=== PATIENT | female | born 1955 | race Caucasian/White ===

== ENCOUNTER 2017-02-15 21:53 | Inpatient (IN) | payer MEDICARE, MEDICAID ==
[2017-02-15 23:02] LABS: #Eosinphils 0.1 thou/uL (0.0-0.7); #Lymphocytes 1.9 thou/uL (1.20-3.40); #Monocytes 0.7 thou/uL (0.11-0.59); #Neutrophils 3.4 thou/uL (1.40-6.50); %Basophils 0.3 % (0.0-1.0); Hematocrit 36.8 % (36.0-47.0); Mean Platelet Volume 7.9 fL (7.4-10.4); Red Blood Cell (RBC) Count 3.88 mill/uL (4.20-5.40)
--- NOTE | 2017-02-15 23:10 | RAD ---
CHEST ONE VIEW: History: Cough. Comparison: 10-27-16 FINDINGS: Cardiac silhouette is unremarkable. Pulmonary vasculature is upper limits of normal. Patchy infiltra [place] over each lung base. There is no evidence of pneumothorax. Calcification is apparent wit hin the arterial structures. strap setter leads overlie the chest. IMPRESSION: Patchy bibasilar infiltrates are nonspecific. Clinical correlation regarding other signs and symptom s of bibasilar pneumonitis is required. Please consider continued follow up with upright PA and late ral views of the chest when patient can undergo that exam. POS: [facility]
[2017-02-15 23:38] LABS: Lactic Acid - Sepsis 1.1 mmol/L (0.5-2.2)
[2017-02-15] MEDS ORDERED: Piperacillin/Tazobactam 4.5 GM in Sodium Chloride 0.9% 100 ML IVPB SCH (23:45)
[2017-02-15 23:54] LABS: ALT (SGPT) 9 U/L (8-55); AST (SGOT) 18 U/L (5-34); Alkaline Phosphatase 62 U/L (40-150); Anion Gap 15 mmol/L (10-20); BUN (Urea Nitrogen) 11 mg/dL (9.8-20.1); Bilirubin, Total 0.3 mg/dL (0.2-1.2); Calc. Creatinine Clearance 0 mL/min (70-130); Carbon Dioxide 26 mmol/L (22-29); Chloride 102 mmol/L (98-107); Estimated GFR-MDRD Greater than 90; Globulin 2.8 g/dL (2.4-3.5); Protein, Total 6.4 g/dL (6.0-8.3)
[2017-02-16] MEDS ORDERED: Ondansetron ODT 4 MG TAB SL PRN (03:23)
[2017-02-16] MEDS ORDERED: Ondansetron HCl/PF 4 MG/2 ML Vial IVP PRN (03:23)
[2017-02-16] MEDS: Piperacillin/Tazobactam 4.5 GM in Sodium Chloride 0.9% 100 ML IVPB SCH ×2 (05:36→11:02)
[2017-02-16 06:03] VITALS: BMI 32.3
[2017-02-16] MEDS: guaiFENesin ER 600 MG TAB PO SCH ×2 (09:21→21:06)
[2017-02-16] MEDS ORDERED: Acetaminophen 325 MG TAB PO PRN (09:51)
[2017-02-16] MEDS ORDERED: Hydrocortisone 1% Cream 1.5 GM Packet TOP PRN (09:51)
[2017-02-16] MEDS ORDERED: Mag-Al 1200 mg/1200 mg/30 ML UDCUP PO PRN (09:53)
[2017-02-16] MEDS ORDERED: Loperamide HCl 2 MG CAP PO PRN (09:54)
[2017-02-16] MEDS ORDERED: Simethicone Chewable 80 MG TAB PO PRN (09:54)
[2017-02-16] MEDS ORDERED: DOXYLAMINE PO PRN (09:58)
[2017-02-16] MEDS ORDERED: DEXTROMETHORPHAN PO PRN (09:58)
[2017-02-16] MEDS ORDERED: Vancomycin HCl 1 GM in Premix Bag 1 BAG IVPB SCH (12:00)
[2017-02-16] MEDS: Sodium Chloride 1 GM TAB PO SCH ×2 (14:33→21:06)
[2017-02-16] MEDS: Mometasone/Formoterol 120 PUFF INHALER INH SCH (18:31)
[2017-02-16] MEDS: Sodium Chloride 0.9% 1,000 ML IV SCH (18:39)
[2017-02-16] MEDS: risperiDONE 1 MG TAB PO SCH (21:06)
[2017-02-16] MEDS: Valproate Sodium 250 mg/5 ml UD Cup PO SCH (21:07)
--- NOTE | 2017-02-17 06:12 | HP ---
DATE OF ADMISSION: 02/15/2017 CHIEF COMPLAINT: Cough, shortness of breath and hypoxia. HISTORY OF PRESENT ILLNESS: Ms. Carr is a 62-year-old female with past medical history of schizophrenia, COPD, hyponatremia who was found to be hypoxic at the [facility]. She has been having cough and congestion for some time and getting short of breath, which was getting worse over the last few days. The patient was found to be hypoxic with an O2 saturation of 88% on 4 liters. The patient was also found to have chest wheezing as well at the [facility]. The patient has been coughing, which is productive with yellow sputum, but no fever. She has complaints of some nasal congestion as well. The patient was sent to the hospital because of her hypoxia, worsening shortness of breath and cough. In the ER, the patient was evaluated and found to have COPD exacerbation as well as pneumoni. ER physician thought patient had pneumonia. Patient was given neb treatments, IV fluids, IV antibiotic, Zosyn and vancomycin and admitted for further evaluation and management. It is not clear that the patient received any IV steroids. PAST MEDICAL HISTORY: 1. COPD. 2. Schizophrenia. 3. History of hyponatremia. 4. Major depression. 5. Chronic tobacco abuse. 6. History of Parkinson disease. 7. History of falling. PAST SURGICAL HISTORY: Bladder suspension. CURRENT MEDICATIONS: She is on simethicone 80 mg q.6 hours p.r.n., Imodium p.r.n., benztropine 2 mg b.i.d., valproic acid 20 mL b.i.d., sodium chloride tablets 2000 mg t.i.d., Risperdal 2 mg b.i.d., Maalox p.r.n., lithium carbonate 300 mg b.i.d., fluphenazine 50 mg IM twice a month, Symbicort 160/4.5 two puffs b.i.d., Tylenol p.r.n. ALLERGIES: CODEINE, IODINE, PROCHLORPERAZINE. FAMILY HISTORY: Nothing significant. SOCIAL HISTORY: The patient lives at [facility]. No history of alcohol intake. She smokes one pack a day. REVIEW OF SYSTEMS: Cardiovascular: Has shortness of breath. No chest pain. Respiratory: Has cough productive of yellow sputum. No fever. Gastrointestinal: No nausea or vomiting. No abdominal pain. Genitourinary: No dysuria or hematuria. Central nervous system: No headache, no dizziness. PHYSICAL EXAMINATION: GENERAL: The patient is alert, awake and oriented x3. VITAL SIGNS: Temperature 98, pulse 92, respirations 20, blood pressure 120/70, O2 saturation 95% on 2 liters. HEENT: Head is normocephalic and atraumatic. Pupils are equal and reactive to light. Nasopharynx is pink and moist. NECK: Supple. No JVD. LUNGS: Breath sounds diminished bilaterally. Percussion not dull bilaterally. Expiratory wheeze present bilaterally. HEART: S1 and S2 regular. ABDOMEN: Soft. No distention, no tenderness. Normal bowel sounds present. RECTAL: Deferred. CENTRAL NERVOUS SYSTEM: Patient is alert, awake and oriented x3. Motor system power 4/5 in all extremities. Deep tendon reflexes 2+ bilaterally. Plantars downgoing. Sensory intact. LABORATORY AND X-RAY FINDINGS: CBC shows WBC 6, hemoglobin 12, hematocrit 36 and platelets 203. Metabolic panel shows sodium 138, potassium 4.8, chloride 102, CO2 of 26, urea nitrogen 11, creatinine 0.6, glucose 95. BNP 28. Chest x- ray shows patchy opacities seen at the bases. EKG shows normal sinus rhythm. No acute ST-T wave changes seen. ASSESSMENT: 1. Chronic obstructive pulmonary disease with acute exacerbation. 2. Acute respiratory failure secondary to #1. 3. Possible pneumonitis in both bases. 4. Bipolar disorder. 5. History of hyponatremia. 6. Tobacco abuse. PLAN: 1. Vital signs q.4 hours. 2. Activity: As tolerated. 3. Allergies: CODEINE, IODINE, PROCHLORPERAZINE, SULFA. 4. Solu-Medrol 40 mg IVP q.6 hours, DuoNebs 1 unit q.4 hours, Zosyn 3.375 grams IV piggyback q.6 hours, Mucinex 600 mg b.i.d. 5. Diet: Regular. 6. IV fluids, normal saline 70 mL per hour. 7. Continue [facility] medications. MTDD
[2017-02-17] MEDS: Mometasone/Formoterol 120 PUFF INHALER INH SCH ×2 (06:16→18:43)
[2017-02-17] MEDS: risperiDONE 1 MG TAB PO SCH ×2 (07:54→20:27)
[2017-02-17] MEDS: Valproate Sodium 250 mg/5 ml UD Cup PO SCH ×2 (07:56→20:29)
[2017-02-17] MEDS: guaiFENesin ER 600 MG TAB PO SCH ×2 (07:56→20:27)
[2017-02-17] MEDS: Sodium Chloride 0.9% 1,000 ML IV SCH (08:06)
[2017-02-17] MEDS: Sodium Chloride 1 GM TAB PO SCH ×3 (08:06→20:28)
--- NOTE | 2017-02-17 14:25 | PQF ---
CLINICAL DOCUMENTATION IMPROVEMENT CLARIFICATION FORM: ICD-10 Updated PLEASE DO AN ADDENDUM TO THE PROGRESS NOTE WITH ANY DOCUMENTATION UPDATES OR ADDITIONS AND CARRY THROUGH TO DC SUMMARY. THANK YOU. DATE: 02/17 ATTN: DR. Diego THAKUR Please exercise your independent, professional judgment in responding to the clarification form. Clinical indicators are provided on the bottom of this form for your review Please check appropriate box(s): [ y ] Empirically treating Gram Negative Pneumonia [ ] Pneumonia secondary to (specify organism / underlying disease) [ ] Simple Pneumonia (community acquired - nosocomial) [ ] Bronchopneumonia [ ] Other diagnosis [ ] Unable to determine For continuity of documentation, please document condition throughout progress notes and discharge summary. Thank You. CLINICAL INDICATORS - SIGNS / SYMPTOMS / LABS ER PHYSICIAN DOCUMENTATION 02/15: PT PRESENTS FOR COUGH X1 WEEK PRODUCTIVE OF YELLOW SPUTUM FINAL: PNEUMONIA PHYSICIAN H&P DOCUMENTATION 02/15: ASSESSMENT: 3. POSSIBLE PNEUMONITIS IN BOTH BASES PHYSICIAN PN 02/16: ASSESSMENT: PNEUMONITIS BIBASILAR CXR 02/15: FINDINGS: ...PULMONARY VASCULATURE IS UPPER LIMITS OF NORMAL. PATCHY INFILTRATES PROJECT OVER EACH LUNG BASE. RISK FACTORS: OR RESIDENT COPD EXACERBATION SHORTNESS OF BREATH CHRONIC TOBACCO ABUSE TREATMENTS: IV ANTIBIOTICS (ZOSYN 02/15 & ; VANCOMYCIN 02/16) SUPPLEMENTAL OXYGEN (2-3L NC 02/15 - PRESENT) IVF (NS 02/16 - PRESENT) THANK YOU! Marcia (This form is maintained as a part of the permanent medical record) 2014 [email or web address] All Rights Reserved Marcia Hylton RN, BSN [email or web address] Office: [phone] [facility] SYSTEM[facility]akesh[facility]
[2017-02-17] MEDS: Budesonide 0.5 MG/2 ML NEB NEB SCH (18:39)
[2017-02-18] MEDS: Budesonide 0.5 MG/2 ML NEB NEB SCH ×2 (05:55→18:28)
[2017-02-18] MEDS: Mometasone/Formoterol 120 PUFF INHALER INH SCH ×2 (05:57→18:48)
[2017-02-18] MEDS: Sodium Chloride 0.9% 1,000 ML IV SCH ×2 (07:18→10:47)
[2017-02-18] MEDS: Valproate Sodium 250 mg/5 ml UD Cup PO SCH ×2 (09:10→20:40)
[2017-02-18] MEDS: Sodium Chloride 1 GM TAB PO SCH ×3 (09:13→20:33)
[2017-02-18] MEDS: risperiDONE 1 MG TAB PO SCH ×2 (09:13→20:33)
[2017-02-18] MEDS: guaiFENesin ER 600 MG TAB PO SCH ×2 (09:14→20:32)
[2017-02-19] MEDS: Budesonide 0.5 MG/2 ML NEB NEB SCH ×2 (05:56→18:08)
[2017-02-19] MEDS: Mometasone/Formoterol 120 PUFF INHALER INH SCH ×2 (06:00→18:09)
[2017-02-19] MEDS: Sodium Chloride 0.9% 1,000 ML IV SCH ×2 (06:38→15:32)
[2017-02-19] MEDS: Valproate Sodium 250 mg/5 ml UD Cup PO SCH ×2 (09:25→21:31)
[2017-02-19] MEDS: risperiDONE 1 MG TAB PO SCH ×2 (09:26→21:35)
[2017-02-19] MEDS: Sodium Chloride 1 GM TAB PO SCH ×3 (09:27→21:34)
[2017-02-19] MEDS: guaiFENesin ER 600 MG TAB PO SCH ×2 (09:29→21:33)
--- NOTE | 2017-02-19 13:24 | RAD ---
PA AND LATERAL CHEST: COMPARISON: 02/15/17 exam. FINDINGS: Heart size is borderline. Pleural and parenchymal changes of the left base are fairly similar to the prior exam. Perhaps slight increased blunting to the left costophrenic angle. There is also some m inimal blunting to the right costophrenic angle. No signs of overt failure. IMPRESSION: 1. Borderline heart size. 2. Minimal blunting to both costophrenic angles slightly more prominent than on the prior exam sugge sting tiny effusions. POS: [facility]
[2017-02-20] MEDS: Budesonide 0.5 MG/2 ML NEB NEB SCH ×2 (06:32→18:32)
[2017-02-20] MEDS: Mometasone/Formoterol 120 PUFF INHALER INH SCH ×2 (06:36→18:33)
[2017-02-20] MEDS: predniSONE 20 MG TAB PO SCH (08:25)
[2017-02-20] MEDS: Sodium Chloride 1 GM TAB PO SCH ×3 (08:25→20:54)
[2017-02-20] MEDS: risperiDONE 1 MG TAB PO SCH ×2 (08:25→20:54)
[2017-02-20] MEDS: guaiFENesin ER 600 MG TAB PO SCH ×2 (08:26→20:52)
[2017-02-20] MEDS: Valproate Sodium 250 mg/5 ml UD Cup PO SCH ×2 (08:28→21:06)
[2017-02-21] MEDS: Budesonide 0.5 MG/2 ML NEB NEB SCH (06:44)
[2017-02-21] MEDS: Mometasone/Formoterol 120 PUFF INHALER INH SCH (07:05)
[2017-02-21] MEDS: guaiFENesin ER 600 MG TAB PO SCH (08:26)
[2017-02-21] MEDS: Sodium Chloride 1 GM TAB PO SCH ×2 (08:26→14:10)
[2017-02-21] MEDS: risperiDONE 1 MG TAB PO SCH (08:26)
[2017-02-21] MEDS: predniSONE 20 MG TAB PO SCH (08:26)
[2017-02-21] MEDS: Valproate Sodium 250 mg/5 ml UD Cup PO SCH (08:26)
[2017-02-21 14:23] VITALS: BP 115/77; TEMP 97.8
--- NOTE | 2017-02-22 11:58 | DIS ---
DATE OF ADMISSION: 02/15/2017 DATE OF DISCHARGE: 02/21/2017 ADMITTING DIAGNOSES: 1. Chronic obstructive pulmonary disease with acute exacerbation. 2. Acute on chronic respiratory failure secondary to chronic obstructive pulmonary disease with acut e exacerbation. 3. Possible pneumonitis in both bases. 4. Bipolar disorder. 5. History of hyponatremia. 6. Tobacco abuse. FINAL DIAGNOSES: 1. Acute on chronic respiratory failure due to chronic obstructive pulmonary disease exacerbation, i mproved. 2. Questionable pneumonia, both bases. 3. Bipolar disorder. 4. History of hyponatremia. 5. Tobacco abuse. 6. Schizophrenia. BRIEF SUMMARY OF HOSPITAL COURSE: Ms. Carr is a 62-year-old female admitted because of shortness of breath and respiratory failure. The patient is found to be in COPD exacerbation causing acute on chronic respiratory failure. The patient was started on Solu-Medrol and DuoNeb treatments and IV fluids as well as antibiotics. In the next couple of days, the patient continued to have shor tness of breath and wheezing. Pulmicort nebulizer was added after which she started to improve nancy r. Her breathing improved. Her wheezing resolved. Her Solu-Medrol was changed prednisone and neb treatment reduced in frequency. The patient is eating very well. The patient is still hypoxic on room air, so she was kept on O2 by nasal cannula. In view of improvement, the patient was dischar [facility]. At the time of discharge, she was stable. Her vital signs were stable. Lungs clear. Heart so unds regular. Abdomen is soft, nontender. Bowel sounds present. DISCHARGE MEDICATIONS: Include Prolixin D IM 50 mg twice monthly, Tylenol p.r.n., milk of magnesia p .r.n., Maalox p.r.n., lithium 300 mg b.i.d., Symbicort 160/4.5 two puffs b.i.d., valproic acid 250 mg per 5 mL, 20 mL b.i.d., Risperdal 2 mg b.i.d., sodium chloride 2000 mg t.i.d., simethicone 80 mg q. 6 hours p.r.n., benztropine 2 mg b.i.d., Imodium p.r.n., DuoNebs q.i.d., Mucinex 600 b.i.d. for 10 da ys, levofloxacin 750 daily for 10 days, prednisone in tapering doses. FOLLOWUP: The patient will be followed up at the retirement.
--- NOTE | 2017-03-02 09:52 | PQF ---
SAGRARIO CONKLIN VENKAT R MD [id number] CLINICAL DOCUMENTATION CLARIFICATION FORM: POST DISCHARGE DATE: 03/02/17 ATTN: Dr. Miller Please exercise your independent, professional judgment in responding to the clarification form. Clinical indicators are provided on the bottom of this form for your review Please specify type of pneumonia. Please check appropriate box(s): [ ] Aspiration Pneumonia [ ] Aspiration Bronchitis [ y ] Empirically treating Gram Negative Pneumonia [ ] Empirically treating Anaerobic Pneumonia [ ] Pneumonia secondary to (specify organism / underlying disease) [ ] Simple Pneumonia (community acquired - nosocomial) [ ] Bronchopneumonia [ ] Pneumonia of unknown etiology [ ] Other diagnosis [ ] Unable to determine In addition, please specify: Present on Admission (POA): [ ] Yes [ ] No [ ] Unable to determine For continuity of documentation, please document condition throughout progress notes and discharge summary. Thank You. CLINICAL INDICATORS - SIGNS / SYMPTOMS / LABS Fever, Chest pain, expectoration Elevated WBC Current aspiration or vomiting Current NG tube Decreased LOC or altered mental status Dysphagia / + swallow study / impaired gag reflex Purulent sputum/ positive culture results SOB, Hypoxia, ABGs, O2 sats Pulmonary infiltrate / CXR results Look for type of Antibiotics MTDD
== END 2017-02-21 15:00 | DRG 177 ==
LOC: ERS 21:53 → T4-B 23:35
PROVIDERS: ADMIT Internal Medicine; ATTEND Internal Medicine
DX: J15.6 Pneumonia due to other Gram-negative bacteria (principal); J96.01 Acute respiratory failure with hypoxia; J96.21 Acute and chronic respiratory failure with hypoxia; J44.0 Chronic obstructive pulmonary disease with (acute) lower respiratory infection; J44.1 Chronic obstructive pulmonary disease with (acute) exacerbation; E87.1 Hypo-osmolality and hyponatremia; G20 Parkinson's disease; F20.9 Schizophrenia, unspecified; F32.9 Major depressive disorder, single episode, unspecified; F17.210 Nicotine dependence, cigarettes, uncomplicated; Z88.5 Allergy status to narcotic agent; Z88.8 Allergy status to other drugs, medicaments and biological substances; Z91.041 Radiographic dye allergy status; Z85.41 Personal history of malignant neoplasm of cervix uteri
CPT/HCPCS: 71010; 71020; 80053; 83605; 83880; 85025; 87040; 93005; 94640; 94760; 96365; 96367; 99292; 99406; A4216; G8978-GP-CL; G8979-GP-CJ; J2543; J2920; J3370; J7050; J7506; J7620; J7626

== ENCOUNTER 2017-03-26 14:49 | Inpatient (IN) | payer MEDICARE, MEDICAID ==
[2017-03-26] MEDS ORDERED: methylPREDNISolone Sod Succ/PF 125 MG/2 ML VIAL ONE (15:18)
[2017-03-26 15:22] LABS: #Lymphocytes 1.2 thou/uL (1.20-3.40); #Monocytes 0.8 thou/uL (0.11-0.59); #Neutrophils 4.4 thou/uL (1.40-6.50); %Basophils 0.2 % (0.0-1.0); %Eosinophils 0.7 % (0.0-10.0); %Lymphocytes 18.3 % (21.0-51.0); %Monocytes 13.1 % (0.0-10.0); %Neutrophils 67.8 % (42.0-75.0); Hemoglobin 13.3 g/dL (12.0-16.0); Mean Corpuscular Hemoglobin 30.9 pg (27.0-31.0); Mean Corpuscular Volume 93.6 fl (81.0-99.0); Mean Platelet Volume 7.4 fL (7.4-10.4); Platelet Count 207 thou/uL (130-400); Red Blood Cell (RBC) Count 4.29 mill/uL (4.20-5.40); White Blood Cell (WBC) Count 6.4 thou/uL (4.8-10.8)
--- NOTE | 2017-03-26 15:22 | RAD ---
AP VIEW CHEST: Date: 03/26/17 HISTORY: Dyspnea. FINDINGS: AP view of chest obtained. Comparison made to previous exam from 02/15/17. AP view of chest demonstrates the lungs to be well aerated. No evidence of active intrathoracic disea se seen. No evidence of effusions, pneumonia, or pneumothorax seen. IMPRESSION: Unremarkable AP view of chest. POS: [facility]
[2017-03-26 15:43] LABS: ALT (SGPT) 12 U/L (8-55); AST (SGOT) 21 U/L (5-34); Albumin 3.8 g/dL (3.5-5.0); Alkaline Phosphatase 60 U/L (40-150); Anion Gap 9 mmol/L (10-20); BUN (Urea Nitrogen) 11 mg/dL (9.8-20.1); Bilirubin, Total 0.2 mg/dL (0.2-1.2); CK (CPK) 406 U/L (29-168); Calc. Creatinine Clearance 0 mL/min (70-130); Calcium 9.8 mg/dL (7.8-10.44); Carbon Dioxide 36 mmol/L (22-29); Chloride 92 mmol/L (98-107); Estimated GFR-MDRD 78; Globulin 2.8 g/dL (2.4-3.5); Glucose 106 mg/dL (70-105); Potassium 4.2 mmol/L (3.5-5.1); Protein, Total 6.6 g/dL (6.0-8.3); Sodium 133 mmol/L (136-145)
[2017-03-26 15:46] LABS: CKMB 4.3 ng/mL (0-6.6); Troponin I Less than 0.010 ng/mL (< 0.028)
[2017-03-26 16:24] LABS: Bilirubin Negative (Negative); Blood, Urine Small (Negative); Clarity TURBID (Clear); Glucose, Urine (Dipstick) Negative (Negative); Leukocyte Negative (Negative); Nitrite Negative (Negative); Protein, Urine (Dipstick) Negative (Neg-Trace); Specific Gravity, Urine 1.027 (1.002-1.036)
[2017-03-26 16:27] LABS: Pathc Cast-AUWi Flag 1.76 (0-2.49); Squamous Epithelial 0-3 HPF (0-3); WBC/HPF 0-3 HPF (0-3)
[2017-03-26 16:35] LABS: Bacteria/HPF 1+ HPF (None Seen); Hyaline Casts/LPF NONE SEEN LPF (0-3 Hyaline); Renal Epithelial None Seen HPF (0-3); Transitional Epithelial NONE SEEN HPF (0-3)
--- NOTE | 2017-03-26 20:04 | CT ---
ABDOMEN AND PELVIS CT WITHOUT CONTRAST 03/26/17 Reference made to 04/04/16 exam. CLINICAL HISTORY: Emergency exam in a 62-year-old female with abdominal pain and gastric distention with shortness of b reath. FINDINGS: Mild dependent pleural based densities at each lung base are present favoring atelectasis. Scattered vascular disease noted. No urolithiasis. There is moderate distention of the urinary bladder. The fuad id abdominal organs, bowel, lymph nodes, vasculature, are limited in assessment without IV or enteric contrast. No free air. There is a subtle area of increased density to the left sacral ala, nonspecif ic, and stable. There is subtle low attenuation of hepatic parenchyma which may be on the basis of he patic steatosis. IMPRESSION: Grossly stable, noncontrast CT exam, comparing to 04/04/16. POS: [facility]
[2017-03-26] MEDS ORDERED: Furosemide 40 MG/4 ML VIAL SLOW IVP SCH (21:15)
[2017-03-26 21:25] VITALS: BMI 33.0
[2017-03-26] MEDS ORDERED: guaiFENesin ER 600 MG TAB PO SCH (21:30)
[2017-03-26] MEDS ORDERED: Mometasone/Formoterol 120 PUFF INHALER INH SCH (21:30)
[2017-03-26] MEDS: predniSONE 50 MG TAB PO SCH (22:04)
[2017-03-26] MEDS ORDERED: Acetaminophen 325 MG TAB PO PRN (22:36)
[2017-03-26] MEDS ORDERED: Loperamide HCl 2 MG CAP PO PRN ×2 (22:44→22:45)
[2017-03-26] MEDS ORDERED: Mag-Al Plus 1200 MG/1200 MG/120 MG/30 ML UDCUP PO PRN (22:47)
[2017-03-26] MEDS ORDERED: Simethicone Chewable 80 MG TAB PO PRN (22:50)
[2017-03-27] MEDS: predniSONE 50 MG TAB PO SCH ×2 (02:07→09:09)
[2017-03-27] MEDS ORDERED: Mometasone/Formoterol 120 PUFF INHALER INH SCH (06:30)
[2017-03-27] MEDS ORDERED: diphenhydrAMINE 50 MG CAP PO SCH (08:00)
[2017-03-27] MEDS: Mometasone/Formoterol 120 PUFF INHALER INH SCH ×2 (08:08→19:02)
--- NOTE | 2017-03-27 08:09 | CON ---
DATE OF CONSULTATION: 03/26/2017 HISTORY OF PRESENT ILLNESS: Ms. Carr is a 62-year-old female reportedly has a history of chronic obstructive pulmonary disease and tobacco use. She was admitted last month with COPD exacerbation and treated for 8 days. She was sent home on Prolixin, Tylenol, magnesium, lithium, Symbicort, ProAir, Risperdal, simethicone , benztropine, sodium chloride, Imodium, DuoNebs, Mucinex, and Levaquin as well as a taper of prednis one. She presented back short of breath and has been noninvasively ventilated. She underwent an abdominal pelvis CT for gastric distention. No pathology was identified other than fatty infiltration of her liver. When I evaluated her, she was noninvasively ventilated and was in no distress. PAST MEDICAL HISTORY: Obtained from old records since she is unable to give a full history with mask on. She has history of schizophrenia, hyponatremia, depression, tobacco use, Parkinson disease, gai t instability, and bladder suspension. ALLERGIES: She reports allergies to CODEINE, IODINE, and PROCHLORPERAZINE. FAMILY HISTORY: Negative for lung disease at an early age. SOCIAL HISTORY: She is a smoker. She is not a drinker. She lives in a constant care environment, I believe in a [facility]. She has no history of alcohol use. REVIEW OF SYSTEMS: Otherwise negative except for shortness of breath. Specifically, she denies hemo ptysis or chest pain. She has had no documented fevers at home. She is answering via nodding. She reports a vague abdominal discomfort. She denies any extremity discomfort. The remainder of 10 poin t review of systems is negative. PHYSICAL EXAMINATION: VITAL SIGNS: She is afebrile, heart rate is in the 80s, respiratory rate is in the teens. Oximetry is in the 90s on noninvasive support downstairs. Blood pressure is stable. HEENT: Pupils are equal. Sclerae is anicteric. NECK: Supple. LUNGS: Remarkable for distant breath sounds. HEART: Regular rhythm. S1 and S2 are normal. ABDOMEN: Distended and tympanitic. EXTREMITIES: Without asymmetry. IMAGING: Chest radiograph shows no infiltrates. This was reviewed by me. LABORATORY DATA: Reviewed. White count 6.4, hemoglobin 13.3, platelets 207,000. Sodium 133, potass ium 4.2, chloride 92, bicarbonate 36, BUN 11, creatinine 0.76. I was called by the resident emergenc y room, strongly recommended blood gas testing and does not appear blood gas has been done, one will be ordered. IMPRESSION: Chronic obstructive pulmonary disease exacerbation, on noninvasive ventilation. PLAN: Admission for steroids, nebulizer treatments, antimicrobial therapy empirically, not sure she needs Levaquin again as I doubt she has a hospital-acquired infection, but this is a reasonable start . This was 70 minutes patient contact time and including time on the unit confirmed with the nurses and involving reviewing records and planning care.
--- NOTE | 2017-03-27 08:12 | HP ---
DATE OF ADMISSION: 03/26/2017 CHIEF COMPLAINT: Abdominal pain, shortness of breath and hypoxia. HISTORY OF PRESENT ILLNESS: Ms. Carr is a 62-year-old female with past medical history of schizophrenia, COPD, was found to have altered mental status. The patient was confused and hypoxi c. Her saturation are 88% on 2 liters and also complained of shortness of breath and has been coughi ng for few days, cough productive with white sputum. The patient is also having abdominal distention and discomfort for the last 3 days, but patient states she has this abdominal distention for a long time, but maybe got worse in the last few days. She specifically did not say she has any pain, no na usea or vomiting, no constipation. She had a BM yesterday, no diarrhea. The patient was hypoxic and with confusion and change in mental status. EMS was called, EMS found the patient was hypoxic, 88% on room with 2 L cannula. She was found to have chest wheezing and less respiratory distress. In th e ER, the patient was not very responsive. She was hypoxic with wheezing in both lungs. The patient received Solu-Medrol bolus as well as DuoNeb treatments, which helped her and she is more alert now and she is breathing better and she was put on BiPAP. She is being admitted to the [facility] for close mo nitoring. The patient was in the hospital last month for COPD exacerbation. PAST MEDICAL HISTORY: 1. COPD. 2. Schizophrenia. 3. History of hyponatremia. 4. Major depression. 5. Chronic tobacco abuse. 6. History of falling. PAST SURGICAL HISTORY: Bladder suspension. CURRENT MEDICATIONS: Patient is on Prolixin D IM 50 mg twice monthly, Tylenol p.r.n., Maalox p.r.n., lithium 300 mg b.i.d., Symbicort 160/4.5 two puffs b.i.d., valproic acid 250 mg b.i.d., Risperdal 2 mg b.i.d., sodium chloride 1 g t.i.d., simethicone 80 mg q.6 h. p.r.n. 20 mg b.i.d., Imodium p. r.n., DuoNebs q.i.d. ALLERGIES: IODINE, CODEINE, PROCHLORPERAZINE. FAMILY HISTORY: Nothing of interest. SOCIAL HISTORY: Patient is a resident of [facility]. No history of alcohol abuse, smokes one pack a day. REVIEW OF SYSTEMS: Cardiovascular: No chest pain, no shortness of breath. Respiratory: Denies cough, no fever. Gastr ointestinal: No nausea or vomiting, has had abdominal distention and some discomfort. Central nervo us system: No headache, no dizziness. PHYSICAL EXAMINATION: GENERAL: The patient is alert, awake, not well oriented. VITAL SIGNS: Temperature 98, pulse 103, respirations 28, blood pressure 111/70. HEENT: Head is normocephalic, atraumatic. Pupils are equal and reactive to light. Nasopharynx is p tommy and dry. Hard and soft palate, no lesions seen. SKIN: Turgor is decreased. NECK: Supple. No JVD. LUNGS: Bilateral air entry present. Expiratory wheeze present bilaterally. Percussion dull bilater ally. No rales. HEART: S1, S2, regular. ABDOMEN: Distended, but nontender. Bowel sounds present. No organomegaly. EXTREMITIES: 2+ pitting edema. CENTRAL NERVOUS SYSTEM: No focal deficit. LABORATORY AND X-RAY FINDINGS: CBC shows WBC 6.4, hemoglobin 13, hematocrit 40, platelets 207. [place] bolic panel: Sodium 133, potassium 4.2, chloride 92, CO2 of 36, BUN 11, creatinine 0.7, glucose 106, uric acid 2.3, CPK of 406. CK-MB 4.3, troponin I less than 0.010. BNP 22. Prothrombin time 13, IN R 1. Urinalysis negative. Chest x-ray no acute changes. EKG shows sinus tachycardia with heart rat e of 99, no acute ST-T wave changes seen. ASSESSMENT: 1. Acute on chronic respiratory failure. 2. Chronic obstructive pulmonary disease with acute exacerbation. 3. Metabolic encephalopathy with confusion secondary to hypoxia. 4. Abdominal distention and discomfort. 5. Schizophrenia. 6. Peripheral edema. 7. Major depression. 8. History of hyponatremia. PLAN: 1. Vital signs q.4 hours. 2. Activity: As tolerated. 3. Allergies: CODEINE, IODINE and SULFA. 4. Hep-Lock. 5. Diet: N.p.o. except medicines. 6. Solu-Medrol 40 IVP q.6 hours. 7. DuoNeb q.4 hours. 8. Protonix 40 mg IV piggyback daily. 9. Lovenox 40 mg subcu daily. 10. Continue [facility]ci medication. 11. Symbicort 160/4.5 two puffs b.i.d. 12. Mucinex 600 mg b.i.d. 13. BiPAP. 14. Pulmonary consult. 15. CT scan of the abdomen.
[2017-03-27] MEDS ORDERED: FLU VACC QS2017-18 36 mo. & older 0.5 ML SYRINGE IM ONE (09:00)
[2017-03-27] MEDS ORDERED: guaiFENesin ER 600 MG TAB PO SCH (09:00)
[2017-03-27] MEDS: Enoxaparin Sodium 40 MG/0.4 ML SYRINGE SC SCH (09:45)
[2017-03-27] MEDS: risperiDONE 1 MG TAB PO SCH ×3 (09:46→20:18)
[2017-03-27] MEDS: guaiFENesin ER 600 MG TAB PO SCH ×2 (09:46→20:18)
[2017-03-27] MEDS: Benztropine 1 MG TAB PO SCH ×2 (09:46→20:16)
[2017-03-27] MEDS: Valproate Sodium 250 mg/5 ml UD Cup PO SCH ×2 (09:59→20:14)
[2017-03-27] MEDS: Pantoprazole 40 MG VIAL IVP SCH (09:59)
[2017-03-27] MEDS: Sodium Chloride 1 GM TAB PO SCH ×3 (10:00→20:17)
[2017-03-27] MEDS: Lithium Carbonate 150 MG CAP PO SCH ×2 (10:00→20:18)
--- NOTE | 2017-03-27 20:54 | PRG ---
DATE OF SERVICE: 03/27/2017 Majo Carr is back near her baseline. In my opinion, she is in no distress. OBJECTIVE: VITAL SIGNS: Have been stable. LUNGS: Clear when I evaluated this morning. HEART: Regular rhythm. ABDOMEN: Soft. IMPRESSION: Chronic obstructive pulmonary disease exacerbation with respiratory failure, status post BiPAP support. She can be transferred out of the Intermediate care unit to a medical bed and hopefu lly discharge in 24-48 hours.
[2017-03-28] MEDS: Mometasone/Formoterol 120 PUFF INHALER INH SCH ×2 (06:58→18:59)
[2017-03-28] MEDS: Lithium Carbonate 150 MG CAP PO SCH ×2 (11:05→20:27)
[2017-03-28] MEDS: guaiFENesin ER 600 MG TAB PO SCH ×2 (11:05→20:28)
[2017-03-28] MEDS: Sodium Chloride 1 GM TAB PO SCH ×3 (11:05→20:28)
[2017-03-28] MEDS: Benztropine 1 MG TAB PO SCH ×2 (11:05→20:26)
[2017-03-28] MEDS: Pantoprazole 40 MG VIAL IVP SCH (11:05)
[2017-03-28] MEDS: Valproate Sodium 250 mg/5 ml UD Cup PO SCH ×2 (11:05→20:29)
[2017-03-28] MEDS: Enoxaparin Sodium 40 MG/0.4 ML SYRINGE SC SCH (11:06)
[2017-03-28] MEDS: risperiDONE 1 MG TAB PO SCH ×3 (11:45→20:28)
--- NOTE | 2017-03-28 20:13 | PRG ---
DATE OF SERVICE: 03/28/2017 SUBJECTIVE: The patient was seen and examined at bedside. She is feeling much better. She does hav e some wheezing and also coughing. No fever or chills. No nausea, vomiting, no diarrhea, no chest p ain reported. OBJECTIVE: GENERAL: This is an obese female in no apparent distress. VITAL SIGNS: Temperature 97.5, pulse 86, respiratory rate 16, blood pressure 119/61. HEENT: Atraumatic, normocephalic. Oral mucosa is moist. NECK: Supple, no masses. CARDIOVASCULAR: S1, S2 heard. RESPIRATORY: Wheezes present and reduced breath sounds. GASTROINTESTINAL: Abdomen is soft and obese. MUSCULOSKELETAL: No edema. DERMATOLOGIC: No skin rash. NEUROLOGIC: Alert, awake. PSYCHIATRIC: Mood and affect normal. LABORATORY DATA: Not done today. ASSESSMENT AND PLAN: 1. Acute on chronic hypoxic respiratory failure, much better. 2. Chronic obstructive pulmonary disease exacerbation. Follow with Pulmonology. Continue on curren t medication. Patient seems to be getting better. 3. Metabolic encephalopathy. 4. Altered mentation, better. 5. Schizophrenia. 6. Major depression. 7. History of hyponatremia, check labs in the morning. 8. Peripheral edema. Overall, patient seems to be getting better. We will continue current medication. Follow with Pulmo nology for further recommendations, possible discharge in 1-[address] Miller to take over the service in the morning.
[2017-03-28] MEDS: Naproxen 500 MG TAB PO SCH (20:26)
[2017-03-29] MEDS: Milk Of Magnesia 30 ML UDCUP PO PRN ×2 (03:32→17:27)
[2017-03-29 04:34] LABS: #Monocytes 0.2 thou/uL (0.11-0.59); #Neutrophils 6.9 thou/uL (1.40-6.50); %Basophils 0.1 % (0.0-1.0); %Eosinophils 0.4 % (0.0-10.0); %Lymphocytes 12.2 % (21.0-51.0); %Monocytes 2.9 % (0.0-10.0); %Neutrophils 84.3 % (42.0-75.0); Hemoglobin 12.4 g/dL (12.0-16.0); Mean Corpuscular HGB CONC 31.9 g/dL (32.0-36.0); Mean Corpuscular Hemoglobin 30.4 pg (27.0-31.0); Mean Corpuscular Volume 95.1 fl (81.0-99.0); Mean Platelet Volume 7.4 fL (7.4-10.4); Platelet Count 229 thou/uL (130-400); RBC Distribution Width 12.9 % (11.5-14.5); White Blood Cell (WBC) Count 8.1 thou/uL (4.8-10.8)
[2017-03-29 04:50] LABS: Anion Gap 14 mmol/L (10-20); BUN (Urea Nitrogen) 13 mg/dL (9.8-20.1); Calc. Creatinine Clearance 101 mL/min (70-130); Calcium 9.1 mg/dL (7.8-10.44); Carbon Dioxide 31 mmol/L (22-29); Chloride 94 mmol/L (98-107); Estimated GFR-MDRD 74; Glucose 131 mg/dL (70-105); Potassium 4.5 mmol/L (3.5-5.1); Sodium 134 mmol/L (136-145)
[2017-03-29] MEDS: Benztropine 1 MG TAB PO SCH ×2 (08:08→21:15)
[2017-03-29] MEDS: Lithium Carbonate 150 MG CAP PO SCH ×2 (08:09→21:12)
[2017-03-29] MEDS: guaiFENesin ER 600 MG TAB PO SCH ×2 (08:09→21:12)
[2017-03-29] MEDS: Sodium Chloride 1 GM TAB PO SCH ×3 (08:09→21:12)
[2017-03-29] MEDS: Pantoprazole 40 MG VIAL IVP SCH (08:10)
[2017-03-29] MEDS: Enoxaparin Sodium 40 MG/0.4 ML SYRINGE SC SCH (08:10)
[2017-03-29] MEDS: Valproate Sodium 250 mg/5 ml UD Cup PO SCH ×2 (08:46→21:22)
[2017-03-29] MEDS: Naproxen 500 MG TAB PO SCH ×2 (08:46→14:59)
[2017-03-29] MEDS: risperiDONE 1 MG TAB PO SCH ×3 (08:46→21:16)
[2017-03-29] MEDS: Mometasone/Formoterol 120 PUFF INHALER INH SCH ×2 (10:26→19:32)
[2017-03-30] MEDS: Valproate Sodium 250 mg/5 ml UD Cup PO SCH ×2 (08:06→21:18)
[2017-03-30] MEDS: Enoxaparin Sodium 40 MG/0.4 ML SYRINGE SC SCH (08:07)
[2017-03-30] MEDS: Lithium Carbonate 150 MG CAP PO SCH ×2 (08:07→21:19)
[2017-03-30] MEDS: Pantoprazole 40 MG VIAL IVP SCH (08:07)
[2017-03-30] MEDS: Benztropine 1 MG TAB PO SCH ×2 (08:07→21:20)
[2017-03-30] MEDS: risperiDONE 1 MG TAB PO SCH ×3 (08:07→21:20)
[2017-03-30] MEDS: guaiFENesin ER 600 MG TAB PO SCH ×2 (08:07→21:20)
[2017-03-30] MEDS: Sodium Chloride 1 GM TAB PO SCH ×3 (08:07→21:20)
[2017-03-30] MEDS: Mometasone/Formoterol 120 PUFF INHALER INH SCH ×2 (11:09→19:49)
[2017-03-31] MEDS: Mometasone/Formoterol 120 PUFF INHALER INH SCH ×2 (06:21→19:05)
[2017-03-31] MEDS: Benztropine 1 MG TAB PO SCH ×2 (08:38→21:15)
[2017-03-31] MEDS: guaiFENesin ER 600 MG TAB PO SCH ×2 (08:39→21:15)
[2017-03-31] MEDS: Sodium Chloride 1 GM TAB PO SCH ×3 (08:39→21:17)
[2017-03-31] MEDS: Lithium Carbonate 150 MG CAP PO SCH ×2 (08:39→21:16)
[2017-03-31] MEDS: Naproxen 500 MG TAB PO PRN ×2 (08:39→21:15)
[2017-03-31] MEDS: Pantoprazole 40 MG VIAL IVP SCH (08:40)
[2017-03-31] MEDS: risperiDONE 1 MG TAB PO SCH ×3 (08:40→21:17)
[2017-03-31] MEDS: Valproate Sodium 250 mg/5 ml UD Cup PO SCH ×2 (08:41→21:12)
[2017-03-31] MEDS: Enoxaparin Sodium 40 MG/0.4 ML SYRINGE SC SCH (08:42)
[2017-04-01] MEDS: Mometasone/Formoterol 120 PUFF INHALER INH SCH (06:38)
[2017-04-01 08:08] VITALS: BP 107/70
[2017-04-01 08:43] VITALS: TEMP 96.3
[2017-04-01] MEDS ORDERED: predniSONE 20 MG TAB PO SCH (09:00)
[2017-04-01] MEDS: Benztropine 1 MG TAB PO SCH (09:13)
[2017-04-01] MEDS: Enoxaparin Sodium 40 MG/0.4 ML SYRINGE SC SCH (09:13)
[2017-04-01] MEDS: Sodium Chloride 1 GM TAB PO SCH (09:14)
[2017-04-01] MEDS: Lithium Carbonate 150 MG CAP PO SCH (09:14)
[2017-04-01] MEDS: risperiDONE 1 MG TAB PO SCH (09:14)
[2017-04-01] MEDS: guaiFENesin ER 600 MG TAB PO SCH (09:14)
[2017-04-01] MEDS: Pantoprazole 40 MG VIAL IVP SCH (09:14)
[2017-04-01] MEDS: Valproate Sodium 250 mg/5 ml UD Cup PO SCH (09:15)
--- NOTE | 2017-04-02 13:35 | DIS ---
DATE OF ADMISSION: 03/26/2017 DATE OF DISCHARGE: 04/01/2017 ADMITTING DIAGNOSES: 1. Acute on chronic respiratory failure. 2. Chronic obstructive pulmonary disease with acute exacerbation. 3. Metabolic encephalopathy with confusion secondary to hypoxia. 4. Abdominal distention and discomfort. 5. Schizophrenia. 6. Major depression. 7. History of hyperlipidemia. FINAL DIAGNOSES: 1. Acute on chronic respiratory failure secondary to chronic obstructive pulmonary disease exacerbat ion, improved. 2. Abdominal distention, resolved. 3. Confusion, resolved. 4. Metabolic encephalopathy, improved. 5. Schizophrenia, improved. 6. Peripheral edema. 7. Major depression. BRIEF SUMMARY OF HOSPITAL COURSE: Ms. Carr is a 62-year-old female who presented with r espiratory failure secondary to chronic obstructive pulmonary disease exacerbation. Initially, she w as on BiPAP and admitted to CCU. A pulmonary consult was done and the patient was seen by Dr. Peña, who suggested continued neb treatments, Solu-Medrol, and suggested wean her off BiPAP and later she was moved out of ICU. The patient tolerated the treatments very well and she was on nasal cannula. She continued to have some diffuse wheezing, but it resolved with steroids and neb treatments and Pul micort. In view of improvement, the patient was discharged. At the time of discharge, she was stabl e. Her vital signs were stable. Lungs clear. Heart sounds regular. Abdomen soft and nontender and bowel sounds present. DISCHARGE MEDICATIONS: Include Prolixin D twice monthly, Tylenol p.r.n., Milk of Magnesia p.r.n., li thium 300 mg b.i.d., Symbicort 160/4.5 b.i.d. 2 puffs, valproic acid 20 mL, Risperdal 1 mg b.i.d., si methicone p.r.n., sodium chloride 1 gram b.i.d., benztropine 2 mg b.i.d., DuoNebs q.4 h., Mucinex 600 b.i.d. for 10 days, Aleve p.r.n., Risperdal 0.25 mg at bedtime. DISCHARGE PLANS: The patient will be on home oxygen 2 liters by nasal cannula. She will be followed up in 2 weeks.
--- NOTE | 2017-04-03 15:26 | EKG ---
Test Reason : Blood Pressure : / mmHG Vent. Rate : 099 BPM Atrial Rate : 099 BPM P-R Int : 134 ms QRS Dur : 074 ms QT Int : 356 ms P-R-T Axes : 082 -78 063 degrees QTc Int : 456 ms Normal sinus rhythm Left axis deviation Pulmonary disease pattern Possible Inferior infarct , age undetermined Abnormal ECG Confirmed by LESLIE DEAN, AMY Hernández ([id number]), newspaper managing editor VIDA ERICKSON ([id number]) on 04/03/2017 3:26:08 PM Referred By: Confirmed By:AMY NELSON MD
== END 2017-04-01 10:25 | DRG 189 ==
LOC: ERS 14:49 → IMCU/EMU 16:46 → ONC 03-27 17:34
PROVIDERS: ADMIT Internal Medicine; ATTEND Internal Medicine
PROC: 5A09357 Assistance with Respiratory Ventilation, Less than 24 Consecutive Hours, Continuous Positive Airway Pressure (ICD-10-PCS; principal; 2017-03-26)
DX: J96.21 Acute and chronic respiratory failure with hypoxia (principal); G93.41 Metabolic encephalopathy; F20.9 Schizophrenia, unspecified; J44.1 Chronic obstructive pulmonary disease with (acute) exacerbation; F32.9 Major depressive disorder, single episode, unspecified; F17.210 Nicotine dependence, cigarettes, uncomplicated; Z88.5 Allergy status to narcotic agent; Z88.8 Allergy status to other drugs, medicaments and biological substances; Z91.041 Radiographic dye allergy status
CPT/HCPCS: 36415; 51701; 71010; 74176; 80048; 80053; 80178; 81003; 81015; 82550; 82553; 83880; 84484; 85025; 87086; 93005; 94640; 94660; 96374; A4216; A4353; C9113; J1650; J1956; J2920; J2930; J7506; J7620

== ENCOUNTER 2017-04-26 14:22 | Inpatient (IN) | payer MEDICARE, MEDICAID ==
[2017-04-26 14:50] LABS: #Basophils 0.1 thou/uL (0.0-0.2); #Lymphocytes 1.4 thou/uL (1.20-3.40); #Monocytes 0.8 thou/uL (0.11-0.59); #Neutrophils 3.5 thou/uL (1.40-6.50); %Basophils 0.9 % (0.0-1.0); %Eosinophils 0.6 % (0.0-10.0); %Lymphocytes 24.1 % (21.0-51.0); %Monocytes 13.9 % (0.0-10.0); %Neutrophils 60.5 % (42.0-75.0); Hemoglobin 12.8 g/dL (12.0-16.0); Mean Corpuscular HGB CONC 32.3 g/dL (32.0-36.0); Mean Corpuscular Hemoglobin 30.6 pg (27.0-31.0); Mean Corpuscular Volume 94.7 fl (81.0-99.0); Mean Platelet Volume 7.1 fL (7.4-10.4); Platelet Count 221 thou/uL (130-400); RBC Distribution Width 13.4 % (11.5-14.5); Red Blood Cell (RBC) Count 4.17 mill/uL (4.20-5.40); White Blood Cell (WBC) Count 5.9 thou/uL (4.8-10.8)
--- NOTE | 2017-04-26 15:02 | RAD ---
ONE VIEW CHEST: HISTORY: Unresponsive patient on scene. The patient is now alert and oriented x 4. COMPARISON: 03/26/17. FINDINGS: Portable semiupright chest demonstrates a normal cardiac silhouette. There is atherosclerosis of the aorta. The pulmonary vessels are within normal limits. There is fullness of the right hilum. Cost ophrenic angles are clear. No consolidation. No pneumothorax or osseous abnormalities. IMPRESSION: 1. Right hilar fullness. Better interrogation with 2-view chest radiograph is recommended. 2. Atherosclerosis. POS: [facility]
[2017-04-26 15:07] LABS: pH, Arterial 7.26 (7.35-7.45)
[2017-04-26 15:08] LABS: Actual Bicarbonate (HCO3a) 35.3 mEq/L (22-26); Base Excess (BEa) 5.8 mEq/L (0 (+/-) 2.5); CO2 Tension 80.4 mmHg (35.0-45.0); Hematocrit-ABG 39.3 % (36.0-47.0); Hemoglobin (Hb) 12.1 g/dL (12.0-16.0); O2 Tension (PaO2) 92.8 mmHg (80.0-100.0)
[2017-04-26 15:09] LABS: Analyzer IN Cardio ER; Calcium, Ionized 1.3 mmol/L (1.12-1.30); Puncture Site RRA
[2017-04-26 15:11] LABS: AST (SGOT) 12 U/L (5-34); Anion Gap 13 mmol/L (10-20); Bilirubin, Total 0.3 mg/dL (0.2-1.2); Calcium 9.3 mg/dL (7.8-10.44); Carbon Dioxide 32 mmol/L (22-29); Chloride 99 mmol/L (98-107); Potassium 4.9 mmol/L (3.5-5.1); Sodium 139 mmol/L (136-145)
[2017-04-26 15:15] LABS: ALT (SGPT) 8 U/L (8-55); Albumin 3.6 g/dL (3.5-5.0); Alkaline Phosphatase 52 U/L (40-150); BUN (Urea Nitrogen) 11 mg/dL (9.8-20.1); CK (CPK) 51 U/L (29-168); Calc. Creatinine Clearance 0 mL/min (70-130); Estimated GFR-MDRD 80; Globulin 2.3 g/dL (2.4-3.5); Glucose 88 mg/dL (70-105); Protein, Total 5.9 g/dL (6.0-8.3)
[2017-04-26 15:16] LABS: CKMB 1.8 ng/mL (0-6.6); Troponin I Less than 0.010 ng/mL (< 0.028)
--- NOTE | 2017-04-26 15:32 | CT ---
NONCONTRAST CT HEAD: DATE: 04/26/17. HISTORY: Altered mental status. COMPARISON: 04/04/16. FINDINGS: There is no evidence of a hemorrhage, acute infarction, mass effect, or midline shift. The ventricul ar system is normal in size, shape, and position. Mucosal thickening is again seen in the bilateral ethmoidal air cells, maxillary antrum, and each sphenoid sinus. Mastoid air cells are clear. Calvar ial structures are intact. No other interval change. IMPRESSION: 1. No acute intracranial abnormalities demonstrated. 2. Sinus disease. POS: [facility]
--- NOTE | 2017-04-26 16:22 | CT ---
ABDOMEN CT WITHOUT CONTRAST PELVIC CT WITHOUT CONTRAST: Date: 04/26/17 COMPARISON: 03/26/17. TECHNIQUE: Abdomen and pelvic CT performed without contrast. Coronal reformatted images are submitted for interp retation. HISTORY: Distention. Pain. FINDINGS: ABDOMEN CT: Chronic changes in the lung base. Interval development of scar or atelectasis in the middle lobe, adj acent to the right heart border. Heart size is within normal limits. No pericardial effusion. There i s atherosclerosis of a nonaneurysmal aorta. Symmetric attenuation of psoas muscles. Gallbladder is contracted. Limited evaluation of the solid organs due to lack of IV contrast and motion degradation. No solid or manav abnormality. Mild atrophy of the pancreas. Symmetric attenuation of the adrenal glands. No gastrohepatic, retrocrural, or periportal lymphadenopathy. No mesenteric mass, lymphadenopathy, free air, or free fluid. Limited evaluation of the alimentary canal due to lack of oral contrast. Grossly unremarkable gastric mucosa, duodenum, and multiple normal caliber small bowel loops. Normal ileocecal junction. Normal c aliber appendix. Appendicoliths are noted. No evidence of inflammation. Fecal material in a nondisten ded, nondilated colon. There is diverticulosis, without evidence of diverticulitis. Bilaterally, no hydronephrosis, nephrolithiasis, or perinephric fat stranding. Bilateral ureters have a normal caliber. No hydroureter, periureteral fat stranding, or ureterolithiasis. PELVIC CT: Surgically absent uterus. No mass, lymphadenopathy, free air, or free fluid. Urinary bladder is unrem arkable. No lytic or blastic lesions in the osseous structures. IMPRESSION: No acute abnormality in the abdomen or pelvis. POS: [facility]
[2017-04-26] MEDS ORDERED: CCU Electrolyte Replacement 1 EACH FS ONE (17:55)
[2017-04-26] MEDS ORDERED: Water For Inject, Bacteriostat 30 ML ONE (17:57)
[2017-04-26] MEDS ORDERED: Magnesium 2 GM/NS 0.9% 100 ML 2 GM in Premix Bag 1 BAG IVPB PRN (18:08)
[2017-04-26] MEDS ORDERED: Magnesium Oxide 400 MG TAB PO PRN ×2 (18:08)
[2017-04-26] MEDS ORDERED: Potassium Phosphate 15 MMOL in Sodium Chloride 0.9% 250 ML 250 ML IV PRN (18:08)
[2017-04-26] MEDS ORDERED: Potassium Phosphate 12 MMOL in Sodium Chloride 0.9% 250 ML 250 ML IV PRN (18:08)
[2017-04-26] MEDS ORDERED: CCU ELECTROLYTE REPLACEMENT PROTOCOL FS PRN (18:08)
[2017-04-26] MEDS ORDERED: Potassium Chloride 20 MEQ TAB PO PRN (18:08)
[2017-04-26] MEDS ORDERED: Potassium Chloride 40 MEQ in Premix Bag 1 BAG IVPB PRN (18:08)
[2017-04-26] MEDS ORDERED: Potassium Phosphate 9 MMOL in Sodium Chloride 0.9% 100 ML IVPB PRN (18:08)
[2017-04-26] MEDS ORDERED: Potassium Chloride 40 MEQ in Sodium Chloride 0.9% 250 ML 250 ML IVPB PRN (18:08)
[2017-04-26] MEDS: Arformoterol 15 MCG/2 ML NEB NEB SCH (19:32)
[2017-04-26] MEDS: Budesonide 0.5 MG/2 ML NEB INH SCH (19:32)
--- NOTE | 2017-04-26 20:23 | CON ---
DATE OF CONSULTATION: 04/26/2017 CONSULTING PHYSICIAN: Wilder Miller M.D. REASON FOR CONSULTATION: COPD exacerbation. HISTORY OF PRESENT ILLNESS: This patient is a 62-year-old female who presented to the emergency room unresponsive from CO2 narcosis. She has seen Dr. Horton in our practice in the past. The patient was placed on BiPAP and is now awake, but somewhat confused as to location. PAST MEDICAL HISTORY: Obtained from old records, she has, 1. Severe chronic obstructive pulmonary disease. 2. Schizophrenia. 3. Hyponatremia. 4. Depression. 5. Tobacco abuse. 6. Parkinson disease. 7. Has had a bladder suspension in the past. ALLERGIES: CODEINE, IODINE, PROCHLORPERAZINE and SULFA DRUGS. FAMILY MEDICAL HISTORY: Negative for lung disease. SOCIAL HISTORY: Smokes about 8 cigarettes per day. Does not consume alcohol. Lives in a [facility] [place] environment. REVIEW OF SYSTEMS: Unobtainable due the patient's altered mental status. CURRENT OUTPATIENT MEDICATIONS: Not known at this time. Her last hospital discharge several weeks a go, she was on Prolixin twice monthly, lithium 300 mg b.i.d., Symbicort 160/4.5 two puffs b.i.d., kumar proic acid, Risperdal, simethicone, benztropine, DuoNeb, Mucinex, and Aleve. PHYSICAL EXAMINATION: VITAL SIGNS: Heart rate is running about 80, blood pressure 120/70, respiratory rate 18, O2 sat 96%. GENERAL: She is arousable and will follow commands for me. She is confused though and cannot give a reliable history. HEENT: Pupils react. Sclerae are anicteric. Oropharynx clear. NECK: No adenopathy, no JVD. LUNGS: She has diminished breath sounds bilaterally without active crackles. She does have expirato ry wheezing. CARDIOVASCULAR: S1, S2 regular, no murmur. ABDOMEN: Soft, obese, nontender, nondistended. EXTREMITIES: No clubbing, cyanosis, or edema. SKIN: Shows no lesions. LABORATORY DATA: White blood cell count 5.9, hematocrit 39.5, platelet count 221, pH 7.26, pCO2 of 8 0, pO2 of 92 that was on 3 liters nasal cannula. Sodium 139, potassium 4.9, chloride 99, CO2 of 32, BUN 11, creatinine 0.7, and glucose 88. BNP level 41. Chest x-ray read by myself demonstrates cardiomegaly, no acute infiltrates. There is some right disha r fullness. Brain CT showed no acute abnormalities. Abdominal and pelvis CT demonstrates no acute a bnormalities. ASSESSMENT: 1. Chronic obstructive pulmonary disease with exacerbation. 2. Acute hypercapnic respiratory failure. 3. History of schizophrenia. PLAN: The patient will be placed in the Intermediate Care Unit and receive BiPAP as needed. She jimena l be started on corticosteroids nebulization therapy Brovana and Pulmicort. I will put her on empiri c antibiotics for the time being. I will notify Dr. Horton of the patient's location. The above encom passed 45 minutes critical care time in direct contact with the patient. Overall 70 minutes was spen t with the patient and 50% of that time was spent in counseling and coordination of care.
[2017-04-26] MEDS: Sodium Chloride 0.45% 1,000 ML IV SCH (20:34)
[2017-04-26] MEDS: guaiFENesin ER 600 MG TAB PO SCH (21:06)
[2017-04-26 22:03] VITALS: BMI 34.4
[2017-04-27 04:45] LABS: #Lymphocytes 0.6 thou/uL (1.20-3.40); #Monocytes 0.2 thou/uL (0.11-0.59); #Neutrophils 4.1 thou/uL (1.40-6.50); %Basophils 0.2 % (0.0-1.0); %Eosinophils 0.1 % (0.0-10.0); %Lymphocytes 11.5 % (21.0-51.0); %Neutrophils 84.1 % (42.0-75.0); Hemoglobin 11.7 g/dL (12.0-16.0); Mean Corpuscular HGB CONC 32.3 g/dL (32.0-36.0); Mean Corpuscular Hemoglobin 30.4 pg (27.0-31.0); Mean Corpuscular Volume 94.1 fl (81.0-99.0); Mean Platelet Volume 7.5 fL (7.4-10.4); Platelet Count 202 thou/uL (130-400); RBC Distribution Width 13.2 % (11.5-14.5); Red Blood Cell (RBC) Count 3.86 mill/uL (4.20-5.40); White Blood Cell (WBC) Count 4.8 thou/uL (4.8-10.8)
[2017-04-27 05:06] LABS: Anion Gap 16 mmol/L (10-20); BUN (Urea Nitrogen) 14 mg/dL (9.8-20.1); Calc. Creatinine Clearance 130 mL/min (70-130); Calcium 9.3 mg/dL (7.8-10.44); Carbon Dioxide 28 mmol/L (22-29); Chloride 96 mmol/L (98-107); Estimated GFR-MDRD Greater than 90; Glucose 123 mg/dL (70-105); Potassium 4.7 mmol/L (3.5-5.1); Sodium 135 mmol/L (136-145)
[2017-04-27] MEDS: Arformoterol 15 MCG/2 ML NEB NEB SCH ×2 (06:52→18:58)
[2017-04-27] MEDS: Budesonide 0.5 MG/2 ML NEB INH SCH ×2 (06:53→18:58)
[2017-04-27] MEDS: Mometasone/Formoterol 120 PUFF INHALER INH SCH ×2 (06:53→18:58)
[2017-04-27] MEDS: Sodium Chloride 0.45% 1,000 ML IV SCH ×2 (08:00→21:41)
[2017-04-27] MEDS: guaiFENesin ER 600 MG TAB PO SCH ×4 (08:01→21:42)
[2017-04-27] MEDS: Enoxaparin Sodium 40 MG/0.4 ML SYRINGE SC SCH (08:01)
[2017-04-27] MEDS: Pantoprazole 40 MG VIAL IVP SCH (08:01)
--- NOTE | 2017-04-27 08:25 | RAD ---
PORTABLE SEMI UPRIGHT FRONTAL CHEST RADIOGRAPH: Date: 04-27-17 Comparison: 04-26-17 History: Ventilated patient. FINDINGS: There is no endotracheal tube in place. Heart and mediastinal contours are stable. There is mild pulm onary vascular prominence with no pneumothorax, pleural fluid, lobar consolidation or alveolar edema. There is mild diffuse increased linear interstitial density, significance uncertain. IMPRESSION: Mild diffuse increased interstitial density with pulmonary congestion. No lobar consolidation or alve olar edema. Interstitial prominence may reflect mild interstitial edema or inflammatory change. Follo w up advised as clinically indicated. POS: [facility]
[2017-04-27] MEDS ORDERED: LITHIUM CARBONATE 300 MG PO SCH (09:00)
[2017-04-27] MEDS ORDERED: BENZTROPINE MESYLATE 2 MG PO SCH (09:00)
--- NOTE | 2017-04-27 09:12 | PRG ---
DATE OF SERVICE: 04/27/2017 Ms. Carr this morning is awake, alert, responsive. Admitted last night with chronic obstructive p ulmonary disease exacerbation. CT chest, abdomen, and pelvis was done which was unrevealing. She is complaining of considerable abdominal discomfort. She has gained considerable weight since my last visit. PHYSICAL EXAMINATION: VITAL SIGNS: Blood pressure 125/68, pulse is 95, temperature 97, respiration 24. CHEST: Chest revealed decreased breath sounds, no wheezing. CARDIAC: Normal S1-S2. No gallops. ABDOMEN: Soft. No masses. LABORATORY: White count 4000, H&H 9 and 36, platelet count 204. Electrolytes are normal. IMPRESSION: 1. Chronic obstructive pulmonary disease exacerbation. 2. Marked respiratory acidosis. 3. Ongoing tobacco use. 4. Bipolar disorder. PLAN: Minimize sedation. Aggressive PT, supportive care. She needs a sat of no more than 91 to 92% . . I did not increase oxygen more than 24-28% FIO2. I will follow.
[2017-04-27] MEDS: risperiDONE 1 MG TAB PO SCH ×2 (09:20→21:56)
[2017-04-27] MEDS: Benztropine 1 MG TAB PO SCH ×2 (09:20→21:42)
[2017-04-27] MEDS: Lithium Carbonate 150 MG CAP PO SCH ×2 (09:21→21:42)
[2017-04-27] MEDS: Valproate Sodium 250 mg/5 ml UD Cup PO SCH ×2 (11:54→21:48)
--- NOTE | 2017-04-27 13:35 | HP ---
CHIEF COMPLAINT: Mental status changes and shortness of breath. HISTORY OF PRESENT ILLNESS: Ms. Carr is a 62-year-old female with past medical history of COPD, hypertension and schizophrenia, it was found the patient to be lethargic and hypoxic as well . The [facility] also [facility]. The patient usually is tommy rt and awake x3, but now she was not responding, very lethargic. She does not want to eat and was O2 saturation was 86% on 3 liters. The patient was sent to the hospital. In the ER, the patient was e valuated and found to have CO2 80. The patient received DuoNeb and Solu-Medrol in the ER and she bec carlyn awake later on. PAST MEDICAL HISTORY: 1. Chronic obstructive pulmonary disease. 2. Schizophrenia. 3. Major depression. 4. History of hyponatremia. 5. Chronic tobacco abuse. 6. History of falling. PAST SURGICAL HISTORY: Status post bladder suspension. CURRENT MEDICATIONS: Patient is on DuoNebs q.i.d., Cogentin 2 mg b.i.d., Prolixin D twice monthly 25 mg, Mucinex 600 b.i.d., lithium 300 mg b.i.d., Tylenol p.r.n., Milk of Magnesia p.r.n., Symbicort 16 0/4.5 two puffs b.i.d., valproic acid 20 mL daily, Risperdal 1 mg b.i.d. and 1.5 mg at bedtime, simet hicone p.r.n., sodium chloride 1 gram b.i.d. ALLERGIES: CODEINE, IODINE, PROCHLORPERAZINE. FAMILY HISTORY: Nothing significant. SOCIAL HISTORY: [facility]. No history of alcohol intake. Smokes one pa ck a day. REVIEW OF SYSTEMS: CARDIOVASCULAR: No chest pain, has shortness of breath. RESPIRATORY: She has no fever, has cough productive with white sputum. CENTRAL NERVOUS SYSTEM: No headache, no dizziness. PHYSICAL EXAMINATION: GENERAL: The patient is alert, awake, oriented x3. VITAL SIGNS: Temperature 100, pulse 90, respirations 20, blood pressure 150/80. HEENT: Head is normocephalic, atraumatic. Pupils equal and reactive. Nasopharynx is pink, moist. NECK: Supple. No JVD. LUNGS: Breath sounds diminished bilaterally. Expiratory wheeze present. CARDIAC: S1, S2 regular. ABDOMEN: Soft, no distention, no tenderness. No organomegaly. Normal bowel sounds. RECTAL: Deferred. NEUROLOGIC: The patient is awake and alert. Motor system power 4/5 in all extremities. Deep tendon reflexes 2+ bilaterally. Plantars downgoing. Sensory intact. LABORATORY AND X-RAY FINDINGS: CBC shows WBC 5.9, hemoglobin 12, hematocrit 39, platelets 221. [place] bolic panel shows sodium 139, potassium 4.9, chloride 99, CO2 32, BUN 11, creatinine 0.7, glucose 88. ABG showed pH 7.6, pCO2 80, pO2 92, saturation 96%. Chest x-ray mild diffuse increased interstitial changes seen, no consolidation. Brain CT showed no a bnormalities. ASSESSMENT: 1. Chronic obstructive pulmonary disease with acute exacerbation. 2. CO2 narcosis with acute encephalopathy. 3. Schizophrenia. 4. Tobacco abuse. 5. History of hyponatremia. 6. Depression. 7. Parkinson's. PLAN: 1. Vital signs q.4 hours. 2. Activity: As tolerated. 3. Allergies: CODEINE, IODINE, PROCHLORPERAZINE, SULFA. 4. Hep-Lock. 5. Solu-Medrol 40 IVP q.6 hours. 6. DuoNeb 1 unit q.4 hours. 7. Mucinex 600 b.i.d. 8. BiPAP. 9. Continue [facility] medications including Symbicort 160/4.5 two puffs b.i.d. 10. Pulmonary consult.
[2017-04-28 05:26] LABS: Anion Gap 10 mmol/L (10-20); BUN (Urea Nitrogen) 12 mg/dL (9.8-20.1); Calc. Creatinine Clearance 133 mL/min (70-130); Calcium 9.3 mg/dL (7.8-10.44); Carbon Dioxide 33 mmol/L (22-29); Chloride 98 mmol/L (98-107); Estimated GFR-MDRD Greater than 90; Glucose 126 mg/dL (70-105); Potassium 4.6 mmol/L (3.5-5.1); Sodium 136 mmol/L (136-145)
[2017-04-28] MEDS: Arformoterol 15 MCG/2 ML NEB NEB SCH ×2 (07:14→18:42)
[2017-04-28] MEDS: Mometasone/Formoterol 120 PUFF INHALER INH SCH ×2 (07:14→18:43)
[2017-04-28] MEDS: Budesonide 0.5 MG/2 ML NEB INH SCH ×2 (07:15→18:42)
[2017-04-28 08:25] LABS: Actual Bicarbonate (HCO3a) 32.9 mEq/L (22-26); Base Excess (BEa) 5.7 mEq/L (0 (+/-) 2.5); CO2 Tension 61.2 mmHg (35.0-45.0); O2 Tension (PaO2) 52.7 mmHg (80.0-100.0); pH, Arterial 7.35 (7.35-7.45)
[2017-04-28 08:26] LABS: Calcium, Ionized 1.3 mmol/L (1.12-1.30); Hematocrit-ABG 38.1 % (36.0-47.0); Hemoglobin (Hb) 11.9 g/dL (12.0-16.0); Puncture Site RRA
[2017-04-28] MEDS: Benztropine 1 MG TAB PO SCH ×2 (08:44→20:14)
[2017-04-28] MEDS: guaiFENesin ER 600 MG TAB PO SCH ×4 (08:45→20:15)
[2017-04-28] MEDS: Lithium Carbonate 150 MG CAP PO SCH ×2 (08:45→20:15)
[2017-04-28] MEDS: Enoxaparin Sodium 40 MG/0.4 ML SYRINGE SC SCH (08:45)
[2017-04-28] MEDS: Valproate Sodium 250 mg/5 ml UD Cup PO SCH ×2 (08:46→20:16)
[2017-04-28] MEDS: Pantoprazole 40 MG VIAL IVP SCH (09:09)
--- NOTE | 2017-04-28 10:18 | PRG ---
DATE OF SERVICE: 04/28/2017 This morning she is lethargic, difficult to arouse. PHYSICAL EXAMINATION: VITAL SIGNS: Her sats are low 86. She was placed on noninvasive BiPAP, her sats are 99, she is mor e arousable, temperature 97, pulse 83, blood pressure 121/72. CHEST: Chest reveals decreased breath sounds with minimal wheezing. CARDIAC: Normal S1, S2. ABDOMEN: Soft, no masses. PO2 was 52, pCO2 61.37 on 2 liters. Electrolytes are normal. IMPRESSION: 1. Acute on chronic respiratory failure. 2. Bipolar disorder. 3. Ongoing tobacco abuse. PLAN: We will continue nocturnal ventilation, continue steroids, neb treatments. Avoid excessive se dation. I will follow.
[2017-04-28] MEDS: risperiDONE 1 MG TAB PO SCH (11:25)
[2017-04-29 05:59] LABS: Anion Gap 11 mmol/L (10-20); BUN (Urea Nitrogen) 12 mg/dL (9.8-20.1); Calc. Creatinine Clearance 131 mL/min (70-130); Calcium 9.1 mg/dL (7.8-10.44); Carbon Dioxide 33 mmol/L (22-29); Chloride 97 mmol/L (98-107); Estimated GFR-MDRD Greater than 90; Glucose 113 mg/dL (70-105); Potassium 4.3 mmol/L (3.5-5.1); Sodium 137 mmol/L (136-145)
[2017-04-29] MEDS: Arformoterol 15 MCG/2 ML NEB NEB SCH ×2 (07:36→18:37)
[2017-04-29] MEDS: Budesonide 0.5 MG/2 ML NEB INH SCH ×2 (07:40→18:37)
[2017-04-29] MEDS: Mometasone/Formoterol 120 PUFF INHALER INH SCH ×2 (07:42→18:38)
[2017-04-29] MEDS: Valproate Sodium 250 mg/5 ml UD Cup PO SCH ×2 (09:18→20:48)
[2017-04-29] MEDS: Benztropine 1 MG TAB PO SCH ×2 (09:18→20:49)
[2017-04-29] MEDS: Pantoprazole 40 MG VIAL IVP SCH (09:18)
[2017-04-29] MEDS: guaiFENesin ER 600 MG TAB PO SCH ×4 (09:19→20:51)
[2017-04-29] MEDS: Lithium Carbonate 150 MG CAP PO SCH ×2 (09:20→20:49)
[2017-04-29] MEDS: Enoxaparin Sodium 40 MG/0.4 ML SYRINGE SC SCH (09:20)
--- NOTE | 2017-04-29 09:33 | PRG ---
DATE OF SERVICE: 04/29/2017 This morning she is awake, alert, responsive. Less lethargic. PHYSICAL EXAMINATION: VITAL SIGNS: Blood pressure is 130/80, sat 92% on 2 liters, pulse 99, respirations 16. CHEST: Chest revealed decreased breath sounds, no wheezing. CARDIAC: Normal S1-S2. No gallops. ABDOMEN: Soft, no masses. IMPRESSION: 1. End-stage chronic obstructive pulmonary disease. 2. Bipolar disorder. PLAN: Continue neb treatments, supportive care, minimize sedation as much as possible. Aggressive P T. I will follow.
[2017-04-29] MEDS: predniSONE 20 MG TAB PO SCH (20:51)
[2017-04-29] MEDS: risperiDONE 0.25 MG TAB PO SCH (20:51)
[2017-04-29 21:30] VITALS: TEMP 97.7
[2017-04-30 05:27] LABS: Anion Gap 11 mmol/L (10-20); BUN (Urea Nitrogen) 11 mg/dL (9.8-20.1); Calc. Creatinine Clearance 121 mL/min (70-130); Calcium 9.1 mg/dL (7.8-10.44); Carbon Dioxide 34 mmol/L (22-29); Chloride 97 mmol/L (98-107); Estimated GFR-MDRD 88; Glucose 112 mg/dL (70-105); Potassium 4.4 mmol/L (3.5-5.1); Sodium 138 mmol/L (136-145)
[2017-04-30] MEDS: Budesonide 0.5 MG/2 ML NEB INH SCH (06:43)
[2017-04-30] MEDS: Arformoterol 15 MCG/2 ML NEB NEB SCH (06:44)
[2017-04-30] MEDS: Mometasone/Formoterol 120 PUFF INHALER INH SCH (06:45)
[2017-04-30 07:45] VITALS: BP 127/81
[2017-04-30] MEDS: Valproate Sodium 250 mg/5 ml UD Cup PO SCH (07:59)
[2017-04-30] MEDS: Benztropine 1 MG TAB PO SCH (08:01)
[2017-04-30] MEDS: Enoxaparin Sodium 40 MG/0.4 ML SYRINGE SC SCH (08:02)
[2017-04-30] MEDS: risperiDONE 0.25 MG TAB PO SCH (08:02)
[2017-04-30] MEDS: predniSONE 20 MG TAB PO SCH (08:02)
[2017-04-30] MEDS: guaiFENesin ER 600 MG TAB PO SCH ×2 (08:02→08:24)
[2017-04-30] MEDS: Lithium Carbonate 150 MG CAP PO SCH (09:10)
--- NOTE | 2017-04-30 15:50 | PRG ---
DATE OF SERVICE: 04/30/2017 SUBJECTIVE: This morning, she is awake, alert, responsive. She is better. OBJECTIVE: VITAL SIGNS: Sats are 91% on 2 liters, temperature 97, pulse 84, respiration 20, blood pressure 127/ 81. CHEST: Decreased breath sounds without any wheezing. CARDIAC: Normal S1, S2. No gallops. ABDOMEN: Soft, no masses. IMPRESSION: Acute on chronic respiratory failure, CO2 retention. PLAN: She can be discharged home. We will try and minimize the antipsychotic medication so it will not make her too sleepy, prednisone, steroids. We will follow.
--- NOTE | 2017-05-08 13:42 | EKG ---
Test Reason : Blood Pressure : / mmHG Vent. Rate : 093 BPM Atrial Rate : 093 BPM P-R Int : 134 ms QRS Dur : 082 ms QT Int : 362 ms P-R-T Axes : 072 -30 070 degrees QTc Int : 450 ms Sinus rhythm with Premature atrial complexes Left axis deviation Abnormal ECG Confirmed by MECHE DICKINSON ([id number]), multimedia editor ANITA REECE ([id number]) on 05/08/2017 1:41:59 PM Referred By: Confirmed By:MECHE DICKINSON
== END 2017-04-30 16:13 | DRG 189 ==
LOC: ERS 14:22 → IMCU/EMU 18:16 → T4-B 04-27 19:35
PROVIDERS: ADMIT Internal Medicine; ATTEND Internal Medicine
PROC: 5A09457 Assistance with Respiratory Ventilation, 24-96 Consecutive Hours, Continuous Positive Airway Pressure (ICD-10-PCS; principal; 2017-04-28)
DX: J96.20 Acute and chronic respiratory failure, unspecified whether with hypoxia or hypercapnia (principal); G93.40 Encephalopathy, unspecified; E87.2 Acidosis; E87.1 Hypo-osmolality and hyponatremia; G20 Parkinson's disease; J44.1 Chronic obstructive pulmonary disease with (acute) exacerbation; F20.9 Schizophrenia, unspecified; I10 Essential (primary) hypertension; F32.9 Major depressive disorder, single episode, unspecified; F17.210 Nicotine dependence, cigarettes, uncomplicated; Z91.81 History of falling; Z88.5 Allergy status to narcotic agent; Z88.8 Allergy status to other drugs, medicaments and biological substances; Z91.041 Radiographic dye allergy status; F31.9 Bipolar disorder, unspecified
CPT/HCPCS: 36415; 36416; 70450; 71045; 74176; 80048; 80053; 82140; 82553; 82805; 83605; 83880; 84484; 85025; 87040; 93005; 94640; 94660; 94760; 96374; A4216; C9113; G8978-GP-CK; G8979-GP-CJ; J1650; J2920; J7506; J7620; J7626

== ENCOUNTER 2017-08-16 20:54 | Inpatient (IN) | payer MEDICARE, MEDICAID ==
[2017-08-16 21:24] LABS: #Eosinphils 0.1 thou/uL (0.0-0.7); #Lymphocytes 1.1 thou/uL (1.20-3.40); #Monocytes 0.7 thou/uL (0.11-0.59); #Neutrophils 2.8 thou/uL (1.40-6.50); %Basophils 0.4 % (0.0-1.0); %Eosinophils 1.6 % (0.0-10.0); %Monocytes 14.5 % (0.0-10.0); %Neutrophils 60.4 % (42.0-75.0); Mean Corpuscular HGB CONC 34.5 g/dL (32.0-36.0); Mean Corpuscular Hemoglobin 31.7 pg (27.0-31.0); Mean Corpuscular Volume 91.7 fl (81.0-99.0); Mean Platelet Volume 7.3 fL (7.4-10.4); Platelet Count 171 thou/uL (130-400); White Blood Cell (WBC) Count 4.6 thou/uL (4.8-10.8)
[2017-08-16 21:29] LABS: PTT 27.9 SEC (22.9-36.1); Prothrombin Time 13.6 SEC (12.0-14.7)
[2017-08-16 21:47] LABS: ALT (SGPT) 12 U/L (8-55); AST (SGOT) 17 U/L (5-34); Albumin 3.9 g/dL (3.5-5.0); Alkaline Phosphatase 63 U/L (40-150); Anion Gap 9 mmol/L (10-20); BUN (Urea Nitrogen) 9 mg/dL (9.8-20.1); Bilirubin, Total 0.2 mg/dL (0.2-1.2); CK (CPK) 43 U/L (29-168); Calc. Creatinine Clearance 0 mL/min (70-130); Carbon Dioxide 30 mmol/L (22-29); Chloride 99 mmol/L (98-107); Estimated GFR-MDRD 84; Globulin 2.2 g/dL (2.4-3.5); Glucose 122 mg/dL (70-105); Potassium 4.4 mmol/L (3.5-5.1); Protein, Total 6.1 g/dL (6.0-8.3); Sodium 134 mmol/L (136-145)
--- NOTE | 2017-08-16 21:47 | RAD ---
CHEST ONE VIEW: HISTORY: Dyspnea. COMPARISON: Chest radiograph from 04/27/2017. FINDINGS: The previously noted pulmonary vascular congestion has improved. Mild prominence of the hilum bilate rally, suggesting pulmonary arterial hypertension. Mild vascular calcifications. No acute osseous abnormality. No pneumothorax or large effusion. IMPRESSION: No acute intrathoracic abnormality. POS: [facility]
[2017-08-16 21:48] LABS: Actual Bicarbonate (HCO3a) 30.7 mEq/L (22-26); Base Excess (BEa) 4.4 mEq/L (0 (+/-) 2.5); CO2 Tension 52.8 mmHg (35.0-45.0); O2 Tension (PaO2) 60.9 mmHg (80.0-100.0); pH, Arterial 7.38 (7.35-7.45)
[2017-08-16 21:49] LABS: Hematocrit-ABG 40.7 % (36.0-47.0); Hemoglobin (Hb) 12.6 g/dL (12.0-16.0)
[2017-08-16 21:51] LABS: Analyzer IN Cardio ER; Calcium, Ionized 1.4 mmol/L (1.12-1.30); Puncture Site RRA
[2017-08-16 21:56] LABS: CKMB 1.5 ng/mL (0-6.6); Troponin I Less than 0.010 ng/mL (< 0.028)
[2017-08-16] MEDS ORDERED: Albuterol Sulfate 2.5 mg/3 ml Neb ONE (22:15)
[2017-08-16 22:48] LABS: Bilirubin Negative (Negative); Blood, Urine Negative (Negative); Clarity CLEAR (Clear); Glucose, Urine (Dipstick) Negative (Negative); Leukocyte Small (Negative); Nitrite Negative (Negative); Protein, Urine (Dipstick) Negative (Neg-Trace); Specific Gravity, Urine 1.009 (1.002-1.036); Urobilinogen 0.2 mg/dL (0.2-1.0); pH, Urine 7.5 (5.0-9.0)
[2017-08-16 22:50] LABS: Bacteria/HPF None Seen HPF (None Seen); Hyaline Casts/LPF 0-3 HYALINE CAST LPF (0-3 Hyaline); Pathc Cast-AUWi Flag 0.72 (0-2.49); RBC/HPF 0-3 HPF (0-3); Squamous Epithelial 0-3 HPF (0-3)
[2017-08-16] MEDS ORDERED: Magnesium Sulfate 2 GM/100 ML BAG ONE (23:08)
[2017-08-16] MEDS ORDERED: Dexamethasone 10 MG/ML VIAL ONE (23:10)
[2017-08-17] MEDS ORDERED: Bisacodyl 5 MG TAB PO PRN (05:31)
[2017-08-17] MEDS ORDERED: Dextrose 50% Abboject 50 ML SYRINGE SLOW IVP PRN (05:31)
[2017-08-17] MEDS ORDERED: Dextrose 5% in Water 1,000 ML IV PRN (05:31)
[2017-08-17] MEDS ORDERED: Insulin Regular 300 UNITS/3 ML VIAL SC PRN (05:31)
[2017-08-17] MEDS ORDERED: cefTRIAXone\\ROCEPHIN 1 GM in Syringe 10 ML IVPB SCH (05:45)
[2017-08-17] MEDS ORDERED: Sodium Chloride 0.9% 1,000 ML IV SCH (05:45)
[2017-08-17] MEDS ORDERED: Azithromycin 500 MG VIAL ONE (05:49)
[2017-08-17] MEDS ORDERED: cefTRIAXone\\ROCEPHIN 1 GM in Sodium Chloride 0.9% 100 ML IVPB SCH (06:00)
[2017-08-17] MEDS ORDERED: Azithromycin 500 MG in Sodium Chloride 0.9% 250 ML 250 ML IVPB SCH (06:00)
[2017-08-17 06:59] VITALS: BMI 32.9
--- NOTE | 2017-08-17 07:41 | HP ---
PRIMARY CARE PHYSICIAN: Jules Dodge M.D. CHIEF COMPLAINT: Shortness of breath. HISTORY OF PRESENT ILLNESS: This is a 62-year-old female with known history of COPD and ongoing toba account assistant use, asthma, hyponatremia, Parkinson's, and seizures who presents for shortness of breath. The p atient states that she always feels poorly and always has shortness of breath. Reports she was sent in from the nursing facility for low oxygen levels and typically she has. At the time of my evaluati on, the patient states that she thinks that her breathing is slightly better on the BiPAP and then sh e endorses chronic shortness of breath with chronic chest discomfort, chronic abdominal discomfort. The patient is actually marginal historian with regards to her past medical history longer than just earlier today in the emergency department. REVIEW OF SYSTEMS: As per HPI. Constitutional: No overt fevers or chills in the last 2 weeks. No significant weight loss or gain in the last month. HEENT: The patient denies any vision changes, li ghtheadedness. New headaches. Cardiovascular: The patient endorses chest discomfort in both chest chowdhury. Denies any chest pressure or left-sided arm numbness or tingling. Denies any episodes of crispin phoresis. Respiratory: Shortness of breath as above. Has an intermittent cough which the patient s tates it is chronic, has not been bringing up any new sputum. The patient states that she smokes 2 c igarettes in the morning, 2 cigarettes in the afternoon and last had cigarettes the day of presentati on. Gastrointestinal: Denies any nausea, vomiting. Endorses chronic abdominal pain. Denies any di arrhea or constipation. Genitourinary: Denies any dysuria, change in urinary color, quantity or odo r. Musculoskeletal: No new myalgias or arthralgias, although she endorses being overall feeling wea k. PAST MEDICAL AND SURGICAL HISTORY: As per HPI includes the followin. Chronic obstructive pulmonary disease. 2. Paranoid schizophrenia. 3. Hyperlipidemia. 4. Schizophrenia. 5. Tobacco use. 6. Osteoarthritis. 7. Depression, anxiety. 8. Status post hysterectomy. 9. Status post cervical cancer. 10. Status post Robles procedure for stress incontinence. 11. Status post tonsillectomy. 12. Status post D and C. MEDICATIONS: Please see the EMR for full details. FAMILY HISTORY: Significant for bowel and bladder problems along with mental illness along with sibl ings with depression and cancer, nonspecified. SOCIAL HISTORY: Currently smokes every day. Two cigarettes in the morning, 2 cigarettes in the afte rnoon. No alcohol or illicit drug use. Currently lives in a nursing facility. PHYSICAL EXAMINATION: GENERAL: The patient is awake, conversant, lying in the hospital stretcher. HEENT: BiPAP is in place. Slightly dry mucous membranes. Equal ocular motions are intact. Normoce phalic, atraumatic. CARDIOVASCULAR: S1, S2. Pulses 2+ bilateral upper extremities. Trace bilateral pitting pedal edema . RESPIRATORY: Coarse throughout with prominent BiPAP sounds in place. The patient is able to convers e over her BiPAP intermittently, but sometimes it is difficult to understand speech. ABDOMEN: Positive bowel sounds, soft, nontender to palpation. MUSCULOSKELETAL: Able to get in and out of the stretcher with minimal one assist. LABORATORY DATA AND IMAGING: WBC 4.6, hemoglobin 13.0, hematocrit 37.6, platelets 171. PT is 13.6, INR 1.0. ABG indicates a pH of 7.38, pCO2 of 52.8, pO2 of 60.9. Sodium 134, potassium 4.4, chloride 99, bicarbonate 30, BUN 9, creatinine 0.71, glucose 122. Lactic acid 1.3, calcium 10.0, total bilir ubin 0.2, AST 17, ALT 12, alkaline phosphatase 63, troponin less than 0.01. Brain natriuretic peptid e of 40.7. Total protein 6.1, albumin 3.9. UA significant for small leukocyte esterase and 4-6 wbc' s. ASSESSMENT AND PLAN: A 62-year-old female presenting with shortness of breath. 1. Shortness of breath with hypoxia worse than at her baseline. I suspect a chronic obstructive pul monary disease exacerbation. The patient has been placed on a BiPAP machine. At this point in time, we will repeat a routine ABG. Methylprednisolone with sliding scale insulin for anticipated medicat ion induced hyperglycemia. Empiric antibiotics with azithromycin and ceftriaxone. Nebulizer treatme nts p.r.n. 2. Multiple psychiatric issues. Continue the patient on her home regimen once it is confirmed. 3. Ongoing tobacco use. The patient was counseled regarding cessation. She is precontemplative at this point in time. 4. Parkinson's, stable. DIET: As tolerated. Once the patient is able to maintain oxygen saturations off of BiPAP as she is an aspiration risk while still on BiPAP. Deep venous thrombosis prophylaxis with enoxaparin. Admit inpatient to IMCU. Consult Pulmonary Critical Care. The patient states that she sees Dr. Horton. Thank you for asking me to care for the patient. Questions or concerns, contact me at [facility].
[2017-08-17] MEDS ORDERED: Famotidine/PF 20 mg/2ml Vial SLOW IVP SCH (09:00)
[2017-08-17] MEDS: Enoxaparin Sodium 40 MG/0.4 ML SYRINGE SC SCH (09:36)
[2017-08-17] MEDS: Docusate 100 MG CAP PO SCH ×2 (09:36→21:02)
[2017-08-17] MEDS ORDERED: Furosemide 40 MG/4 ML VIAL SLOW IVP SCH (14:30)
--- NOTE | 2017-08-17 14:45 | PQF ---
CLINICAL DOCUMENTATION IMPROVEMENT CLARIFICATION FORM: ICD-10 Updated PLEASE DO AN ADDENDUM TO THE PROGRESS NOTE WITH ANY DOCUMENTATION UPDATES OR ADDITIONS AND CARRY THROUGH TO DC SUMMARY. THANK YOU. DATE: 08/17/17 ATTN: DR. RIVERA Please exercise your independent, professional judgment in responding to the clarification form. Clinical indicators are provided on the bottom of this form for your review Please check appropriate box(s): [x ] Acute Respiratory Failure: [ x ] with Hypoxia[ ] with Hypercapnia [ ] Acute On Chronic Respiratory Failure: [ ] with Hypoxia [ ] with Hypercapnia [ ] Acute Respiratory Failure due to: (etiology) [ ] Acute Respiratory Insufficiency following (if applicable): [ ] trauma [ ] surgery [ ] Chronic Respiratory Failure only [ ] with Hypoxia [ ] with Hypercapnia [ ] Hypoxia [ ] Other diagnosis [ ] Unable to determine In addition, please specify: Present on Admission (POA): [ x ] Yes [ ] No [ ] Unable to determine For continuity of documentation, please document condition throughout progress notes and discharge summary. Thank You. CLINICAL INDICATORS - SIGNS / SYMPTOMS / LABS ER NOTE: "PATIENT HAS LIFE-THREATENING HYPOXIA AND RESPIRATORY DISTRESS." "RESPIRATORY EXAM INCLUDED FINDINGS OF SEVERE RESPIRATORY DISTRESS, WHEEZING PRESENT TO THE LEFT UPPER LOBE, RIGHT UPPER LOBE, TO BILATERAL UPPER LOBES, TO THE RIGHT MIDDLE LOBE, LEFT LOWER LOBE, RIGHT LOWER LOBE, TO BILATERAL LOWER LOBES." RR 28 ABG PCO2 52.8 ABG PO2 60.9 RISKS: COPD EXACERBATION TREATMENT: DUONEBS (ER-PRESENT) IV DECADRON (ER) ALBUTEROL INHALER (ER) IV SOLU-MEDROL (08/17) PO PREDNISONE (START 08/18) BIPAP PULMONARY CONSULT IMCU MONITORING (This form is maintained as a part of the permanent medical record) 2014 [employer]. All Rights Reserved NAMRATA [email or web address] Office: [phone] [facility] HOS[facility]ITALLakeshia
--- NOTE | 2017-08-17 15:52 | CON ---
DATE OF CONSULTATION: 08/17/2017 SERVICE: Pulmonary Medicine. REASON FOR CONSULTATION: Respiratory failure. HISTORY OF PRESENT ILLNESS: The patient is a 62-year-old white female, who lives in a nursing facility with severe COPD and chronic hypoxic respiratory failure. She was in her usual state of health on the morning of admission when she woke up. She then had progressive increasing dyspnea on exertion throughout the day. She had a cough, but did not bring up any sputum. It felt more like a tickle in her throat. She denies any current fevers or chills. She was not having any night sweats or orthopnea. She presented to the Emergency Department. She was placed on noninvasive ventilation. She hated wearing that mask. She took her off as soon as she was allowed to. Overnight, she was given some IV fluids. She started having increasing work of breathing. If anything, she feels worse now than on presentation. She denies any chest pain, nausea, vomiting, dysuria. She did have an episode of dyspareunia roughly 1 week ago, but has not had any recurrence of that since. She is having lower extremity swelling, which is a little bit worse. PAST MEDICAL HISTORY: 1. Chronic obstructive pulmonary disease. 2. Chronic hypoxic respiratory failure. 3. Schizophrenia, paranoid. 4. Dyslipidemia. 5. Hypertension. 6. Tobacco abuse, ongoing. 7. Osteoarthritis. 8. Major depressive disorder. 9. Anxiety disorder. PAST SURGICAL HISTORY: 1. Hysterectomy. 2. Procedure for cervical cancer. 3. procedure for stress incontinence. 4. Tonsillectomy. 5. D&C. ALLERGIES: CHOCOLATE, CODEINE, IODINE, PROCHLORPERAZINE, and SULFA. MEDICATIONS: List of her inpatient medications were reviewed. Multiple updates were made. SOCIAL HISTORY: Negative for current alcohol or illicit drug use. She continues to smoke 1/4 pack of cigarettes on a daily basis. She has a greater than [id number] history of smoking. She has no exposure to chemicals, dust, asbestos, or tuberculosis. FAMILY HISTORY: Noncontributory. REVIEW OF SYSTEMS: General, head, ears, eyes, nose, throat, cardiovascular, respiratory, GI, , musculoskeletal, neurologic and skin is negative except as mentioned in the HPI. PHYSICAL EXAMINATION: VITAL SIGNS: Afebrile, pulse 95, blood pressure 135/85, respirations 28, and saturation 90% on 4 liters nasal cannula. GENERAL: The patient is awake, alert, in no apparent distress. LUNGS: There is reduced air entry. There is a prolonged expiratory phase. I hear both polyphonic wheezing, and extensive crackles throughout bibasilar regions. HEART: Normal rate, regular. ABDOMEN: Soft, nontender, nondistended. Bowel sounds are positive. MUSCULOSKELETAL: No cyanosis or clubbing. There is trace 1+ pitting in the bilateral lower extremities. NEUROLOGIC: Grossly nonfocal. LABORATORY DATA: WBC 4.6, hemoglobin 13.0, platelets 171,000. INR 1.0. pH 7.38, pCO2 is 52.8, pO2 is 61. This corresponds with saturation of 92%. She is on 4 liters nasal cannula at that time. Basic metabolic profile, liver function studies are essentially unremarkable. BNP is only 41. Lipase is negative. Cardiac enzymes x1 is negative. Lactate is unremarkable. Urinalysis is also unremarkable. Blood cultures x2 are negative. IMAGING: Chest x-ray demonstrates no acute cardiopulmonary abnormality. The lungs are not terribly hyperinflated. We do not have an echocardiogram on file. ASSESSMENT: 1. Acute hypoxic respiratory failure. 2. Chronic hypercapnic respiratory failure. 3. Chronic obstructive pulmonary disease with acute exacerbation. 4. Acute on chronic diastolic heart failure, suspected. 5. Schizophrenia. PLAN: We will get an echocardiogram since she has never had one. Specifically , we will be looking for diastolic dysfunction. The patient is clinically a touch volume up. We will deescalate her steroids, and continue antibiotics. We will continue our frequent nebulized medications. I will provide the patient with a couple doses of Lasix. Dr. Horton will assume coverage in the morning as Ms. Carr has an established relationship with him. She will need to remain in the IMCU for the time being as she has a significantly elevated work of breathing right now. 70 minutes have been devoted to this patient in various activities. I personally reviewed all imaging studies and laboratory data noted within this document. For fifty percent of this time, I was interacting with the patient at the bedside or coordinating care with the care team. For the remainder of the time I was immediately available to the patient in the hospital unit. HAILY
[2017-08-17] MEDS ORDERED: Acetaminophen 325 MG TAB PO PRN (20:08)
[2017-08-17] MEDS: guaiFENesin ER 600 MG TAB PO SCH (20:57)
[2017-08-17] MEDS: Doxycycline 100 MG CAP PO SCH (20:57)
[2017-08-17] MEDS: Benztropine 1 MG TAB PO SCH (20:57)
[2017-08-17] MEDS: Lithium Carbonate 150 MG CAP PO SCH (20:58)
[2017-08-17] MEDS: Valproate Sodium 250 mg/5 ml UD Cup PO SCH (20:58)
[2017-08-18 04:21] LABS: #Lymphocytes 1.6 thou/uL (1.20-3.40); #Monocytes 0.8 thou/uL (0.11-0.59); #Neutrophils 4.7 thou/uL (1.40-6.50); %Basophils 0.2 % (0.0-1.0); %Eosinophils 0.2 % (0.0-10.0); %Lymphocytes 21.9 % (21.0-51.0); %Monocytes 11.3 % (0.0-10.0); %Neutrophils 66.4 % (42.0-75.0); Hemoglobin 12.5 g/dL (12.0-16.0); Mean Corpuscular HGB CONC 33.5 g/dL (32.0-36.0); Mean Corpuscular Volume 92.7 fl (81.0-99.0); Mean Platelet Volume 7.6 fL (7.4-10.4); Platelet Count 179 thou/uL (130-400); RBC Distribution Width 13.1 % (11.5-14.5); Red Blood Cell (RBC) Count 4.01 mill/uL (4.20-5.40); White Blood Cell (WBC) Count 7.1 thou/uL (4.8-10.8)
[2017-08-18 04:36] LABS: Anion Gap 7 mmol/L (10-20); BUN (Urea Nitrogen) 9 mg/dL (9.8-20.1); Calc. Creatinine Clearance 117 mL/min (70-130); Calcium 8.8 mg/dL (7.8-10.44); Carbon Dioxide 34 mmol/L (22-29); Chloride 96 mmol/L (98-107); Estimated GFR-MDRD 88; Glucose 81 mg/dL (70-105); Magnesium 2.1 mg/dL (1.6-2.6); Potassium 4.2 mmol/L (3.5-5.1); Sodium 133 mmol/L (136-145)
--- NOTE | 2017-08-18 08:15 | PDOC.PN ---
- Subjective Encounter Start Date: 08/17/17 Encounter Start Time: 14:00 Subjective: pt up in bed no complains - Objective Resuscitation Status: Resuscitation Status FULL:Full Resuscitation Vital Signs & Weight: Vital Signs (12 hours) Temp Pulse Resp BP Pulse Ox 08/18/17 07:48 97.8 F 81 24 H 108/64 95 08/18/17 06:49 99 08/18/17 06:46 84 15 99 08/18/17 04:00 97.8 F 88 16 103/57 L 100 08/18/17 03:22 78 22 H 100 08/18/17 00:00 97.6 F 98 20 145/74 H 95 Weight Weight 185 lb 12.8 oz I&O: 08/17/17 08/18/17 08/19/17 06:59 06:59 06:59 Intake Total 2208 Output Total 1500 Balance 708 Result Diagrams: 08/18/17 03:33 08/18/17 03:33 Phys Exam - Physical Examination HEENT: PERRLA, moist MMs, sclera anicteric, TM's clear, oral pharynx no lesions , 2+ tonsils Neck: no nodes, no JVD, supple, full ROM Respiratory: wheezing present diminished beath sound to both lungs Cardiovascular: RRR, no significant murmur, no rub, gallop, irregular Gastrointestinal: soft, non-tender, no distention, positive bowel sounds Musculoskeletal: no edema, pulses present, edema present Dx/Plan - Plan 1) acute hypoxic resp failure 2) copd exab 3) parkinson 4) seizure 5)hyponatremia plan: pt on oral steroids and doxy for now. Continue duonebs. will continue home meds. will check serum osmolarity and lithium level. if lithium level is high will hold it and initiate fluids. * . Review of Systems - Review of Systems Eyes: negative: Pain, Vision Change, Conjunctivae Inflammation, Eyelid Inflammation, Redness, Other ENT: negative: Ear Pain, Ear Discharge, Nose Pain, Nose Discharge, Nose Congestion, Mouth Pain, Mouth Swelling, Throat Pain, Throat Swelling, Other Respiratory: negative: Cough, Dry, Shortness of Breath, Hemoptysis, SOB with Excertion, Pleuritic Pain, Sputum, Wheezing Cardiovascular: negative: chest pain, palpitations, orthopnea, paroxysmal nocturnal dyspnea, edema, light headedness, other Gastrointestinal: negative: Nausea, Vomiting, Abdominal Pain, Diarrhea, Constipation, Melena, Hematochezia, Other Genitourinary: negative: Dysuria, Frequency, Incontinence, Hematuria, Retention , Other Musculoskeletal: negative: Neck Pain, Shoulder Pain, Arm Pain, Back Pain, Hand Pain, Leg Pain, Foot Pain, Other - Medications/Allergies Allergies/Adverse Reactions: Allergies Allergy/AdvReac Type Severity Reaction Status Date / Time chocolate flavor Allergy Verified 04/26/17 22:01 codeine Allergy Verified 04/26/17 22:01 iodine Allergy Verified 04/26/17 22:01 prochlorperazine Allergy Verified 04/26/17 22:01 Sulfa (Sulfonamide Allergy Verified 04/26/17 22:01 Antibiotics) Medications: Current Medications Acetaminophen (Tylenol) 650 mg PO Q6H PRN PRN Reason: Headache/Fever or Pain Last Admin: 08/17/17 20:57 Dose: 650 mg Albuterol/Ipratropium (Duoneb) 3 ml NEB Q4H PRN PRN Reason: SOB &/or Wheezing Last Admin: 08/18/17 03:22 Dose: 3 ml Albuterol/Ipratropium (Duoneb) 3 ml NEB [id number] [facility] Last Admin: 08/18/17 06:46 Dose: 3 ml Benztropine Mesylate (Cogentin) 2 mg PO BID [facility] Last Admin: 08/17/17 20:57 Dose: 2 mg Bisacodyl (Dulcolax) 10 mg PO DAILYPRN PRN PRN Reason: Constipation Dextrose/Water (Dextrose 50%) 25 gm SLOW IVP PRN PRN PRN Reason: Hypoglycemia Docusate Sodium (Colace) 100 mg PO BID [facility] Last Admin: 08/17/17 21:02 Dose: Not Given Doxycycline Hyclate (Vibramycin) 100 mg PO BID [facility] Last Admin: 08/17/17 20:57 Dose: 100 mg Enoxaparin Sodium (Lovenox) 40 mg SC 0900 [facility] Last Admin: 08/17/17 09:36 Dose: 40 mg Furosemide (Lasix) 40 mg SLOW IVP DAILY [facility] Stop: 08/19/17 09:01 Glucagon (Glucagon) 1 mg IM PRN PRN PRN Reason: Hypoglycemia Guaifenesin (Mucinex) 600 mg PO BID [facility] Last Admin: 08/17/17 20:57 Dose: 600 mg Dextrose/Water (D5w) 1,000 mls @ 0 mls/hr IV .Q0M PRN; As Directed PRN Reason: Hypoglycemia Insulin Human Regular (Humulin R) 0 units SC .MODERATE SLIDING SC PRN PRN Reason: Moderate Correctional Scale [place] Carbonate ([place] Carbonate) 300 mg PO BID [facility] Last Admin: 08/17/17 20:58 Dose: 300 mg Prednisone (Prednisone) 40 mg PO [facility] Stop: 08/21/17 08:01 Valproic Acid (Depakene Liquid) 1,000 mg PO BID [facility] Last Admin: 08/17/17 20:58 Dose: 1,000 mg
[2017-08-18] MEDS: Doxycycline 100 MG CAP PO SCH ×2 (08:48→21:54)
[2017-08-18] MEDS: Lithium Carbonate 150 MG CAP PO SCH ×2 (08:48→23:41)
[2017-08-18] MEDS: Furosemide 40 MG/4 ML VIAL SLOW IVP SCH (08:48)
[2017-08-18] MEDS: Benztropine 1 MG TAB PO SCH ×2 (08:48→21:53)
[2017-08-18] MEDS: Enoxaparin Sodium 40 MG/0.4 ML SYRINGE SC SCH (08:48)
[2017-08-18] MEDS: predniSONE 20 MG TAB PO SCH (08:48)
[2017-08-18] MEDS: Docusate 100 MG CAP PO SCH ×2 (08:49→21:54)
[2017-08-18] MEDS: Valproate Sodium 250 mg/5 ml UD Cup PO SCH ×2 (08:49→21:54)
[2017-08-18] MEDS: guaiFENesin ER 600 MG TAB PO SCH ×2 (08:49→21:54)
--- NOTE | 2017-08-18 08:54 | PRG ---
DATE OF SERVICE: 08/18/2017 The patient is well-known to me. Resident in the long-term, continues to smoke, presented with ma rked shortness of breath yesterday. She is coughing up some yellow sputum. Her sats today on 4 liters is 100%, decrease O2 to 2 liters. The patient has longstanding history of heavy tobacco abuse. She is presently staying in the long-term. On most days, she can barely walk even 30 feet without getting markedly short of breath. In fact, she has gained a considerable amount of weight over the last many years. PHYSICAL EXAMINATION: VITAL SIGNS: On examination, sats are noted 98% on 2 liters, temperature 97, pulse 81, blood pressur e 108/65. CHEST: Chest revealed decreased breath sounds, extensive rhonchi, crackles and wheezing. CARDIAC: Normal S1-S2. No gallops. ABDOMEN: Soft, no masses. LABORATORY: Sodium 133, is chronic. White count is normal, H&H 12 and 37, platelet count is normal. Electrolytes are normal. X-ray is normal. IMPRESSION: 1. Chronic obstructive pulmonary disease exacerbation. 2. Bronchitis. 3. Bipolar schizophrenic disorder. 4. Hyponatremia. 5. Ongoing tobacco abuse. The patient has no evidence of any cardiac disease that I know of. Her lower extremity swelling is probably from right-sided failure. PLAN: Discontinue IV Lasix. PT and supportive care. We are going to try and get an echocardiogram on her. I do not see any previous echo reports. Otherwise, O2, neb treatments, steroids, supportive care, PT. I will follow.
--- NOTE | 2017-08-18 14:24 | PDOC.PN ---
- Subjective Encounter Start Date: 08/18/17 Encounter Start Time: 10:30 Subjective: pt up in bed states she feels better - Objective Resuscitation Status: Resuscitation Status FULL:Full Resuscitation Vital Signs & Weight: Vital Signs (12 hours) Temp Pulse Resp BP Pulse Ox 08/18/17 12:27 86 23 H 95 08/18/17 12:13 94 L 08/18/17 11:27 98.8 F 78 20 128/81 97 08/18/17 08:17 97.8 F 81 24 H 94 L 08/18/17 07:48 97.8 F 81 24 H 108/64 95 08/18/17 06:49 99 08/18/17 06:46 84 15 99 08/18/17 04:00 97.8 F 88 16 103/57 L 100 08/18/17 03:22 78 22 H 100 Weight Weight 185 lb 12.8 oz I&O: 08/17/17 08/18/17 08/19/17 06:59 06:59 06:59 Intake Total 2208 964 Output Total 1500 1300 Balance 708 -336 Result Diagrams: 08/20/17 03:11 08/21/17 09:38 Phys Exam - Physical Examination HEENT: PERRLA, moist MMs, sclera anicteric, TM's clear, oral pharynx no lesions , 2+ tonsils Neck: no nodes, no JVD, supple, full ROM Respiratory: wheezing present diminished breath sound to both lungs Cardiovascular: RRR, no significant murmur, no rub, gallop, irregular Gastrointestinal: soft, non-tender, no distention, positive bowel sounds Musculoskeletal: no edema, pulses present, edema present Dx/Plan - Plan 1) acute hypoxic resp failure 2) copd exab 3) parkinson 4) seizure 5)hyponatremia plan: pt on oral steroids and doxy for now. Continue duonebs. will continue home meds. will check serum osmolarity and lithium level. if lithium level is high will hold it and initiate fluids. 08/18 pt's lithium level low. will continue her meds for now. pt still very sob on minimal exertion. * . Review of Systems - Review of Systems Eyes: negative: Pain, Vision Change, Conjunctivae Inflammation, Eyelid Inflammation, Redness, Other ENT: negative: Ear Pain, Ear Discharge, Nose Pain, Nose Discharge, Nose Congestion, Mouth Pain, Mouth Swelling, Throat Pain, Throat Swelling, Other Respiratory: negative: Cough, Dry, Shortness of Breath, Hemoptysis, SOB with Excertion, Pleuritic Pain, Sputum, Wheezing Cardiovascular: negative: chest pain, palpitations, orthopnea, paroxysmal nocturnal dyspnea, edema, light headedness, other Gastrointestinal: negative: Nausea, Vomiting, Abdominal Pain, Diarrhea, Constipation, Melena, Hematochezia, Other Genitourinary: negative: Dysuria, Frequency, Incontinence, Hematuria, Retention , Other Musculoskeletal: negative: Neck Pain, Shoulder Pain, Arm Pain, Back Pain, Hand Pain, Leg Pain, Foot Pain, Other - Medications/Allergies Allergies/Adverse Reactions: Allergies Allergy/AdvReac Type Severity Reaction Status Date / Time chocolate flavor Allergy Verified 04/26/17 22:01 codeine Allergy Verified 04/26/17 22:01 iodine Allergy Verified 04/26/17 22:01 prochlorperazine Allergy Verified 04/26/17 22:01 Sulfa (Sulfonamide Allergy Verified 04/26/17 22:01 Antibiotics) Medications: Current Medications Acetaminophen (Tylenol) 650 mg PO Q6H PRN PRN Reason: Headache/Fever or Pain Last Admin: 08/17/17 20:57 Dose: 650 mg Albuterol/Ipratropium (Duoneb) 3 ml NEB Q4H PRN PRN Reason: SOB &/or Wheezing Last Admin: 08/18/17 03:22 Dose: 3 ml Albuterol/Ipratropium (Duoneb) 3 ml NEB [id number] [facility] Last Admin: 08/18/17 12:27 Dose: 3 ml Benztropine Mesylate (Cogentin) 2 mg PO BID [facility] Last Admin: 08/18/17 08:48 Dose: 2 mg Bisacodyl (Dulcolax) 10 mg PO DAILYPRN PRN PRN Reason: Constipation Dextrose/Water (Dextrose 50%) 25 gm SLOW IVP PRN PRN PRN Reason: Hypoglycemia Docusate Sodium (Colace) 100 mg PO BID [facility] Last Admin: 08/18/17 08:49 Dose: Not Given Doxycycline Hyclate (Vibramycin) 100 mg PO BID [facility] Last Admin: 08/18/17 08:48 Dose: 100 mg Enoxaparin Sodium (Lovenox) 40 mg SC 0900 [facility] Last Admin: 08/18/17 08:48 Dose: 40 mg Furosemide (Lasix) 40 mg SLOW IVP DAILY [facility] Stop: 08/19/17 09:01 Last Admin: 08/18/17 08:48 Dose: 40 mg Glucagon (Glucagon) 1 mg IM PRN PRN PRN Reason: Hypoglycemia Guaifenesin (Mucinex) 600 mg PO BID [facility] Last Admin: 08/18/17 08:49 Dose: 600 mg Dextrose/Water (D5w) 1,000 mls @ 0 mls/hr IV .Q0M PRN; As Directed PRN Reason: Hypoglycemia Insulin Human Regular (Humulin R) 0 units SC .MODERATE SLIDING SC PRN PRN Reason: Moderate Correctional Scale [place] Carbonate ([place] Carbonate) 300 mg PO BID [facility] Last Admin: 08/18/17 08:48 Dose: 300 mg Mometasone Furoate/Formoterol Fumar (Dulera 200 Mcg/5 Mcg Inhaler) 2 puff INH BID-RT [facility] Prednisone (Prednisone) 40 mg PO [facility]AM[facility] Stop: 08/21/17 08:01 Last Admin: 08/18/17 08:48 Dose: 40 mg Valproic Acid (Depakene Liquid) 1,000 mg PO BID [facility] Last Admin: 08/18/17 08:49 Dose: 1,000 mg
[2017-08-18] MEDS: Mometasone/Formoterol 120 PUFF INHALER INH SCH (19:07)
[2017-08-19] MEDS: Mometasone/Formoterol 120 PUFF INHALER INH SCH ×2 (05:53→18:53)
[2017-08-19 06:08] LABS: Anion Gap 12 mmol/L (10-20); BUN (Urea Nitrogen) 10 mg/dL (9.8-20.1); Calc. Creatinine Clearance 114 mL/min (70-130); Calcium 9.5 mg/dL (7.8-10.44); Carbon Dioxide 36 mmol/L (22-29); Chloride 94 mmol/L (98-107); Estimated GFR-MDRD 88; Glucose 87 mg/dL (70-105); Potassium 4.1 mmol/L (3.5-5.1); Sodium 138 mmol/L (136-145)
[2017-08-19 06:17] LABS: Band 3 % (5-11); Hemoglobin 14.1 g/dL (12.0-16.0); Lymphocytes 43 % (21-51); MDiff Complete? YES; Mean Corpuscular Hemoglobin 31.2 pg (27.0-31.0); Mean Corpuscular Volume 94.4 fl (81.0-99.0); Mean Platelet Volume 7.5 fL (7.4-10.4); Monocytes 5 % (0-10); Neutrophil 49 % (42-75); PLT Morphology Comment Appears Adequate; Platelet Count 217 thou/uL (130-400); RBC Distribution Width 13.3 % (11.5-14.5); Red Blood Cell (RBC) Count 4.52 mill/uL (4.20-5.40); White Blood Cell (WBC) Count 5.9 thou/uL (4.8-10.8)
[2017-08-19] MEDS: Benztropine 1 MG TAB PO SCH ×2 (08:19→20:21)
[2017-08-19] MEDS: guaiFENesin ER 600 MG TAB PO SCH ×2 (08:19→20:22)
[2017-08-19] MEDS: Doxycycline 100 MG CAP PO SCH ×2 (08:19→20:21)
[2017-08-19] MEDS: predniSONE 20 MG TAB PO SCH (08:19)
[2017-08-19] MEDS: Lithium Carbonate 150 MG CAP PO SCH ×2 (08:19→20:22)
[2017-08-19] MEDS: Enoxaparin Sodium 40 MG/0.4 ML SYRINGE SC SCH (08:20)
[2017-08-19] MEDS: Docusate 100 MG CAP PO SCH ×2 (08:20→20:23)
[2017-08-19] MEDS: Furosemide 40 MG/4 ML VIAL SLOW IVP SCH (08:20)
[2017-08-19] MEDS: Valproate Sodium 250 mg/5 ml UD Cup PO SCH ×2 (08:35→20:23)
--- NOTE | 2017-08-19 12:27 | PRG ---
DATE OF SERVICE: 08/19/2017 SUBJECTIVE: This morning, is awake, alert, and responsive. OBJECTIVE: VITAL SIGNS: Sats on 2 liters about 93%, respirations 20, temperature 98, blood pressure 126/83. Sh e is awake. CHEST: Decreased breath sounds, no wheezing. CARDIAC: Normal S1 and S2. No gallops. ABDOMEN: Soft, no masses. LABORATORY DATA: Bicarbonate is 36 from chronic respiratory acidosis. Other labs unremarkable. IMPRESSION: Acute on chronic respiratory failure, bipolar, ongoing tobacco abuse. PLAN: She can be transferred out of the MICU to medical floor. Continue nebulizer treatments, steroids, supportive care. I will follow.
[2017-08-20 04:10] LABS: #Lymphocytes 3.1 thou/uL (1.20-3.40); #Monocytes 0.7 thou/uL (0.11-0.59); #Neutrophils 2.9 thou/uL (1.40-6.50); %Basophils 0.3 % (0.0-1.0); %Eosinophils 0.5 % (0.0-10.0); %Lymphocytes 46.6 % (21.0-51.0); %Monocytes 9.9 % (0.0-10.0); %Neutrophils 42.6 % (42.0-75.0); Hemoglobin 13.5 g/dL (12.0-16.0); Mean Corpuscular HGB CONC 33.8 g/dL (32.0-36.0); Mean Corpuscular Hemoglobin 31.3 pg (27.0-31.0); Mean Corpuscular Volume 92.6 fl (81.0-99.0); Mean Platelet Volume 7.5 fL (7.4-10.4); Platelet Count 207 thou/uL (130-400); Red Blood Cell (RBC) Count 4.33 mill/uL (4.20-5.40); White Blood Cell (WBC) Count 6.7 thou/uL (4.8-10.8)
[2017-08-20 04:33] LABS: Anion Gap 9 mmol/L (10-20); BUN (Urea Nitrogen) 13 mg/dL (9.8-20.1); Calc. Creatinine Clearance 109 mL/min (70-130); Calcium 9.3 mg/dL (7.8-10.44); Carbon Dioxide 36 mmol/L (22-29); Chloride 91 mmol/L (98-107); Estimated GFR-MDRD 84; Glucose 105 mg/dL (70-105); Potassium 3.4 mmol/L (3.5-5.1); Sodium 133 mmol/L (136-145)
[2017-08-20] MEDS: Mometasone/Formoterol 120 PUFF INHALER INH SCH ×2 (06:05→18:28)
[2017-08-20] MEDS: predniSONE 20 MG TAB PO SCH (09:14)
[2017-08-20] MEDS: Doxycycline 100 MG CAP PO SCH ×2 (09:14→20:29)
[2017-08-20] MEDS: Docusate 100 MG CAP PO SCH ×2 (09:14→20:29)
[2017-08-20] MEDS: guaiFENesin ER 600 MG TAB PO SCH ×2 (09:14→20:29)
[2017-08-20] MEDS: Valproate Sodium 250 mg/5 ml UD Cup PO SCH ×2 (09:15→20:30)
[2017-08-20] MEDS: Benztropine 1 MG TAB PO SCH ×2 (09:15→20:28)
[2017-08-20] MEDS: Lithium Carbonate 150 MG CAP PO SCH ×2 (09:15→20:30)
[2017-08-20] MEDS: Enoxaparin Sodium 40 MG/0.4 ML SYRINGE SC SCH (09:15)
--- NOTE | 2017-08-20 12:22 | PRG ---
DATE OF SERVICE: 08/20/2017 SUBJECTIVE: This morning, she is less short of breath, on 2 liters. OBJECTIVE: VITAL SIGNS: Saturations are 97%, respirations 20, temperature 99, blood pressure is 90/72. CHEST: Decreased breath sounds, no wheezing. CARDIAC: Normal S1, S2. No gallops. ABDOMEN: No masses. LABORATORY DATA: Sodium 133, bicarbonate 36. White count 6000. IMPRESSION: Acute on chronic respiratory failure, diastolic dysfunction. She will be transferred out of the MICU, medical floor, continue PT and supportive care. Long-term prognosis is guarded and she is still smoking.
[2017-08-21] MEDS: Mometasone/Formoterol 120 PUFF INHALER INH SCH ×2 (07:41→19:03)
[2017-08-21] MEDS: predniSONE 20 MG TAB PO SCH (08:59)
[2017-08-21] MEDS: guaiFENesin ER 600 MG TAB PO SCH ×2 (09:00→20:58)
[2017-08-21] MEDS: Docusate 100 MG CAP PO SCH ×3 (09:00→20:58)
[2017-08-21] MEDS: Benztropine 1 MG TAB PO SCH ×2 (09:00→20:58)
[2017-08-21] MEDS: Doxycycline 100 MG CAP PO SCH ×2 (09:12→20:58)
[2017-08-21] MEDS: Valproate Sodium 250 mg/5 ml UD Cup PO SCH ×2 (09:12→20:58)
[2017-08-21] MEDS: Lithium Carbonate 150 MG CAP PO SCH ×2 (09:12→20:58)
[2017-08-21] MEDS: Enoxaparin Sodium 40 MG/0.4 ML SYRINGE SC SCH (09:13)
--- NOTE | 2017-08-21 09:31 | PDOC.PN ---
- Subjective Encounter Start Date: 08/21/17 Encounter Start Time: 13:00 Subjective: pt up in bed complains of sob - Objective Resuscitation Status: Resuscitation Status FULL:Full Resuscitation Vital Signs & Weight: Vital Signs (12 hours) Temp Pulse Resp BP Pulse Ox 08/21/17 08:10 98.2 F 74 16 127/76 92 L 08/21/17 07:49 98.0 F 91 22 H 08/21/17 07:41 91 22 H 95 08/21/17 04:58 98.4 F 57 L 18 124/78 97 08/21/17 01:45 91 20 93 L 08/21/17 01:00 95 08/20/17 23:38 98.1 F 92 20 126/76 93 L 08/20/17 22:48 82 24 H 95 Weight Weight 178 lb 12.8 oz I&O: 08/20/17 08/21/17 08/22/17 06:59 06:59 06:59 Intake Total 2424 1090 Output Total 2250 Balance 174 1090 Result Diagrams: 08/20/17 03:11 08/21/17 09:38 Phys Exam - Physical Examination HEENT: PERRLA, moist MMs, sclera anicteric, TM's clear, oral pharynx no lesions , 2+ tonsils Neck: no nodes, no JVD, supple, full ROM Respiratory: wheezing present Cardiovascular: RRR, no significant murmur, no rub, gallop, irregular Gastrointestinal: soft, non-tender, no distention, positive bowel sounds Musculoskeletal: edema present Dx/Plan - Plan 1) acute hypoxic resp failure 2) copd exab 3) parkinson 4) seizure 5)hyponatremia plan: spoke with casemanager for possible swing bed for this pt given her significant sob. Pt refused to go to swing bed. continue abx/steroids/duonebs. will c * .08/18 pt's lithium level low. will continue her meds for now. pt still very sob on minimal exertion. 08/19 echo ordered will await results. pt still very sob. 08/20 ef of 55-60% no valvular problems noted. Tried to convince pt to go to swing bed but pt refused. She is a high risk of readmission. She is sob on minimal exertion even on oxygen. 08/21 pt still does not want to go to swing. Walked pt she desat in the low 80's if she walk fast. will discharge her back to her facility when ok with pulmonary. she is a high risk of readmission. * . Review of Systems - Review of Systems Eyes: negative: Pain, Vision Change, Conjunctivae Inflammation, Eyelid Inflammation, Redness, Other ENT: negative: Ear Pain, Ear Discharge, Nose Pain, Nose Discharge, Nose Congestion, Mouth Pain, Mouth Swelling, Throat Pain, Throat Swelling, Other Respiratory: Shortness of Breath Cardiovascular: negative: chest pain, palpitations, orthopnea, paroxysmal nocturnal dyspnea, edema, light headedness, other Gastrointestinal: negative: Nausea, Vomiting, Abdominal Pain, Diarrhea, Constipation, Melena, Hematochezia, Other Genitourinary: negative: Dysuria, Frequency, Incontinence, Hematuria, Retention , Other - Medications/Allergies Allergies/Adverse Reactions: Allergies Allergy/AdvReac Type Severity Reaction Status Date / Time chocolate flavor Allergy Verified 04/26/17 22:01 codeine Allergy Verified 04/26/17 22:01 iodine Allergy Verified 04/26/17 22:01 prochlorperazine Allergy Verified 04/26/17 22:01 Sulfa (Sulfonamide Allergy Verified 04/26/17 22:01 Antibiotics) Medications: Current Medications Acetaminophen (Tylenol) 650 mg PO Q6H PRN PRN Reason: Headache/Fever or Pain Last Admin: 08/17/17 20:57 Dose: 650 mg Albuterol/Ipratropium (Duoneb) 3 ml NEB Q4H PRN PRN Reason: SOB &/or Wheezing Last Admin: 08/19/17 10:13 Dose: 3 ml Albuterol/Ipratropium (Duoneb) 3 ml NEB [id number] [facility] Last Admin: 08/21/17 15:11 Dose: 3 ml Benztropine Mesylate (Cogentin) 2 mg PO BID [facility] Last Admin: 08/21/17 09:00 Dose: 2 mg Bisacodyl (Dulcolax) 10 mg PO DAILYPRN PRN PRN Reason: Constipation Dextrose/Water (Dextrose 50%) 25 gm SLOW IVP PRN PRN PRN Reason: Hypoglycemia Docusate Sodium (Colace) 100 mg PO BID [facility] Last Admin: 08/21/17 12:13 Dose: 100 mg Doxycycline Hyclate (Vibramycin) 100 mg PO BID [facility] Last Admin: 08/21/17 09:12 Dose: 100 mg Enoxaparin Sodium (Lovenox) 40 mg SC 0900 [facility] Last Admin: 08/21/17 09:13 Dose: 40 mg Glucagon (Glucagon) 1 mg IM PRN PRN PRN Reason: Hypoglycemia Guaifenesin (Mucinex) 600 mg PO BID [facility] Last Admin: 08/21/17 09:00 Dose: 600 mg Dextrose/Water (D5w) 1,000 mls @ 0 mls/hr IV .Q0M PRN; As Directed PRN Reason: Hypoglycemia Insulin Human Regular (Humulin R) 0 units SC .MODERATE SLIDING SC PRN PRN Reason: Moderate Correctional Scale [place] Carbonate ([place] Carbonate) 300 mg PO BID [facility] Last Admin: 08/21/17 09:12 Dose: 300 mg Mometasone Furoate/Formoterol Fumar (Dulera 200 Mcg/5 Mcg Inhaler) 2 puff INH BID-RT [facility] Last Admin: 08/21/17 07:41 Dose: 2 puff Valproic Acid (Depakene Liquid) 1,000 mg PO BID [facility] Last Admin: 08/21/17 09:12 Dose: 1,000 mg
--- NOTE | 2017-08-21 09:31 | PDOC.PN ---
- Subjective Encounter Start Date: 08/19/17 Encounter Start Time: 10:30 Subjective: pt up in chair no complains - Objective Resuscitation Status: Resuscitation Status FULL:Full Resuscitation Vital Signs & Weight: Vital Signs (12 hours) Temp Pulse Resp BP Pulse Ox 08/21/17 08:10 98.2 F 74 16 127/76 92 L 08/21/17 07:49 98.0 F 91 22 H 08/21/17 07:41 91 22 H 95 08/21/17 04:58 98.4 F 57 L 18 124/78 97 08/21/17 01:45 91 20 93 L 08/21/17 01:00 95 08/20/17 23:38 98.1 F 92 20 126/76 93 L 08/20/17 22:48 82 24 H 95 Weight Weight 178 lb 12.8 oz I&O: 08/20/17 08/21/17 08/22/17 06:59 06:59 06:59 Intake Total 2424 1090 Output Total 2250 Balance 174 1090 Result Diagrams: 08/20/17 03:11 08/21/17 09:38 Phys Exam - Physical Examination HEENT: PERRLA, moist MMs, sclera anicteric, TM's clear, oral pharynx no lesions , 2+ tonsils Neck: no nodes, no JVD, supple, full ROM Respiratory: wheezing present Cardiovascular: RRR, no significant murmur, no rub, gallop, irregular Gastrointestinal: soft, non-tender, no distention, positive bowel sounds Musculoskeletal: edema present Dx/Plan - Plan 1) acute hypoxic resp failure 2) copd exab 3) parkinson 4) seizure 5)hyponatremia plan: pt on oral steroids and doxy for now. Continue duonebs. will continue home meds. will check serum osmolarity and lithium level. if lithium level is high will hold it and initiate fluids. 08/18 pt's lithium level low. will continue her meds for now. pt still very sob on minimal exertion. 08/19 echo ordered will await results. pt still very sob. * . Review of Systems - Review of Systems Eyes: negative: Pain, Vision Change, Conjunctivae Inflammation, Eyelid Inflammation, Redness, Other ENT: negative: Ear Pain, Ear Discharge, Nose Pain, Nose Discharge, Nose Congestion, Mouth Pain, Mouth Swelling, Throat Pain, Throat Swelling, Other Respiratory: Shortness of Breath Cardiovascular: negative: chest pain, palpitations, orthopnea, paroxysmal nocturnal dyspnea, edema, light headedness, other Gastrointestinal: negative: Nausea, Vomiting, Abdominal Pain, Diarrhea, Constipation, Melena, Hematochezia, Other Genitourinary: negative: Dysuria, Frequency, Incontinence, Hematuria, Retention , Other Musculoskeletal: negative: Neck Pain, Shoulder Pain, Arm Pain, Back Pain, Hand Pain, Leg Pain, Foot Pain, Other - Medications/Allergies Allergies/Adverse Reactions: Allergies Allergy/AdvReac Type Severity Reaction Status Date / Time chocolate flavor Allergy Verified 04/26/17 22:01 codeine Allergy Verified 04/26/17 22:01 iodine Allergy Verified 04/26/17 22:01 prochlorperazine Allergy Verified 04/26/17 22:01 Sulfa (Sulfonamide Allergy Verified 04/26/17 22:01 Antibiotics) Medications: Current Medications Acetaminophen (Tylenol) 650 mg PO Q6H PRN PRN Reason: Headache/Fever or Pain Last Admin: 08/17/17 20:57 Dose: 650 mg Albuterol/Ipratropium (Duoneb) 3 ml NEB Q4H PRN PRN Reason: SOB &/or Wheezing Last Admin: 08/19/17 10:13 Dose: 3 ml Albuterol/Ipratropium (Duoneb) 3 ml NEB [id number] [facility] Last Admin: 08/21/17 15:11 Dose: 3 ml Benztropine Mesylate (Cogentin) 2 mg PO BID [facility] Last Admin: 08/21/17 09:00 Dose: 2 mg Bisacodyl (Dulcolax) 10 mg PO DAILYPRN PRN PRN Reason: Constipation Dextrose/Water (Dextrose 50%) 25 gm SLOW IVP PRN PRN PRN Reason: Hypoglycemia Docusate Sodium (Colace) 100 mg PO BID [facility] Last Admin: 08/21/17 12:13 Dose: 100 mg Doxycycline Hyclate (Vibramycin) 100 mg PO BID [facility] Last Admin: 08/21/17 09:12 Dose: 100 mg Enoxaparin Sodium (Lovenox) 40 mg SC 0900 [facility] Last Admin: 08/21/17 09:13 Dose: 40 mg Glucagon (Glucagon) 1 mg IM PRN PRN PRN Reason: Hypoglycemia Guaifenesin (Mucinex) 600 mg PO BID [facility] Last Admin: 08/21/17 09:00 Dose: 600 mg Dextrose/Water (D5w) 1,000 mls @ 0 mls/hr IV .Q0M PRN; As Directed PRN Reason: Hypoglycemia Insulin Human Regular (Humulin R) 0 units SC .MODERATE SLIDING SC PRN PRN Reason: Moderate Correctional Scale [place] Carbonate ([place] Carbonate) 300 mg PO BID [facility] Last Admin: 08/21/17 09:12 Dose: 300 mg Mometasone Furoate/Formoterol Fumar (Dulera 200 Mcg/5 Mcg Inhaler) 2 puff INH BID-RT [facility] Last Admin: 08/21/17 07:41 Dose: 2 puff Valproic Acid (Depakene Liquid) 1,000 mg PO BID [facility] Last Admin: 08/21/17 09:12 Dose: 1,000 mg
--- NOTE | 2017-08-21 09:31 | PDOC.PN ---
- Subjective Encounter Start Date: 08/20/17 Encounter Start Time: 12:30 Subjective: pt up in chair sob - Objective Resuscitation Status: Resuscitation Status FULL:Full Resuscitation Vital Signs & Weight: Vital Signs (12 hours) Temp Pulse Resp BP Pulse Ox 08/21/17 08:10 98.2 F 74 16 127/76 92 L 08/21/17 07:49 98.0 F 91 22 H 08/21/17 07:41 91 22 H 95 08/21/17 04:58 98.4 F 57 L 18 124/78 97 08/21/17 01:45 91 20 93 L 08/21/17 01:00 95 08/20/17 23:38 98.1 F 92 20 126/76 93 L 08/20/17 22:48 82 24 H 95 Weight Weight 178 lb 12.8 oz I&O: 08/20/17 08/21/17 08/22/17 06:59 06:59 06:59 Intake Total 2424 1090 Output Total 2250 Balance 174 1090 Result Diagrams: 08/20/17 03:11 08/21/17 09:38 Phys Exam - Physical Examination HEENT: PERRLA, moist MMs, sclera anicteric, TM's clear, oral pharynx no lesions , 2+ tonsils Neck: no nodes, no JVD, supple, full ROM Respiratory: wheezing present Cardiovascular: RRR, no significant murmur, no rub, gallop, irregular Gastrointestinal: soft, non-tender, no distention, positive bowel sounds Musculoskeletal: edema present Dx/Plan - Plan 1) acute hypoxic resp failure 2) copd exab 3) parkinson 4) seizure 5)hyponatremia plan: spoke with casemanager for possible swing bed for this pt given her significant sob. Pt refused to go to swing bed. continue abx/steroids/duonebs. will c * .08/18 pt's lithium level low. will continue her meds for now. pt still very sob on minimal exertion. 08/19 echo ordered will await results. pt still very sob. 08/20 ef of 55-60% no valvular problems noted. Tried to convince pt to go to swing bed but pt refused. She is a high risk of readmission. She is sob on minimal exertion even on oxygen. Review of Systems - Review of Systems Eyes: negative: Pain, Vision Change, Conjunctivae Inflammation, Eyelid Inflammation, Redness, Other ENT: negative: Ear Pain, Ear Discharge, Nose Pain, Nose Discharge, Nose Congestion, Mouth Pain, Mouth Swelling, Throat Pain, Throat Swelling, Other Respiratory: Shortness of Breath Cardiovascular: negative: chest pain, palpitations, orthopnea, paroxysmal nocturnal dyspnea, edema, light headedness, other Gastrointestinal: negative: Nausea, Vomiting, Abdominal Pain, Diarrhea, Constipation, Melena, Hematochezia, Other Genitourinary: negative: Dysuria, Frequency, Incontinence, Hematuria, Retention , Other Musculoskeletal: negative: Neck Pain, Shoulder Pain, Arm Pain, Back Pain, Hand Pain, Leg Pain, Foot Pain, Other - Medications/Allergies Allergies/Adverse Reactions: Allergies Allergy/AdvReac Type Severity Reaction Status Date / Time chocolate flavor Allergy Verified 04/26/17 22:01 codeine Allergy Verified 04/26/17 22:01 iodine Allergy Verified 04/26/17 22:01 prochlorperazine Allergy Verified 04/26/17 22:01 Sulfa (Sulfonamide Allergy Verified 04/26/17 22:01 Antibiotics) Medications: Current Medications Acetaminophen (Tylenol) 650 mg PO Q6H PRN PRN Reason: Headache/Fever or Pain Last Admin: 08/17/17 20:57 Dose: 650 mg Albuterol/Ipratropium (Duoneb) 3 ml NEB Q4H PRN PRN Reason: SOB &/or Wheezing Last Admin: 08/19/17 10:13 Dose: 3 ml Albuterol/Ipratropium (Duoneb) 3 ml NEB [id number] [facility] Last Admin: 08/21/17 15:11 Dose: 3 ml Benztropine Mesylate (Cogentin) 2 mg PO BID [facility] Last Admin: 08/21/17 09:00 Dose: 2 mg Bisacodyl (Dulcolax) 10 mg PO DAILYPRN PRN PRN Reason: Constipation Dextrose/Water (Dextrose 50%) 25 gm SLOW IVP PRN PRN PRN Reason: Hypoglycemia Docusate Sodium (Colace) 100 mg PO BID [facility] Last Admin: 08/21/17 12:13 Dose: 100 mg Doxycycline Hyclate (Vibramycin) 100 mg PO BID [facility] Last Admin: 08/21/17 09:12 Dose: 100 mg Enoxaparin Sodium (Lovenox) 40 mg SC 0900 [facility] Last Admin: 08/21/17 09:13 Dose: 40 mg Glucagon (Glucagon) 1 mg IM PRN PRN PRN Reason: Hypoglycemia Guaifenesin (Mucinex) 600 mg PO BID [facility] Last Admin: 08/21/17 09:00 Dose: 600 mg Dextrose/Water (D5w) 1,000 mls @ 0 mls/hr IV .Q0M PRN; As Directed PRN Reason: Hypoglycemia Insulin Human Regular (Humulin R) 0 units SC .MODERATE SLIDING SC PRN PRN Reason: Moderate Correctional Scale [place] Carbonate (Brier Carbonate) 300 mg PO BID [facility] Last Admin: 08/21/17 09:12 Dose: 300 mg Mometasone Furoate/Formoterol Fumar (Dulera 200 Mcg/5 Mcg Inhaler) 2 puff INH BID-RT [facility] Last Admin: 08/21/17 07:41 Dose: 2 puff Valproic Acid (Depakene Liquid) 1,000 mg PO BID [facility] Last Admin: 08/21/17 09:12 Dose: 1,000 mg
[2017-08-21 10:04] LABS: Anion Gap 13 mmol/L (10-20); BUN (Urea Nitrogen) 11 mg/dL (9.8-20.1); Calc. Creatinine Clearance 104 mL/min (70-130); Calcium 9.7 mg/dL (7.8-10.44); Carbon Dioxide 31 mmol/L (22-29); Chloride 94 mmol/L (98-107); Estimated GFR-MDRD 80; Glucose 110 mg/dL (70-105); Potassium 3.5 mmol/L (3.5-5.1); Sodium 134 mmol/L (136-145)
--- NOTE | 2017-08-21 15:10 | EKG ---
Test Reason : Blood Pressure : / mmHG Vent. Rate : 087 BPM Atrial Rate : 087 BPM P-R Int : 136 ms QRS Dur : 084 ms QT Int : 382 ms P-R-T Axes : 066 -57 057 degrees QTc Int : 459 ms Normal sinus rhythm Left anterior fascicular block Inferior-posterior infarct , age undetermined Abnormal ECG Confirmed by JOE DEAN, LATOSHA ([id number]), [employer] ANITA REECE ([id number]) on 08/21/2017 3:09:42 PM Referred By: JOE Confirmed By:LATOSHA DIAZ MD
--- NOTE | 2017-08-21 17:13 | PRG ---
DATE OF SERVICE: 08/21/2017 SUBJECTIVE: The patient says she feels okay. She is wanting to go downstairs or smoke in the room. PHYSICAL EXAMINATION: VITAL SIGNS: Temperature 98.0, pulse 100, respiration 16, O2 sat 93% on 3 liters, blood pressure 130 /75. HEENT: Unremarkable. NECK: No JVD. LUNGS: Mild expiratory wheezing bilaterally. CARDIOVASCULAR: S1 and S2 regular. ABDOMEN: Soft and nontender. EXTREMITIES: No edema. LABORATORY DATA: Sodium 134, potassium 3.5, chloride 94, CO2 31, BUN 11, creatinine 0.7, glucose 110 . ASSESSMENT: 1. Chronic obstructive pulmonary disease with exacerbation. 2. Tobacco abuse. RECOMMENDATIONS: Continue steroids, nebulization therapy, and antibiotics. I would think she can pr obably go home by Wednesday.
[2017-08-22] MEDS: Mometasone/Formoterol 120 PUFF INHALER INH SCH ×2 (07:22→18:10)
[2017-08-22] MEDS: Docusate 100 MG CAP PO SCH ×2 (09:11→20:27)
[2017-08-22] MEDS: guaiFENesin ER 600 MG TAB PO SCH ×2 (09:11→20:21)
[2017-08-22] MEDS: Benztropine 1 MG TAB PO SCH ×2 (09:11→20:21)
[2017-08-22] MEDS: Doxycycline 100 MG CAP PO SCH ×2 (09:12→20:21)
[2017-08-22] MEDS: Valproate Sodium 250 mg/5 ml UD Cup PO SCH ×2 (09:12→20:22)
[2017-08-22] MEDS: Enoxaparin Sodium 40 MG/0.4 ML SYRINGE SC SCH (09:12)
[2017-08-22] MEDS: Lithium Carbonate 150 MG CAP PO SCH ×2 (09:12→20:22)
[2017-08-22 11:12] LABS: Actual Bicarbonate (HCO3a) 33.6 mEq/L (22-26); Base Excess (BEa) 5.9 mEq/L (0 (+/-) 2.5); CO2 Tension 64.1 mmHg (35.0-45.0); Calcium, Ionized 1.3 mmol/L (1.12-1.30); Hematocrit-ABG 42.1 % (36.0-47.0); Hemoglobin (Hb) 12.9 g/dL (12.0-16.0); O2 Tension (PaO2) 73.8 mmHg (80.0-100.0); Puncture Site RRA; pH, Arterial 7.34 (7.35-7.45)
[2017-08-22 11:13] LABS: ALV-art Gradient 157.595 (0-20)
[2017-08-22] MEDS ORDERED: methylPREDNISolone Sod Succ/PF 125 MG/2 ML VIAL IVP SCH (12:00)
--- NOTE | 2017-08-22 13:48 | PRG ---
DATE OF SERVICE: 08/22/2017 SUBJECTIVE: The patient seems to be about the same, respiratory was concerned about more abdominal r espirations. The patient says, she is disappointed that she is not going home. OBJECTIVE: VITAL SIGNS: Temperature is 98.9, pulse 91, respiration 24, O2 sat 98%, blood pressure 145/80. HEENT: Unremarkable. NECK: No JVD. LUNGS: She has expiratory wheezing bilaterally. CARDIAC: S1 and S2 regular. ABDOMEN: Soft. EXTREMITIES: No edema. LABORATORY DATA: ABG: pH 7.34, pCO2 of 64, PO2 of 73. ASSESSMENT: Chronic obstructive pulmonary disease with exacerbation. PLAN: I will give her another dose of IV steroids. She is continuing nebulization treatments and lo w flow oxygen. She is not stable for discharge at this time.
--- NOTE | 2017-08-22 15:33 | PDOC.PN ---
- Subjective Encounter Start Date: 08/22/17 Encounter Start Time: 09:40 Pt seen for followup re: acute on chronic respiratory failure. Reports shortness of breath with exertion and cough. No fevers or chills. - Objective Resuscitation Status: Resuscitation Status FULL:Full Resuscitation MAR Reviewed: Yes Vital Signs & Weight: Vital Signs (12 hours) Temp Pulse Resp BP Pulse Ox 08/22/17 14:08 80 26 H 90 L 08/22/17 13:28 22 H 92 L 08/22/17 11:08 98.9 F 91 24 H 145/80 H 90 L 08/22/17 10:50 96 36 H 87 L 08/22/17 09:19 97.9 F 93 24 H 96 08/22/17 08:00 97.9 F 93 24 H 124/85 98 08/22/17 07:20 86 28 H 94 L Weight Weight 178 lb 12.8 oz I&O: 08/21/17 08/22/17 08/23/17 06:59 06:59 06:59 Intake Total 1090 1750 Output Total 1200 Balance 1090 550 Result Diagrams: 08/20/17 03:11 08/21/17 09:38 Additional Labs: Labs reviewed by me Phys Exam - Physical Examination Obese HEENT: moist MMs Neck: no JVD Respiratory: wheezing present Cardiovascular: RRR S1, S2 Gastrointestinal: soft distention Neurological: moves all 4 limbs Psychiatric: normal affect Dx/Plan (1) Acute and chronic respiratory failure Code(s): J96.20 - ACUTE AND CHR RESP FAILURE, UNSP W HYPOXIA OR HYPERCAPNIA Status: Acute Qualifiers: Respiratory failure complication: hypoxia and hypercapnia Qualified Code(s) : J96.21 - Acute and chronic respiratory failure with hypoxia; J96.22 - Acute and chronic respiratory failure with hypercapnia; J96.22 - Acute and chronic respiratory failure with hypercapnia; J96.22 - Acute and chronic respiratory failure with hypercapnia Comment: Due to COPD exacerbation (2) COPD (chronic obstructive pulmonary disease) Status: Chronic Comment: continue oxygen, steroids, bronchodilators and antibiotics (3) Hyponatremia Code(s): E87.1 - HYPO-OSMOLALITY AND HYPONATREMIA Status: Chronic Comment: mild, likely asymptomatic (4) Schizophrenia Code(s): F20.9 - SCHIZOPHRENIA, UNSPECIFIED Status: Chronic Comment: stable (5) Tobacco abuse Code(s): Z72.0 - TOBACCO USE Status: Chronic - Plan * . Review of Systems - Review of Systems Constitutional: negative: fever, chills, sweats, weakness, malaise Respiratory: Cough, Dry, Shortness of Breath, SOB with Excertion. negative: Hemoptysis, Pleuritic Pain, Sputum, Wheezing Cardiovascular: negative: chest pain, palpitations, orthopnea, paroxysmal nocturnal dyspnea, edema, light headedness - Medications/Allergies Allergies/Adverse Reactions: Allergies Allergy/AdvReac Type Severity Reaction Status Date / Time chocolate flavor Allergy Verified 04/26/17 22:01 codeine Allergy Verified 04/26/17 22:01 iodine Allergy Verified 04/26/17 22:01 prochlorperazine Allergy Verified 04/26/17 22:01 Sulfa (Sulfonamide Allergy Verified 04/26/17 22:01 Antibiotics) Medications: Current Medications Acetaminophen (Tylenol) 650 mg PO Q6H PRN PRN Reason: Headache/Fever or Pain Last Admin: 08/17/17 20:57 Dose: 650 mg Albuterol/Ipratropium (Duoneb) 3 ml NEB Q4H PRN PRN Reason: SOB &/or Wheezing Last Admin: 08/19/17 10:13 Dose: 3 ml Albuterol/Ipratropium (Duoneb) 3 ml NEB [id number] Last Admin: 08/22/17 14:08 Dose: 3 ml Benztropine Mesylate (Cogentin) 2 mg PO BID [facility] Last Admin: 08/22/17 09:11 Dose: 2 mg Bisacodyl (Dulcolax) 10 mg PO DAILYPRN PRN PRN Reason: Constipation Dextrose/Water (Dextrose 50%) 25 gm SLOW IVP PRN PRN PRN Reason: Hypoglycemia Docusate Sodium (Colace) 100 mg PO BID [facility] Last Admin: 08/22/17 09:11 Dose: 100 mg Doxycycline Hyclate (Vibramycin) 100 mg PO BID [facility] Last Admin: 08/22/17 09:12 Dose: 100 mg Enoxaparin Sodium (Lovenox) 40 mg SC 0900 [facility] Last Admin: 08/22/17 09:12 Dose: 40 mg Glucagon (Glucagon) 1 mg IM PRN PRN PRN Reason: Hypoglycemia Guaifenesin (Mucinex) 600 mg PO BID [facility] Last Admin: 08/22/17 09:11 Dose: 600 mg Dextrose/Water (D5w) 1,000 mls @ 0 mls/hr IV .Q0M PRN; As Directed PRN Reason: Hypoglycemia Insulin Human Regular (Humulin R) 0 units SC .MODERATE SLIDING SC PRN PRN Reason: Moderate Correctional Scale [place] Carbonate ([place] Carbonate) 300 mg PO BID [facility] Last Admin: 08/22/17 09:12 Dose: 300 mg Mometasone Furoate/Formoterol Fumar (Dulera 200 Mcg/5 Mcg Inhaler) 2 puff INH BID-RT [facility] Last Admin: 08/22/17 07:22 Dose: 2 puff Valproic Acid (Depakene Liquid) 1,000 mg PO BID [facility] Last Admin: 08/22/17 09:12 Dose: 1,000 mg
[2017-08-23] MEDS: Mometasone/Formoterol 120 PUFF INHALER INH SCH (06:52)
[2017-08-23 08:44] VITALS: BP 129/82; TEMP 97.5
[2017-08-23] MEDS ORDERED: predniSONE 20 MG TAB PO SCH (08:45)
[2017-08-23] MEDS: Benztropine 1 MG TAB PO SCH (09:17)
[2017-08-23] MEDS: Docusate 100 MG CAP PO SCH (09:17)
[2017-08-23] MEDS: guaiFENesin ER 600 MG TAB PO SCH (09:18)
[2017-08-23] MEDS: Lithium Carbonate 150 MG CAP PO SCH (09:18)
[2017-08-23] MEDS: Valproate Sodium 250 mg/5 ml UD Cup PO SCH (09:19)
[2017-08-23] MEDS: Doxycycline 100 MG CAP PO SCH (09:19)
[2017-08-23] MEDS: Enoxaparin Sodium 40 MG/0.4 ML SYRINGE SC SCH (09:20)
--- NOTE | 2017-08-23 09:42 | PRG ---
DATE OF SERVICE: 08/23/2017 This morning she is awake, alert, responsive. She is having difficulty breathing. PHYSICAL EXAMINATION: VITAL SIGNS: Sats 94% on 3 liters, respiration 24, pulse 70, blood pressure 130/80. CHEST: Chest revealed decreased breath sounds, no wheezing. CARDIAC: Normal S1, S2, no gallops. ABDOMEN: Soft, no masses. LABORATORY: She had some blood gas ordered yesterday on 6 liters her pO2 was 73, pCO2 of 64, pH 7.34 . She was given 1 dose IV Medrol 50. IMPRESSION: 1. Chronic obstructive pulmonary disease. 2. Respiratory failure. 3. Marked increase in weight gain. 4. Probably hypoventilation, sleep apnea. 5. Bipolar disorder. PLAN: She needs to be on low dose prednisone, tapered over the course of a week or two. Continue ne b treatments, Dulera, supportive care. She probably can be transferred back to the long term.
--- NOTE | 2017-08-23 15:35 | DIS ---
PRIMARY CARE PROVIDER: Jules Dodge M.D. DATE OF ADMISSION: 08/16/2017 DATE OF DISCHARGE: 08/23/2017 DISCHARGE DIAGNOSES: 1. Acute on chronic hypoxic respiratory failure. 2. Chronic obstructive pulmonary disease exacerbation. CONSULTATIONS DURING THIS HOSPITALIZATION: Pulmonology, Dr. Metcalf. CONDITION OF PATIENT ON THE DAY OF DISCHARGE: Stable. I assess Ms. Carr on the day of discharge. She denies any chest pain or shortness of breath. PHYSICAL EXAMINATION: VITAL SIGNS: Stable. HEART: S1 and S2 are heard, regular. LUNG: Examination reveals occasional expiratory wheeze. DISCHARGE MEDICATIONS: Benztropine 2 mg 2 times a day, budesonide 0.5 mg nebulizers 2 times a day, V ibramycin 100 mg 2 times a day for 3 more days, Prolixin D 25 mg intramuscularly as directed, Mucinex 600 mg 2 times a day, DuoNebs 3 mL every 4 hours as needed, lithium carbonate 300 mg 2 times a day, Imodium p.r.n., Maalox p.r.n., Milk of Magnesia p.r.n., Dulera 200/5 mcg 2 puffs 2 times a day, Aleve 220 mg 2 times a day, prednisone taper, simethicone p.r.n., sodium chloride 1000 mg 3 times a day, v alproic acid 250 mg per 5 mL, 20 mL 2 times a day. HOSPITAL COURSE: Ms. Carr is a pleasant 62-year-old lady, who was admitted to [facility] on 08/23/2017 for acute on chronic hypoxic respiratory failure secondary to chronic ob structive pulmonary disease exacerbation. She was seen by the Pulmonology Service. She improved wit h oxygen, steroids, bronchodilators, and antibiotics. She is being discharged back to [facility] condition. A 2D echocardiogram during this hospitalization showed left ventricular ejection fraction of 55% to 6 0%, grade 1/3 diastolic dysfunction, normal right ventricular size and function, and trace mitral reg urgitation. On 08/21/2017, she had sodium 134, potassium 3.5, creatinine 0.74. On 08/20/2017, she had an unremar kable CBC. Arterial blood gases on 08/22/2017 showed pH 7.34, pCO2 of 64.1, and pO2 of 73.8. Her lithium level was low at 0.526 on 08/18/2017. Her lithium level may need to be adjusted as an outpatient. Many thanks for allowing me to participate in your patient's care. Please feel free to contact me wi th any questions or concerns. DISCHARGE DESTINATION: [facility]. TOTAL AMOUNT OF TIME SPENT COORDINATING THIS DISCHARGE: 33 minutes.
[2017-08-24] MEDS ORDERED: predniSONE 20 MG TAB PO SCH (08:00)
== END 2017-08-23 14:22 | disposition home or self-care (01) | DRG 190 ==
LOC: ERS 20:54 → ERHOLD 22:05 → IMCU/EMU 08-17 06:31 → T4-B 08-20 15:37
PROVIDERS: ADMIT Internal Medicine; ATTEND Internal Medicine
DX: J44.1 Chronic obstructive pulmonary disease with (acute) exacerbation (principal); J96.21 Acute and chronic respiratory failure with hypoxia; I50.33 Acute on chronic diastolic (congestive) heart failure; E87.1 Hypo-osmolality and hyponatremia; G47.30 Sleep apnea, unspecified; F31.9 Bipolar disorder, unspecified; F17.200 Nicotine dependence, unspecified, uncomplicated; G20 Parkinson's disease; R56.9 Unspecified convulsions; J40 Bronchitis, not specified as acute or chronic; F41.9 Anxiety disorder, unspecified; M19.90 Unspecified osteoarthritis, unspecified site; F20.9 Schizophrenia, unspecified
CPT/HCPCS: 36415; 71045; 80048; 80053; 80178; 81003; 81015; 82550; 82553; 82805; 83605; 83690; 83735; 83880; 83930; 84484; 85025; 85610; 85730; 87040; 93005; 93306; 94640; 94660; 94664; 96365; 96366; 96367; 96375; 99406; G8978-GP-CL; G8979-GP-CJ; J0456; J0696; J1100; J1650; J1956; J2930; J3475; J7050; J7506; J7611; J7620; S0028

== ENCOUNTER 2017-10-02 18:34 | Emergency (ER) | payer MEDICARE, OTHER ==
[2017-10-02] MEDS ORDERED: Dexamethasone 10 MG/ML VIAL ONE (20:12)
--- NOTE | 2017-10-02 20:46 | RAD ---
LEFT HIP TWO VIEWS: 10/02/17 HISTORY: Fall. Pain. COMPARISON: 06/15/13. FINDINGS: Contour of the femoral head is maintained and the hip joint space is preserved. No fracture. IMPRESSION: No fracture. POS: [facility]
== END 2017-10-02 23:28 | disposition home or self-care (01) ==
LOC: ERS 18:34
DX: M25.552 Pain in left hip (principal); J44.9 Chronic obstructive pulmonary disease, unspecified; K59.00 Constipation, unspecified; E87.1 Hypo-osmolality and hyponatremia; G20 Parkinson's disease; F31.9 Bipolar disorder, unspecified; F20.9 Schizophrenia, unspecified; F17.210 Nicotine dependence, cigarettes, uncomplicated; Z79.899 Other long term (current) drug therapy
CPT/HCPCS: J1100

== ENCOUNTER 2018-01-24 14:53 | Inpatient (IN) | payer MEDICARE, MEDICAID ==
[2018-01-24 15:35] LABS: #Lymphocytes 1.1 thou/uL (1.20-3.40); #Monocytes 0.6 thou/uL (0.11-0.59); %Basophils 0.1 % (0.0-1.0); %Eosinophils 0.2 % (0.0-10.0); %Lymphocytes 16.5 % (21.0-51.0); %Monocytes 8.3 % (0.0-10.0); %Neutrophils 74.8 % (42.0-75.0); Hemoglobin 13.8 g/dL (12.0-16.0); Mean Corpuscular HGB CONC 33.2 g/dL (32.0-36.0); Mean Corpuscular Hemoglobin 31.9 pg (27.0-31.0); Mean Corpuscular Volume 96.1 fL (78.0-98.0); Mean Platelet Volume 8.1 fL (7.4-10.4); Platelet Count 177 thou/uL (130-400); RBC Distribution Width 12.8 % (11.5-14.5); Red Blood Cell (RBC) Count 4.33 mill/uL (4.20-5.40); White Blood Cell (WBC) Count 6.7 thou/uL (4.8-10.8)
--- NOTE | 2018-01-24 15:49 | RAD ---
UPRIGHT PORTABLE CHEST 1 VIEW: Date: 01/24/18 HISTORY: 62-year-old female with history of altered mental status following a fall yesterday in a custodial . FINDINGS: Monitor leads overlie the chest. Heart size is normal. The lungs are clear. IMPRESSION: No acute intrathoracic disease. Stable from prior study. POS: [facility]
[2018-01-24 15:59] LABS: ALT (SGPT) 14 U/L (8-55); AST (SGOT) 15 U/L (5-34); Albumin 4.1 g/dL (3.5-5.0); Alkaline Phosphatase 53 U/L (40-150); Anion Gap 13 mmol/L (10-20); BUN (Urea Nitrogen) 17 mg/dL (9.8-20.1); Bilirubin, Total 0.4 mg/dL (0.2-1.2); Calc. Creatinine Clearance 0 mL/min (70-130); Calcium 9.9 mg/dL (7.8-10.44); Carbon Dioxide 31 mmol/L (22-29); Chloride 98 mmol/L (98-107); Estimated GFR-MDRD 74; Globulin 2.9 g/dL (2.4-3.5); Glucose 110 mg/dL (70-105); Potassium 4.5 mmol/L (3.5-5.1); Sodium 137 mmol/L (136-145)
[2018-01-24] MEDS ORDERED: Albuterol Sulfate 2.5 mg/3 ml Neb ONE (16:04)
[2018-01-24 16:23] LABS: Actual Bicarbonate (HCO3a) 30.1 mEq/L (22-28); Analyzer IN Cardio ER; Base Excess (BEa) 2.3 mEq/L (-2.0 to +3.0); Calcium, Ionized 1.26 mmol/L (1.12-1.30); Carboxyhemoglobin (COHb) 0.8 gm% (0.0-3.0); Hemoglobin (Hb) 13.6 g/dL (12.0-16.0); O2 Tension (PaO2) 67.5 mmHg (> 80.0); Potassium - ABG Lab 4.73 mmol/L (3.70-5.30); pH, Arterial 7.31 (7.35-7.45)
[2018-01-24 16:24] LABS: CO2 Tension 61.3 mmHg (35.0-45.0)
[2018-01-24 16:25] LABS: Puncture Site RB
[2018-01-24 16:35] LABS: CKMB 0.9 ng/mL (0-6.6); Troponin I Less than 0.010 ng/mL (< 0.028)
[2018-01-24 16:40] LABS: Acetaminophen Less than 6.0 mcg/mL (10.0-30.0); Alcohol Less than 10 mg/dL (Less than 10); CK (CPK) 36 U/L (29-168); Lipase 5 U/L (8-78); Salicylate Less than 8.0 mg/dL (15.0-30.0)
[2018-01-24 17:03] LABS: Bilirubin Small (Negative); Blood, Urine Negative (Negative); Clarity TURBID (Clear); Glucose, Urine (Dipstick) Negative (Negative); Leukocyte Small (Negative); Nitrite Negative (Negative); Protein, Urine (Dipstick) Trace mg/dL (Neg-Trace)
[2018-01-24 17:04] LABS: Bacteria/HPF None Seen HPF (None Seen)
[2018-01-24 17:07] LABS: Pathc Cast-AUWi Flag 4.79 (0-2.49)
[2018-01-24 17:10] LABS: Amphetamine Not Detected (NotDetected); Barbiturates Screen Not Detected (NotDetected); Benzodiazepine Screen Not Detected (NotDetected); Cocaine Metabolite Screen Not Detected (NotDetected); Medtox Control Line Valid? VALID (VALID); Medtox Reader # READER 4; Methadone Not Detected (NotDetected); Methamphetamine Not Detected (NotDetected); Opiate Screen Not Detected (NotDetected); Oxycodone Screen Not Detected (NotDetected); Phencyclidine (PCP) Not Detected (NotDetected); THC/Cannabinoid Screen Not Detected (NotDetected); Tricyclic Screen Not Detected (NotDetected)
[2018-01-24 17:19] LABS: Hyaline Casts/LPF 0-3 HYALINE CAST LPF (0-3 Hyaline); Other Casts/LPF None Seen LPF (0-3 Hyaline)
--- NOTE | 2018-01-24 18:35 | CT ---
NONCONTRAST CT HEAD: 01/24/2018 HISTORY: Altered mental status after a fall one day ago. COMPARISON: 04/26/2017 FINDINGS: There is no evidence of an intraparenchymal or extraaxial hematoma. No acute infarction, mass effect , or midline shift is identified. Mucosal thickening is seen throughout the ethmoid air cells, as we ll as involving each sphenoid sinus. The mastoid air cells are clear. The calvarial structures are intact without evidence of a calvarial fracture. There has been no interval change compared to the p rior exam. IMPRESSION: 1. No acute intracranial abnormality is demonstrated. 2. Sinus disease. POS: [facility]
[2018-01-24 23:19] VITALS: BMI 31.6
--- NOTE | 2018-01-24 23:21 | HP ---
DATE OF ADMISSION: 01/24/2018 CHIEF COMPLAINT: Shortness of breath and respiratory distress, history of fall as well. HISTORY OF PRESENT ILLNESS: Ms. Carr is a 62-year-old female with past medical history of COPD, paranoid schizophrenia who was found in respiratory distress with chest wheezing and hypoxia. In the skilled nursing, the patient has COPD, has been taking DuoNeb treatments. Her O2 saturation was 78% on 2 liter nasal cannula as well as she has been wheezing according to skilled nursing. The patient also has been coughing, but the sputum was White. According to skilled nursing, the patient also fell yesterday. Since the fall, she has been a bit lethargic, confused today. So EMS was called. The patient was found to be in respiratory distress with chest wheezing. EMS gave her DuoNeb treatment and Solu-Medrol and brought her to the hospital. In the ER, the patient was still wheezing, received DuoNebs as well, put on BiPAP, a dose of Levaquin as well. Started on fluids and being admitted for further evaluation and management. PAST MEDICAL HISTORY: 1. COPD. 2. Schizophrenia, paranoid. 3. History of chronic back pain. 4. Seizures. PAST SURGICAL HISTORY: 1. Status post bladder sling. 2. Status post hysterectomy. 3. Status post tonsillectomy. 4. Status post hemorrhoidectomy. ALLERGIES: Multiple, which include CODEINE, IODINE, PROCHLORPERAZINE, SULFA. CURRENT MEDICATIONS: The patient is on benztropine 2 mg daily, valproic acid 250 mg b.i.d. budesonide nebulizer b.i.d., prednisone 5 mg daily, lithium carbonate 300 mg b.i.d., Milk of Magnesia p.r.n., simethicone 80 mg q.6 hours p.r.n., fluphenazine injection every 2 weeks, Symbicort 160/4.5 two puffs b.i.d. , DuoNebs q.i.d. FAMILY HISTORY: Nothing contributory. SOCIAL HISTORY: Patient lives in skilled nursing, smokes half pack a day. REVIEW OF SYSTEMS: CARDIOVASCULAR: No chest pain, shortness of breath. RESPIRATORY: Cough, no fever. GASTROINTESTINAL: No nausea or vomiting. No abdominal pain. GENITOURINARY: No dysuria. STATION EXAMINER: No headache, dizziness. PHYSICAL EXAMINATION: GENERAL: The patient is alert, awake, oriented x2. VITAL SIGNS: Temperature 98, pulse 94, respiration 24, blood pressure 140/80. O2 sats are 93% on 2 liters. HEENT: Normocephalic, atraumatic. Pupils equal and reactive to light. Nasopharynx is pale and dry. Hard and soft palate, no lesions seen. SKIN: Turgor is decreased. NECK: Supple. No JVD. LUNGS: Breath sounds diminished bilaterally. Percussion not dull bilaterally. Expiratory wheeze present bilaterally. CARDIAC: S1, S2 regular. ABDOMEN: Soft, no distention, no tenderness. Normal bowel sounds. RECTAL: Deferred. EXTREMITIES: No edema. NEUROLOGIC: The patient is alert, awake, oriented x2. Motor system power 4/5 in all extremities. Deep tendon reflexes 2+ bilaterally. Plantar downgoing. Sensory intact. LABORATORY AND X-RAY FINDINGS: CBC shows WBC 6.7, hemoglobin 13, hematocrit 41 , platelets 177. Prothrombin time 13, INR 1. Metabolic panel: Sodium 137, potassium 4.5, chloride 98, CO2 31, BUN 17, creatinine 0.7, glucose 110. ABG showed a pH 7.31, pCO2 61, pO2 67. saturation 91%. Chest x-ray negative. EKG shows normal sinus rhythm, no acute ST-T wave changes seen. ASSESSMENT: 1. Acute on chronic respiratory failure secondary to chronic obstructive pulmonary disease exacerbation. 2. History of fall, no acute injuries. 3. Tobacco abuse. 4. Paranoid schizophrenia. 5. History of depression. 6. History of Parkinson disease. 7. History of hyponatremia. PLAN: 1. Admit to IMCU. 2. BiPAP. 3. Diet: Regular. 4. Activity: As tolerated. 5. Allergies: Multiple. 6. IV fluids 0.5 normal at 70 mL per hour. 7. DuoNeb 1 unit q.4 hours. 8. Solu-Medrol 40 IVP q.6 hours. 9. Mucinex 600 mg b.i.d. 8. Symbicort 160/4.5 two puffs b.i.d. 10. Protonix 40 mg IV piggyback daily. 11. Lovenox 40 mg subcu daily. 12. I will continue her skilled nursing medications. MTDD
[2018-01-24] MEDS ORDERED: methylPREDNISolone Sod Succ/PF 125 MG/2 ML VIAL IVP SCH (23:45)
[2018-01-25] MEDS ORDERED: methylPREDNISolone Sod Succ/PF 125 MG/2 ML VIAL ONE (00:21)
[2018-01-25] MEDS: Sodium Chloride 0.45% 1,000 ML IV SCH ×2 (00:26→14:42)
[2018-01-25] MEDS ORDERED: Acetaminophen 325 MG TAB PO PRN (02:00)
[2018-01-25] MEDS ORDERED: Mag-Al 1200 mg/1200 mg/30 ML UDCUP PO PRN (02:03)
[2018-01-25] MEDS ORDERED: Loperamide HCl 2 MG CAP PO PRN (02:04)
[2018-01-25] MEDS ORDERED: Simethicone Chewable 80 MG TAB PO PRN (02:06)
[2018-01-25] MEDS ORDERED: Mometasone/Formoterol 120 PUFF INHALER INH SCH (06:30)
[2018-01-25] MEDS: Mometasone/Formoterol 120 PUFF INHALER INH SCH ×2 (07:00→22:29)
[2018-01-25] MEDS: Budesonide 0.5 MG/2 ML NEB NEB SCH ×2 (07:01→19:24)
[2018-01-25] MEDS ORDERED: predniSONE 5 MG TAB PO SCH (08:00)
[2018-01-25] MEDS ORDERED: guaiFENesin ER 600 MG TAB PO SCH (09:00)
[2018-01-25] MEDS ORDERED: Naproxen 500 MG TAB PO SCH (09:00)
[2018-01-25] MEDS: Valproate Sodium 250 mg/5 ml UD Cup PO SCH ×2 (09:52→21:57)
[2018-01-25] MEDS: Enoxaparin Sodium 40 MG/0.4 ML SYRINGE SC SCH (09:53)
[2018-01-25] MEDS: Pantoprazole 40 MG VIAL IVP SCH (09:54)
[2018-01-25] MEDS: Benztropine 1 MG TAB PO SCH ×2 (09:54→21:55)
[2018-01-25] MEDS: Sodium Chloride 1 GM TAB PO SCH ×3 (09:56→21:57)
[2018-01-25] MEDS: Lithium Carbonate 150 MG CAP PO SCH ×2 (09:56→21:56)
[2018-01-25] MEDS: guaiFENesin ER 600 MG TAB PO SCH ×2 (09:56→21:56)
--- NOTE | 2018-01-25 14:45 | PQF ---
DATE: 01-25-18 ATTN: DR. EDDI THAKUR Please exercise your independent, professional judgment in responding to the clarification form. Clinical indicators are provided on the bottom of this form for your review Please check appropriate box(s): [ ] UTI [ y] Contaminated urine specimen without UTI [ ] Other diagnosis [ ] Unable to determine In addition, please specify: Present on Admission (POA): [ y] Yes [ ] No [ ] Unable to determine For continuity of documentation, please document condition throughout progress notes and discharge summary. Thank You. CLINICAL INDICATORS - SIGNS / SYMPTOMS / LABS URINE: 01-24-18: URINE KETONES: 15 H URINE BILIRUBIN: SMALL H UR LEUKOCYTE ESTERASE: SMALL H URINE WBC: 4-6 H URINE SQUAMOUS EPITH CELLS: 7-10 H TEMP: ER: 99.4 RISK FACTORS: ER: FROM NH, FALL WITH ALTERED AND LETHARGIC H&P: S/P BLADDER SLING TREATMENT: ER: VANCOMYCIN IV, LEVAQUIN IV, NS IVF (This form is maintained as a part of the permanent medical record) 2014 [employer] All Rights Reserved NAMRATA [email or web address] Office: [phone] [facility]
--- NOTE | 2018-01-25 15:02 | PRG ---
DATE OF SERVICE: 01/25/2018 SUBJECTIVE: Ms. Carr is a 62-year-old female who has chronic obstructive pulmonary disease. She was seen in the emergency room yesterday afternoon and subsequently was admitted. We were consulted. She is complaining of shortness of breath, but says she is back to her baseline and wants to go back to her longterm. PAST MEDICAL/SURGICAL HISTORY: Remarkable for schizophrenia, lipid disorder, hypertension, degenerative arthritis, depression, status post hysterectomy, status post treatment of cervical cancer, status post urinary bladder suspension , history of tonsillectomy. I believe she is still smoking at the longterm. She is not drinking. ALLERGIES: She reports allergies to CODEINE, IODINE, PROCHLORPERAZINE and SULFA. MEDICATIONS: Medicines prior to admission include benztropine, valproate, budesonide, prednisone, lithium, simethicone, fluphenazine injection every 2 weeks, Symbicort and DuoNeb. FAMILY HISTORY: Negative. SOCIAL HISTORY: Half pack a day, nondrinker. REVIEW OF SYSTEMS: Ten point system review completed, otherwise negative. As mentioned, she says she feels fine and wants to go back to longterm. OBJECTIVE: GENERAL: 62-year-old female who has chronic obstructive pulmonary disease VITAL SIGNS: She is afebrile, heart rate is 90, respiratory rate 20, oximetry is 99.2 liters, blood pressure 113/63. HEENT: Pupils are equal. Sclerae is anicteric. NECK: Supple. LUNGS: Remarkable for faint wheezes. HEART: Regular rhythm, no S3, no murmur. ABDOMEN: Soft and nontender. EXTREMITIES: No clubbing, cyanosis, or edema. LABORATORY DATA: White count 6.7, hemoglobin 13.8, platelets 177. Electrolytes were unremarkable except for bicarbonate 31. Blood gas pH 7.31, CO2 61, pO2 67. Chest x-ray showed no infiltrates. IMPRESSION: 1. Acute on chronic respiratory failure with hypoxemia and hypercarbia 2. Chronic obstructive pulmonary disease exacerbation. 3. Bronchitis. PLAN: Continue current care. She may be a candidate to go back to her longterm in 24-48 hours. This is a 50 minute consult with greater than 50% of time spent on unit with coordination of care. HAILY
[2018-01-26] MEDS: Sodium Chloride 0.45% 1,000 ML IV SCH (05:22)
[2018-01-26] MEDS: Budesonide 0.5 MG/2 ML NEB NEB SCH ×2 (07:06→19:49)
[2018-01-26] MEDS: Mometasone/Formoterol 120 PUFF INHALER INH SCH ×2 (07:09→19:50)
--- NOTE | 2018-01-26 08:39 | PRG ---
DATE OF SERVICE: 01/26/2018 SUBJECTIVE: She is awake, alert, and responsive. She is better this morning. She presented with re spiratory distress. OBJECTIVE: VITAL SIGNS: Sats 100% on 1 liter, blood pressure 136/64, temperature 96.3, pulse rate is 18. LUNGS: No crackles or wheezing. CARDIAC: Normal S1 and S2. No gallops. ABDOMEN: Soft, no masses. LABORATORY DATA: Her pCO2 was only 61 this time. White count is normal at 6000, and chemistry profi le unremarkable. Chest x-ray was normal. IMPRESSION: 1. Chronic obstructive pulmonary disease exacerbation. 2. Bronchitis. 3. Ongoing tobacco abuse. 4. Bipolar, schizophrenia. PLAN: Switch over to oral antibiotics. Switch over to oral prednisone tomorrow. Hopefully, back to the [facility] in the next 24-48 hours. Once again, she was told to refrain from smoking.
[2018-01-26] MEDS: Valproate Sodium 250 mg/5 ml UD Cup PO SCH ×2 (08:59→20:52)
[2018-01-26] MEDS: guaiFENesin ER 600 MG TAB PO SCH ×2 (09:00→20:51)
[2018-01-26] MEDS: Sodium Chloride 1 GM TAB PO SCH ×3 (09:00→20:51)
[2018-01-26] MEDS: Lithium Carbonate 150 MG CAP PO SCH ×2 (09:00→20:51)
[2018-01-26] MEDS: Benztropine 1 MG TAB PO SCH ×2 (09:00→20:51)
[2018-01-26] MEDS: Enoxaparin Sodium 40 MG/0.4 ML SYRINGE SC SCH (09:02)
[2018-01-26] MEDS: Pantoprazole 40 MG VIAL IVP SCH (09:05)
[2018-01-26] MEDS ORDERED: Sterile Water 10 ML VIAL FS SCH (20:45)
[2018-01-26] MEDS ORDERED: Ziprasidone 20 MG VIAL IM SCH (20:45)
[2018-01-27] MEDS: Mometasone/Formoterol 120 PUFF INHALER INH SCH (07:09)
[2018-01-27] MEDS: Budesonide 0.5 MG/2 ML NEB NEB SCH (07:09)
[2018-01-27] MEDS ORDERED: predniSONE 20 MG TAB PO SCH (09:00)
--- NOTE | 2018-01-27 09:23 | PRG ---
DATE OF SERVICE: 01/27/2018 This morning the patient is doing better, less short of breath, less cough. She is on p.o. prednison e. PHYSICAL EXAMINATION: VITAL SIGNS: Sats are 90 on 3 liters, respirations 20, pulse 80, temperature 97, blood pressure 142/ 86. CHEST: Chest reveals decreased breath sounds, no wheezing. CARDIAC: Normal S1, S2. No gallops. ABDOMEN: Soft, no mass. IMPRESSION: 1. Schizophrenia, bipolar. 2. Chronic obstructive pulmonary disease exacerbation. 3. Bronchitis. PLAN: She can be transferred back to the residential. She was told to refrain from smoking.
[2018-01-27] MEDS: Lithium Carbonate 150 MG CAP PO SCH (10:13)
[2018-01-27] MEDS: Sodium Chloride 1 GM TAB PO SCH ×2 (10:14→15:15)
[2018-01-27] MEDS: Benztropine 1 MG TAB PO SCH (10:14)
[2018-01-27] MEDS: Enoxaparin Sodium 40 MG/0.4 ML SYRINGE SC SCH (10:14)
[2018-01-27] MEDS: guaiFENesin ER 600 MG TAB PO SCH (10:14)
[2018-01-27] MEDS: Valproate Sodium 250 mg/5 ml UD Cup PO SCH (10:15)
[2018-01-27 15:40] VITALS: BP 116/80; TEMP 97.8
--- NOTE | 2018-01-28 13:59 | DIS ---
DATE OF ADMISSION: 01/24/2018 DATE OF DISCHARGE: 01/27/2018 ADMITTING DIAGNOSES: 1. Acute on chronic respiratory failure secondary to chronic obstructive pulmonary disease exacerbation. 2. History of fall, no acute injuries. 3. Tobacco abuse. 4. Paranoid schizophrenia. 5. History of depression. 6. History of hyponatremia. FINAL DIAGNOSES: 1. Acute on chronic respiratory failure due to chronic obstructive pulmonary disease exacerbation, improved. 2. Bronchitis, improved. 3. Paranoid schizophrenia, stable. 4. History of hyponatremia. BRIEF SUMMARY OF HOSPITAL COURSE: Ms. Carr is a 63-year-old female admitted because of severe respiratory failure secondary to chronic obstructive pulmonary disease exacerbation. The patient is on BiPAP and has been admitted to [facility] where she was closely monitored and her shortness of breath improved, her oxygenation improved. She was taken off BiPAP and put on nasal cannula. The patient was seen by Pulmonary storage consultant, who suggested to continue with neb treatment and steroids. The patient was transferred to medical floor after she became more stable. At that time, the patient's Solu- Medrol was decreased and changed to prednisone, continued on neb treatments and oxygen. The patient did have episodes of confusion and behavioral problems secondary to paranoid schizophrenia. She required a dose of Geodon once. Otherwise, patient remained stable. She was started on physical therapy and in view of improvement, the patient was discharged. At the time of discharge, she was stable. Her vital signs were stable. Lungs clear. Heart sounds regular. Abdomen is soft, nontender. Bowel sounds present. DISCHARGE MEDICATIONS: Include Prolixin 25 mg IM q. 2 weeks; Maalox p.r.n.; lithium carbonate 300 mg b.i.d.; valproic acid 250 mg per 5 mL, 20 mL b.i.d.; sodium chloride 1000 mg t.i.d.; simethicone 80 mg q.6 hours p.r.n.; benztropine 2 mg b.i.d.; DuoNebs q.i.d.; Mucinex 600 b.i.d. for 10 days; Pulmicort nebulized solution b.i.d.; Imodium p.r.n.; Symbicort 2 puffs b.i.d. 160/4.5; Tylenol p.r.n.; levofloxacin 500 mg daily for 5 days; prednisone tapering doses 40 mg daily for 4 days and 30 mg daily for 4 days, 20 mg daily for 4 days, and 10 mg daily for 4 days. DISCHARGE INSTRUCTIONS: The patient will continue with nasal cannula and continue with physical therapy. MTDD
--- NOTE | 2018-01-29 11:22 | EKG ---
Test Reason : SEPSIS Blood Pressure : / mmHG Vent. Rate : 087 BPM Atrial Rate : 087 BPM P-R Int : 136 ms QRS Dur : 084 ms QT Int : 372 ms P-R-T Axes : 072 -46 041 degrees QTc Int : 447 ms Normal sinus rhythm Left anterior fascicular block Cannot rule out Inferior infarct , age undetermined T wave abnormality, consider anterior ischemia Abnormal ECG Confirmed by JOE DEAN, LATOSHA ([id number]), associate editor ANITA REECE ([id number]) on 01/29/2018 11:21:48 AM Referred By: Confirmed By:LATOSHA DIAZ MD
== END 2018-01-27 16:38 | DRG 189 ==
LOC: ERS 14:53 → ERHOLD 17:16 → IMCU/EMU 23:13 → T4-B 01-26 15:19
PROVIDERS: ADMIT Internal Medicine; ATTEND Internal Medicine
DX: J96.21 Acute and chronic respiratory failure with hypoxia (principal); J44.1 Chronic obstructive pulmonary disease with (acute) exacerbation; F20.0 Paranoid schizophrenia; E87.1 Hypo-osmolality and hyponatremia; J44.0 Chronic obstructive pulmonary disease with (acute) lower respiratory infection; G89.29 Other chronic pain; M54.9 Dorsalgia, unspecified; G40.909 Epilepsy, unspecified, not intractable, without status epilepticus; Z88.8 Allergy status to other drugs, medicaments and biological substances; F17.210 Nicotine dependence, cigarettes, uncomplicated; G20 Parkinson's disease; F31.9 Bipolar disorder, unspecified; J96.22 Acute and chronic respiratory failure with hypercapnia; J40 Bronchitis, not specified as acute or chronic
CPT/HCPCS: 36415; 51701; 70450; 71045; 80053; 80306; 80307; 81003; 81015; 82140; 82553; 82805; 83605; 83690; 83880; 84443; 84484; 85025; 87040; 87045; 87046; 87086; 87324; 87449; 87804; 87899; 93005; 94640; 94660; 96365; 96366; A4353; C9113; J1650; J1956; J2920; J2930; J3370; J3486; J7506; J7611; J7620; J7626

== ENCOUNTER 2018-02-18 16:10 | Inpatient (IN) | payer MEDICARE, MEDICAID ==
[2018-02-18] MEDS ORDERED: methylPREDNISolone Sod Succ/PF 125 MG/2 ML VIAL ONE (16:18)
[2018-02-18 16:52] LABS: Actual Bicarbonate (HCO3a) 32.8 mEq/L (22-28); Analyzer IN Cardio ER; Base Excess (BEa) 4.7 mEq/L (-2.0 to +3.0); Calcium, Ionized 1.23 mmol/L (1.12-1.30); Carboxyhemoglobin (COHb) 0.8 gm% (0.0-3.0); Hemoglobin (Hb) 14.3 g/dL (12.0-16.0); Potassium - ABG Lab 4.37 mmol/L (3.70-5.30); pH, Arterial 7.32 (7.35-7.45)
[2018-02-18 16:57] LABS: CO2 Tension 64.5 mmHg (35.0-45.0)
[2018-02-18 16:58] LABS: ALV-art Gradient 64.815 (0-20); O2 Tension (PaO2) 54.2 mmHg (> 80.0); Puncture Site RRA
[2018-02-18 17:04] LABS: #Basophils 0.1 thou/uL (0.0-0.2); #Eosinphils 0.1 thou/uL (0.0-0.7); #Lymphocytes 2.1 thou/uL (1.20-3.40); #Monocytes 0.7 thou/uL (0.11-0.59); #Neutrophils 5.5 thou/uL (1.40-6.50); %Basophils 0.7 % (0.0-1.0); %Eosinophils 0.9 % (0.0-10.0); %Lymphocytes 25.3 % (21.0-51.0); %Neutrophils 65.1 % (42.0-75.0); Hemoglobin 14.4 g/dL (12.0-16.0); Mean Corpuscular HGB CONC 32.1 g/dL (32.0-36.0); Mean Corpuscular Hemoglobin 31.3 pg (27.0-31.0); Mean Corpuscular Volume 97.5 fL (78.0-98.0); Mean Platelet Volume 8.6 fL (7.4-10.4); Platelet Count 164 thou/uL (130-400); RBC Distribution Width 13.3 % (11.5-14.5); Red Blood Cell (RBC) Count 4.61 mill/uL (4.20-5.40); White Blood Cell (WBC) Count 8.4 thou/uL (4.8-10.8)
[2018-02-18 17:27] LABS: ALT (SGPT) 11 U/L (8-55); AST (SGOT) 14 U/L (5-34); Albumin 3.8 g/dL (3.4-4.8); Alkaline Phosphatase 57 U/L (40-150); Anion Gap 9 mmol/L (10-20); BUN (Urea Nitrogen) 14 mg/dL (9.8-20.1); Bilirubin, Total 0.5 mg/dL (0.2-1.2); Calc. Creatinine Clearance 0 mL/min (70-130); Calcium 9.8 mg/dL (7.8-10.44); Carbon Dioxide 33 mmol/L (23-31); Chloride 99 mmol/L (98-107); Estimated GFR-MDRD 72; Globulin 2.7 g/dL (2.4-3.5); Glucose 90 mg/dL (80-115); Potassium 4.6 mmol/L (3.5-5.1); Protein, Total 6.5 g/dL (6.0-8.3); Sodium 136 mmol/L (136-145)
[2018-02-18 17:31] LABS: CKMB 0.8 ng/mL (0-6.6); Troponin I Less than 0.010 ng/mL (< 0.028)
--- NOTE | 2018-02-18 18:46 | RAD ---
CHEST ONE VIEW: 02/18/18 HISTORY: Dyspnea. COMPARISON: 01/24/18. FINDINGS: The cardiac silhouette is magnified by projection. Pulmonary vasculature remains engorged with patchy bilateral basilar infiltrate similar in appearance to the previous study. Mediastinum is midline wit h aortic calcification. No evidence of pneumothorax. surveillance system monitor leads overlie the chest. IMPRESSION: Mild bibasilar infiltrate are favored to be related to mild pulmonary vascular congestion. POS: BETYH
[2018-02-18] MEDS ORDERED: Ondansetron PF 4 MG/2 ML Vial IVP PRN (21:40)
[2018-02-18] MEDS ORDERED: Acetaminophen 325 MG TAB PO PRN (21:40)
[2018-02-18] MEDS ORDERED: Ondansetron ODT 4 MG TAB SL PRN (21:40)
[2018-02-19] MEDS ORDERED: Acetaminophen 325 MG TAB PO PRN (09:40)
[2018-02-19] MEDS ORDERED: Loperamide HCl 2 MG CAP PO PRN (09:45)
[2018-02-19] MEDS ORDERED: Mag-Al Plus 1200 MG/1200 MG/120 MG/30 ML UDCUP PO PRN (09:45)
[2018-02-19] MEDS ORDERED: Milk Of Magnesia 30 ML UDCUP PO PRN (09:51)
[2018-02-19] MEDS ORDERED: Simethicone Chewable 80 MG TAB PO PRN (09:51)
[2018-02-19] MEDS ORDERED: guaiFENesin ER 600 MG TAB PO SCH (10:30)
[2018-02-19] MEDS ORDERED: Sodium Chloride 1 GM TAB PO SCH (10:30)
[2018-02-19] MEDS ORDERED: Lithium Carbonate 150 MG CAP PO SCH (10:30)
[2018-02-19] MEDS ORDERED: Valproic Acid 250 MG CAP PO SCH (10:30)
[2018-02-19] MEDS ORDERED: Mometasone/Formoterol 120 PUFF INHALER INH SCH (10:30)
[2018-02-19] MEDS ORDERED: Benztropine 1 MG TAB PO SCH (10:30)
[2018-02-19] MEDS ORDERED: Budesonide 0.5 MG/2 ML NEB NEB SCH (10:30)
[2018-02-19 12:47] LABS: Troponin I Less than 0.010 ng/mL (< 0.028)
[2018-02-19] MEDS: Sodium Chloride 1 GM TAB PO SCH ×2 (15:50→20:57)
[2018-02-19] MEDS: Lithium Carbonate 150 MG CAP PO SCH (17:56)
[2018-02-19 18:48] LABS: Troponin I Less than 0.010 ng/mL (< 0.028)
[2018-02-19] MEDS: Mometasone/Formoterol 120 PUFF INHALER INH SCH (19:28)
[2018-02-19] MEDS: Budesonide 0.5 MG/2 ML NEB NEB SCH (19:30)
[2018-02-19] MEDS: guaiFENesin ER 600 MG TAB PO SCH (20:57)
[2018-02-19] MEDS: Benztropine 1 MG TAB PO SCH (20:57)
[2018-02-19] MEDS: Valproic Acid 250 MG CAP PO SCH (20:57)
[2018-02-20 05:37] LABS: Anion Gap 8 mmol/L (10-20); BUN (Urea Nitrogen) 15 mg/dL (9.8-20.1); Calc. Creatinine Clearance 114 mL/min (70-130); Calcium 9.4 mg/dL (7.8-10.44); Carbon Dioxide 35 mmol/L (23-31); Chloride 99 mmol/L (98-107); Estimated GFR-MDRD 86; Glucose 125 mg/dL (80-115); Sodium 137 mmol/L (136-145); Valproic Acid (Depakene) 77.7 ug/mL (50.0-100.0)
[2018-02-20 05:57] LABS: Bilirubin Negative (Negative); Blood, Urine Negative (Negative); Clarity CLOUDY (Clear); Glucose, Urine (Dipstick) Negative (Negative); Leukocyte Moderate (Negative); Nitrite Positive (Negative); Protein, Urine (Dipstick) Negative (Neg-Trace); Specific Gravity, Urine 1.011 (1.002-1.036); Urobilinogen 0.2 mg/dL (0.2-1.0); pH, Urine 6.5 (5.0-9.0)
[2018-02-20 05:59] LABS: Bacteria/HPF 4+ HPF (None Seen); Hyaline Casts/LPF 7-10 HYALINE CAST LPF (0-3 Hyaline); Pathc Cast-AUWi Flag 1.38 (0-2.49); Squamous Epithelial None Seen HPF (0-3); WBC/HPF 21-50 HPF (0-3)
[2018-02-20] MEDS: Budesonide 0.5 MG/2 ML NEB NEB SCH ×2 (08:33→19:15)
[2018-02-20] MEDS: Mometasone/Formoterol 120 PUFF INHALER INH SCH ×2 (08:48→19:14)
[2018-02-20] MEDS: guaiFENesin ER 600 MG TAB PO SCH ×2 (09:07→20:30)
[2018-02-20] MEDS: Sodium Chloride 1 GM TAB PO SCH ×3 (09:07→20:30)
[2018-02-20] MEDS: Lithium Carbonate 150 MG CAP PO SCH ×2 (09:24→17:12)
[2018-02-20] MEDS: Benztropine 1 MG TAB PO SCH ×2 (09:24→20:30)
[2018-02-20] MEDS: Valproic Acid 250 MG CAP PO SCH ×2 (09:25→20:31)
[2018-02-20] MEDS: cefTRIAXone\\ROCEPHIN 2 GM in Sodium Chloride 0.9% 100 ML IVPB SCH (17:17)
[2018-02-20] MEDS: Divalproex Sodium 125 mg Sprinkle Capsule PO SCH (20:51)
[2018-02-21] MEDS: Budesonide 0.5 MG/2 ML NEB NEB SCH ×2 (06:46→19:35)
[2018-02-21] MEDS: Mometasone/Formoterol 120 PUFF INHALER INH SCH ×2 (07:03→19:35)
--- NOTE | 2018-02-21 08:17 | HP ---
DATE OF ADMISSION: 02/18/2018 REASON/CHIEF COMPLAINT: Change in mental status and shortness of breath. HISTORY OF PRESENT ILLNESS: Ms. Carr is a 63-year-old female with past medical history of end-stage COPD, schizophrenia, dementia, was found to have increased confusion as well as hypoxia. The patient also has some cough and wheezing as well. The patient has been taking off her oxygen in the [facility], became very hypoxic with saturation dropping to 85. The patient is usually on oxygen nasal cannula 3 liters, so EMS was called because of her increased confusion and hypoxia. EMS was called. EMS found the patient with hypoxia and without oxygen. She was 70% on room air. Patient received DuoNebs on the way to the hospital by the EMS. The patient was a bit lethargic in the ER, found to have some chest wheezing as well as change in mental status. The patient was given DuoNeb treatments. Initially, the patient was put on BiPAP by the EMS in the ER. The patient was weaned off BiPAP, put on nasal cannula and admitted for further evaluation and management. The patient was recently in the hospital for COPD exacerbation. PAST MEDICAL HISTORY: 1. Paranoid schizophrenia. 2. Dementia. 3. End-stage chronic obstructive pulmonary disease on home oxygen. 4. Seizure disorder. 5. Chronic back pain. PAST SURGICAL HISTORY: 1. Status post hysterectomy. 2. Status post tonsillectomy. 3. Status post hemorrhoidectomy. 4. Status post bladder scan. ALLERGIES: Include CODEINE, IODINE, PROCHLORPERAZINE, and SULFA. CURRENT MEDICATIONS: The patient is on Tylenol p.r.n., benztropine 2 mg b.i.d. , Pulmicort nebulized solution b.i.d., Symbicort 160/4.5 two puffs b.i.d., Prolixin D50 mg IM every 2 weeks, Mucinex 600 b.i.d., DuoNebs q.i.d., lithium carbonate 300 b.i.d., Imodium p.r.n., Maalox p.r.n., milk of magnesia p.r.n., simethicone 80 mg q.6 hours p.r.n., valproic acid 250 mL/5 mL b.i.d. FAMILY HISTORY: Nothing of interest. SOCIAL HISTORY: Patient lives in [facility]. Smokes 1 pack a day. No history of alcohol intake. REVIEW OF SYSTEMS: CARDIOVASCULAR: There is some sharp pain in the chest and shortness of breath. RESPIRATORY: No fever. but has cough. GASTROINTESTINAL: No nausea, vomiting, or abdominal pain. CENTRAL NERVOUS SYSTEM: No headache, no dizziness. PHYSICAL EXAMINATION: GENERAL: The patient is alert, awake, not well oriented. VITAL SIGNS: Temperature 98, pulse 92, respiratory rate 20, blood pressure 130/ 80. HEENT: Head is normocephalic, atraumatic. Pupils equal and reactive to light. Nasopharynx pale and dry. Hard and soft palate, no lesions seen. SKIN: Skin turgor decreased. NECK: Supple. No JVD. LUNGS: Breath sounds diminished bilaterally. Percussion not dull bilaterally. Expiratory wheeze present bilaterally. CARDIOVASCULAR: S1, S2 regular. ABDOMEN: Soft, no distention, no tenderness. Normal bowel sounds. . CENTRAL NERVOUS SYSTEM: The patient is alert, awake, oriented x2. Motor system , power 4/5 in all extremities. Deep tendon reflexes 2+ bilaterally. Plantar downgoing. Sensory intact. LABORATORY AND X-RAY FINDINGS: CBC shows WBC 8.4, hemoglobin 14, hematocrit 44 , platelets 164. Metabolic panel: Sodium 136, potassium 4.6, chloride 99, CO2 of 33, BUN 14, creatinine 0.8, glucose 90. ABG showed pH 7.32, pCO2 of 64, pO2 of 54, sats 85%. EKG showed normal sinus rhythm, no acute ST-T wave changes seen. Chest x-ray negative. ASSESSMENT: 1. Encephalopathy, metabolic, possibly 1. Chronic obstructive pulmonary disease acute exacerbation. 2. Acute on chronic respiratory failure. 3. Schizophrenia. 4. Seizure disorder. 5. Dementia. 6. Chronic pain. PLAN: 1. Vital signs q.4 hours. 2. Activity: As tolerated. 3. Allergies: Multiple, it includes CODEINE, IODINE, PROCHLORPERAZINE, and SULFA. 4. Troponin I q.6 hours x2. 5. Continue [facility] medications. 6. Diet: Cardiac. 7. DuoNeb 1 unit q.i.d. 8. Solu-Medrol 20mg IVP q.6 hours. 9. Oxygen by nasal cannula, 2 liters. 10. We will obtain Depakote level. MTDD
[2018-02-21] MEDS: Sodium Chloride 1 GM TAB PO SCH ×3 (09:18→21:48)
[2018-02-21] MEDS: Divalproex Sodium 125 mg Sprinkle Capsule PO SCH ×2 (09:18→21:49)
[2018-02-21] MEDS: Lithium Carbonate 150 MG CAP PO SCH ×2 (09:19→17:30)
[2018-02-21] MEDS: Benztropine 1 MG TAB PO SCH ×2 (09:19→21:48)
[2018-02-21] MEDS: guaiFENesin ER 600 MG TAB PO SCH ×2 (09:19→21:48)
[2018-02-21] MEDS: cefTRIAXone\\ROCEPHIN 2 GM in Sodium Chloride 0.9% 100 ML IVPB SCH (17:30)
[2018-02-22] MEDS: Budesonide 0.5 MG/2 ML NEB NEB SCH ×2 (07:09→19:27)
[2018-02-22] MEDS: Benztropine 1 MG TAB PO SCH ×2 (09:23→20:34)
[2018-02-22] MEDS: Lithium Carbonate 150 MG CAP PO SCH ×2 (09:23→16:26)
[2018-02-22] MEDS: Sodium Chloride 1 GM TAB PO SCH ×3 (09:23→20:33)
[2018-02-22] MEDS: guaiFENesin ER 600 MG TAB PO SCH ×2 (09:24→20:34)
[2018-02-22] MEDS: Divalproex Sodium 125 mg Sprinkle Capsule PO SCH ×2 (09:24→20:33)
[2018-02-22 12:39] VITALS: BMI 31.8
[2018-02-22] MEDS: Mometasone/Formoterol 120 PUFF INHALER INH SCH ×2 (13:56→19:26)
[2018-02-22] MEDS: cefTRIAXone\\ROCEPHIN 2 GM in Sodium Chloride 0.9% 100 ML IVPB SCH (16:25)
[2018-02-22] MEDS: Ciprofloxacin 500 MG TAB PO SCH (20:34)
[2018-02-23] MEDS: Ciprofloxacin 500 MG TAB PO SCH (06:22)
[2018-02-23] MEDS: Budesonide 0.5 MG/2 ML NEB NEB SCH (06:58)
[2018-02-23] MEDS: Mometasone/Formoterol 120 PUFF INHALER INH SCH (07:00)
[2018-02-23] MEDS ORDERED: predniSONE 20 MG TAB PO SCH (08:00)
[2018-02-23] MEDS: Benztropine 1 MG TAB PO SCH (09:31)
[2018-02-23] MEDS: Sodium Chloride 1 GM TAB PO SCH (09:31)
[2018-02-23] MEDS: Lithium Carbonate 150 MG CAP PO SCH (09:31)
[2018-02-23] MEDS: guaiFENesin ER 600 MG TAB PO SCH (09:31)
[2018-02-23] MEDS: Divalproex Sodium 125 mg Sprinkle Capsule PO SCH (09:36)
[2018-02-23 12:24] VITALS: BP 107/61; TEMP 98.1
== END 2018-02-23 12:10 | DRG 189 ==
LOC: ERS 16:10 → 2NO 21:40
PROVIDERS: ADMIT Internal Medicine; ATTEND Internal Medicine
DX: J96.21 Acute and chronic respiratory failure with hypoxia (principal); G93.41 Metabolic encephalopathy; J44.1 Chronic obstructive pulmonary disease with (acute) exacerbation; F20.0 Paranoid schizophrenia; F03.90 Unspecified dementia, unspecified severity, without behavioral disturbance, psychotic disturbance, mood disturbance, and anxiety; Z99.81 Dependence on supplemental oxygen; Z88.5 Allergy status to narcotic agent; Z88.2 Allergy status to sulfonamides; Z88.8 Allergy status to other drugs, medicaments and biological substances; Z91.048 Other nonmedicinal substance allergy status; Z79.899 Other long term (current) drug therapy; F17.210 Nicotine dependence, cigarettes, uncomplicated; G40.909 Epilepsy, unspecified, not intractable, without status epilepticus; G89.29 Other chronic pain
CPT/HCPCS: 36415; 71045; 80048; 80053; 80164; 81001; 82553; 82805; 84484; 85025; 87077; 87086; 87186; 87324; 87449; 93005; 94640; 94660; 94664; 94760; 96374; G8996-GN-CJ; G8997-GN-CJ; J0696; J2920; J2930; J7050; J7506; J7620; J7626

== ENCOUNTER 2018-07-26 08:43 | Outpatient (CLI) | payer MEDICARE, MEDICAID ==
--- NOTE | 2018-07-26 10:11 | MMO ---
Bilateral MAMMO Bilat Diag DDI+GEOVANNY. CLINICAL HISTORY: Patient is 63 years old and is seen for diagnostic exam. The patient has a history of ovarian cancer. VIEWS: The views performed were: bilateral craniocaudal with tomosynthesis; bilateral mediolateral oblique with tomosynthesis; and bilateral mediolateral. FILMS COMPARED: The present examination has been compared to a prior imaging study performed at [facility] on 07/26/2018. MAMMOGRAM FINDINGS: There are scattered fibroglandular densities. Finding 1: There is an irregular mass measuring 22 millimeters with spiculated margins and associated fine pleomorphic calcifications seen in the sub-areolar region of the right breast. Finding 2: There is a lobular mass measuring 15 millimeters with associated fine pleomorphic calcifications seen in the upper-outer region of the right breast. In the left breast, there are no suspicious masses, calcifications or areas of architectural distortion. IMPRESSION: FINDING 1: MASS IN THE SUB-AREOLAR REGION OF THE RIGHT BREAST IS SUSPICIOUS. BIOPSY IS RECOMMENDED. FINDING 2: MASS IN THE UPPER-OUTER REGION OF THE RIGHT BREAST IS SUSPICIOUS. AN ULTRASOUND-GUIDED BREAST BIOPSY IS RECOMMENDED. THE RESULTS OF THIS EXAM WERE SENT TO THE PATIENT. ACR BI-RADS Category 4 - Suspicious abnormality - biopsy should be considered MAMMOGRAPHY NOTE: 1. A negative mammogram report should not delay a biopsy if a dominant of clinically suspicious mass is present. 2. Approximately 10% to 15% of breast cancers are not detected by mammography. 3. Adenosis and dense breasts may obscure an underlying neoplasm.
--- NOTE | 2018-07-26 10:13 | ULT ---
RIGHT BREAST ULTRASOUND: Date: 07/26/18 HISTORY: Palpable mass in the right breast retroareolar position with inversion of the nipple. COMPARISON: Mammogram dated 07/26/18. TECHNIQUE: Multiplanar Rosenberg scale and color Doppler images were obtained in a right breast ultrasound. FINDINGS: In the retroareolar region of the right breast, there is a hypoechoic shadowing mass with internal sm all echogenic foci which likely represent the microcalcification seen on mammography. This mass appea rs spiculated and measures 2.8 cm in greatest dimension. In the 10 o'clock position of the right breast, approximately 9 cm from the nipple, there is a hypoec hoic, lobulated mass without shadowing measuring 1.3 cm in greatest dimension. This also corresponds to the mammographic abnormality. IMPRESSION: There are two suspicious masses in the right breast. A biopsy of both of the masses is recommended. BIRADS Category 4 - Suspicious abnormality. An ultrasound-guided biopsy is recommended. This was disc ussed with the patient and her caregiver at the time of the ultrasound. The patient was placed with a nurse navigator to coordinate the patient's further care. POS: HANDY
== END 2018-07-26 08:44 | disposition home or self-care (01) ==
LOC: BICMAMMO 08:43
PROVIDERS: ATTEND Internal Medicine
DX: N63.11 Unspecified lump in the right breast, upper outer quadrant (principal)
CPT/HCPCS: 76642; 77066; G0279

== ENCOUNTER → 2018-08-12 | Day surgery (SDC) | payer MEDICARE, MEDICAID ==
--- NOTE | 2018-08-12 13:59 | MMO ---
Right Breast MAMMO Unilat Diag DDI RT. CLINICAL HISTORY: Patient is 63 years old and is seen for diagnostic exam. The patient has no family history of breast cancer. The patient has a history of ovarian cancer. The patient has a history of right Ultrasound Guided Core Biopsy in Aug, 2018. VIEWS: The views performed were: right craniocaudal and right mediolateral oblique. FILMS COMPARED: The present examination has been compared to a prior imaging study performed at [facility] on 07/26/2018. MAMMOGRAM FINDINGS: There are scattered fibroglandular densities. There are two biopsy clips seen in the right breast. The biopsy clip associated with the upper outer posterior mass migrated anteriorly and medially from the mass after placement. IMPRESSION: BIOPSY CLIPS IN THE RIGHT BREAST ARE CONFIRMED UTILIZING POST PROCEDURE MAMMOGRAM. THE RESULTS OF THIS EXAM WERE SENT TO THE PATIENT. MAMMOGRAPHY NOTE: 1. A negative mammogram report should not delay a biopsy if a dominant of clinically suspicious mass is present. 2. Approximately 10% to 15% of breast cancers are not detected by mammography. 3. Adenosis and dense breasts may obscure an underlying neoplasm.
--- NOTE | 2018-08-12 14:55 | ULT ---
ULTRASOUND GUIDED RIGHT BREAST BIOPSY X2: 08/12/2018 PROVIDED CLINICAL HISTORY: Right breast masses. FINDINGS: Informed consent was obtained from the patient. The patient was placed on the sonography table, and the retroareolar and 10 o'clock right breast masses were localized sonographically. The skin overlyi ng these lesions was prepped and draped in the usual sterile manner. Initially, the retroareolar lesion was addressed. The soft tissues were anesthetized with 1% buffere d Lidocaine, and a small skin incision was made. Under continuous sonographic guidance, a 14 gauge c ore biopsy device was utilized to obtain four core samples and subsequently a biopsy clip deployment device was utilized to place a clip adjacent to the lesion. Subsequently, attention was turned to the 10 o'clock breast lesion. The soft tissues were anesthetiz ed with 1% buffered Lidocaine. Under continuous sonographic guidance, a 14 gauge core biopsy device was utilized to obtain four core samples from the lesion. Subsequently, a biopsy clip deployment dev ice was utilized to deploy a biopsy clip adjacent to the lesion. No immediate complications. Post biopsy mammogram demonstrates clip deployment within the retroareol ar mass. Clip migration between the ultrasound and the mammogram results in medial and anterior disp lacement of the clip associated with the 10 o'clock lesion. IMPRESSION: Technically successful ultrasound-guided core biopsies of retroareolar and 10 o'clock breast lesions with clip placement as described above. Please correlate with histology results to follow. POS: OFF
== END ==
LOC: BICULT 12:45
PROVIDERS: ATTEND Internal Medicine
PROC: 0HBT3ZX Excision of Right Breast, Percutaneous Approach, Diagnostic (ICD-10-PCS; principal; 2018-08-12)
DX: C50.411 Malignant neoplasm of upper-outer quadrant of right female breast (principal); Z88.2 Allergy status to sulfonamides; Z88.5 Allergy status to narcotic agent; Z91.02 Food additives allergy status; Z91.041 Radiographic dye allergy status
CPT/HCPCS: 19083; 88305

== ENCOUNTER 2018-08-17 21:20 | Observation (INO) | payer MEDICARE, MEDICAID ==
[2018-08-17] MEDS ORDERED: Albuterol Sulfate 2.5 mg/3 ml Neb ONE ×2 (21:59)
--- NOTE | 2018-08-17 22:04 | RAD ---
Portable frontal chest radiograph: 08/17/2018 COMPARISON: 05/05/2018 HISTORY: Fever, tachycardia, cough FINDINGS: Mild increased linear density noted in both lung bases, improved when compared to the prior examination. There is no pneumothorax or pleural fluid and no focal consolidation or alveolar edema. There is atherosclerotic calcification of the aortic arch. IMPRESSION: Mild linear density in both lung bases with no focal consolidation or alveolar edema.
[2018-08-17 22:07] LABS: Bilirubin Negative (Negative); Blood, Urine Negative (Negative); Clarity CLEAR (Clear); Glucose, Urine (Dipstick) Negative (Negative); Leukocyte Negative (Negative); Nitrite Negative (Negative); Protein, Urine (Dipstick) 30 mg/dL (Neg-Trace); Specific Gravity, Urine 1.024 (1.002-1.036)
[2018-08-17 22:09] LABS: Bacteria/HPF None Seen HPF (None Seen); Hyaline Casts/LPF 7-10 HYALINE CAST LPF (0-3 Hyaline); RBC/HPF 0-3 HPF (0-3); Squamous Epithelial 0-3 HPF (0-3); WBC/HPF 0-3 HPF (0-3)
[2018-08-17 22:11] LABS: #Lymphocytes 2.1 thou/uL (1.20-3.40); #Monocytes 0.8 thou/uL (0.11-0.59); #Neutrophils 11.5 thou/uL (1.40-6.50); %Basophils 0.1 % (0.0-1.0); %Eosinophils 0.1 % (0.0-10.0); %Lymphocytes 14.4 % (21.0-51.0); %Monocytes 5.7 % (0.0-10.0); %Neutrophils 79.7 % (42.0-75.0); Hemoglobin 13.7 g/dL (12.0-16.0); Mean Corpuscular HGB CONC 33.6 g/dL (32.0-36.0); Mean Corpuscular Hemoglobin 31.2 pg (27.0-31.0); Mean Corpuscular Volume 92.8 fL (78.0-98.0); Mean Platelet Volume 8.4 fL (7.4-10.4); Platelet Count 186 thou/uL (130-400); RBC Distribution Width 12.7 % (11.5-14.5); Red Blood Cell (RBC) Count 4.39 mill/uL (4.20-5.40); White Blood Cell (WBC) Count 14.5 thou/uL (4.8-10.8)
[2018-08-17 22:28] LABS: ALT (SGPT) 10 U/L (8-55); AST (SGOT) 13 U/L (5-34); Albumin 4.2 g/dL (3.4-4.8); Alkaline Phosphatase 82 U/L (40-150); Anion Gap 12 mmol/L (10-20); BUN (Urea Nitrogen) 7 mg/dL (9.8-20.1); Bilirubin, Total 0.6 mg/dL (0.2-1.2); Calc. Creatinine Clearance 0 mL/min (70-130); Calcium 9.7 mg/dL (7.8-10.44); Carbon Dioxide 26 mmol/L (23-31); Chloride 102 mmol/L (98-107); Estimated GFR-MDRD 80; Globulin 2.5 g/dL (2.4-3.5); Glucose 110 mg/dL (80-115); Potassium 4.1 mmol/L (3.5-5.1); Protein, Total 6.7 g/dL (6.0-8.3); Sodium 136 mmol/L (136-145)
[2018-08-17] MEDS ORDERED: Acetaminophen 325 MG TAB ONE (22:51)
[2018-08-17] MEDS ORDERED: cefTRIAXone\\ROCEPHIN 1 GM VIAL ONE (22:59)
[2018-08-17] MEDS ORDERED: Sodium Chloride 0.9% 100 ML ONE (22:59)
[2018-08-18 00:39] VITALS: BMI 30.3
[2018-08-18] MEDS ORDERED: guaiFENesin ER 600 MG TAB PO SCH ×2 (11:00→21:00)
[2018-08-18] MEDS ORDERED: Ondansetron ODT 8 MG TAB PO PRN (11:06)
[2018-08-18] MEDS ORDERED: Simethicone Chewable 80 MG TAB PO PRN (11:06)
[2018-08-18] MEDS ORDERED: Nystatin Cream 15 GM TUBE TOP PRN (11:07)
[2018-08-18] MEDS ORDERED: Loperamide HCl 2 MG CAP PO PRN (11:08)
[2018-08-18] MEDS ORDERED: Milk Of Magnesia 30 ML UDCUP PO PRN (11:08)
[2018-08-18] MEDS ORDERED: Mag-Al 1200 mg/1200 mg/30 ML UDCUP PO PRN (11:10)
[2018-08-18] MEDS ORDERED: Acetaminophen 325 MG TAB PO PRN (11:11)
[2018-08-18] MEDS ORDERED: Terbinafine 1% 30 GM TUBE TOP SCH (11:15)
[2018-08-18] MEDS: methylPREDNISolone Sod Succ 40 MG VIAL IVP SCH ×2 (11:34→17:11)
[2018-08-18] MEDS: Cefepime 1 GM in Sodium Chloride 0.9% 100 ML IVPB SCH ×3 (15:11→22:00)
[2018-08-18] MEDS ORDERED: Budesonide 0.5 MG/2 ML NEB NEB SCH (18:30)
[2018-08-18] MEDS: Mometasone/Formoterol 120 PUFF INHALER INH SCH (18:40)
[2018-08-18] MEDS: Sodium Chloride 0.45% 1,000 ML IV SCH (18:50)
[2018-08-18] MEDS: Budesonide 0.5 MG/2 ML NEB NEB SCH (18:53)
[2018-08-18] MEDS: guaiFENesin ER 600 MG TAB PO SCH (19:55)
[2018-08-19] MEDS: methylPREDNISolone Sod Succ 40 MG VIAL IVP SCH ×4 (01:22→17:15)
[2018-08-19] MEDS: Cefepime 1 GM in Sodium Chloride 0.9% 100 ML IVPB SCH ×3 (04:30→19:46)
[2018-08-19] MEDS: Sodium Chloride 0.45% 1,000 ML IV SCH ×3 (04:43→19:45)
[2018-08-19] MEDS: Budesonide 0.5 MG/2 ML NEB NEB SCH ×2 (06:47→18:41)
[2018-08-19] MEDS: Mometasone/Formoterol 120 PUFF INHALER INH SCH ×2 (08:43→18:42)
[2018-08-19] MEDS: Enoxaparin Sodium 40 MG/0.4 ML SYRINGE SC SCH (10:19)
[2018-08-19] MEDS: guaiFENesin ER 600 MG TAB PO SCH ×2 (10:19→19:49)
[2018-08-19] MEDS: Benztropine 1 MG TAB PO SCH (10:19)
[2018-08-19] MEDS: Valproate Sodium 250 mg/5 ml UD Cup PO SCH (10:19)
--- NOTE | 2018-08-19 12:39 | CON ---
DATE OF CONSULTATION: 08/19/2018 CONSULTING PHYSICIAN: Dr. Miller. REASON FOR CONSULTATION: COPD exacerbation. HISTORY OF PRESENT ILLNESS: This is a 63-year-old female, who was brought in from a [facility] with complaints of fever, shortness of breath, and cough, that have been occurring approximately 1 day prior to admission. She is a poor historian and cannot tell me much. She is awake and alert, and in no acute distress. PAST MEDICAL HISTORY: 1. Chronic obstructive pulmonary disease. 2. Chronic hypoxemic respiratory failure, requiring supplemental oxygen. 3. Schizophrenia, paranoid type. 4. Hyperlipidemia. 5. Hypertension. 6. Tobacco abuse. 7. Osteoarthritis. 8. Major depressive disorder. 9. Anxiety. PAST SURGICAL HISTORY: 1. Hysterectomy. 2. Cervical cancer. 3. Stress incontinence. 4. Tonsillectomy. 5. D and C. ALLERGIES: CHOCOLATE, CODEINE, IODINE, PROCHLORPERAZINE, SULFA. MEDICATIONS: Prior to admission; 1. Naproxen 220 mg every 12 hours as needed. 2. Nystatin cream topically as needed. 3. Terfenadine cream as needed. 4. Valproic acid 10 mL daily - unsure this is correct dose. 5. Zofran 8 mg every 8 hours as needed. 6. Simethicone 80 mg every 6 hours as needed. 7. Tylenol 650 mg every 6 hours as needed. 8. Mucinex 600 mg daily. 9. [place] 300 mg daily. 10. Prolixin D 50 mg daily. 11. Imodium 2 mg every 6 hours as needed. 12. Budesonide nebs 0.5 mg daily. 13. Breo Ellipta 1 puff daily. 14. Benztropine 2 mg daily. 15. DuoNeb every 6 hours. REVIEW OF SYSTEMS: Has had fever and chills. Has had productive sputum. No hemoptysis, melena, hematochezia, hematuria, or dysuria. Remainder of 12-point review of systems is negative. PHYSICAL EXAMINATION: VITAL SIGNS: Temperature 98.1, pulse 81, respirations 20, O2 saturation 94%, blood pressure 139/83. GENERAL: She is awake and in no distress. HEENT: Pupils react. Sclerae are icteric. Oropharynx is clear. NECK: No adenopathy or JVD. LUNGS: She has inspiratory crackles and rhonchi at both bases. CARDIOVASCULAR: S1 and S2, regular without audible murmur. ABDOMEN: Soft, nontender, nondistended. EXTREMITIES: No clubbing, cyanosis, or edema. NEUROLOGICAL: She has a severe resting tremor with some tardive dyskinesia. LABORATORY DATA: White blood cell count 14.5, hematocrit 40, platelet count 186. Sodium 136, potassium 4.1, chloride 102, CO2 of 26, BUN 7, creatinine 0.7, glucose 110. Her x-ray showed question of chronic changes in the lower lobes. ASSESSMENT: 1. Chronic obstructive pulmonary disease with exacerbation versus lower-lobe pneumonia. 2. Hypoxemic respiratory failure. 3. Tobacco abuse. 4. Schizophrenia with tardive dyskinesia. PLAN: She is currently on cefepime, which should provide adequate antibiotic coverage for her situation. She also continues on steroids and nebulization treatments. I think the current therapy is appropriate. We will be happy to follow with you. Job ID: [id number]
--- NOTE | 2018-08-19 12:55 | HP ---
CHIEF COMPLAINT: Fever, shortness of breath, and cough. HISTORY OF PRESENT ILLNESS: Ms. Carr is a 63-year-old female with past medical history of end-stage COPD, on oxygen; bipolar disorder, who was found to have a fever of 103 at the group home and has been having shortness of breath and coughing with clear sputum. The patient was also hypoxic according to the nursing staff. The patient has been given neb treatments and her inhalers; in spite of that, she was getting short of breath, so EMS was called. EMS found the patient with respiratory distress and fever. They gave neb treatment and Solu-Medrol on their way to the hospital. In the ER, the patient was evaluated and found to have COPD exacerbation with acute on chronic respiratory failure, and the ER physician felt the patient possibly has pneumonia. She had temperature of 101 in the ER. The patient received ceftriaxone, DuoNeb, and IV fluids in the ER as well as Tylenol. She was admitted for further evaluation and management. The patient was recently diagnosed with invasive ductal carcinoma in the right breast and she is being set up for an appointment with general surgeon as well as oncologist. PAST MEDICAL HISTORY: 1. COPD, oxygen dependent. 2. Paranoid schizophrenia. 3. Seizure disorder. 4. Chronic back pain. PAST SURGICAL HISTORY: Status post hysterectomy, status post tonsillectomy, and status post recent breast biopsy. ALLERGIES: CODEINE, IODINE, PROCHLORPERAZINE, AND SULFA. CURRENT MEDICATIONS: The patient is on; 1. Valproic acid 10 mL daily. 2. Zofran p.r.n. 3. Simethicone 80 mg q.6 p.r.n. 4. Tylenol p.r.n. 5. Mucinex 600 daily. 6. Milk of magnesia p.r.n. 7. [place] 300 mg daily. 8. Prolixin D 50 mg IM every 2 weeks. 9. Pulmicort nebulizer daily. 10. Breo Ellipta 1 puff daily. 11. Benztropine 2 mg daily. 12. DuoNeb q.i.d. 13. Nystatin cream p.r.n. 14. Lamisil cream p.r.n. FAMILY HISTORY: Nothing contributory. SOCIAL HISTORY: The patient lives in a group home. No history of alcohol intake. Smokes half pack a day. REVIEW OF SYSTEMS: CARDIOVASCULAR: no chest pain, no shortness of breath. RESPIRATORY: She has cough and fever, cough productive of yellow sputum. GASTROINTESTINAL: Some nausea and abdominal discomfort. No vomiting. CENTRAL NERVOUS SYSTEM: No headache. No dizziness. PHYSICAL EXAMINATION: GENERAL: The patient is alert, awake. VITAL SIGNS: Temperature 101.4, pulse 100, respirations 24, blood pressure 120/ 80. HEENT: Head is normocephalic and atraumatic. Pupils are equal and reactive. Nasopharynx is pale and dry. Hard and soft palate. No lesions. SKIN: Turgor decreased. NECK: Supple. No JVD. LUNGS: Breath sounds diminished bilaterally. Percussion dull bilaterally. Expiratory wheeze present bilaterally. HEART: S1 and S2 regular. ABDOMEN: Soft. No distention. No tenderness. Normal bowel sounds present. CENTRAL NERVOUS SYSTEM: No focal deficit. LABORATORY DATA: CBC shows WBC of 14.5, hemoglobin 13.7 and hematocrit 40, platelets 196. Metabolic panel; sodium 136, potassium 4, chloride 102, CO2 of 26, urea nitrogen 20, creatinine 0.7, glucose 110. Urinalysis negative. Chest x-ray, questionable infiltrate. EKG shows sinus tachycardia, no acute ST-T changes seen. ASSESSMENT: 1. Acute on chronic respiratory failure secondary to chronic obstructive pulmonary disease exacerbation. 2. Questionable pneumonia. 3. Recently diagnosed right breast cancer, invasive ductal. 4. Paranoid schizophrenia. 5. History of seizure disorder. 6. Chronic pain. 7. Tobacco abuse. PLAN: 1. Vital signs q.4 hours. 2. Activity as tolerated. 3. Allergies: Codeine, iodine, sulfa, and prochlorperazine. .. 4. Diet: Regular. 5. Solu-Medrol 40 IVP q.6 hours. 6. Duonebs 1 unit q.4 hours. 7. Mucinex 600 mg p.o. b.i.d. 8. IV fluids, half-normal at 80 mL/h. 9. Cefepime 1 g IV piggyback q.8 hours. 10. Continue group home medications. 11. Pulmicort b.i.d. nebulizer. 12. Pulmonary consult. Job ID: [id number] MTDD
[2018-08-20] MEDS: methylPREDNISolone Sod Succ 40 MG VIAL IVP SCH ×3 (00:50→12:39)
[2018-08-20] MEDS: Cefepime 1 GM in Sodium Chloride 0.9% 100 ML IVPB SCH ×2 (04:00→12:39)
[2018-08-20] MEDS: Budesonide 0.5 MG/2 ML NEB NEB SCH (07:45)
[2018-08-20] MEDS: Benztropine 1 MG TAB PO SCH (08:05)
[2018-08-20] MEDS: guaiFENesin ER 600 MG TAB PO SCH (08:05)
[2018-08-20] MEDS: Sodium Chloride 0.45% 1,000 ML IV SCH (08:05)
[2018-08-20] MEDS: Enoxaparin Sodium 40 MG/0.4 ML SYRINGE SC SCH (08:05)
[2018-08-20] MEDS: Mometasone/Formoterol 120 PUFF INHALER INH SCH (08:07)
[2018-08-20] MEDS: Valproate Sodium 250 mg/5 ml UD Cup PO SCH (08:21)
--- NOTE | 2018-08-20 11:09 | EKG ---
Test Reason : SEPSIS Blood Pressure : / mmHG Vent. Rate : 116 BPM Atrial Rate : 116 BPM P-R Int : 142 ms QRS Dur : 078 ms QT Int : 314 ms P-R-T Axes : 071 270 068 degrees QTc Int : 436 ms Sinus tachycardia Right superior axis deviation Pulmonary disease pattern Inferior-posterior infarct , age undetermined Abnormal ECG Confirmed by RITA PEDRO M.D. ([id number]), photographic editor ANITA REECE ([id number]) on 08/20/2018 11:09:01 AM Referred By: MAYELA Confirmed By:RITA PEDRO M.D.
[2018-08-20 12:07] VITALS: BP 149/88; TEMP 98.2
--- NOTE | 2018-08-20 12:58 | PRG ---
DATE OF SERVICE: 08/20/2018 SUBJECTIVE: She is feeling well, wants to go home. OBJECTIVE: VITAL SIGNS: Temperature 97.4, pulse 97, blood pressure 120/79, O2 saturation 91% on 1 L. HEENT: Unremarkable. NECK: No JVD. LUNGS: Clear. Cardiac S1, S2. Regular. ABDOMEN: Soft. EXTREMITIES: No edema. LABORATORY DATA: Micro cultures are negative. ASSESSMENT: Chronic obstructive pulmonary disease with exacerbation. PLAN: She is stable to go home on a week's worth of oral antibiotics and a tapered dose of steroids. Job ID: [id number]
--- NOTE | 2018-08-21 02:28 | DIS ---
DATE OF ADMISSION: 08/18/2018 DATE OF DISCHARGE: 08/20/2018 PRIMARY CARE PROVIDER: Wilder Miller MD DISCHARGE DIAGNOSES: 1. Acute on chronic hypoxemic respiratory failure. 2. Chronic obstructive pulmonary disease exacerbation. CONDITION OF PATIENT ON THE DAY OF DISCHARGE: Stable. I assessed Ms. Carr on the day of discharge. She denies any chest pain or shortness of breath. Vital signs are stable. S1 and S2 are heard, regular. Lungs are clear to auscultation bilaterally. DISCHARGE MEDICATIONS: In addition to her pre-admission home medications as dictated by Dr. Miller in his history and physical note dated August 18, 2018, she is being discharged on cefdinir 300 mg 2 times a day for 7 more days and oral prednisone taper. CONSULTATIONS DURING THIS HOSPITALIZATION: Pulmonology, Arnie Cain MD HOSPITAL COURSE: Ms. Carr is a pleasant 63-year-old lady, who was admitted to [facility] on August 18, 2018, for acute hypoxic respiratory failure. Please refer to Dr. Miller's history and physical note dated August 18, 2018, for further details. She improved with oxygen, steroids, bronchodilators, and antibiotics. She was seen by Pulmonology Service. She was being discharged home in a stable condition. During this hospitalization, she had a normal creatinine, normal troponin I, and normal BNP. Many thanks for allowing me to participate in your patient's care. Please feel free to contact me with any questions or concerns. DISCHARGE DESTINATION: [facility], from where patient was admitted to the hospital. TIME SPENT: Total amount of time spent coordinating this discharge: 31 minutes. Job ID: [id number]
== END 2018-08-20 14:51 ==
LOC: ERS 21:20 → T4-A 08-18 00:38
PROVIDERS: ADMIT Internal Medicine; ATTEND Internal Medicine
DX: J44.1 Chronic obstructive pulmonary disease with (acute) exacerbation (principal); J96.21 Acute and chronic respiratory failure with hypoxia; F31.9 Bipolar disorder, unspecified; F20.0 Paranoid schizophrenia; G89.29 Other chronic pain; M54.9 Dorsalgia, unspecified; G40.909 Epilepsy, unspecified, not intractable, without status epilepticus; C50.911 Malignant neoplasm of unspecified site of right female breast; F17.210 Nicotine dependence, cigarettes, uncomplicated; F41.9 Anxiety disorder, unspecified; Z99.81 Dependence on supplemental oxygen; Z88.2 Allergy status to sulfonamides; Z88.5 Allergy status to narcotic agent; Z88.8 Allergy status to other drugs, medicaments and biological substances; Z91.041 Radiographic dye allergy status; Z79.899 Other long term (current) drug therapy; Z98.890 Other specified postprocedural states; Z91.018 Allergy to other foods
CPT/HCPCS: 51701; 71045; 80053; 83605; 83880; 84484; 85025; 87040; 87633; 87798 ×2; 93005; 94640 ×8; 96361 ×3; 96365; 96366 ×3; 96367; 96372 ×2; 96375; 96376 ×3; 99285; G0378 ×2; 36415; 81003; 81015; A4353; J0692; J0696; J1650; J2920; J3490; J7611; J7620; J7626

== ENCOUNTER 2018-10-21 05:59 | Day surgery (SDC) | payer MEDICARE, MEDICAID ==
[2018-10-21] MEDS ORDERED: Lidocaine 1% (PF) 30 ML VIAL ONE (06:27)
[2018-10-21 06:44] LABS: #Lymphocytes 1.2 thou/uL (1.20-3.40); #Monocytes 0.3 thou/uL (0.11-0.59); #Neutrophils 5.4 thou/uL (1.40-6.50); %Basophils 0.2 % (0.0-1.0); %Eosinophils 0.2 % (0.0-10.0); %Lymphocytes 17.9 % (21.0-51.0); %Monocytes 3.7 % (0.0-10.0); %Neutrophils 78.1 % (42.0-75.0); Hemoglobin 13.6 g/dL (12.0-16.0); Mean Corpuscular HGB CONC 32.7 g/dL (32.0-36.0); Mean Corpuscular Hemoglobin 30.3 pg (27.0-31.0); Mean Corpuscular Volume 92.4 fL (78.0-98.0); Mean Platelet Volume 8.9 fL (7.4-10.4); Platelet Count 215 thou/uL (130-400); RBC Distribution Width 13.2 % (11.5-14.5); Red Blood Cell (RBC) Count 4.49 mill/uL (4.20-5.40)
[2018-10-21 07:03] LABS: ALT (SGPT) 11 U/L (8-55); AST (SGOT) 13 U/L (5-34); Albumin 4.3 g/dL (3.4-4.8); Alkaline Phosphatase 80 U/L (40-150); Anion Gap 13 mmol/L (10-20); BUN (Urea Nitrogen) 15 mg/dL (9.8-20.1); Bilirubin, Total 0.3 mg/dL (0.2-1.2); Calc. Creatinine Clearance 0 mL/min (70-130); Calcium 10.3 mg/dL (7.8-10.44); Carbon Dioxide 27 mmol/L (23-31); Chloride 103 mmol/L (98-107); Estimated GFR-MDRD 80; Globulin 2.7 g/dL (2.4-3.5); Glucose 130 mg/dL (80-115); Potassium 4.7 mmol/L (3.5-5.1); Sodium 138 mmol/L (136-145)
[2018-10-21] MEDS ORDERED: Iopamidol 370 76% 100 ML VIAL ONE (12:36)
== END 2018-10-21 12:00 | disposition home or self-care (01) ==
LOC: CCL 05:59
PROVIDERS: ATTEND Internal Medicine Cardiovascular Disease
PROC: 4A023N7 Measurement of Cardiac Sampling and Pressure, Left Heart, Percutaneous Approach (ICD-10-PCS; principal; 2018-10-21)
PROC: B2111ZZ Fluoroscopy of Multiple Coronary Arteries using Low Osmolar Contrast (ICD-10-PCS; 2018-10-21)
DX: I25.10 Atherosclerotic heart disease of native coronary artery without angina pectoris (principal); E11.51 Type 2 diabetes mellitus with diabetic peripheral angiopathy without gangrene; E78.00 Pure hypercholesterolemia, unspecified; I10 Essential (primary) hypertension; E78.5 Hyperlipidemia, unspecified; J44.9 Chronic obstructive pulmonary disease, unspecified; J30.9 Allergic rhinitis, unspecified; F17.210 Nicotine dependence, cigarettes, uncomplicated; E66.9 Obesity, unspecified; Z68.28 Body mass index [BMI] 28.0-28.9, adult; Z79.52 Long term (current) use of systemic steroids; Z79.899 Other long term (current) drug therapy; Z88.2 Allergy status to sulfonamides; Z88.5 Allergy status to narcotic agent; Z88.8 Allergy status to other drugs, medicaments and biological substances; Z91.041 Radiographic dye allergy status; Z91.018 Allergy to other foods
CPT/HCPCS: 76942; 80053; 85025; 93458; C1760; C1769; J1644; J2001; J7620; Q9967

== ENCOUNTER 2018-11-08 07:03 | Inpatient (IN) | payer MEDICARE, MEDICAID ==
--- NOTE | 2018-11-08 11:32 | NM ---
NM Lymphoscintigraphy HISTORY: Malignant neoplasm of nipple and areola of the right female breast. RADIOPHARMACEUTICAL: 412 uCi of technetium 99m filtered sulfur colloid. Right periareolar injection in divided doses. FINDINGS: There is no movement of tracer material up to 3 hours of imaging. IMPRESSION: Nonvisualization of sentinel lymph node.
[2018-11-08 12:20] LABS: #Eosinphils 0.1 thou/uL (0.0-0.7); #Lymphocytes 2.4 thou/uL (1.20-3.40); #Monocytes 0.5 thou/uL (0.11-0.59); #Neutrophils 3.8 thou/uL (1.40-6.50); %Basophils 0.6 % (0.0-1.0); %Eosinophils 1.2 % (0.0-10.0); %Lymphocytes 34.7 % (21.0-51.0); %Monocytes 7.2 % (0.0-10.0); %Neutrophils 56.4 % (42.0-75.0); Hemoglobin 13.1 g/dL (12.0-16.0); Mean Corpuscular HGB CONC 32.8 g/dL (32.0-36.0); Mean Corpuscular Hemoglobin 30.4 pg (27.0-31.0); Mean Corpuscular Volume 92.4 fL (78.0-98.0); Platelet Count 263 thou/uL (130-400); RBC Distribution Width 12.8 % (11.5-14.5); Red Blood Cell (RBC) Count 4.32 mill/uL (4.20-5.40); White Blood Cell (WBC) Count 6.8 thou/uL (4.8-10.8)
[2018-11-08 12:39] LABS: Anion Gap 11 mmol/L (10-20); BUN (Urea Nitrogen) 6 mg/dL (9.8-20.1); Calc. Creatinine Clearance 98 mL/min (70-130); Calcium 9.8 mg/dL (7.8-10.44); Carbon Dioxide 32 mmol/L (23-31); Chloride 101 mmol/L (98-107); Estimated GFR-MDRD 84; Glucose 88 mg/dL (80-115); Potassium 4.4 mmol/L (3.5-5.1); Sodium 140 mmol/L (136-145)
[2018-11-08] MEDS ORDERED: Ketorolac Tromethamine 30 MG/ML VIAL ONE (12:40)
[2018-11-08] MEDS ORDERED: ceFAZolin Sodium (SDC) 2 GM/100 ML BAG ONE (12:40)
[2018-11-08] MEDS ORDERED: Bupivacaine/Epinephrine 0.25% 30 ML VIAL ONE (13:48)
[2018-11-08] MEDS ORDERED: Isosulfan Blue 50 MG/5 ML VIAL ONE (13:48)
[2018-11-08] MEDS ORDERED: Fentanyl 100 MCG/2 ML VIAL ONE ×2 (13:51)
[2018-11-08] MEDS ORDERED: Famotidine/PF 20 mg/2ml Vial ONE (13:51)
[2018-11-08] MEDS ORDERED: Meperidine HCl/PF 25 MG/ML VIAL ONE (13:51)
[2018-11-08] MEDS ORDERED: SUGAMMADEX SODIUM 500 MG/5 ML VIAL ONE (14:11)
[2018-11-08] MEDS ORDERED: Midazolam HCl 2 mg/2 ml Vial ONE (14:11)
[2018-11-08] MEDS ORDERED: Ondansetron HCl/PF 4 MG/2 ML Vial IVP PRN (17:00)
[2018-11-08] MEDS ORDERED: Promethazine HCl 25 MG/ML VIAL IM PRN ×2 (17:00→19:40)
[2018-11-08] MEDS ORDERED: Promethazine HCl 25 MG/ML VIAL SLOW IVP PRN (17:00)
--- NOTE | 2018-11-08 18:56 | EKG ---
Test Reason : PREOP Blood Pressure : / mmHG Vent. Rate : 087 BPM Atrial Rate : 087 BPM P-R Int : 136 ms QRS Dur : 078 ms QT Int : 386 ms P-R-T Axes : 076 -72 075 degrees QTc Int : 464 ms Normal sinus rhythm Left axis deviation Inferior-posterior infarct (cited on or before 05-MAY-2018) Abnormal ECG When compared with ECG of 17-AUG-2018 21:29, No significant change was found Confirmed by DEJA DEAN, SKory ([id number]) on 11/08/2018 6:55:51 PM Referred By: SVETLANA Confirmed By:DR. Jonel SHORT MD
[2018-11-08] MEDS ORDERED: Milk Of Magnesia 30 ML UDCUP PO PRN (19:40)
[2018-11-08] MEDS ORDERED: HYDROcodone/Acetaminophen 7.5/325 mg Tablet PO PRN ×2 (19:40)
[2018-11-08] MEDS ORDERED: Morphine 4 MG/ML VIAL SLOW IVP PRN ×2 (19:40)
[2018-11-08] MEDS ORDERED: Dextrose 50% Abboject 50 ML SYRINGE SLOW IVP PRN (19:40)
[2018-11-08] MEDS ORDERED: guaiFENesin ER 600 MG TAB PO PRN (19:40)
[2018-11-08] MEDS ORDERED: Ondansetron ODT 8 MG TAB PO PRN (19:40)
[2018-11-08] MEDS ORDERED: hydrALAZINE 20 MG/ML VIAL SLOW IVP PRN (19:40)
[2018-11-08] MEDS ORDERED: Mag-Al 1200 mg/1200 mg/30 ML UDCUP PO PRN (19:40)
[2018-11-08] MEDS ORDERED: Naproxen 500 MG TAB PO PRN (19:40)
[2018-11-08] MEDS ORDERED: Loperamide HCl 2 MG CAP PO PRN (19:40)
[2018-11-08] MEDS ORDERED: Dextrose 5% in Water 1,000 ML IV PRN (19:40)
[2018-11-08] MEDS: Lactated Ringer's 1,000 ML IV SCH (19:40)
[2018-11-08] MEDS: Famotidine 20 MG TAB PO SCH (21:47)
[2018-11-08] MEDS: busPIRone HCl 5 MG TAB PO SCH (21:47)
[2018-11-08 22:21] VITALS: BMI 32.4
[2018-11-09] MEDS ORDERED: Mometasone/Formoterol 120 PUFF INHALER INH SCH (06:30)
[2018-11-09] MEDS: Ondansetron PF 4 MG/2 ML Vial IVP PRN ×2 (06:33→12:30)
[2018-11-09 07:45] LABS: #Lymphocytes 1.9 thou/uL (1.20-3.40); #Neutrophils 8.6 thou/uL (1.40-6.50); %Basophils 0.2 % (0.0-1.0); %Eosinophils 0.1 % (0.0-10.0); %Lymphocytes 16.4 % (21.0-51.0); %Monocytes 8.5 % (0.0-10.0); %Neutrophils 74.8 % (42.0-75.0); Hemoglobin 12.4 g/dL (12.0-16.0); Mean Corpuscular HGB CONC 33.6 g/dL (32.0-36.0); Mean Corpuscular Volume 92.3 fL (78.0-98.0); Mean Platelet Volume 8.1 fL (7.4-10.4); Platelet Count 248 thou/uL (130-400); RBC Distribution Width 12.6 % (11.5-14.5); Red Blood Cell (RBC) Count 3.99 mill/uL (4.20-5.40); White Blood Cell (WBC) Count 11.5 thou/uL (4.8-10.8)
[2018-11-09 08:01] LABS: Anion Gap 13 mmol/L (10-20); BUN (Urea Nitrogen) 11 mg/dL (9.8-20.1); Calc. Creatinine Clearance 112 mL/min (70-130); Calcium 9.1 mg/dL (7.8-10.44); Carbon Dioxide 27 mmol/L (23-31); Chloride 103 mmol/L (98-107); Estimated GFR-MDRD 86; Glucose 115 mg/dL (80-115); Potassium 4.2 mmol/L (3.5-5.1); Sodium 139 mmol/L (136-145)
[2018-11-09] MEDS: Famotidine 20 MG TAB PO SCH (08:55)
[2018-11-09] MEDS: busPIRone HCl 5 MG TAB PO SCH (08:55)
[2018-11-09] MEDS ORDERED: Benztropine 1 MG TAB PO SCH (09:00)
[2018-11-09] MEDS ORDERED: Valproate Sodium 250 mg/5 ml UD Cup PO SCH (09:00)
[2018-11-09] MEDS ORDERED: Budesonide 0.5 MG/2 ML NEB NEB SCH (09:00)
[2018-11-09] MEDS: Lactated Ringer's 1,000 ML IV SCH (09:04)
--- NOTE | 2018-11-09 09:08 | DIS ---
DATE OF ADMISSION: 11/08/2018 DATE OF DISCHARGE: 11/09/2018 ADMISSION DIAGNOSIS: Right breast multifocal cancer. DISCHARGE DIAGNOSIS: Right breast multifocal cancer. PROCEDURE PERFORMED: Right modified radical mastectomy (attempted sentinel node biopsy with no discernible nodes). ADMISSION HISTORY: The patient is a 63-year-old white female diagnosed with right breast cancer. She has nipple retraction and at least one focus of cutaneous cancer. She was brought in for right mastectomy. HOSPITAL COURSE: She was taken to the operating room, where an uneventful mastectomy was performed. A sentinel node biopsy could not be performed as there was no evidence of radioactivity or blue dye within the axilla. I therefore performed a full axillary node dissection in continuity with her mastectomy. Her surgery was uneventful. Blood loss was minimal. She has been stable overnight. She is tolerating her diet. She is in her usual mental state (somewhat subdued secondary to her schizophrenia and medications). Her drain output has been appropriate overnight. She is stable for discharge home. She will be discharged home with a prescription for tramadol. She denies any pain currently. She will follow up with myself next week and hopefully, her facility will appropriately manage her drains in the interim. Job ID: [id number]
--- NOTE | 2018-11-09 10:29 | OP ---
DATE OF PROCEDURE: 11/08/2018 PREOPERATIVE DIAGNOSIS: Right breast cancer, multifocal. POSTOPERATIVE DIAGNOSIS: Right breast cancer, multifocal. PROCEDURE PERFORMED: Attempted right axillary sentinel lymph node biopsy, conversion to a right modified radical mastectomy. ANESTHESIA: General endotracheal. INDICATIONS: The patient is a 63-year-old white female. She has been diagnosed with multifocal right breast cancer. She additionally had a cutaneous implant on the upper portion of her breast. She presents today for mastectomy and sentinel lymph node biopsy. Unfortunately, lymphoscintigraphy did not reveal any sentinel lymph node in the axilla or any other location. DESCRIPTION OF OPERATION: Informed consent was obtained. The patient was taken to the operating room, where general endotracheal anesthesia was obtained with the patient in supine position. Right breast and axilla were prepped with ChloraPrep and draped in sterile fashion. I infiltrated 3 mL of Lymphazurin in the periareolar subdermal tissue and massaged the breast for 5 minutes. I then created a mastectomy incision across the breast to include the palpable metastatic implant in the skin at about the 12 o'clock radian. The incision was carried toward the axilla and the sternal border. Dissection was carried through skin and subcutaneous tissue, and flaps were raised superiorly, inferiorly, medially, and laterally. Toward the lateral aspect, I investigated the axilla. I could identify no area of increased radioactivity within the axilla. I also identified no blue-stained lymphatics within the axilla. I decided, therefore, to proceed with a full lymph node dissection in continuity with the mastectomy. The flaps that were raised were carried down to the chest wall superiorly, inferiorly, and medially. The breast was then swept off the chest wall in a medial to lateral fashion. At the lateral aspect of the pectoralis, dissection was carried up into the axilla, identifying the axillary vein. Inferior to the axillary vein, I identified the long thoracic and the thoracodorsal nerves and these were spared throughout the remainder of the operation. The axillary contents were dissected, dividing lymphatics between hemoclips. The axillary contents were removed in continuity with the mastectomy, and the specimen was removed intact. A marking suture was placed in the upper axillary contents. This specimen was passed off the field. I did german the skin on the upper flap that was adjacent to the area of the metastatic implant in case there were positive margins. Meticulous hemostasis was obtained. The wound was irrigated copiously with saline. I then placed two #19 round fluted drains, one across the chest wall and one into the axilla. These were secured externally with 3-0 nylon suture. The skin flaps were then tailored for appropriate cosmetic closure. Dog-ear corrections were made medially and laterally. The wound was closed in layers using 3-0 Vicryl and skin edwin. Xeroform gauze was placed over the incision as well as gauze fluffs and a Erin wrap. There were no complications. The patient tolerated the procedure well and was taken to recovery room in stable condition. Job ID: [id number]
[2018-11-09 11:07] VITALS: BP 116/75; TEMP 98.1
== END 2018-11-09 13:40 | DRG 583 ==
LOC: SDC 07:03 → SURG A 16:47
PROVIDERS: ADMIT Specialist; ATTEND Specialist
PROC: 0HTT0ZZ Resection of Right Breast, Open Approach (ICD-10-PCS; principal; 2018-11-08)
PROC: 07T50ZZ Resection of Right Axillary Lymphatic, Open Approach (ICD-10-PCS; 2018-11-08)
DX: C50.911 Malignant neoplasm of unspecified site of right female breast (principal); F20.9 Schizophrenia, unspecified; J44.9 Chronic obstructive pulmonary disease, unspecified; G40.909 Epilepsy, unspecified, not intractable, without status epilepticus; G20 Parkinson's disease; F02.80 Dementia in other diseases classified elsewhere, unspecified severity, without behavioral disturbance, psychotic disturbance, mood disturbance, and anxiety; M54.9 Dorsalgia, unspecified; F17.200 Nicotine dependence, unspecified, uncomplicated; F41.9 Anxiety disorder, unspecified; F32.9 Major depressive disorder, single episode, unspecified; Z88.1 Allergy status to other antibiotic agents
CPT/HCPCS: 36415; 78195; 80048; 85025; 93005; 93010; 94640; A9541; J0131; J0690; J1885; J2175; J2250; J2405; J3010; J7620; J7626; Q9968; S0028

== ENCOUNTER 2018-12-13 08:51 | Outpatient (CLI) | payer MEDICARE, MEDICAID ==
--- NOTE | 2018-12-13 10:23 | CT ---
CT CHEST WITH CONTRAST: INDICATIONS: Right breast cancer. COMPARISON: No comparison chest CT. TECHNIQUE: Axial tomograms obtained through the chest with IV enhancement. Multiplanar reconstruction. FINDINGS: The lung ken show chronic parenchymal changes. There is mild interstitial thickening in the perip maximiliano of both lungs. There is a 5 mm calcified granuloma in the posterior right upper lobe. There is a confluent parenchymal opacity in the lingula, which has the appearance of focal atelectasis. Dipesh y infiltrate cannot be excluded due to this location. No effusion. The mediastinum is unremarkable without adenopathy. There are atherosclerotic changes in the thoraci c aorta. The proximal pulmonary arteries are opacified with no evidence of proximal pulmonary embolu s. Changes of right mastectomy. Clips in the right axilla. No adenopathy. The left lobe of the thyroid shows a low density nodule, measuring up to 2 cm. Consider thyroid ultr asound to further evaluate. The osseous structures are unremarkable. No lytic or blastic process. Degenerative changes in the s pine. IMPRESSION: 1. Chronic lung parenchymal changes with interstitial thickening bilaterally. Parenchymal opacity i n the region of the lingula is most suggestive of focal atelectasis, although early infiltrate cannot be excluded. 2. Calcified granuloma in the right upper lobe. 3. A 2 cm low density nodular mass in the left lobe of the thyroid. Possibly small low density nodu le in the right lobe. Recommend further investigation with thyroid ultrasound. 4. Post right mastectomy changes, as described. CT ABDOMEN AND PELVIS WITH AND WITHOUT CONTRAST: CT PELVIS WITH IV CONTRAST: INDICATIONS: Right breast cancer. COMPARISON: CT abdomen and pelvis without IV contrast performed on 04/26/2017. TECHNIQUE: Oral contrast was administered. Multiplanar reconstruction. FINDINGS: The liver, spleen, and pancreas are unremarkable. The common bile duct is mildly dilated. The gallb ladder appears contracted. No intrahepatic ductal dilatation is apparent. The adrenal glands are normal. The kidneys are unremarkable. No hydronephrosis. The urinary bladder is mildly distended. There is mild urinary bladder wall thickening. Small bowel loops appear of normal caliber. The appendix is normal. The colon is unremarkable and m ostly nondistended. Colonic mucosal lesions are not excluded. Scattered diverticula in the left col on. The aorta shows atherosclerotic calcification without aneurysm. No evidence of adenopathy. Images through the pelvis show evidence of a hysterectomy. The osseous structures are unremarkable. IMPRESSION: 1. Mild prominence of the common bile duct of uncertain significance. The gallbladder appears contr acted. 2. Mild nonspecific urinary bladder wall thickening. Assess for cystitis. 3. Examination otherwise unremarkable. POS: OFF
[2018-12-13] MEDS ORDERED: Iopamidol 370 76% 100 ML VIAL ONE (11:08)
--- NOTE | 2018-12-13 14:14 | NM ---
NUCLEAR MEDICINE WHOLE BODY BONE SCAN: 12/13/18 HISTORY: Breast cancer. COMPARISON: None. TECHNIQUE: Patient administered 30.5 millicuries of technetium 99 m MDP intravenously. After appropriate delay, whole body imaging is performed. FINDINGS: expected physiologic distribution of the radiotracer. Uptake in the sinuses likely due to sinus disease. Uptake at the level of the anterior left mandible may be due to periodontal disease. Correlate clinically. Uptake in both shoulders, knees, feet, and ankle likely due to multifocal arthritic change. There is abnormal radiotracer localization to suggest osseous metastases. IMPRESSION: No scintigraphic evidence of osseous metastases. POS: HANDY
== END 2018-12-13 08:52 | disposition home or self-care (01) ==
LOC: CT 08:51
PROVIDERS: ATTEND Internal Medicine Hematology & Oncology
DX: C50.811 Malignant neoplasm of overlapping sites of right female breast (principal); E07.9 Disorder of thyroid, unspecified; N30.90 Cystitis, unspecified without hematuria
CPT/HCPCS: 71260; 72193; 74170; 78306; A9503; 74178; Q9967

== ENCOUNTER 2019-04-08 11:58 | Inpatient (IN) | payer MEDICARE, MEDICAID ==
[2019-04-08] MEDS ORDERED: methylPREDNISolone Sod Succ/PF 125 MG/2 ML VIAL ONE (12:37)
[2019-04-08 12:43] LABS: #Lymphocytes 0.7 thou/uL (1.20-3.40); #Monocytes 0.7 thou/uL (0.11-0.59); #Neutrophils 5.8 thou/uL (1.40-6.50); %Eosinophils 0.6 % (0.0-10.0); %Lymphocytes 9.9 % (21.0-51.0); %Neutrophils 80.5 % (42.0-75.0); Mean Corpuscular HGB CONC 33.3 g/dL (32.0-36.0); Mean Corpuscular Volume 93.3 fL (78.0-98.0); Mean Platelet Volume 8.1 fL (7.4-10.4); Platelet Count 199 thou/uL (130-400); Red Blood Cell (RBC) Count 4.18 mill/uL (4.20-5.40); White Blood Cell (WBC) Count 7.2 thou/uL (4.8-10.8)
[2019-04-08 13:09] LABS: ALT (SGPT) 10 U/L (8-55); AST (SGOT) 13 U/L (5-34); Albumin 3.6 g/dL (3.4-4.8); Alkaline Phosphatase 73 U/L (40-110); Anion Gap 12 mmol/L (10-20); BUN (Urea Nitrogen) 8 mg/dL (9.8-20.1); Bilirubin, Total 0.2 mg/dL (0.2-1.2); Calc. Creatinine Clearance 0 mL/min (70-130); Calcium 9.2 mg/dL (7.8-10.44); Carbon Dioxide 32 mmol/L (23-31); Chloride 99 mmol/L (98-107); Estimated GFR-MDRD 86; Globulin 2.1 g/dL (2.4-3.5); Glucose 97 mg/dL (80-115); Lipase 6 U/L (8-78); Potassium 4.8 mmol/L (3.5-5.1); Protein, Total 5.7 g/dL (6.0-8.3); Sodium 138 mmol/L (136-145)
--- NOTE | 2019-04-08 13:14 | RAD ---
XR Chest 1 View Portable HISTORY: Dyspnea, cough COMPARISON: 08/17/2018 FINDINGS: The heart size is borderline. There is pulmonary vascular congestion. Mild infiltrates are seen in the lower lung ken. No pneumothoraces or large effusions are identified.
[2019-04-08 16:32] VITALS: BMI 30.2
[2019-04-08 17:29] LABS: Troponin I 0.011 ng/mL (< 0.028)
[2019-04-08] MEDS ORDERED: Milk Of Magnesia 30 ML UDCUP PO PRN (18:23)
[2019-04-08] MEDS ORDERED: Loperamide HCl 2 MG CAP PO PRN (18:23)
[2019-04-08] MEDS ORDERED: Nystatin Cream 15 GM TUBE TOP PRN (18:24)
[2019-04-08] MEDS ORDERED: Naproxen 500 MG TAB PO PRN (18:24)
[2019-04-08] MEDS ORDERED: Ondansetron ODT 8 MG TAB PO PRN (18:25)
[2019-04-08] MEDS ORDERED: Preparation H Ointment 57 gram tube TOP PRN (18:25)
[2019-04-08] MEDS ORDERED: Mag-Al 1200 mg/1200 mg/30 ML UDCUP PO PRN (18:26)
[2019-04-08] MEDS ORDERED: Simethicone Chewable 80 MG TAB PO PRN (18:26)
[2019-04-08] MEDS: Budesonide 0.5 MG/2 ML NEB NEB SCH (19:39)
[2019-04-08] MEDS: Mometasone/Formoterol 120 PUFF INHALER INH SCH (19:39)
[2019-04-08 20:52] LABS: Troponin I 0.019 ng/mL (< 0.028)
[2019-04-08] MEDS: Benztropine 1 MG TAB PO SCH (21:10)
[2019-04-08] MEDS: Lithium Carbonate 150 MG CAP PO SCH (21:10)
[2019-04-08] MEDS: busPIRone HCl 5 MG TAB PO SCH (21:10)
[2019-04-08] MEDS: guaiFENesin ER 600 MG TAB PO SCH (21:11)
[2019-04-08] MEDS: Sodium Chloride 1 GM TAB PO SCH (21:11)
[2019-04-08] MEDS: Valproate Sodium 250 mg/5 ml UD Cup PO SCH (21:11)
[2019-04-08] MEDS: methylPREDNISolone Sod Succ 40 MG VIAL IVP SCH (23:48)
[2019-04-09] MEDS: methylPREDNISolone Sod Succ 40 MG VIAL IVP SCH ×4 (06:08→23:26)
[2019-04-09] MEDS: Mometasone/Formoterol 120 PUFF INHALER INH SCH ×2 (08:07→19:00)
[2019-04-09] MEDS: Budesonide 0.5 MG/2 ML NEB NEB SCH ×2 (08:08→18:57)
[2019-04-09] MEDS ORDERED: FLU VACC QS2019-20(6MOS UP)/PF 60 MCG/0.5 ML SYRINGE IM ONE (09:00)
[2019-04-09] MEDS: Benztropine 1 MG TAB PO SCH ×2 (09:03→20:23)
[2019-04-09] MEDS: Anastrozole 1 MG TAB PO SCH (09:04)
[2019-04-09] MEDS: Lithium Carbonate 150 MG CAP PO SCH ×2 (09:04→20:16)
[2019-04-09] MEDS: Sodium Chloride 1 GM TAB PO SCH ×3 (09:04→20:23)
[2019-04-09] MEDS: busPIRone HCl 5 MG TAB PO SCH ×2 (09:04→20:23)
[2019-04-09] MEDS: Multivit, Therapeutic 1 TAB PO SCH (09:04)
[2019-04-09] MEDS: guaiFENesin ER 600 MG TAB PO SCH ×2 (09:04→20:23)
[2019-04-09] MEDS: Valproate Sodium 250 mg/5 ml UD Cup PO SCH ×2 (09:10→20:24)
[2019-04-09] MEDS: Acetaminophen 325 MG TAB PO PRN (20:34)
--- NOTE | 2019-04-09 21:21 | HP ---
CHIEF COMPLAINT: Shortness of breath, cough. HISTORY OF PRESENT ILLNESS: Ms. Carr is a 64-year-old female with past medical history of end-stage COPD, hypertension, schizophrenia, was brought in because of shortness of breath and cough. The patient has been having shortness of breath for a day, it got worse to the point she is unable to breathe well. She has been wheezing quite a bit and also became hypoxic at the [facility]. Her O2 saturation dropped to 80%. The patient was also more confused according to the [facility]. Status post fall at the [facility] in the morning, so she was sent to the hospital because of this condition. She was evaluated in the ER, found to have COPD exacerbation with hypoxia. The patient received neb treatments and Solu-Medrol bolus. The patient currently feeling slightly better. She is admitted for further evaluation and management. PAST MEDICAL HISTORY: 1. COPD, oxygen-dependent. 2. Acute on chronic respiratory failure. 3. Schizophrenia, paranoid. 4. Seizure disorder. 5. Chronic back pain. 6. History of right breast cancer. PAST SURGICAL HISTORY: Status post hysterectomy, status post tonsillectomy, status post right mastectomy. CURRENT MEDICATIONS: The patient is on; 1. Tylenol p.r.n. 2. Maalox p.r.n. 3. Anastrazole 1 mg daily. 4. Benztropine 2 mg b.i.d. 5. Pulmicort 0.5 mg b.i.d. 6. BuSpar 5 mg b.i.d. 7. Prolixin D 50 mg IM every 2 weeks. 8. Breo Ellipta 1 puff daily. 9. Mucinex 600 b.i.d. p.r.n. 10. DuoNeb q.i.d. 11. [place] 300 mg b.i.d. 12. Multivitamin daily. 13. Sodium chloride 1 g t.i.d. 14. Valproic acid 10 mL b.i.d. which is 500 mg per 10 mL. Also on p.r.n. medications, which include; 1. Milk of [place]esia p.r.n. 2. Imodium p.r.n. 3. Naproxen sodium p.r.n. 4. Zofran p.r.n. 5. Preparation H p.r.n. 6. Simethicone p.r.n. ALLERGIES: MULTIPLE INCLUDE CODEINE, IODINE, PROCHLORPERAZINE AND SULFA. FAMILY HISTORY: Nothing contributory. SOCIAL HISTORY: The patient lives in a [facility]. No history of alcohol intake. Smokes half pack a day. REVIEW OF SYSTEMS: CARDIOVASCULAR: No chest pain. Has no shortness of breath. RESPIRATORY: No fever. Has cough. GASTROINTESTINAL: No nausea or vomiting. No abdominal pain. CENTRAL NERVOUS SYSTEM: No headache. No dizziness. PHYSICAL EXAMINATION: GENERAL: The patient is alert, awake, oriented x2. VITAL SIGNS: Temperature 98, pulse 99, respirations 20, blood pressure 115/60. O2 saturation 91% on 2 L. HEENT: Head is normocephalic, atraumatic. Pupils equal and reactive. Nasopharynx is pale and dry. NECK: Supple. No JVD. LUNGS: Bilateral air entry is present. Percussion dull bilaterally. Expiratory wheeze present. HEART: S1 and S2, regular. ABDOMEN: Soft. No distention. No tenderness. No abnormal bowel sounds. RECTAL: Deferred. CENTRAL NERVOUS SYSTEM: No focal deficits. LABORATORY DATA: CBC shows WBC 7, hemoglobin 13, hematocrit 39, platelets 199. Metabolic panel; sodium 138, potassium 4.8, chloride 99, CO2 of 32, BUN 8, creatinine 0.6, glucose 97. Troponin I 0.015. Chest x-ray negative. EKG shows normal sinus rhythm, no acute ST-T changes seen. ASSESSMENT: 1. Chronic obstructive pulmonary disease, acute exacerbation. 2. Acute on chronic respiratory failure secondary to #1. 3. Paranoid schizophrenia. 4. Seizure disorder. 5. History of chronic pain. 6. History of right breast cancer, status post mastectomy. PLAN: 1. Vital signs q.4 hours. 2. Activities as tolerated. 3. Allergies multiple include sulfa, iodine prochlorperazine, and codeine. 4. We will continue [facility] medications. 5. Solu-Medrol 20 mg IVP q.6 hours. 6. DuoNeb 1 unit q.i.d. 7. Mucinex 600 b.i.d. Job ID: [id number]
[2019-04-10] MEDS: methylPREDNISolone Sod Succ 40 MG VIAL IVP SCH ×4 (05:44→23:33)
[2019-04-10] MEDS: Budesonide 0.5 MG/2 ML NEB NEB SCH ×2 (07:40→19:43)
[2019-04-10] MEDS: Mometasone/Formoterol 120 PUFF INHALER INH SCH ×2 (07:42→19:57)
[2019-04-10] MEDS: Valproate Sodium 250 mg/5 ml UD Cup PO SCH ×2 (08:44→20:09)
[2019-04-10] MEDS: Anastrozole 1 MG TAB PO SCH (08:44)
[2019-04-10] MEDS: Multivit, Therapeutic 1 TAB PO SCH (08:44)
[2019-04-10] MEDS: guaiFENesin ER 600 MG TAB PO SCH ×2 (08:44→20:08)
[2019-04-10] MEDS: Lithium Carbonate 150 MG CAP PO SCH ×2 (08:44→20:09)
[2019-04-10] MEDS: Sodium Chloride 1 GM TAB PO SCH ×3 (08:44→20:08)
[2019-04-10] MEDS: Benztropine 1 MG TAB PO SCH ×2 (08:44→20:08)
[2019-04-10] MEDS: busPIRone HCl 5 MG TAB PO SCH ×2 (08:44→20:08)
[2019-04-10] MEDS: Acetaminophen 325 MG TAB PO PRN (20:10)
[2019-04-11] MEDS: methylPREDNISolone Sod Succ 40 MG VIAL IVP SCH ×2 (05:32→12:05)
[2019-04-11] MEDS: Mometasone/Formoterol 120 PUFF INHALER INH SCH (08:02)
[2019-04-11] MEDS: Budesonide 0.5 MG/2 ML NEB NEB SCH (08:03)
[2019-04-11] MEDS: guaiFENesin ER 600 MG TAB PO SCH (08:24)
[2019-04-11] MEDS: Benztropine 1 MG TAB PO SCH (08:24)
[2019-04-11] MEDS: Lithium Carbonate 150 MG CAP PO SCH (08:24)
[2019-04-11] MEDS: Valproate Sodium 250 mg/5 ml UD Cup PO SCH (08:24)
[2019-04-11] MEDS: busPIRone HCl 5 MG TAB PO SCH (08:24)
[2019-04-11] MEDS: Sodium Chloride 1 GM TAB PO SCH (08:24)
[2019-04-11] MEDS: Multivit, Therapeutic 1 TAB PO SCH (08:24)
[2019-04-11] MEDS: Anastrozole 1 MG TAB PO SCH (08:29)
[2019-04-11 14:14] VITALS: BP 125/80; TEMP 98
== END 2019-04-11 13:39 | DRG 189 ==
LOC: ERS 11:58 → 2SW 15:07 → OBSVTOIN 18:20 → 2NO 21:13 → T4-A 04-09 17:00
PROVIDERS: ADMIT Emergency Medicine; ATTEND Emergency Medicine
DX: J96.21 Acute and chronic respiratory failure with hypoxia (principal); J44.1 Chronic obstructive pulmonary disease with (acute) exacerbation; F20.0 Paranoid schizophrenia; R13.10 Dysphagia, unspecified; G20 Parkinson's disease; F31.9 Bipolar disorder, unspecified; F41.9 Anxiety disorder, unspecified; F17.210 Nicotine dependence, cigarettes, uncomplicated; G40.909 Epilepsy, unspecified, not intractable, without status epilepticus; M54.9 Dorsalgia, unspecified; Z88.5 Allergy status to narcotic agent; Z88.2 Allergy status to sulfonamides; Z88.8 Allergy status to other drugs, medicaments and biological substances; Z79.51 Long term (current) use of inhaled steroids; Z79.899 Other long term (current) drug therapy; Z85.3 Personal history of malignant neoplasm of breast; Z99.81 Dependence on supplemental oxygen; Z90.710 Acquired absence of both cervix and uterus
CPT/HCPCS: 36415; 71045; 80053; 83690; 83880; 84484; 85025; 90471; 90686; 93005; 94640; 94644; 96374; G0008; J2920; J2930; J7620; J7626

== ENCOUNTER 2019-06-19 02:30 | Inpatient (IN) | payer MEDICARE, MEDICAID, OTHER ==
[2019-06-19] MEDS ORDERED: Ondansetron PF 4 MG/2 ML Vial IVP PRN (03:00)
[2019-06-19] MEDS: Sodium Chloride 0.9% 1,000 ML IV SCH ×3 (03:00→15:53)
[2019-06-19] MEDS ORDERED: Ondansetron ODT 4 MG TAB SL PRN (03:00)
[2019-06-19 03:04] LABS: #Lymphocytes 0.9 thou/uL (1.20-3.40); #Monocytes 0.9 thou/uL (0.11-0.59); #Neutrophils 11.7 thou/uL (1.40-6.50); %Eosinophils 0.1 % (0.0-10.0); %Lymphocytes 6.9 % (21.0-51.0); %Monocytes 6.3 % (0.0-10.0); %Neutrophils 86.7 % (42.0-75.0); Hemoglobin 13.1 g/dL (12.0-16.0); Mean Corpuscular HGB CONC 33.3 g/dL (32.0-36.0); Mean Corpuscular Hemoglobin 31.6 pg (27.0-31.0); Mean Corpuscular Volume 94.8 fL (78.0-98.0); Mean Platelet Volume 8.2 fL (7.4-10.4); Platelet Count 170 thou/uL (130-400); RBC Distribution Width 13.1 % (11.5-14.5); Red Blood Cell (RBC) Count 4.14 mill/uL (4.20-5.40); White Blood Cell (WBC) Count 13.5 thou/uL (4.8-10.8)
[2019-06-19 03:30] LABS: ALT (SGPT) 7 U/L (8-55); AST (SGOT) 12 U/L (5-34); Albumin 3.8 g/dL (3.4-4.8); Alkaline Phosphatase 77 U/L (40-110); Anion Gap 10 mmol/L (10-20); BUN (Urea Nitrogen) 9 mg/dL (9.8-20.1); Bilirubin, Total 0.6 mg/dL (0.2-1.2); CK (CPK) 126 U/L (29-168); Calc. Creatinine Clearance 0 mL/min (70-130); Calcium 8.9 mg/dL (7.8-10.44); Carbon Dioxide 35 mmol/L (23-31); Chloride 99 mmol/L (98-107); Estimated GFR-MDRD 82; Globulin 2.4 g/dL (2.4-3.5); Glucose 116 mg/dL (80-115); Potassium 4.1 mmol/L (3.5-5.1); Protein, Total 6.2 g/dL (6.0-8.3); Sodium 140 mmol/L (136-145)
[2019-06-19] MEDS ORDERED: Piperacillin/Tazobactam 4.5 GM VIAL ONE (04:41)
--- NOTE | 2019-06-19 07:52 | RAD ---
CHEST 1 VIEW: INDICATION: Fever, cough, and congestion. COMPARISON: Prior exam dated 04/08/2019. FINDINGS: There is airspace opacity present within the left lower lobe and regions of the lingula. Right lung is relatively clear. Mild cardiomegaly is stable-appearing. No acute osseous abnormality is evident . IMPRESSION: Airspace opacity in the left lower lobe may reflect developing pneumonia. POS: BH
[2019-06-19] MEDS ORDERED: methylPREDNISolone Sod Succ/PF 125 MG/2 ML VIAL ONE (07:59)
[2019-06-19] MEDS ORDERED: Piperacillin/Tazobactam 4.5 GM in Sodium Chloride 0.9% 100 ML IVPB SCH (12:00)
[2019-06-19 13:20] VITALS: BMI 31.5
--- NOTE | 2019-06-19 14:33 | CON ---
DATE OF CONSULTATION: 06/19/2019 REASON FOR CONSULTATION: Possible pneumonia. HISTORY OF PRESENT ILLNESS: A 64-year-old with history of COPD, chronic smoking, schizoaffective disorder, and right breast cancer status post mastectomy and in remission, who has had multiple admissions over the past 3 or 4 years for decompensation of her COPD and now, she presents with worsening cough, which is not productive, some fever and worsening dyspnea. No headaches, visual symptoms, sore throat, odynophagia, or dysphagia. No back pain. No abdominal pain or diarrhea. No genitourinary symptoms. PAST MEDICAL HISTORY: COPD, schizoaffective disease/schizophrenia, Parkinson's, and breast cancer in remission. PAST SURGICAL HISTORY: Bladder sling fistula, hysterectomy, breast biopsy, and mastectomy. SOCIAL HISTORY: Current smoker. Lives in a long-term facility in [place]. ALLERGIES: CODEINE, ETODOLAC, IODINE, PROCHLORPERAZINE, AND SULFA DRUGS. CURRENT MEDICATIONS: 1. Zofran. 2. Zosyn. 3. Medrol. PHYSICAL EXAMINATION: VITAL SIGNS: T-max 98.4, blood pressure 140/80, pulse 92, respirations 30 and now about 22, and O2 saturation 92 on 3 L. GENERAL: Awake, appears in no distress, and oriented. SKIN: With peripheral IV access. She is voiding in the toilet. No lymphadenopathy. HEENT: Ocular movements conjugate. Sclerae white. Pupils are equal. Oral cavity normal. No [place] teeth remaining. NECK: Supple. LUNGS: With bibasilar inspiratory crackles. No wheezing. HEART: S1 and S2. Regular rate. No S3 or S4. ABDOMEN: Soft, not distended or tender. No ascites. No bladder distention. EXTREMITIES: No joint inflammatory activity. Trace edema of lower extremities. Pulses 1+ in dorsalis pedis. Moves extremities equally. Plantar responses are flexor. Some osteoarthrosis in knees mostly. NEUROLOGIC: Awake, knows her name, oriented, follows commands. Speech appears to be normal. No delusional thinking process. LABORATORY DATA: White cell count 13.5, hemoglobin 13, and platelets 170 with 86% neutrophils. Creatinine 0.72. Liver profile normal. Albumin 3.8. BNP 39. Chest x-ray, airspace opacity left lower lobe. ASSESSMENT: Schizoaffective disorder, chronic obstructive pulmonary disease, and now respiratory symptoms with fever, abnormal chest x-ray and lung exam. DISCUSSION: Differential diagnosis includes a viral infection including influenza, they are ruling out for Covid-19 associated process and a bacterial pneumonia is also within around possibilities. We will switch her to Rocephin and azithromycin and wait for serologies. Submit respiratory virus PCR panel. I believe the coronavirus PCR was submitted as well. Job ID: [id number]
[2019-06-19] MEDS: cefTRIAXone\\ROCEPHIN 2 GM in Sodium Chloride 0.9% 100 ML IVPB SCH (15:46)
[2019-06-19] MEDS ORDERED: Acetaminophen 325 MG TAB PO PRN (18:21)
[2019-06-19] MEDS ORDERED: Mag-Al 1200 mg/1200 mg/30 ML UDCUP PO PRN (18:21)
[2019-06-19] MEDS ORDERED: guaiFENesin ER 600 MG TAB PO PRN (18:27)
[2019-06-19] MEDS ORDERED: Milk Of Magnesia 30 ML UDCUP PO PRN (18:30)
[2019-06-19] MEDS: Azithromycin 500 MG in Sodium Chloride 0.9% 250 ML 250 ML IVPB SCH (18:30)
[2019-06-19] MEDS ORDERED: Nystatin Cream 15 GM TUBE TOP PRN (18:31)
[2019-06-19] MEDS ORDERED: Ondansetron ODT 8 MG TAB PO PRN (18:32)
[2019-06-19] MEDS ORDERED: Preparation H Ointment 57 gram tube TOP PRN (18:32)
[2019-06-19] MEDS ORDERED: Simethicone Chewable 80 MG TAB PO PRN (18:32)
[2019-06-19] MEDS: Mometasone 100 MCG/Formoterol 5 MCG 120 PUFF INHALER INH SCH (20:25)
[2019-06-19] MEDS ORDERED: Lithium Carbonate 150 MG CAP PO SCH (20:30)
[2019-06-19] MEDS: Sodium Chloride 1 GM TAB PO SCH (20:49)
[2019-06-19] MEDS: busPIRone HCl 5 MG TAB PO SCH (20:49)
[2019-06-19] MEDS: Benztropine 1 MG TAB PO SCH (20:49)
[2019-06-19] MEDS: Valproate Sodium 250 mg/5 ml UD Cup PO SCH (20:50)
[2019-06-19] MEDS: Vit A,C & E/Lutein/Minerals Tablet PO SCH (20:50)
--- NOTE | 2019-06-19 21:15 | HP ---
CHIEF COMPLAINT: Fever, cough. HISTORY OF PRESENT ILLNESS: Ms. Carr is a 64-year-old female with past medical history of COPD, bipolar disorder. The patient was found to have a temperature of 102.4 in the emergency room; also has some cough, productive with yellow sputum; also has been more shortness of breath; also noticed to have some change in mental status as well, so the patient was sent to the hospital. In the ER, the patient was evaluated and found to have a temperature of 102, found to have pneumonia of left lung. She was given a dose of Zosyn and Levaquin, given IV fluid bolus as well as nasal spray. She was also sent for COVID-19 virus evaluation. The patient was admitted for further evaluation and management. The patient feels better than what she was this morning. PAST MEDICAL HISTORY: 1. COPD. 2. Acute on chronic respiratory failure. 3. Schizophrenia. 4. Seizure disorder. 5. Chronic back pain. 6. History of right breast cancer, status post surgery and radiation. PAST SURGICAL HISTORY: 1. Status post hysterectomy. 2. Status post tonsillectomy. 3. Status post right mastectomy. CURRENT MEDICATIONS: The patient is on; 1. Tylenol p.r.n. 2. Milk of magnesia p.r.n. 3. Maalox p.r.n. 4. Anastrozole 1 mg daily. 5. Benztropine mesylate 2 mg b.i.d. 6. Pulmicort nebs b.i.d. 7. BuSpar 5 mg b.i.d. 8. Prolixin D 50 mg IM as directed. 9. Breo Ellipta one puff daily. 10. Mucinex 600 mg b.i.d. 11. DuoNebs daily. 12. [place] 300 mg b.i.d. 13. Multivitamin daily. 14. Nystatin p.r.n. 15. Zofran p.r.n. 16. Simethicone 80 mg q.6 p.r.n. 17. Sodium chloride 1 g t.i.d. 18. Valproic acid 500 mg b.i.d. 19. Vitamin C daily. ALLERGIES: MULTIPLE, INCLUDE: 1. CODEINE. 2. IODINE. 3. PROCHLORPERAZINE. 4. SULFA. FAMILY HISTORY: Nothing contributory. SOCIAL HISTORY: The patient lives in [facility]. smokes a few cigarettes daily. REVIEW OF SYSTEMS: CARDIOVASCULAR: No chest pain. No shortness of breath. RESPIRATORY: Has cough, fever. GASTROINTESTINAL: No nausea, vomiting, or abdominal pain. CENTRAL NERVOUS SYSTEM: No headache. No dizziness. PHYSICAL EXAMINATION: GENERAL: The patient is alert, awake, and oriented x3. VITAL SIGNS: Temperature 99.6, pulse 92, respirations 20, blood pressur HEENT: Head is normocephalic, atraumatic. Pupils are equal and reactive. Nasopharynx is pale and dry. NECK: Supple. No JVD. LUNGS: Bilateral air entry present. Expiratory wheeze present bilaterally. Crackles present, left side. HEART: S1 and S2 regular. ABDOMEN: Soft. No distention. No tenderness. No organomegaly. Bowel sounds present. RECTAL: Deferred. CENTRAL NERVOUS SYSTEM: No focal deficits. LABORATORY DATA: CBC shows WBC 13, hemoglobin 13, hematocrit 39, and platelets 170. Metabolic panel: Sodium 140, potassium 4, chloride 99, CO2 of 35, BUN 9, creatinine 0.7, and glucose 116. Chest x-ray reported as air space opacity in the left lower lobe, possible developed pneumonia. ASSESSMENT: 1. Fever, cough; possible pneumonia, left lower lobe. 2. Chronic obstructive pulmonary disease, acute exacerbation. 3. Hypoxia. 4. Schizoaffective disorder. 5. Chronic pain. PLAN: 1. Vital signs q.4 hours. 2. Activities, as tolerated. 3. Allergies, multiple. 4. Hep-Lock. 5. DuoNebs 1 unit q.4 hours. 6. Zosyn 3.375 g IV piggyback q.6 hours. 7. Solu-Medrol 20 mg IV piggyback q.6 hours. 8. Continue [facility] medications. 9. Infectious Disease consult. Job ID: [id number] [facility]
[2019-06-19] MEDS: Budesonide 0.5 MG/2 ML NEB NEB SCH (22:49)
[2019-06-19] MEDS: methylPREDNISolone Sod Succ 40 MG VIAL IVP SCH (23:39)
[2019-06-20] MEDS: methylPREDNISolone Sod Succ 40 MG VIAL IVP SCH ×4 (05:04→23:36)
[2019-06-20] MEDS: Budesonide 0.5 MG/2 ML NEB NEB SCH ×2 (07:46→20:26)
[2019-06-20] MEDS: Mometasone 100 MCG/Formoterol 5 MCG 120 PUFF INHALER INH SCH ×2 (07:50→20:22)
[2019-06-20] MEDS ORDERED: FLU VACC QS2019-20(6MOS UP)/PF 60 MCG/0.5 ML SYRINGE IM ONE (09:00)
[2019-06-20] MEDS: Multivit, Therapeutic 1 TAB PO SCH (09:18)
[2019-06-20] MEDS: Benztropine 1 MG TAB PO SCH ×2 (09:18→21:14)
[2019-06-20] MEDS: Anastrozole 1 MG TAB PO SCH (09:18)
[2019-06-20] MEDS: busPIRone HCl 5 MG TAB PO SCH ×2 (09:18→21:14)
[2019-06-20] MEDS: Lithium Carbonate 150 MG CAP PO SCH ×2 (09:18→17:10)
[2019-06-20] MEDS: Sodium Chloride 1 GM TAB PO SCH ×3 (09:18→21:14)
[2019-06-20] MEDS: Valproate Sodium 250 mg/5 ml UD Cup PO SCH ×2 (09:19→21:15)
[2019-06-20] MEDS: Azithromycin 500 MG in Sodium Chloride 0.9% 250 ML 250 ML IVPB SCH (13:24)
[2019-06-20] MEDS: Vit A,C & E/Lutein/Minerals Tablet PO SCH ×2 (13:24→21:15)
[2019-06-20] MEDS: cefTRIAXone\\ROCEPHIN 2 GM in Sodium Chloride 0.9% 100 ML IVPB SCH (14:52)
[2019-06-21] MEDS: methylPREDNISolone Sod Succ 40 MG VIAL IVP SCH ×4 (05:20→23:19)
[2019-06-21] MEDS: Budesonide 0.5 MG/2 ML NEB NEB SCH ×2 (07:24→18:19)
[2019-06-21] MEDS: Mometasone 100 MCG/Formoterol 5 MCG 120 PUFF INHALER INH SCH ×2 (07:25→18:20)
[2019-06-21] MEDS: Benztropine 1 MG TAB PO SCH ×2 (08:25→20:27)
[2019-06-21] MEDS: Sodium Chloride 1 GM TAB PO SCH ×3 (08:25→20:27)
[2019-06-21] MEDS: busPIRone HCl 5 MG TAB PO SCH ×2 (08:25→20:27)
[2019-06-21] MEDS: Multivit, Therapeutic 1 TAB PO SCH (08:25)
[2019-06-21] MEDS: Lithium Carbonate 150 MG CAP PO SCH ×2 (08:25→17:19)
[2019-06-21] MEDS: Anastrozole 1 MG TAB PO SCH (08:25)
[2019-06-21] MEDS: Vit A,C & E/Lutein/Minerals Tablet PO SCH ×2 (08:26→20:28)
[2019-06-21] MEDS: Valproate Sodium 250 mg/5 ml UD Cup PO SCH ×2 (11:10→20:27)
[2019-06-21] MEDS: Azithromycin 500 MG in Sodium Chloride 0.9% 250 ML 250 ML IVPB SCH (14:40)
[2019-06-21] MEDS: cefTRIAXone\\ROCEPHIN 2 GM in Sodium Chloride 0.9% 100 ML IVPB SCH (14:41)
--- NOTE | 2019-06-21 18:12 | PRG ---
DATE OF SERVICE: 06/21/2019 SUBJECTIVE: Ms. Carr is feeling better. She was having some pain in the right side of the anterior chest area, which she felt it was related to previous breast surgery for resection of the malignancy. The breast surgery was from November 09, 2018, and was basically attempted right axillary sentinel lymph node biopsy and that was converted to a right modified radical mastectomy for multifocal right breast cancer. No abdominal pain or diarrhea. OBJECTIVE: VITAL SIGNS: T-max 98.6, blood pressure 120/75, pulse 76, respirations 20, and O2 saturation 98%. GENERAL: Appears awake, pleasant, and oriented, in no distress. LUNGS: Symmetric air entry. Few crackles here and there. HEART: S1-S2. Regular rate. No wheezing. ABDOMEN: Soft and nondistended. The incision for the right modified mastectomy without any nodularity. Mild tenderness. LABORATORY DATA: White cell count 13.5, has not been repeated. The coronavirus PCR was negative. The chest x-ray from admission with airspace opacity of left lower lobe. Microbiology with negative respiratory virus PCR panel. Blood cultures negative 48 hours. ASSESSMENT AND DISCUSSION: Schizoaffective disorder, chronic obstructive lung disease, fever, cough, and abnormal chest x-ray. Now, the hypothesis more tenable is the bacterial pneumonia acquired in the community, the usual pathogens. She will continue on Rocephin and azithromycin, eventual transition to either azithromycin or doxycycline for discharge planning. The other possibility would be metastatic malignancy to the lung that is probably less likely. Job ID: [id number]
[2019-06-22] MEDS: methylPREDNISolone Sod Succ 40 MG VIAL IVP SCH ×4 (04:31→23:38)
[2019-06-22] MEDS: Mometasone 100 MCG/Formoterol 5 MCG 120 PUFF INHALER INH SCH ×2 (06:37→18:16)
[2019-06-22] MEDS: Budesonide 0.5 MG/2 ML NEB NEB SCH ×2 (06:37→18:15)
[2019-06-22] MEDS: Valproate Sodium 250 mg/5 ml UD Cup PO SCH ×2 (09:41→19:20)
[2019-06-22] MEDS: Benztropine 1 MG TAB PO SCH ×2 (09:42→19:20)
[2019-06-22] MEDS: Vit A,C & E/Lutein/Minerals Tablet PO SCH ×2 (09:42→19:20)
[2019-06-22] MEDS: busPIRone HCl 5 MG TAB PO SCH ×2 (09:42→19:20)
[2019-06-22] MEDS: Anastrozole 1 MG TAB PO SCH (09:42)
[2019-06-22] MEDS: Multivit, Therapeutic 1 TAB PO SCH (09:42)
[2019-06-22] MEDS: Lithium Carbonate 150 MG CAP PO SCH ×2 (09:43→15:55)
[2019-06-22] MEDS: Sodium Chloride 1 GM TAB PO SCH ×3 (09:44→19:20)
--- NOTE | 2019-06-22 10:30 | PQF ---
CLINICAL DOCUMENTATION IMPROVEMENT CLARIFICATION FORM: ICD-10 Updated PLEASE DO AN ADDENDUM TO THE PROGRESS NOTE WITH ANY DOCUMENTATION UPDATES OR ADDITIONS AND CARRY THROUGH TO DC SUMMARY. THANK YOU. DATE: 06/22/19 ATTN: DR. THAKUR Please exercise your independent, professional judgment in responding to the clarification form. Clinical indicators are provided on the bottom of this form for your review Please check appropriate box(es): [ ] Sepsis present on admission [ ] Sepsis NOT present on admission [ ] Unable to determine Due to: [ ] SIRS due to non-infectious process (please specify etiology) [ ] with organ dysfunction [ ] without organ dysfunction [ ] Severe sepsis present on admission [ ] Severe Sepsis NOT present on admission [ ] Unable to determine with acute organ dysfunction of: [y ] Localized infection without sepsis [ ] Other diagnosis [ ] Unable to determine For continuity of documentation, please document condition throughout progress notes and discharge summary. Thank You. CLINICAL INDICATORS - SIGNS / SYMPTOMS / LABS / RESULTS AND LOCATION IN MR ER NOTE: "SEPSIS" TEMP 102.4 PULSE 116 RR 25 WBC 06/18: 13.5 RISKS: PNEUMONIA (H&P 06/18) H/O COPD (H&P 06/18) ALTERED MENTAL STATUS (H&P 06/18) TREATMENT: IV FLUIDS (ER) IV LEVAQUIN (ER) IV ZOSYN (ER) IV AZITHROMYCIN (06/18-PRESENT) IV ROCEPHIN (06/18-PRESENT) BLOOD CULTURES 06/18 COVID-19 EVALUATION (H&P 06/18) (This form is maintained as a part of the permanent medical record) 2014 [employer]. All Rights Reserved NAMRATA [email or web address] Office: [phone] HEALTH SYSTEMLakeshia
[2019-06-22] MEDS: Loperamide HCl 2 MG CAP PO PRN (13:07)
[2019-06-22] MEDS: Azithromycin 500 MG in Sodium Chloride 0.9% 250 ML 250 ML IVPB SCH (13:29)
[2019-06-22] MEDS: cefTRIAXone\\ROCEPHIN 2 GM in Sodium Chloride 0.9% 100 ML IVPB SCH (15:54)
[2019-06-23] MEDS: methylPREDNISolone Sod Succ 40 MG VIAL IVP SCH ×2 (05:29→11:44)
[2019-06-23] MEDS ORDERED: Budesonide 0.5 MG/2 ML NEB ONE (07:14)
[2019-06-23] MEDS: Mometasone 100 MCG/Formoterol 5 MCG 120 PUFF INHALER INH SCH ×2 (07:17→18:40)
[2019-06-23] MEDS: Budesonide 0.5 MG/2 ML NEB NEB SCH ×2 (07:19→18:40)
[2019-06-23] MEDS: Vit A,C & E/Lutein/Minerals Tablet PO SCH ×2 (08:10→19:51)
[2019-06-23] MEDS: Sodium Chloride 1 GM TAB PO SCH ×3 (08:10→19:51)
[2019-06-23] MEDS: Benztropine 1 MG TAB PO SCH ×2 (08:10→19:50)
[2019-06-23] MEDS: Anastrozole 1 MG TAB PO SCH (08:11)
[2019-06-23] MEDS: Multivit, Therapeutic 1 TAB PO SCH (08:11)
[2019-06-23] MEDS: busPIRone HCl 5 MG TAB PO SCH ×2 (08:11→19:51)
[2019-06-23] MEDS: Lithium Carbonate 150 MG CAP PO SCH ×2 (09:07→16:30)
[2019-06-23] MEDS: Valproate Sodium 250 mg/5 ml UD Cup PO SCH ×2 (09:07→19:49)
[2019-06-23] MEDS: Azithromycin 500 MG in Sodium Chloride 0.9% 250 ML 250 ML IVPB SCH (13:01)
[2019-06-23] MEDS: cefTRIAXone\\ROCEPHIN 2 GM in Sodium Chloride 0.9% 100 ML IVPB SCH (14:43)
[2019-06-23] MEDS: Loperamide HCl 2 MG CAP PO PRN (19:51)
[2019-06-24] MEDS: Budesonide 0.5 MG/2 ML NEB NEB SCH ×2 (07:18→18:11)
[2019-06-24] MEDS: Mometasone 100 MCG/Formoterol 5 MCG 120 PUFF INHALER INH SCH ×2 (07:21→18:12)
[2019-06-24] MEDS: Lithium Carbonate 150 MG CAP PO SCH ×2 (09:10→17:15)
[2019-06-24] MEDS: Valproate Sodium 250 mg/5 ml UD Cup PO SCH ×2 (09:11→21:05)
[2019-06-24] MEDS: busPIRone HCl 5 MG TAB PO SCH ×2 (09:13→21:05)
[2019-06-24] MEDS: Benztropine 1 MG TAB PO SCH ×2 (09:14→21:05)
[2019-06-24] MEDS: Vit A,C & E/Lutein/Minerals Tablet PO SCH ×2 (09:14→21:04)
[2019-06-24] MEDS: Sodium Chloride 1 GM TAB PO SCH ×3 (09:15→21:04)
[2019-06-24] MEDS: predniSONE 20 MG TAB PO SCH (09:16)
[2019-06-24] MEDS: Anastrozole 1 MG TAB PO SCH (09:16)
[2019-06-24] MEDS: Multivit, Therapeutic 1 TAB PO SCH (09:17)
[2019-06-24] MEDS: Loperamide HCl 2 MG CAP PO PRN (11:22)
--- NOTE | 2019-06-24 13:14 | EKG ---
Test Reason : SOB Blood Pressure : / mmHG Vent. Rate : 091 BPM Atrial Rate : 091 BPM P-R Int : 134 ms QRS Dur : 084 ms QT Int : 366 ms P-R-T Axes : 070 -01 051 degrees QTc Int : 450 ms Normal sinus rhythm Cannot rule out Inferior infarct , age undetermined Abnormal ECG Confirmed by CODY VARMA ([id number]), supervising film or videotape editor ANITA REECE ([id number]) on 06/24/2019 1:14:02 PM Referred By: Confirmed By:CODY VARMA
[2019-06-24] MEDS: Azithromycin 500 MG in Sodium Chloride 0.9% 250 ML 250 ML IVPB SCH (13:51)
[2019-06-24] MEDS: cefTRIAXone\\ROCEPHIN 2 GM in Sodium Chloride 0.9% 100 ML IVPB SCH (14:44)
[2019-06-25] MEDS: Budesonide 0.5 MG/2 ML NEB NEB SCH (06:43)
[2019-06-25] MEDS: Mometasone 100 MCG/Formoterol 5 MCG 120 PUFF INHALER INH SCH (06:46)
[2019-06-25 07:28] VITALS: BP 141/94; TEMP 97.8
[2019-06-25] MEDS: Lithium Carbonate 150 MG CAP PO SCH (08:36)
[2019-06-25] MEDS: Sodium Chloride 1 GM TAB PO SCH (08:36)
[2019-06-25] MEDS: Valproate Sodium 250 mg/5 ml UD Cup PO SCH (08:36)
[2019-06-25] MEDS: Vit A,C & E/Lutein/Minerals Tablet PO SCH (08:36)
[2019-06-25] MEDS: busPIRone HCl 5 MG TAB PO SCH (08:37)
[2019-06-25] MEDS: Benztropine 1 MG TAB PO SCH (08:37)
[2019-06-25] MEDS: Anastrozole 1 MG TAB PO SCH (08:37)
[2019-06-25] MEDS: Multivit, Therapeutic 1 TAB PO SCH (08:37)
[2019-06-25] MEDS: predniSONE 20 MG TAB PO SCH (08:37)
--- NOTE | 2019-06-26 12:50 | DIS ---
DATE OF ADMISSION: 06/19/2019 DATE OF DISCHARGE: 06/25/2019 ADMITTING DIAGNOSES: 1. Fever, cough, possible pneumonia of left lower lobe. 2. Chronic obstructive pulmonary disease with acute exacerbation. 3. Acute on chronic respiratory failure. 4. Hypoxia. 5. Schizoaffective disorder. 6. Chronic pain. FINAL DIAGNOSES: 1. Pneumonia of left lower lobe, improving. 2. Chronic obstructive pulmonary disease with acute exacerbation, improved. 3. Acute on chronic respiratory failure. 4. Hypoxia, improved. 5. Schizoaffective disorder. 6. Chronic pain. BRIEF SUMMARY OF HOSPITAL COURSE: Ms. Carr is a 64-year-old female, admitted because of fever and cough, and the patient was found to have pneumonia on the left side. The patient had symptoms of cough, hypoxia, and fever. In view of that, the patient was isolated for COVID-19 virus evaluation. Swab was taken and sent for analysis. The patient meanwhile continued on IV antibiotics with Zosyn and also the patient was in COPD exacerbation, started on Solu-Medrol, DuoNebs, Mucinex. In the next few days, her fever resolved, her cough started to get better, her shortness of breath got better. Her COVID-19 virus came back negative. Respiratory virus panel also came back negative. Influenza was also negative. The patient did have an episode of diarrhea for 2 days, so C difficile test was done, it was negative. So, the patient has improved. In view of that, the patient is being discharged home, and at the time of discharge, she was stable and her vital signs were stable. Lungs clear. Heart sounds regular. Abdomen is soft and nontender. Bowel sounds present. DISCHARGE MEDICATIONS: Include; 1. Valproic acid 500 mg/10 mL, 10 mL b.i.d. 2. Zofran p.r.n. 3. Tylenol p.r.n. 4. Sodium chloride 1 g t.i.d. 5. Simethicone p.r.n., 80 mg q.6. 6. Maalox p.r.n., 30 mL q.6. 7. Prolixin D 50 mg IM as directed. 8. [place] carbonate 300 mg b.i.d. 9. Imodium p.r.n. 10. Breo Ellipta one puff daily. 11. Benztropine 2 mg b.i.d. 12. DuoNebs q.i.d. 13. Pulmicort 0.5 mg b.i.d. 14. Milk of magnesia p.r.n. 15. Nystatin p.r.n. 16. Mucinex 600 mg b.i.d. 17. BuSpar 5 mg b.i.d. 18. Anastrozole 1 mg daily. 19. Multivitamin daily. 20. Doxycycline 100 mg b.i.d. for 10 days. 21. Prednisone in tapering doses. The patient will continue her oxygen at her long term. She will be followed up in 2 weeks. Job ID: [id number]
--- NOTE | 2019-06-28 23:39 | PQF ---
[employer] Supervisor [employer] Reports Winform Viewer SAGRARIO CONKLIN VENKAT R [id number] [id number] CLINICAL DOCUMENTATION CLARIFICATION FORM: POST DISCHARGE Addendum to original discharge summary date: ____ Late entry note date: __ DATE: 06/28/19 ATTN: Wilder Miller Please exercise your independent, professional judgment in responding to the clarification form. Clinical indicators are provided on the bottom of this form for your review Can you please further clarify the diagnosis of the patient? Please check appropriate box(s): [ ] Acute Respiratory Failure: [ ] with Hypoxia[ ] with Hypercapnia [ y ] Acute On Chronic Respiratory Failure: [ y] with Hypoxia [ ] with Hypercapnia [ ] Acute Respiratory Failure due to: (etiology) [ ] Chronic Respiratory Failure only [ ] with Hypoxia [ ] with Hypercapnia [ ] Hypoxia [ ] Other diagnosis [ ] Unable to determine In addition, please specify: Present on Admission (POA): [ y] Yes [ ] No [ ] Unable to determine For continuity of documentation, please document condition throughout progress notes and discharge summary. Thank You. CLINICAL INDICATORS - SIGNS / SYMPTOMS / LABS H and P pg.1- Fever, Cough H and P pg.1- Past medical history: Acute on chronic respiratory failure H and P pg.3- Hypoxia RISK FACTORS COPD exacerbation H and P pg.3 Bacterial pneumonia- PN 06/20 Smokes few cigarettes daily- H and P pg.2 TREATMENTS: Chest X ray 06/[address] Putnam 06/18 DuoNeb I unit q4 hours Daily- H and P pg.1 Solu-Medrol 20mg IV- H and P pg.3 Blood culture- Microbiology IV Antibiotics- MAR (This form is maintained as a part of the permanent medical record) 2014 [employer] All Rights Reserved Nathan [email or web address]
== END 2019-06-25 10:07 | DRG 193 ==
LOC: ERS 02:30 → ERHOLD 05:45 → T4-B 10:27
PROVIDERS: ADMIT Internal Medicine; ATTEND Internal Medicine
DX: J15.9 Unspecified bacterial pneumonia (principal); J96.21 Acute and chronic respiratory failure with hypoxia; J44.1 Chronic obstructive pulmonary disease with (acute) exacerbation; J44.0 Chronic obstructive pulmonary disease with (acute) lower respiratory infection; M54.9 Dorsalgia, unspecified; G89.29 Other chronic pain; G20 Parkinson's disease; F31.9 Bipolar disorder, unspecified; F41.9 Anxiety disorder, unspecified; F17.210 Nicotine dependence, cigarettes, uncomplicated; G40.909 Epilepsy, unspecified, not intractable, without status epilepticus; F25.9 Schizoaffective disorder, unspecified; Z90.49 Acquired absence of other specified parts of digestive tract; Z79.899 Other long term (current) drug therapy; Z79.51 Long term (current) use of inhaled steroids; Z88.2 Allergy status to sulfonamides; Z88.5 Allergy status to narcotic agent; Z88.8 Allergy status to other drugs, medicaments and biological substances; Z91.041 Radiographic dye allergy status; Z85.3 Personal history of malignant neoplasm of breast; Z90.710 Acquired absence of both cervix and uterus; Z90.11 Acquired absence of right breast and nipple
CPT/HCPCS: 71045; 80053; 82550; 83605; 83880; 84484; 85025; 87040; 87324; 87449; 87633; 87804; 93005; 94640; 94664; 96361; 96365; 96375; 99292; J0456; J0696; J1956; J2543; J2920; J2930; J3490; J7050; J7512; J7620; J7626; U0001

== ENCOUNTER 2019-12-01 01:13 | Emergency (ER) | payer MEDICARE, MEDICAID ==
--- NOTE | 2019-12-01 08:19 | CT ---
PRELIMINARY REPORT/[facility]/EMERGENCY AFTER HOURS PROCEDURE: EXAM: CT Head and Cervical Spine Without IV contrast. CLINICAL HISTORY: 64 y/o F who was asleep when she rolled out of bed and hit back of head on ground with questionable L OC but no seizures and no vomiting. TECHNIQUE: Axial computed tomography images were acquired of the head and the cervical spine without intravenous contrast. Sagittal and coronal reformatted images were obtained of the cervical spine. COMPARISON: None provided. FINDINGS: BRAIN: Thyroid lobe is enlarged without discrete nodule. VENTRICLES No hydrocephalus. ORBITS The orbits are unremarkable. SINUSES AND MASTOIDS The paranasal sinuses and mastoid air cells are clear. SOFT TISSUES No significant facial or scalp soft tissue swelling evident. No radiopaque foreign body is seen. BONES No acute osseous pathology evident. No acute fracture is evident on images of the head or cervical spine. DISKS/DEGENERATIVE CHANGES Osteophyte formation and facet hypertrophy is present. There is union bilateral C2-C3 facets. MISCELLANEOUS Carotid artery calcifications are present. IMPRESSION: 1. No acute intracranial findings. No acute intracranial injury evident. 2. No cervical spine fracture evident. ELECTRONICALLY SIGNED BY: Sivan Tapia MD Dec 01, 2019 2:30:21 AM CDT This report is intended for review by the ordering physician only, in accordance of law. If you recei ve this report in error, please call [facility] at [phone]. FINAL REPORT CT CERVICAL SPINE WITHOUT CONTRAST: INDICATION: Fall from bed with neck injury. COMPARISON: None. IMPRESSION: I agree with the preliminary report provided by [facility]. No definite acute fracture or subluxation is evident. There is ankylosis of the facet complex at C2-3 . There is mild multilevel cervical spondylosis. There is slight hypertrophy of the left thyroid lobe which is nonspecific. There is emphysematous change and pleural parenchymal scarring involving both lung apices. POS: BH
--- NOTE | 2019-12-01 08:20 | CT ---
PRELIMINARY REPORT/[facility]/EMERGENCY AFTER HOURS PROCEDURE: EXAM: CT Head and Cervical Spine Without IV contrast. CLINICAL HISTORY: 64 y/o F who was asleep when she rolled out of bed and hit back of head on ground with questionable L OC but no seizures and no vomiting. TECHNIQUE: Axial computed tomography images were acquired of the head and the cervical spine without intravenous contrast. Sagittal and coronal reformatted images were obtained of the cervical spine. COMPARISON: None provided. FINDINGS: BRAIN: Thyroid lobe is enlarged without discrete nodule. VENTRICLES No hydrocephalus. ORBITS The orbits are unremarkable. SINUSES AND MASTOIDS The paranasal sinuses and mastoid air cells are clear. SOFT TISSUES No significant facial or scalp soft tissue swelling evident. No radiopaque foreign body is seen. BONES No acute osseous pathology evident. No acute fracture is evident on images of the head or cervical spine. DISKS/DEGENERATIVE CHANGES Osteophyte formation and facet hypertrophy is present. There is union bilateral C2-C3 facets. MISCELLANEOUS Carotid artery calcifications are present. IMPRESSION: 1. No acute intracranial findings. No acute intracranial injury evident. 2. No cervical spine fracture evident. ELECTRONICALLY SIGNED BY: Sivan Tapia MD Dec 01, 2019 2:30:21 AM CDT This report is intended for review by the ordering physician only, in accordance of law. If you recei ve this report in error, please call [facility] at [phone]. FINAL REPORT EMERGENCY AFTER HOURS CT BRAIN: I agree with the preliminary report provided by [facility]. No acute intracranial abnormality i s evident when compared to the prior dated 01/24/2018. POS:
== END 2019-12-01 02:37 | disposition home or self-care (01) ==
LOC: ERS 01:13
DX: S00.93XA Contusion of unspecified part of head, initial encounter (principal); F31.9 Bipolar disorder, unspecified; F20.9 Schizophrenia, unspecified; F17.210 Nicotine dependence, cigarettes, uncomplicated; F41.9 Anxiety disorder, unspecified; W06.XXXA Fall from bed, initial encounter
CPT/HCPCS: 70450; 72125; J7620

== ENCOUNTER 2019-12-05 17:55 | Inpatient (IN) | payer MEDICARE, MEDICAID ==
[2019-12-05] MEDS ORDERED: cefTRIAXone\\ROCEPHIN 1 GM VIAL ONE (18:29)
--- NOTE | 2019-12-05 18:42 | RAD ---
Exam: Chest one view HISTORY:Decreased O2 saturation. Comparison: 06/19/2019 FINDINGS: Cardiac silhouette:Upper normal cardiac silhouette. Aorta: Atherosclerosis Pulmonary vessels: Normal Costophrenic angles: Clear LUNGS: Persistent opacity in the left lung base. Pneumothorax: None Osseous abnormalities: None IMPRESSION: 1. Atherosclerosis 2. Upper normal cardiac silhouette. 3. Persistent opacity in the left lung base.
[2019-12-05] MEDS ORDERED: Acetaminophen 500 MG TAB ONE (18:48)
[2019-12-05 18:52] LABS: #Eosinphils 0.1 thou/uL (0.0-0.7); #Lymphocytes 1.1 thou/uL (1.20-3.40); #Monocytes 0.6 thou/uL (0.11-0.59); #Neutrophils 4.3 thou/uL (1.40-6.50); %Basophils 0.5 % (0.0-1.0); %Eosinophils 0.9 % (0.0-10.0); %Lymphocytes 18.2 % (21.0-51.0); %Monocytes 9.4 % (0.0-10.0); %Neutrophils 70.9 % (42.0-75.0); Hemoglobin 13.5 g/dL (12.0-16.0); Mean Corpuscular HGB CONC 33.2 g/dL (32.0-36.0); Mean Corpuscular Hemoglobin 32.1 pg (27.0-31.0); Mean Corpuscular Volume 96.7 fL (78.0-98.0); Mean Platelet Volume 8.4 fL (7.4-10.4); Platelet Count 204 thou/uL (130-400); RBC Distribution Width 12.7 % (11.5-14.5); Red Blood Cell (RBC) Count 4.19 mill/uL (4.20-5.40)
[2019-12-05 18:55] LABS: PTT 27.3 sec (22.9-36.1)
[2019-12-05 19:12] LABS: ALT (SGPT) 16 U/L (8-55); AST (SGOT) 23 U/L (5-34); Albumin 3.9 g/dL (3.4-4.8); Alkaline Phosphatase 80 U/L (40-110); Anion Gap 14 mmol/L (10-20); BUN (Urea Nitrogen) 14 mg/dL (9.8-20.1); Bilirubin, Total 0.4 mg/dL (0.2-1.2); Calc. Creatinine Clearance 0 mL/min (70-130); Calcium 8.8 mg/dL (7.8-10.44); Carbon Dioxide 31 mmol/L (23-31); Chloride 99 mmol/L (98-107); Estimated GFR-MDRD 88; Globulin 2.2 g/dL (2.4-3.5); Glucose 95 mg/dL (80-115); Potassium 4.3 mmol/L (3.5-5.1); Protein, Total 6.1 g/dL (6.0-8.3); Sodium 140 mmol/L (136-145)
[2019-12-05 19:57] LABS: Bacteria/HPF None Seen HPF (None Seen); Bilirubin Negative (Negative); Blood, Urine Trace (Negative); Clarity Turbid (Clear); Glucose, Urine (Dipstick) Normal (Negative); Ketone, Urine Trace mg/dL (Negative); Leukocyte 250 Leu/uL (Negative); Nitrite Negative (Negative); Protein, Urine (Dipstick) 100 mg/dL (Neg-Trace); Specific Gravity, Urine 1.029 (1.002-1.036); Squamous Epithelial 0-3 HPF (0-3); Transitional Epithelial 0-3 HPF (None Seen); WBC/HPF 21-50 HPF (0-3); pH, Urine 6.5 (5.0-9.0)
[2019-12-05] MEDS ORDERED: Azithromycin 500 MG VIAL ONE (20:12)
[2019-12-05] MEDS ORDERED: Dexamethasone 10 MG/ML VIAL ONE (20:15)
[2019-12-05] MEDS ORDERED: Bacteriostatic Water 30 ML VIAL FS PRN (21:14)
[2019-12-05 21:24] LABS: SARS-CoV-2 NAA Rapid Test Not Detected (NotDetected)
--- NOTE | 2019-12-05 21:32 | PDOC.EVN ---
Event Note - Event Note Event Note: [id number] HP dictated
[2019-12-05 21:33] LABS: Actual Bicarbonate (HCO3a) 30.3 mEq/L (22-28); Analyzer IN Cardio ER; Base Excess (BEa) 0.5 mEq/L (-2.0 to +3.0); Calcium, Ionized (arterial) 1.17 mmol/L (1.12-1.30); Carboxyhemoglobin (COHb) 0.5 gm% (0.0-3.0); Hemoglobin (Hb) 13.1 g/dL (12.0-16.0); O2 Tension (PaO2), arterial 115.8 mmHg (> 80.0)
[2019-12-05 21:36] LABS: CO2 Tension 77.2 mmHg (35.0-45.0); Puncture Site RRA; pH, Arterial 7.21 (7.35-7.45)
--- NOTE | 2019-12-05 21:49 | PDOC.EVN ---
Event Note - Event Note Event Note: ABG 7.21/ Paco2 77 Discussed w ED physician BiPAP for now. At leasr needs to be in IMCU..
[2019-12-05 23:12] VITALS: BMI 27.8
[2019-12-05] MEDS: methylPREDNISolone Sod Succ 40 MG VIAL IVP SCH (23:13)
[2019-12-05 23:29] LABS: Actual Bicarbonate (HCO3a) 31.2 mEq/L (22-28); Base Excess (BEa) 1.6 mEq/L (-2.0 to +3.0); Carboxyhemoglobin (COHb) 0.6 gm% (0.0-3.0); Hemoglobin (Hb) 13.4 g/dL (12.0-16.0); Potassium - ABG Lab 4.33 mmol/L (3.70-5.30)
[2019-12-05 23:31] LABS: O2 Tension (PaO2), arterial 54.4 mmHg (> 80.0); pH, Arterial 7.24 (7.35-7.45)
[2019-12-05 23:32] LABS: Puncture Site LRA
--- NOTE | 2019-12-06 01:54 | HP ---
CHIEF COMPLAINT: Altered mental status. HISTORY OF PRESENT ILLNESS: Ms. Carr is a 64-year-old female with past medical history of chronic respiratory failure on home oxygen 2 L/minute nasal cannula, COPD, dysphagia, dementia, Parkinson disease, among others, was brought to the emergency room with altered mental status. The patient was found few hours prior to arrival by home health nurse for reported oxygen saturation in the 60s. The nurse stated that she could not get oxygen saturation to raise with home oxygen. The patient has a history of COPD and she has been on oxygen for years. In the emergency room, the patient appears to be lethargic but arousable, able to answer simple questions. She quickly falls back to sleep. She denies chest pain, headache, nausea, vomiting, or abdominal pain. Unable to get any history because of her medical condition. In the emergency room, the patient was placed on 4 L/minute nasal cannula, oxygen saturation in the mid 90s. Lab work, the patient was found to have urinary tract infection. Chest x-ray shows persistent opacity at the left lung base?. The patient was given IV steroids in the emergency room, IV antibiotics and patient is being admitted to hospital for further management. PAST MEDICAL HISTORY: 1. Chronic respiratory failure. 2. Chronic obstructive pulmonary disease. 3. Parkinson's disease. 4. Dysphagia. 5. Dementia. 6. Metabolic encephalopathy. PAST SURGICAL HISTORY: 1. Bladder sling. 2. Fistula repair. 3. Hysterectomy. 4. Tonsillectomy. 5. Hemorrhoidectomy. 6. Breast biopsy. PAST PSYCHIATRIC HISTORY: 1. Bipolar disorder, schizophrenia. 2. Major depressive disorder. 3. Anxiety. SOCIAL HISTORY: No reported history of smoking, alcohol use, or drug abuse. MEDICATIONS: Please see home medication reconciliation form for updated medications. ALLERGIES: ALLERGIC TO CODEINE, IODINE, OPIOIDS, PROCHLORPERAZINE, SULFA. REVIEW OF SYSTEMS: Unable to obtain due to patient's underlying medical condition. FAMILY HISTORY: Reviewed and noncontributory. PHYSICAL EXAMINATION: GENERAL: The patient is lethargic but easily arousable, but unable to give any detailed history. VITAL SIGNS: Blood pressure is 132/83, pulse is 84, respiratory rate is 21, temperature is 100.7, oxygen saturation is 96% on 4 L/minute nasal cannula. HEAD AND NECK: Normocephalic, atraumatic. Neck is supple. CHEST: Bilateral expiratory wheeze. HEART: S1, S2. Regular. ABDOMEN: Soft. Bowel sounds present. NEURO: Lethargic but easily arousable. Moving extremities. PSYCH: Unable to assess. EXTREMITIES: No clubbing or cyanosis. LABORATORY DATA: Troponin 0.01. Sodium 140, potassium 4.3, BUN is 14, creatinine 0.6. Lactic acid 0.6. WBC is 6, hemoglobin 13.5, platelets 204. Chest x-ray as mentioned above in the history of present illness. ASSESSMENT: 1. Acute encephalopathy, metabolic. 2. Chronic obstructive pulmonary disease with? exacerbation. 3. Pneumonia. 4. Suspected COVID-19 virus infection. 5. Acute urinary tract infection. PLAN: 1. Admit. 2. Septic workup including blood cultures. 3. Isolation precautions for now, reassess after obtaining COVID-19 test results. 4. Oxygen, keep saturation more than 92%. 5. We will get an ABG to rule out acute respiratory acidosis, discussed with the ED physician. 6. IV antibiotics. 7. IV steroids. 8. Bronchodilators. 9. Reconcile home medications. 10. DVT prophylaxis appropriate. 11. Expected length of stay, 2 midnights or more. Job ID: [id number]
[2019-12-06] MEDS: methylPREDNISolone Sod Succ 40 MG VIAL IVP SCH ×4 (05:03→23:03)
[2019-12-06 14:16] LABS: Actual Bicarbonate (HCO3a) 35.7 mEq/L (22-28); Base Excess (BEa) 5.4 mEq/L (-2.0 to +3.0); Calcium, Ionized (arterial) 1.25 mmol/L (1.12-1.30); Carboxyhemoglobin (COHb) 0.3 gm% (0.0-3.0); Hemoglobin (Hb) 14.1 g/dL (12.0-16.0); Potassium - ABG Lab 4.54 mmol/L (3.70-5.30)
[2019-12-06 14:20] LABS: CO2 Tension 82.4 mmHg (35.0-45.0); Puncture Site RRA; pH, Arterial 7.25 (7.35-7.45)
[2019-12-06] MEDS ORDERED: cefTRIAXone\\ROCEPHIN 1 GM in Sodium Chloride 0.9% 100 ML IVPB SCH (18:00)
[2019-12-06] MEDS ORDERED: Azithromycin 500 MG in Sodium Chloride 0.9% 250 ML 250 ML IVPB SCH (20:00)
--- NOTE | 2019-12-06 21:54 | CON ---
DATE OF CONSULTATION: 12/06/2019 HISTORY OF PRESENT ILLNESS: Ms. Carr is a 64-year-old female. She has COPD. She says she has been seen by Dr. Horton in the past. Not a very good historian. When I walked into the room, she was talking into a cellphone that was turned off, claiming to be talking to her . She presented with hypercarbia and respiratory acidosis and refused to wear BiPAP last night. I was consulted to assist in her management. PAST MEDICAL HISTORY: Remarkable for; 1. COPD. 2. Parkinson's. 3. Dementia. 4. Dysphagia. 5. History of encephalopathy. 6. History of bladder suspension. 7. History of fistula repair. 8. Status post hysterectomy. 9. History of tonsillectomy. 10. History of hemorrhoidectomy. 11. History of breast biopsy. 12. History of bipolar illness with schizophrenia. 13. History of major depressive disorder in the past. 14. History of anxiety. SOCIAL HISTORY: She is a nonsmoker and a nondrinker. I am told she lives in the [facility]. She told me she lived in [facility] She says she has seen him recently, even though he currently resides in [place]. ALLERGIES: SHE REPORTS ALLERGIES TO CODEINE, IODINE, OPIOIDS, PROCHLORPERAZINE , AND SULFA. REVIEW OF SYSTEMS: Not reliably obtainable. PHYSICAL EXAMINATION: GENERAL: She is in no distress, talking quickly with pressured speech. VITAL SIGNS: Respiratory rate is in the 20s, blood pressure 144/78, heart rate is in the 60s. HEENT: Pupils reactive. Sclerae are anicteric. LUNGS: Remarkable for distant breath sounds. HEART: Regular rhythm. ABDOMEN: Soft and nontender. EXTREMITIES: Without clubbing, cyanosis, or edema. LABORATORY DATA: White count 6.0, hemoglobin 13.5, platelets 204. Electrolytes are normal. Blood gas done today showed a pH of 7.25, pCO2 of 82, pO2 of 78. She was transferred to critical care unit. She was started on low-dose Precedex drip. With that, she calmed down and has been willing to wear BiPAP ever since. Hopefully, we can continue to maintain her on BiPAP with treatment of her COPD exacerbation. CRITICAL CARE TIME: 30 minutes. Job ID: [id number] [facility]
[2019-12-06] MEDS ORDERED: guaiFENesin ER 600 MG TAB PO PRN (22:30)
--- NOTE | 2019-12-06 22:54 | PDOC.HOSPP ---
- Subjective Encounter Date: 12/06/19 Encounter Time: 14:00 Subjective: Patient was seen and examined in bed. She is not a good historian. She denies any chest pain however has some shortness of breath - Objective Vital Signs & Weight: Vital Signs (12 hours) Temp Pulse Resp Pulse Ox 12/06/19 21:35 59 L 16 97 12/06/19 21:34 58 L 16 97 12/06/19 20:00 100 12/06/19 19:00 97.9 F 12/06/19 18:35 67 20 98 12/06/19 16:00 98.1 F 12/06/19 15:45 76 25 H 94 L 12/06/19 15:00 97.5 F L 12/06/19 14:56 89 L Weight Admit Weight 172 lb Weight 172 lb 6 oz Most Recent Monitor Data Heart Rate from ECG 63 NIBP 106/69 NIBP BP-Mean 81 Respiration from ECG 13 SpO2 98 I&O: 12/05/19 12/06/19 12/07/19 06:59 06:59 06:59 Intake Total 273 Output Total 175 450 Balance -175 -177 Result Diagrams: 12/07/19 07:41 12/07/19 07:41 Hospitalist ROS - Medication Medications: Active Medications Generic Name Dose Route Start Last Admin Trade Name Cedricq PRN Reason Stop Dose Admin Albuterol/Ipratropium 3 ml 12/06/19 22:30 12/06/19 21:35 Duoneb NEB 3 ml [id number] JAILENE Administration Azithromycin 500 mg/ Sodium 250 mls @ 250 mls/hr 12/06/19 20:00 12/06/19 20: 25 Chloride IVPB 250 mls 2000 JAILENE Administration Ceftriaxone Sodium 1 gm/ 100 mls @ 200 mls/hr 12/06/19 18:00 12/06/19 17:24 Sodium Chloride IVPB 100 mls 1800 JAILENE Administration Dexmedetomidine HCl 400 mcg/ 100 mls @ 0 mls/hr 12/06/19 14:30 12/06/19 14:47 Sodium Chloride IVPB 100 mls INF JAILENE Administration Protocol Titrate Methylprednisolone Sodium Succinate 40 mg 12/05/19 23:59 12/06/19 17:24 Solu-Medrol IVP 40 mg Q6HR JAILENE Administration - Exam General - other findings: Patient in bed, in no acute distress. Speech is pressured Heart: RRR, no murmur Respiratory: no wheezes, no rales Gastrointestinal: soft, non-tender, normal bowel sounds Neurological: cranial nerve grossly intact Psychiatric: A&O x 3 Psychiatric - other findings: Speech is pressured, Hosp A/P - Plan This is a 64-year-old female patient with a history of COPD, Parkinson's disease , dysphagia, dementia, who was admitted overnight on account of altered mental status in the setting of acute hypercarbic hypoxic respiratory failure. She was admitted to the MICU and her condition is improved on BiPAP. Pulmonology is currently followingwas transferred to CCU. Acute encephalopathy Likely secondary to hypercarbia Also on several psych medications including lithium Symptoms improved with BiPAPlikely due to hypercarbia We will monitor Acute hypercarbic hypoxic respiratory failure Secondary to COPD exacerbation Patient was refusing BiPAP initially7 BiPAP on dexmedetomidine in ICU. Patient on duo nebs and steroids On vancomycin and ceftriaxonewe will continue BiPAP Continue monitor in ICU. COPD exacerbation Treat as above Parkinson's disease Restart benztropine Possibly bipolar disorder. Continue lithium and fluphenazine decanoate Check lithium levels as she may have missed a few doses Clarify underlying psych diagnosis VTE prophylaxisstart Lovenox
[2019-12-06] MEDS ORDERED: Benztropine 1 MG TAB PO SCH (23:00)
[2019-12-06] MEDS ORDERED: busPIRone HCl 5 MG TAB PO SCH (23:00)
[2019-12-06] MEDS ORDERED: Valproate Sodium 250 mg/5 ml UD Cup PO SCH (23:00)
[2019-12-06] MEDS ORDERED: Anastrozole 1 MG TAB PO SCH (23:00)
[2019-12-07] MEDS: methylPREDNISolone Sod Succ 40 MG VIAL IVP SCH (05:19)
[2019-12-07 07:58] LABS: #Lymphocytes 0.7 thou/uL (1.20-3.40); #Monocytes 0.3 thou/uL (0.11-0.59); #Neutrophils 5.9 thou/uL (1.40-6.50); %Basophils 0.2 % (0.0-1.0); %Eosinophils 0.1 % (0.0-10.0); %Lymphocytes 9.7 % (21.0-51.0); %Monocytes 4.7 % (0.0-10.0); %Neutrophils 85.3 % (42.0-75.0); Hemoglobin 13.8 g/dL (12.0-16.0); Mean Corpuscular Hemoglobin 32.2 pg (27.0-31.0); Mean Corpuscular Volume 97.5 fL (78.0-98.0); Mean Platelet Volume 8.6 fL (7.4-10.4); Platelet Count 208 thou/uL (130-400); RBC Distribution Width 12.5 % (11.5-14.5); Red Blood Cell (RBC) Count 4.29 mill/uL (4.20-5.40)
[2019-12-07 08:09] LABS: Anion Gap 12 mmol/L (10-20); BUN (Urea Nitrogen) 14 mg/dL (9.8-20.1); Calc. Creatinine Clearance 118 mL/min (70-130); Calcium 9.3 mg/dL (7.8-10.44); Carbon Dioxide 30 mmol/L (23-31); Chloride 102 mmol/L (98-107); Estimated GFR-MDRD Greater than 90; Glucose 138 mg/dL (80-115); Potassium 4.9 mmol/L (3.5-5.1); Sodium 139 mmol/L (136-145)
[2019-12-07] MEDS: Valproate Sodium 250 mg/5 ml UD Cup PO SCH ×2 (09:26→22:02)
[2019-12-07] MEDS: Cefdinir 300 MG CAP PO SCH ×2 (10:03→22:02)
[2019-12-07] MEDS: Anastrozole 1 MG TAB PO SCH (10:04)
[2019-12-07] MEDS: Benztropine 1 MG TAB PO SCH ×2 (10:04→22:01)
[2019-12-07] MEDS: busPIRone HCl 5 MG TAB PO SCH ×2 (10:06→22:02)
[2019-12-07] MEDS ORDERED: Enoxaparin Sodium 40 MG/0.4 ML SYRINGE SC SCH (11:00)
--- NOTE | 2019-12-07 14:22 | PRG ---
DATE OF SERVICE: 12/07/2019 HISTORY OF PRESENT ILLNESS: Majo Carr is a 64-year-old female, ongoing tobacco abuse, presented to the hospital with acute mental status change. Sats were low at 65%, pCO2 was markedly elevated. She is now in the ICU, mobilizing on 1.5 L, sats 100%, pulse is 72, and blood pressure 100/80. The patient is still smoking up to two cigarettes a day, but apparently has cut back. PAST MEDICAL HISTORY: Breast carcinoma, bipolar disorder, COPD, and severe deconditioning. PREVIOUS SURGERIES: Bladder surgery, right breast biopsy, hysterectomy, and tonsillectomy. SOCIAL HISTORY: Alcohol, none. HOME MEDICATIONS: 1. Benztropine 2 mg three times a day. 2. BuSpar 5 mg twice a day. 3. She is on Pulmicort, Symbicort nebulizer four times a day. 4. Breo one puff a day. 5. Anastrozole 1 mg a day. 6. [place] 300 mg twice a day. 7. Prolixin 50 mg IM. ALLERGIES: 1. SULFA. 2. CODEINE. PHYSICAL EXAMINATION: GENERAL: She is awake, responsive. Talking on the phone. VITAL SIGNS: Pulse 71, blood pressure 130\76_, sats are 99% on 1 L nasal[place]ulla. CHEST: Decreased breath sounds. No wheezing. CARDIAC: Normal S1 and S2. No gallops. ABDOMEN: Soft. LABORATORY DATA: Chest x-ray was normal, chronic scarring, left lung. White count is only 7000, no left shift. Chemistries normal. ASSESSMENT: 1. Chronic obstructive pulmonary disease exacerbation. 2. Bronchitis. 3. Ongoing tobacco use. 4. Acute on chronic respiratory failure with CO2 retention. 5. Bipolar schizophrenia. PLAN: 1. Her long-term prognosis is grave. I am going to consider noninvasive home ventilation at nighttime. She is not going to qualify for a formal sleep study. 2. Switch over to oral antibiotics, oral steroids in the next 24 to 48 hours. Job ID: [id number] [facility]
[2019-12-07 16:14] VITALS: BP 138/77
[2019-12-07] MEDS ORDERED: Lithium Carbonate ER 450 mg Tablet PO SCH (17:00)
[2019-12-07] MEDS: Mometasone 200 MCG/Formoterol 5 MCG 120 PUFF INHALER INH SCH (18:20)
--- NOTE | 2019-12-07 20:17 | PDOC.HOSPP ---
- Subjective Encounter Date: 12/07/19 Encounter Time: 15:00 Subjective: Patient was seen and examined in bed. She is feeling much better. Has been transferred from CCU to MICU. She denies any chest pain or shortness of breath. She wants to go home. - Objective Vital Signs & Weight: Vital Signs (12 hours) Temp Pulse Pulse Pulse Resp BP BP 12/07/19 18:20 88 20 12/07/19 16:00 98.4 F 12/07/19 14:30 79 20 12/07/19 13:53 91 78 138/77 143/119 H 12/07/19 11:44 98.2 F 12/07/19 08:16 61 16 BP Pulse Ox Pulse Ox Pulse Ox 12/07/19 18:20 98 12/07/19 16:00 12/07/19 14:30 100 12/07/19 13:53 132/77 92 L 96 12/07/19 11:44 12/07/19 08:16 99 Weight Admit Weight 172 lb Weight 172 lb 6 oz Most Recent Monitor Data Heart Rate from ECG 84 NIBP 158/81 NIBP BP-Mean 106 Respiration from ECG 18 SpO2 95 I&O: 12/06/19 12/07/19 12/08/19 06:59 06:59 06:59 Intake Total 488 971.1 Output Total 784 745 3976 Balance -175 -462 -128.9 Result Diagrams: 12/07/19 07:41 12/07/19 07:41 Hospitalist ROS - Medication Medications: Active Medications Generic Name Dose Route Start Last Admin Trade Name Freq PRN Reason Stop Dose Admin Albuterol/Ipratropium 3 ml 12/06/19 22:30 12/07/19 18:20 Duoneb NEB 3 ml [id number] JAILENE Administration Anastrozole 1 mg 12/07/19 09:00 12/07/19 10:04 Arimidex PO 1 mg DAILY JAILENE Administration Benztropine Mesylate 2 mg 12/07/19 09:00 12/07/19 10:04 Cogentin PO 2 mg BID JAILENE Administration Buspirone HCl 5 mg 12/07/19 09:00 12/07/19 10:06 Buspar PO 5 mg BID JAILENE Administration Cefdinir 300 mg 12/07/19 09:00 12/07/19 10:03 Omnicef PO 12/12/19 09:01 300 mg BID JAILENE Administration [place] Carbonate 450 mg 12/07/19 17:00 12/07/19 18:20 Eskalith Er PO 450 mg QPM-WM JAILENE Administration Mometasone Furoate/Formoterol Fumar 2 puff 12/07/19 18:30 12/07/19 18:20 Dulera 200 Mcg/5 Mcg Inhaler INH 2 puff BID-RT JAILENE Administration Valproic Acid 500 mg 12/07/19 09:00 12/07/19 09:26 Depakene Liquid PO 500 mg BID JAILENE Administration - Exam General - other findings: Patient in no acute distress. Heart - other findings: S1-S2 present. No murmurs gallops or rubs. Respiratory - other findings: Entry adequate bilaterally. Occasional bilateral wheezing Gastrointestinal - other findings: Abdomen soft, nontender. Bowel sounds present Neurological: cranial nerve grossly intact, no new deficit Psychiatric: A&O x 3 Hosp A/P - Plan This is a 64-year-old female patient with a history of COPD, Parkinson's disease , dysphagia, dementia, who was admitted overnight on account of altered mental status in the setting of acute hypercarbic hypoxic respiratory failure. She was admitted to the MICU and her condition is improved on BiPAP. Pulmonology is currently followingwas transferred to CCU. Acute encephalopathyresolved Likely secondary to hypercarbia Also on several psych medications including lithium Symptoms improved with BiPAPlikely due to hypercarbia We will monitor Acute hypercarbic hypoxic respiratory failure Secondary to COPD exacerbation Patient was refusing BiPAP initially7 BiPAP on dexmedetomidine in ICU. Patient on duo nebs and steroids On azithromycin and ceftriaxonewe will continue BiPAP Continue monitor in ICU. COPD exacerbation Treat as above Parkinson's disease Restart benztropine Bipolar disorder Started lithium [place] is however subtherapeutic on assessment. Dose adjusted by pharmacynotes has to be rechecked in 72 hours For possible discharge to follow from [facility] for lithium level assessment. Schizophrenia. For fluphenazine decanoate medicine today.She receives with bimonthly VTE prophylaxisstart Lovenox
[2019-12-07] MEDS ORDERED: methylPREDNISolone Sod Succ 40 MG VIAL IVP SCH (21:00)
[2019-12-08] MEDS: Mometasone 200 MCG/Formoterol 5 MCG 120 PUFF INHALER INH SCH (07:42)
[2019-12-08] MEDS ORDERED: Enoxaparin Sodium 40 MG/0.4 ML SYRINGE SC SCH (09:00)
[2019-12-08] MEDS: Anastrozole 1 MG TAB PO SCH (09:45)
[2019-12-08] MEDS: Valproate Sodium 250 mg/5 ml UD Cup PO SCH (09:45)
[2019-12-08] MEDS: busPIRone HCl 5 MG TAB PO SCH (09:45)
[2019-12-08] MEDS: Cefdinir 300 MG CAP PO SCH (09:45)
[2019-12-08] MEDS: Benztropine 1 MG TAB PO SCH (09:45)
--- NOTE | 2019-12-08 10:30 | PRG ---
DATE OF SERVICE: 12/08/2019 SUBJECTIVE: Majo Carr this morning she says she is feeling better, less short of breath, less cough, less wheezing. OBJECTIVE: VITAL SIGNS: Temperature 99, pulse 74, respirations 16, and blood pressure 146/90. CHEST: Decreased breath sounds. Minimal wheezing. CARDIAC: Normal S1 and S2. No gallops. ABDOMEN: No masses. ASSESSMENT: Respiratory failure, chronic obstructive pulmonary disease exacerbation, ongoing tobacco abuse. Blood gas is showing a pCO2 of 82, pH 7.25, PO2 78 on 4 L nasal O2, chronic respiratory acidosis. PLAN: She is going to require noninvasive ventilation at nighttime. She is not a candidate for a CPAP. She understands she is to refrain from smoking. Job ID: [id number]
[2019-12-08 15:44] VITALS: TEMP 99
--- NOTE | 2019-12-08 19:50 | PQF ---
CLINICAL DOCUMENTATION CLARIFICATION FORM: Dear Dr. MYLES BROOKE Date / Time : 12-08-19 Please exercise your independent, professional judgment in responding to the clarification form. Clinical indicators are provided on the bottom of this form for your review. Please check appropriate box(es): [ ] Sepsis [ ] Severe sepsis with associated acute organ dysfunction: [ ] Acute Respiratory Failure [ ] Encephalopathy (metabolic) (septic) [ ] Additional/Other: please specify: [ ] Localized infection without sepsis [x ] Other diagnosis : Acute metabolic encephalopathy secondary to acute hypoxic hypercarbic respiratory failure. No indicator for sepsis. [ ] Unable to determine In addition, please specify: Present on Admission (POA): [ ] Yes [ ] No [ ] Unable to determine For continuity of documentation, please document condition throughout progress notes and discharge summary. Thank You. To be completed by CDI/Coding staff for physician review: CLINICAL INDICATORS - SIGNS / SYMPTOMS / LABS / RESULTS AND LOCATION IN MR: ER DX 12-05-19: SEPSIS, COPD EXACERBATION, COVID, LLL PNEUMONIA H&P 12-05-19: ACUTE METABOLIC ENCEPHALOPATHY, COPD? EXAC, PNEUMONIA, SUSPECTED COVID VIRUS INFECTION, ACUTE UTI CONSULT NOTE DR. JAIN 12-08-19: RESPIRATORY FAILURE, COPD EXACERBATION, ONGOING TOBACCO ABUSE RISK FACTORS / RESULTS AND LOCATION IN MR: ER DX 12-05-19: SEPSIS, COPD EXACERBATION, COVID, LLL PNEUMONIA H&P 12-05-19: ACUTE METABOLIC ENCEPHALOPATHY, COPD? EXAC, PNEUMONIA, SUSPECTED COVID VIRUS INFECTION, ACUTE UTI TREATMENTS / RESULTS AND LOCATION IN MR: ER NOTES 12-05-19: AZITHROMYCIN IV, NS IVF, CEFTRIAXONE IV CDS Signature: Samia Morillo Phone #: [phone] Date: 12-08-19 This is a permanent part of the Medical Record [facility] [place]
--- NOTE | 2019-12-08 22:55 | PQF ---
CLINICAL DOCUMENTATION CLARIFICATION FORM: Dear Dr. MYLES BROOKE Date: 12-08-19 Please exercise your independent, professional judgment in responding to the clarification form. Clinical indicators are provided on the bottom of this form for your review. Please check appropriate box(es): [ ] Aspiration Pneumonia [ ] Empirically treating Gram Negative Pneumonia [ ] Pneumonia secondary to (specify organism / underlying disease) [ ] Simple Pneumonia [ ] Other diagnosis [ ] Unable to determine In addition, please specify: Present on Admission (POA): [ ] Yes [ ] No [ ] Unable to determine For continuity of documentation, please document condition throughout progress notes and discharge summary. Thank You. To be completed by CDI/Coding staff for physician review: CLINICAL INDICATORS - SIGNS / SYMPTOMS / LABS / RESULTS AND LOCATION IN MR: ER NOTES 12-05-19: AMS, O2 WAS 64% , HX OF COPD, HX DYSPHAGIA, METABOLIC ENCEPHALOPATHY, DEMENTIA, VITAMIN DEFICIENCY, ACUTE AND CHRONIC RESP FAILURE , [place] ER DX 12-05-19: SEPSIS, COPD EXACERBATION, COVID 19, LLL PNEUMONIA ER NOTES: TEMP: 100.7, 99.1 RISK FACTORS / RESULTS AND LOCATION IN MR: ER DX 12-05-19: SEPSIS, COPD EXACERBATION, COVID 19, LLL PNEUMONIA TREATMENTS / RESULTS AND LOCATION IN MR: AZITHROMYCIN IV, NS IVF, CEFTRIAXONE IV CDS Signature: Samia Morillo Phone #:[phone] Date: 12-08-19 This is a permanent part of the Medical Record [facility]
--- NOTE | 2019-12-08 23:01 | PQF ---
CLINICAL DOCUMENTATION CLARIFICATION FORM: Dear MYLES Eason Date: 12-08-19 Please exercise your independent, professional judgment in responding to the clarification form. Clinical indicators are provided on the bottom of this form for your review. Please check appropriate box(es) to clarify if the following diagnosis has been ruled in our ruled out: PNEUMONIA [ ] Ruled in diagnosis [ ] Continue to treat [ ] Resolved [ x ] Ruled out diagnosis [ ] Other diagnosis [ ] Unable to determine In addition, please specify: Present on Admission (POA): [ ] Yes [ ] No [ ] Unable to determine For continuity of documentation, please document condition throughout progress notes and discharge summary. Thank You. To be completed by CDI/Coding staff for physician review: CLINICAL INDICATORS - SIGNS / SYMPTOMS / LABS / RESULTS AND LOCATION IN MR: ER NOTES 12-05-19: AMS, O2 WAS 64% , HX OF COPD, HX DYSPHAGIA, METABOLIC ENCEPHALOPATHY, DEMENTIA, VITAMIN DEFICIENCY, ACUTE AND CHRONIC RESP FAILURE , [place] ER DX 12-05-19: SEPSIS, COPD EXACERBATION, COVID 19, LLL PNEUMONIA ER NOTES: TEMP: 100.7, 99.1 RISK FACTORS / RESULTS AND LOCATION IN MR: ER DX 12-05-19: SEPSIS, COPD EXACERBATION, COVID 19, LLL PNEUMONIA TREATMENTS / RESULTS AND LOCATION IN MR: AZITHROMYCIN IV, NS IVF, CEFTRIAXONE IV CDS Signature: Samia Morillo Phone #:[phone] Date: 12-08-19 This is a permanent part of the Medical Record [facility]
[2019-12-09] MEDS ORDERED: Lithium Carbonate ER 450 mg Tablet PO SCH (08:00)
[2019-12-09] MEDS ORDERED: predniSONE 20 MG TAB PO SCH (08:00)
--- NOTE | 2019-12-09 14:50 | DIS ---
DATE OF ADMISSION: 12/05/2019 DATE OF DISCHARGE: 12/08/2019 DISCHARGE DIAGNOSES: 1. Acute encephalopathy. 2. Acute hypercarbic hypoxic respiratory failure. 3. Chronic obstructive pulmonary disease exacerbation. 4. Parkinson disease. 5. Bipolar disorder. 6. Schizophrenia. HOSPITAL COURSE: This is a 64-year-old female patient with a history of COPD on 2L home oxygen, Parkinson disease, dementia, and schizophrenia, who presented to the ED on account of altered mental status after she was unable to reach her oxygen at home. She was found hypoxic and was started on 4 L of oxygen. She was admitted on account of acute hypoxic hypercarbic respiratory failure and COPD exacerbation and started on antibiotics, ceftriaxone and azithromycin. She was transferred to the MICU due to altered mental state and hypercarbia and was started on BiPAP; however, she intermittently refused. She was subsequently placed on Precedex and BiPAP was successfully administered with improvement. She was discharged to follow up with her PCP; however, was also prescribed Trilogy with oxygen. Her lithium level was checked, which was subtherapeutic, and therefore her lithium dosage was adjusted from 300 b.i.d. to 450 mg b.i.d at discharge to have a recheck of lithium levels at her nursing facility and result transmitted to her PCP for further adjustment of her dose. [place] adjustments were done with the help of pharmacy. All her antipsychotic medications were however restarted and she received a dose of fluphenazine decanoate on the second day of admission. SUPERVISOR IN CIRCUIT TESTING: Pulmonology, Dr. Caden Peña. DISCHARGE PHYSICAL EXAMINATION: GENERAL: The patient was awake and alert in bed, in no acute distress. RESPIRATORY SYSTEM: Air entry reduced bilaterally, occasional wheezing. CARDIOVASCULAR SYSTEM: S1 and S2 present and normal. No murmurs, gallops, or rubs. ABDOMEN: Generally benign. No tenderness, rebound tenderness, or guarding. MEDIC TECHNICIAN: The patient was awake, alert, oriented; however, sometimes had pressured speech. DISCHARGE CONDITION: Stable. Job ID: [id number] [facility]
== END 2019-12-08 16:45 | disposition home health service (06) | DRG 189 ==
LOC: ERS 17:55 → IMCU/EMU 21:07 → CCU 12-06 14:34 → IMCU/EMU 12-07 11:23
PROVIDERS: ADMIT Internal Medicine; ATTEND Internal Medicine
PROC: 5A09457 Assistance with Respiratory Ventilation, 24-96 Consecutive Hours, Continuous Positive Airway Pressure (ICD-10-PCS; principal; 2019-12-05)
DX: J96.01 Acute respiratory failure with hypoxia (principal); G93.41 Metabolic encephalopathy; J44.1 Chronic obstructive pulmonary disease with (acute) exacerbation; N39.0 Urinary tract infection, site not specified; G20 Parkinson's disease; F31.9 Bipolar disorder, unspecified; F20.9 Schizophrenia, unspecified; J44.9 Chronic obstructive pulmonary disease, unspecified; J40 Bronchitis, not specified as acute or chronic; F17.200 Nicotine dependence, unspecified, uncomplicated; F41.9 Anxiety disorder, unspecified; Z88.2 Allergy status to sulfonamides; Z88.9 Allergy status to unspecified drugs, medicaments and biological substances; Z90.710 Acquired absence of both cervix and uterus; Z85.3 Personal history of malignant neoplasm of breast
CPT/HCPCS: 36415; 51701; 71045; 80048; 80053; 80178; 81003; 81015; 82805; 83605; 84484; 85025; 85610; 85730; 87040; 87086; 87149; 93005; 94640; 94660; 96360; 96361; 96365; 96367; 96375; J0456; J0696; J1100; J1650; J2680; J2920; J3490; J7050; J7620; U0002

== ENCOUNTER 2020-01-17 21:41 | Inpatient (IN) | payer MEDICARE, MEDICAID, OTHER ==
[~2020-01-17 21:41] MED LIST: Iopamidol-370 76% 500 ML 1 ML ONE
[2020-01-17 22:19] LABS: #Basophils 0.1 thou/uL (0.0-0.2); #Lymphocytes 0.9 thou/uL (1.20-3.40); #Monocytes 0.6 thou/uL (0.11-0.59); #Neutrophils 6.7 thou/uL (1.40-6.50); %Basophils 0.7 % (0.0-1.0); %Eosinophils 0.4 % (0.0-10.0); %Lymphocytes 10.4 % (21.0-51.0); %Monocytes 7.1 % (0.0-10.0); %Neutrophils 81.3 % (42.0-75.0); Hemoglobin 13.8 g/dL (12.0-16.0); Mean Corpuscular HGB CONC 34.1 g/dL (32.0-36.0); Mean Corpuscular Hemoglobin 32.4 pg (27.0-31.0); Mean Corpuscular Volume 95.2 fL (78.0-98.0); Mean Platelet Volume 8.7 fL (7.4-10.4); Platelet Count 215 thou/uL (130-400); RBC Distribution Width 12.6 % (11.5-14.5); Red Blood Cell (RBC) Count 4.24 mill/uL (4.20-5.40); White Blood Cell (WBC) Count 8.2 thou/uL (4.8-10.8)
[2020-01-17] MEDS ORDERED: Albuterol Sulfate 2.5 mg/3 ml Neb ONE (22:21)
[2020-01-17 22:42] LABS: ALT (SGPT) 7 U/L (8-55); AST (SGOT) 14 U/L (5-34); Alkaline Phosphatase 89 U/L (40-110); Anion Gap 11 mmol/L (10-20); BUN (Urea Nitrogen) 9 mg/dL (9.8-20.1); Bilirubin, Total 0.5 mg/dL (0.2-1.2); CK (CPK) 38 U/L (29-168); Calc. Creatinine Clearance 0 mL/min (70-130); Calcium 9.4 mg/dL (7.8-10.44); Carbon Dioxide 34 mmol/L (23-31); Chloride 96 mmol/L (98-107); Estimated GFR-MDRD 81; Globulin 2.8 g/dL (2.4-3.5); Glucose 102 mg/dL (80-115); Lipase 13 U/L (8-78); Potassium 4.2 mmol/L (3.5-5.1); Protein, Total 6.8 g/dL (6.0-8.3); Sodium 137 mmol/L (136-145)
[2020-01-17] MEDS ORDERED: Famotidine/PF 20 mg/2ml Vial ONE (23:25)
[2020-01-17] MEDS ORDERED: methylPREDNISolone Sod Succ 40 MG VIAL ONE (23:25)
[2020-01-17] MEDS ORDERED: diphenhydrAMINE 50 MG/ML VIAL ONE (23:25)
[2020-01-18 02:06] LABS: Troponin I Less than 0.010 ng/mL (< 0.028)
[2020-01-18] MEDS ORDERED: Acetaminophen 325 MG TAB PO PRN (02:08)
[2020-01-18] MEDS ORDERED: Guaifenesin DM 100-10/5 ML UDCUP PO PRN (02:08)
--- NOTE | 2020-01-18 02:22 | PDOC.HHP ---
Hospitalist HPI - History of Present Illness Shortness of breath and cough History of Present Illness: 64-year-old male with a known history of COPD and ongoing tobacco use, Parkinson's disease, schizophrenia and anxiety who presented to the emergency department with a complaint of shortness of breath. She was recently discharged from hospital for pneumonia. Patient tested negative for COVID-19 1 month ago. She denied any fever or chills but endorsed some chest pain. Chest x-ray in the ED demonstrated opacity in the left lower lobe. Patient desaturated to 77% on room air. She was placed on her baseline oxygen of 2 L by nasal cannula which brought her oxygen saturation to 95%. Patient was given breathing treatments and IV Solu-Medrol in the ED with improvement in her symptoms. Test for COVID- 19 is obtained. Patient is admitted for further management of COPD exacerbation. Hospitalist ROS - Review of Systems Other: Except as documented, all other systems reviewed and negative. - Medication Medications: Medication Instructions Recorded Confirmed Type Acetaminophen [Tylenol] 650 mg PO Q6H PRN 05/05/18 12/06/19 History Aluminum & Magnesium Hydroxide 30 ml PO Q6HR PRN 05/05/18 12/06/19 History [Maalox] Benztropine Mesylate 2 mg PO BID 05/05/18 12/06/19 History Budesonide [Pulmicort] 0.5 mg IH BID 05/05/18 12/06/19 History Fluticasone/Vilanterol [Breo 1 puff PO DAILY 05/05/18 12/06/19 History Ellipta] Ipratropium/Albuterol Sulfate 3 ml NEB QID 05/05/18 12/06/19 History [DuoNeb] [place] Carbonate [Lithobid] 300 mg PO BID 05/05/18 12/06/19 History Loperamide HCl [Imodium A-D] 2 mg PO Q6H PRN 05/05/18 12/06/19 History Ondansetron [Zofran ODT] 8 mg PO Q8HR PRN 05/05/18 12/06/19 History Simethicone [Mylicon Chewable] 80 mg PO Q6H PRN 05/05/18 12/06/19 History Sodium Chloride 1 gm PO TID 05/05/18 12/06/19 History Valproic Acid (As Sodium Salt) 10 ml PO BID 05/05/18 12/06/19 History [Valproic Acid] fluPHENAZine Decanoate [Prolixin D] 50 mg IM ASDIR 05/05/18 12/06/19 History Magnesium Hydroxide [Milk of 30 ml PO DAILY PRN 08/18/18 12/06/19 History Magnesia] Nystatin [Nystatin Cream] 1 applic TOP ASDIR PRN 08/18/18 12/06/19 History PHENYLeph/Mineral Oil/Petrolat 1 applic CA Q8HR PRN 10/20/18 12/06/19 History [Preparation H Ointment] busPIRone HCl [Buspar] 5 mg PO BID 10/20/18 12/06/19 History guaiFENesin [Mucinex] 600 mg PO BID PRN 10/20/18 12/06/19 History Anastrozole 1 mg PO DAILY 04/08/19 12/06/19 History Multivitamin [Multi-Vitamin Daily] 1 tab PO DAILY 04/08/19 12/06/19 History Vit A/Vit C/Vit E/Zinc/Copper 2 tablet PO BID 06/19/19 12/06/19 History [PreserVision AREDS] predniSONE [Prednisone] 10 mg PO SEEPHYS 12 Days tablet 06/25/19 12/06/19 Rx ALButerol Sulfate [Ventolin Neb] 1 vial INH QID 12/06/19 12/06/19 History Potassium Chloride 10 meq PO DAILY 12/06/19 12/06/19 History Cefdinir [Omnicef] 300 mg PO BID #8 cap 12/08/19 Rx [place] Carbonate [Eskalith] 450 mg PO QAM-WM #7 tab 12/08/19 Rx [place] Carbonate [Eskalith] 450 mg PO QPM-WM #7 tab 12/08/19 Rx predniSONE 20 mg PO QAM-WM #3 tab 12/08/19 Rx Hospitalist History - Past Medical History Other Medical History: COPD, schizophrenia, hyperlipidemia, osteoarthritis, anxiety, depression. - Past Surgical History Other Surgical History: Hysterectomy, surgery for cervical cancer, status post Robles procedure for stress incontinence, tonsillectomy, status post D&C.. - Family History Other Family History: Mental illness, cancer. - Social History Smoking Status: Current every day smoker Alcohol: reports: None Drugs: reports: none - Exam General Appearance: NAD, awake alert Eye: PERRL, anicteric sclera ENT: normocephalic atraumatic, no oropharyngeal lesions, moist mucosa Neck: supple, symmetric, no JVD Heart: RRR, no murmur, no gallops Respiratory: no rales Respiratory - other findings: Mild scattered wheezes. Gastrointestinal: soft, non-tender, non-distended, normal bowel sounds Extremities: no cyanosis, no edema Skin: normal turgor, no rashes Neurological: cranial nerve grossly intact, no weakness, no focal deficits Musculoskeletal: normal tone, normal strength Psychiatric: normal affect, A&O x 3 Psychiatric - other findings: Drowsy but easily arousable. Hospitalist Results - Labs Result Diagrams: 01/17/20 22:10 01/17/20 22:10 Lab results: WBC 8.2 thou/uL (4.8-10.8) 01/17/20 22:10 Hgb 13.8 g/dL (12.0-16.0) 01/17/20 22:10 Hct 40.4 % (36.0-47.0) 01/17/20 22:10 MCV 95.2 fL (78.0-98.0) 01/17/20 22:10 Plt Count 215 thou/uL (130-400) 01/17/20 22:10 Neutrophils % 81.3 % (42.0-75.0) H 01/17/20 22:10 Sodium 137 mmol/L (136-145) 01/17/20 22:10 Potassium 4.2 mmol/L (3.5-5.1) 01/17/20 22:10 Chloride 96 mmol/L (98-107) L 01/17/20 22:10 Carbon Dioxide 34 mmol/L (23-31) H 01/17/20 22:10 BUN 9 mg/dL (9.8-20.1) L 01/17/20 22:10 Creatinine 0.73 mg/dL (0.6-1.1) 01/17/20 22:10 Glucose 102 mg/dL (80-115) 01/17/20 22:10 Calcium 9.4 mg/dL (7.8-10.44) 01/17/20 22:10 Total Bilirubin 0.5 mg/dL (0.2-1.2) 01/17/20 22:10 AST 14 U/L (5-34) 01/17/20 22:10 ALT 7 U/L (8-55) L 01/17/20 22:10 Alkaline Phosphatase 89 U/L (40-110) 01/17/20 22:10 Creatine Kinase 38 U/L (29-168) 01/17/20 22:10 Troponin I Less than 0.010 ng/mL (< 0.028) 01/18/20 01:34 B-Natriuretic Peptide 26.6 pg/mL (0-100) 01/17/20 22:10 Serum Total Protein 6.8 g/dL (6.0-8.3) 01/17/20 22:10 Albumin 4.0 g/dL (3.4-4.8) 01/17/20 22:10 Lipase 13 U/L (8-78) 01/17/20 22:10 Hospitalist H&P A/P - Problem (1) COPD exacerbation Code(s): J44.1 - CHRONIC OBSTRUCTIVE PULMONARY DISEASE W (ACUTE) EXACERBATION Status: Acute (2) Acute and chronic respiratory failure with hypoxia Code(s): J96.21 - ACUTE AND CHRONIC RESPIRATORY FAILURE WITH HYPOXIA Status: Acute (3) Tobacco abuse Code(s): Z72.0 - TOBACCO USE Status: Chronic - Plan Plan: Admit to the medical floor. Treat for COPD exacerbation with scheduled DuoNeb, IV Solu-Medrol, IV antibiotics. Titrate oxygen Obtain arterial blood gas to evaluate for CO2 retention Patient advised to quit smoking.
[2020-01-18 04:22] VITALS: BMI 29.0
[2020-01-18] MEDS: cefTRIAXone\\ROCEPHIN 1 GM in Sodium Chloride 0.9% 100 ML IVPB SCH (05:06)
[2020-01-18] MEDS: methylPREDNISolone Sod Succ 40 MG VIAL IVP SCH ×3 (05:07→17:05)
[2020-01-18] MEDS: Azithromycin 500 MG in Sodium Chloride 0.9% 250 ML 250 ML IVPB SCH (06:00)
[2020-01-18 06:40] LABS: #Lymphocytes 0.6 thou/uL (1.20-3.40); #Monocytes 0.1 thou/uL (0.11-0.59); #Neutrophils 6.2 thou/uL (1.40-6.50); %Basophils 0.4 % (0.0-1.0); %Eosinophils 0.2 % (0.0-10.0); %Lymphocytes 8.8 % (21.0-51.0); %Monocytes 1.2 % (0.0-10.0); %Neutrophils 89.4 % (42.0-75.0); Mean Corpuscular HGB CONC 34.7 g/dL (32.0-36.0); Mean Corpuscular Hemoglobin 32.8 pg (27.0-31.0); Mean Corpuscular Volume 94.5 fL (78.0-98.0); Mean Platelet Volume 8.9 fL (7.4-10.4); Platelet Count 196 thou/uL (130-400); RBC Distribution Width 12.7 % (11.5-14.5); Red Blood Cell (RBC) Count 4.25 mill/uL (4.20-5.40); White Blood Cell (WBC) Count 6.9 thou/uL (4.8-10.8)
--- NOTE | 2020-01-18 07:10 | RAD ---
PORTABLE CHEST: Date: 01/17/2020 HISTORY: Syncope. Tested for COVID but unsure of the results. COMPARISON: 12/05/2019. FINDINGS: Heart size is enlarged. Increased density in the left base is a similar appearance to the prior exami nation and is probably all chronic. Right lung is clear. Surgical clips are noted in the right axilla ry region. IMPRESSION: Cardiomegaly with persistent parenchymal density along the left heart border, stable as compared to t he prior exam. No new process. POS: DOM
[2020-01-18 07:12] LABS: Anion Gap 12 mmol/L (10-20); BUN (Urea Nitrogen) 9 mg/dL (9.8-20.1); Calc. Creatinine Clearance 99 mL/min (70-130); Calcium 9.3 mg/dL (7.8-10.44); Carbon Dioxide 32 mmol/L (23-31); Chloride 98 mmol/L (98-107); Estimated GFR-MDRD 86; Glucose 139 mg/dL (80-115); Potassium 4.7 mmol/L (3.5-5.1); Sodium 137 mmol/L (136-145)
[2020-01-18 07:14] LABS: Troponin I Less than 0.010 ng/mL (< 0.028)
--- NOTE | 2020-01-18 07:51 | CT ---
PRELIMINARY REPORT/[facility]/EMERGENCY AFTER HOURS PROCEDURE EXAM: CTA Chest with Intravenous Contrast CLINICAL HISTORY: DYSPNEA TECHNIQUE: Axial CTA images of the chest with intravenous contrast. Three-dimensional MIP/volume rendered reform ations were performed. CONTRAST: With; ISOVUE 370,100mL COMPARISON: None provided. FINDINGS: PULMONARY ARTERIES There is no intraluminal filling defect suspicious for PE. The main pulmonary artery measures 3.4 cm in transverse diameter. AORTA No thoracic aortic aneurysm or dissection. LUNGS The lungs are clear. No pulmonary mass. No focal airspace consolidation. Lingular and left lower lob e linear opacities. PLEURAL SPACES No pleural effusion. No pneumothorax. HEART AND MEDIASTINUM No cardiomegaly. No significant pericardial effusion. Atherosclerotic vascular calcification of the aorta LYMPH NODES No lymphadenopathy. BONES No focal osseous abnormality or acute fracture. CHEST WALL AND UPPER ABDOMEN Diffuse decreased parenchymal attenuation of the liver. Images through the upper abdomen are otherwi se unremarkable. Right breast mastectomy. IMPRESSION: 1. No acute cardiopulmonary finding or pulmonary embolism. 2. Lingular and left lower lobe linear opacity/atelectasis. 3. The main pulmonary artery measures 3.4 cm suggesting pulmonary hypertension. ELECTRONICALLY SIGNED BY: Marvin Mosley DO Jan 18, 2020 12:36:24 AM CDT This report is intended for review by the ordering physician only, in accordance of law. If you recei ve this report in error, please call [facility] at [phone]. FINAL REPORT Exam: CT angiogram of the chest HISTORY: Dyspnea. COMPARISON: None TECHNIQUE: CT angiogram of the chest is performed in the axial plane. Three-dimensional reformatted i mages are submitted for interpretation FINDINGS: Mediastinum: No mass, lymphadenopathy or hematoma. Lower neck: Asymmetrically enlarged left thyroid lobe. HEART: Normal size. No significant pericardial fluid. Aorta: No aneurysm or dissection Central pulmonary arteries: Prominent. Correlate for pulmonary hypertension. Upper solid abdominal viscera: No abnormality enhancement. Trachea and central bronchi: Patent Pleural spaces: No effusion Lung parenchyma: Scattered linear densities throughout the lung parenchyma suggesting subsegmental at electasis and scarring. Calcified granuloma in the right upper lobe. Pneumothorax: None Osseous structures: No lytic or blastic lesions Pulmonary arteries: Adequate contrast opacification pulmonary arterial system to the level of segment al arteries. No filling defect to suggest pulmonary embolism IMPRESSION: 1. This report is in agreement with initial report by [facility]. 2. No evidence of pulmonary artery embolism to the level of the segmental arteries. 3. Heterogeneous, enlarged left thyroid lobe. Nonemergent thyroid ultrasound is recommended. 4. Prominent main pulmonary artery. Correlate for pulmonary hypertension. CODE T Transcribed Date/Time: 01/18/2020 8:31 AM
[2020-01-18] MEDS: Enoxaparin Sodium 40 MG/0.4 ML SYRINGE SC SCH (09:25)
--- NOTE | 2020-01-18 10:52 | ULT ---
THYROID ULTRASOUND: HISTORY: Thyromegaly. COMPARISON: None. CORRELATION: CT angiogram of the chest 01/18/2020. FINDINGS: Thyroid isthmus: 0.4 cm. Right thyroid lobe: 3.6 x 1.5 x 1.4 cm. Left thyroid lobe: 5.0 x 2.9 x 2.6 cm. Diffuse heterogeneity throughout the thyroid gland. Thyroid nodules: Predominantly anechoic focus in the mid right thyroid lobe measures 0.6 x 0.4 x 0.7 cm. Predominantly solid nodule in the lower pole of the left thyroid lobe measures 3.1 x 2.4 x 2.4 cm. IMPRESSION: One solid nodule in the lower pole left thyroid lobe with a TIRADS level of TR4 moderately suspicious . Fine-needle aspiration is recommended. Transcribed Date/Time: 01/18/2020 11:36 AM
[2020-01-18 12:55] LABS: SARS-CoV-2 MS2 Positive; SARS-CoV-2 N Gene Negative; SARS-CoV-2 S Gene Negative; SARS-CoV-2 by NAA Not Detected (NotDetected); SARS-CoV-2 orf1ab Negative
--- NOTE | 2020-01-18 18:37 | PDOC.EVN ---
Event Note - Event Note Event Note: The patient states she feels better. She only coughed once today . She is still smoking two packs of cigarettes daily . She refuses nicotine patch because she states her friend of it and she would prefer quitting on her own She states her was hospitalized with a heart attack and was unable to give her her inhalers and nebulizers. She had a hard time waking up these past few days On exam:she is on 2L nasal cannula Gen: alert, awake Heart sounds: normal Lungs: left lower lobe rhonchi Ext: no edema CTA: lingular and left lower lobe linear opacity. Pulmonary hypertension Thyroid US: 3.1 x 2.4 x 2.4 cm thyroid nodule suspicious This is 64 year old female with COPD exacerbation Acute hypoxic respiratory failure secondary to COPd exacerbation vs left lower lobe pneumonia - continue breathing treatments - continue IV steroids - add mucinex - she does have crackles on left side. Will continue antibiotics Thyroid nodule left lobe - consider outpatient FNA History of breast cancer - in remission History of bipolar/schizophrenia - resumed fluphenazine today
[2020-01-18] MEDS ORDERED: guaiFENesin ER 600 MG TAB PO SCH (19:30)
[2020-01-18] MEDS ORDERED: FLU VACC QS2020-21(6MOS UP)/PF 60 MCG/0.5 ML SYRINGE IM ONE (21:00)
--- NOTE | 2020-01-18 22:11 | CON ---
DATE OF CONSULTATION: HISTORY OF PRESENT ILLNESS: Majo Carr is a 64-year-old female, who comes to our office regularly, one of our patients with COPD, home respiratory vent, respiratory failure. She is in the hospital now for 24 hours. She called the office to let us know she is in the hospital. She is now on a monitored bed. She says she is having some vague chest pain, coughing and no fever or chills. Unfortunately, she is back to smoking again. We prescribed a home ventilator because she has significant respiratory acidosis. She can barely walk any distance without getting markedly short of breath. She stays presumably with her at home . PAST MEDICAL HISTORY: Bipolar schizophrenic disorder, history of end-stage COPD, ongoing tobacco abuse, history of Parkinson disease. PREVIOUS SURGERIES: Outlined including hysterectomy, tonsil, hemorrhoids, breast biopsy. SOCIAL HISTORY: Ongoing tobacco abuse. No substance abuse. HOME MEDICATIONS: Includes; 1. [place] 300 twice a day. 2. DuoNeb several times a day. 3. Valproic acid 10 twice a day. 4. Prolixin 50 IM. 5. Prednisone. She is now started on; 1. Zithromax. 2. Ceftriaxone. 3. Steroids. 4. Neb treatment. ALLERGIES: TO CHOCOLATE, CODEINE, IODINE, SULFA. REVIEW OF SYSTEMS: Ten-point negative. OBJECTIVE: VITAL SIGNS: Temperature 97, pulse 86, respirations are 16, saturations are 91 on 2 L, blood pressure 130/60. LABORATORY DATA: White count 6000, H and H unremarkable. Chemistry unremarkable. No blood gases were done but CT chest was ordered, which showed no evidence of pulmonary emboli. Minimal atelectatic change in the left lung, this is probably chronic in nature. I do not see otherwise any new infiltrates. IMPRESSION AND PLAN: 1. I am going to continue the steroids. Maintain on low-flow oxygen. She is a CO2 retainer. 2. Bipolar schizophrenic disorder. 3. History of breast cancer. PLAN: The left lung infiltrate is chronic in nature. I do not think there is any acute process going on, particularly related to unremarkable white count. I would taper antibiotics to p.o. medicine. We will follow while she is in the hospital. Consultation note, 70 minutes, 50% direct patient care. Job ID: [id number]
[2020-01-19] MEDS: methylPREDNISolone Sod Succ 40 MG VIAL IVP SCH ×3 (00:40→11:54)
[2020-01-19] MEDS: Azithromycin 500 MG in Sodium Chloride 0.9% 250 ML 250 ML IVPB SCH (03:50)
[2020-01-19] MEDS: cefTRIAXone\\ROCEPHIN 1 GM in Sodium Chloride 0.9% 100 ML IVPB SCH (05:07)
[2020-01-19] MEDS: Albuterol Sulfate 2.5 mg/3 ml Neb NEB SCH ×2 (07:56→12:24)
[2020-01-19] MEDS ORDERED: guaiFENesin ER 600 MG TAB PO SCH (09:00)
[2020-01-19] MEDS ORDERED: Azithromycin 250 MG TAB PO SCH (09:00)
[2020-01-19] MEDS: Enoxaparin Sodium 40 MG/0.4 ML SYRINGE SC SCH (09:45)
--- NOTE | 2020-01-19 11:00 | PRG ---
DATE OF SERVICE: 01/19/2020 SUBJECTIVE: Majo Carr is a 64-year-old female. This morning, she is better, but still has wheezing and rhonchi. OBJECTIVE: VITAL SIGNS: Temperature 98, pulse 84, respirations 18, saturations 96% on 2 L, blood pressure 137/75. CHEST: Extensive rhonchi, crackles, wheezing. CARDIAC: Normal S1, S2. No gallops. IMPRESSION: Chronic obstructive pulmonary disease exacerbation, bronchitis, ongoing tobacco abuse. Unfortunately, patient is never going to quit smoking . There is a new thyroid nodule seen in the patient's CT for which fine-needle aspiration is recommended. I am not so sure patient is going to tolerate any kind of needle aspiration biopsy of the thyroid gland. I will continue to follow the lesion with serial exam. Hopefully, patient can be discharged home in the next several days on oral prednisone. She has noninvasive ventilation at home for which compliance is marginal. Job ID: [id number]
[2020-01-19 11:51] VITALS: TEMP 98.4
[2020-01-19 12:47] VITALS: BP 123/72
[2020-01-19] MEDS ORDERED: Mometasone 200 MCG/Formoterol 5 MCG 120 PUFF INHALER INH SCH (18:30)
[2020-01-20] MEDS ORDERED: Cefdinir 300 MG CAP PO SCH (09:00)
--- NOTE | 2020-01-21 00:08 | DIS ---
DATE OF ADMISSION: 01/18/2020 DATE OF DISCHARGE: 01/19/2020 DISCHARGE DIAGNOSES: 1. Acute hypoxic respiratory failure secondary to chronic obstructive pulmonary disease exacerbation versus left lower lobe pneumonia. 2. Thyroid nodule of the left lobe. 3. Pulmonary hypertension. 4. Tobacco abuse. BRIEF HISTORY OF PRESENT ILLNESS: This is a 64-year-old female with a past medical history of COPD and tobacco use, Parkinson disease, schizophrenia, who presented to the emergency room with shortness of breath. She was recently discharged from the hospital for pneumonia. The patient had reported that she was still actively smoking and she reported persistent cough with mild productive sputum. Her x- ray in the ED showed a possible left lower lobe opacity. She desaturated to 77% on room air and was 95% on her baseline 2 L. She was given IV Solu-Medrol and admitted for further workup. HOSPITAL COURSE: 1. Acute hypoxic respiratory failure secondary to COPD exacerbation versus mild left lower lobe pneumonia: The patient had a chest x-ray which showed cardiomegaly with a density along the left heart border. Her CTA of her chest showed no PE or no consolidation. She does have some pulmonary hypertension. She was started on IV steroid, ceftriaxone, and azithromycin. She did have some mild rhonchi at the left lung base. She improved significantly the following day and ambulated without difficulty. She remained at her baseline oxygen requiement. She was discharged with cefdinir, azithromycin, and prednisone for five days. She was advised to follow up with her PCP in a week. 2. Thyroid nodules: The patient had an enlarged left thyroid lobe on her CT of her chest. Thyroid ultrasound showed nodules in the mid right thyroid lobe and a solid nodule in the left thyroid lobe. The one in the left thyroid lobe was enlarged, 3.1 x 2.4 x 2.4 cm. An FNA was recommended. I discussed this with the patient; however, she seemed to have poor understanding. The patient should follow up with her PCP in a week and have that re-evaluated for consideration of an FNA. 3. Tobacco abuse: The patient refused a nicotine patch because her friend of it and said she would rather quit on her own. DISCHARGE PHYSICAL EXAMINATION: VITALS: Temperature 98.4, heart rate 92, respiratory rate 16, O2 saturation 95% on 2 L nasal cannula, blood pressure 147/78. General: The patient is alert, awake, oriented x3. CVS: Regular rate and rhythm with no murmurs, rubs, or gallops. LUNGS: Diminished breath sounds bilaterally with no significant rhonchi or crackles. ABDOMEN: Positive bowel sounds, soft, nontender, nondistended. EXTREMITIES: No edema. LABS: CBC, 01/17: Normal with white count of 6.9. BMP, 01/17: Normal. LFTs, 01/16: Normal. Troponin I: Less than 0.010 x3. BNP: 26.6. COVID PCR, 01/17: Negative. IMAGING: Chest x-ray, 01/16: Cardiomegaly with persistent parenchymal density on the left heart border. CTA chest: Enlarged left thyroid lobe. No evidence of PE. Prominent main pulmonary artery with pulmonary hypertension. Thyroid ultrasound, 01/17: Solid nodule in the lower left thyroid lobe measuring 3.1 x 2.4 x 2.4 cm. Right thyroid lobe nodule measuring 0.6 x 0.4 x 0.7 cm. FNA is recommended of the left. DISCHARGE CONDITION: Stable. ACTIVITY: As tolerated. DIET: Heart healthy diet. DISCHARGE MEDICATIONS: 1. Cefdinir 300 mg p.o. b.i.d. 2. Prednisone 40 mg p.o. q.a.m. 3. Azithromycin 250 mg p.o. daily. DISCHARGE INSTRUCTIONS: The patient is to follow up with her PCP in a week. She should get an FNA of thyroid nodule as an outpatient. Consider further workup for pulmonary hypertension. Job ID: [id number] MTDD
--- NOTE | 2020-01-22 04:01 | PQF ---
CLINICAL DOCUMENTATION CLARIFICATION FORM: Dear : Veronica Glez Date : 01/22/20 1808 Please exercise your independent, professional judgment in responding to the clarification form. Clinical indicators are provided on the bottom of this form for your review Please check appropriate box(es): [ ] Empirically treating Gram Negative Pneumonia [ ] Empirically treating Anaerobic Pneumonia [X ] Simple Pneumonia (community acquired) [ ] Pneumonia of unknown etiology [ ] Other diagnosis [ ] Unable to determine In addition, please specify: Present on Admission (POA): [ ] Yes [ ] No [ ] Unable to determine Physician Signature: Date/Time: For continuity of documentation, please document condition throughout progress notes and discharge summary. Thank You. To be completed by CDI/Coding staff for physician review: Present Clinical Indicators - Signs / Symptoms / Labs Results and Location in Medical Record [X] BP 134/66, Pulse 87, Resp 24, Temp 98.8 Vital signs 01/17 [X] WBC 8.2, Plt count 215, Neutrophils 81.3, Lymphocytes 10.4 Laboratory 01/16 [X] Chest X-ray: Left lung opacities Imaging Dr Kline 01/16 [X] Acute hypoxic respiratory failure secondary to COPD exacarbation versus left lower lobe pneumonia Event note p1 01/17 Dr Glez Present Risk Factors Results and Location in Medical Record [X] 64 year-old Female H&P p1 Dr Gonzalez 01/17 [X] COPD H&P p1 Dr Gonzalez 01/17 [X] Smoker H&P p1 Dr Gonzalez 01/17 [X] Parkinson Disease H&P p1 Dr Gonzalez 01/17 Present Treatments Results and Location in Medical Record [X] IV Solumedrol 40 mg MAR 01/16 [X] IV Azithromax MAR 01/18 [X] IV Ceftroaxone 1 gm MAR 01/17 [X] Omnicef 300 mg oral MAR 01/19 [X] Chest X-ray Imaging Dr Kline 01/16 [X] Oxygen 2L Respiratory panel 01/17 [X] Respiratory Consult Consult Dr Horton 01/17 CDS/Tipple Engineer Signature: Charlene Riddledinorah Phone #: [phone] Date/Time: 01/22/2020 This is a permanent part of the Medical Record [facility]
--- NOTE | 2020-02-10 13:07 | EKG ---
Test Reason : Blood Pressure : / mmHG Vent. Rate : 094 BPM Atrial Rate : 094 BPM P-R Int : 140 ms QRS Dur : 082 ms QT Int : 342 ms P-R-T Axes : 074 -79 066 degrees QTc Int : 427 ms Normal sinus rhythm Left axis deviation RSR' or QR pattern in V1 suggests right ventricular conduction delay Inferior infarct , age undetermined Abnormal ECG Confirmed by LILIAN ROONEY DO ([id number]), editor news ANITA REECE ([id number]) on 02/10/2020 1:07:22 PM Referred By: Confirmed By:LILIAN ROONEY DO
== END 2020-01-19 13:58 | disposition home health service (06) | DRG 193 ==
LOC: ERS 21:41 → 2NO 01-18 04:14
PROVIDERS: ADMIT Internal Medicine; ATTEND Internal Medicine
PROC: 3E02340 Introduction of Influenza Vaccine into Muscle, Percutaneous Approach (ICD-10-PCS; principal; 2020-01-18)
PROC: 3E0234Z Introduction of Serum, Toxoid and Vaccine into Muscle, Percutaneous Approach (ICD-10-PCS; 2020-01-18)
DX: J18.9 Pneumonia, unspecified organism (principal); J96.01 Acute respiratory failure with hypoxia; J44.1 Chronic obstructive pulmonary disease with (acute) exacerbation; J44.0 Chronic obstructive pulmonary disease with (acute) lower respiratory infection; E87.2 Acidosis; Z20.828 Contact with and (suspected) exposure to other viral communicable diseases; F17.210 Nicotine dependence, cigarettes, uncomplicated; G20 Parkinson's disease; F20.9 Schizophrenia, unspecified; E04.1 Nontoxic single thyroid nodule; I27.20 Pulmonary hypertension, unspecified; M19.90 Unspecified osteoarthritis, unspecified site; E78.5 Hyperlipidemia, unspecified; C50.919 Malignant neoplasm of unspecified site of unspecified female breast; J40 Bronchitis, not specified as acute or chronic; Z23 Encounter for immunization; Z79.899 Other long term (current) drug therapy; Z79.51 Long term (current) use of inhaled steroids; Z79.52 Long term (current) use of systemic steroids; Z85.41 Personal history of malignant neoplasm of cervix uteri; Z90.710 Acquired absence of both cervix and uterus; Z88.5 Allergy status to narcotic agent; Z88.2 Allergy status to sulfonamides; Z88.8 Allergy status to other drugs, medicaments and biological substances; Z91.018 Allergy to other foods
CPT/HCPCS: 36415; 71045; 71275; 76536; 80048; 80053; 82550; 83690; 83880; 84484; 85025; 87635; 90471; 90662; 90732; 93005; 94640; G0008; G0009; J0456; J0696; J1200; J1650; J2680; J2920; J3490; J7050; J7611; J7620; Q9967; S0028; U0003

== ENCOUNTER 2020-02-17 07:33 | Emergency (ER) | payer MEDICARE, OTHER ==
[2020-02-17] MEDS ORDERED: methylPREDNISolone Sod Succ/PF 125 MG/2 ML VIAL ONE (07:54)
--- NOTE | 2020-02-17 08:10 | RAD ---
Chest AP view INDICATION: Difficulty breathing COMPARISON: Prior exam dated January 17, 2020 FINDINGS: Lungs: There is persistent subsegmental volume loss in the lingula and left lower lobe. Right lung i s clear. Cardiac silhouette: Stable mild cardiomegaly Pulmonary vasculature: Normal Pleural spaces: No pleural effusion or pneumothorax is demonstrated. Upper abdomen: No abnormality seen. Osseous structures: No acute osseous abnormality. Additional findings: Surgical clips are present within the right axilla. IMPRESSION: Stable areas of suspected subsegmental atelectasis involving the left lung base. Stable mild cardiome raúl
[2020-02-17] MEDS ORDERED: Terbutaline Sulfate 1 MG/ML VIAL ONE (08:15)
[2020-02-17 08:20] LABS: #Eosinphils 0.1 thou/uL (0.0-0.7); #Lymphocytes 0.6 thou/uL (1.20-3.40); #Monocytes 0.7 thou/uL (0.11-0.59); #Neutrophils 6.2 thou/uL (1.40-6.50); %Eosinophils 0.7 % (0.0-10.0); %Lymphocytes 8.3 % (21.0-51.0); %Monocytes 8.6 % (0.0-10.0); %Neutrophils 82.4 % (42.0-75.0); Hemoglobin 13.3 g/dL (12.0-16.0); Mean Corpuscular HGB CONC 33.2 g/dL (32.0-36.0); Mean Corpuscular Hemoglobin 32.3 pg (27.0-31.0); Mean Corpuscular Volume 97.2 fL (78.0-98.0); Mean Platelet Volume 8.6 fL (7.4-10.4); Platelet Count 183 thou/uL (130-400); RBC Distribution Width 12.8 % (11.5-14.5); Red Blood Cell (RBC) Count 4.11 mill/uL (4.20-5.40); White Blood Cell (WBC) Count 7.6 thou/uL (4.8-10.8)
[2020-02-17 08:41] LABS: ALT (SGPT) 14 U/L (8-55); AST (SGOT) 12 U/L (5-34); Albumin 3.9 g/dL (3.4-4.8); Alkaline Phosphatase 84 U/L (40-110); BUN (Urea Nitrogen) 7 mg/dL (9.8-20.1); Bilirubin, Total 0.4 mg/dL (0.2-1.2); Calc. Creatinine Clearance 0 mL/min (70-130); Calcium 9.5 mg/dL (7.8-10.44); Globulin 2.7 g/dL (2.4-3.5); Glucose 109 mg/dL (80-115); Protein, Total 6.6 g/dL (6.0-8.3)
[2020-02-17] MEDS ORDERED: Albuterol 200 PUFF (6.7GM INHALER) ONE (08:43)
[2020-02-17 08:51] LABS: Anion Gap 15 mmol/L (10-20); Carbon Dioxide 33 mmol/L (23-31); Chloride 95 mmol/L (98-107); Potassium 4.2 mmol/L (3.5-5.1); Sodium 139 mmol/L (136-145)
--- NOTE | 2020-02-24 17:03 | EKG ---
Test Reason : Blood Pressure : / mmHG Vent. Rate : 095 BPM Atrial Rate : 095 BPM P-R Int : 136 ms QRS Dur : 076 ms QT Int : 366 ms P-R-T Axes : 079 -76 071 degrees QTc Int : 459 ms Normal sinus rhythm Left axis deviation Abnormal ECG Confirmed by VICTORIA BERGMAN DO ([id number]), editor continuity and script ANITA REECE ([id number]) on 02/24/2020 5:02:24 PM Referred By: Confirmed By:VICTORIA BERGMAN DO
== END 2020-02-17 10:11 | disposition home or self-care (01) ==
LOC: ERS 07:33
DX: J44.1 Chronic obstructive pulmonary disease with (acute) exacerbation (principal); F31.9 Bipolar disorder, unspecified; F41.9 Anxiety disorder, unspecified; Z79.51 Long term (current) use of inhaled steroids; Z79.899 Other long term (current) drug therapy
CPT/HCPCS: 71045; 80053; 84484; 85025; 93005; J2930; J3105; J7620

== ENCOUNTER 2020-02-18 18:14 | Inpatient (IN) | payer MEDICARE, MEDICAID ==
[2020-02-18 18:54] LABS: #Monocytes 0.5 thou/uL (0.11-0.59); #Neutrophils 6.7 thou/uL (1.40-6.50); %Basophils 0.1 % (0.0-1.0); %Eosinophils 0.2 % (0.0-10.0); %Lymphocytes 11.9 % (21.0-51.0); %Monocytes 5.8 % (0.0-10.0); %Neutrophils 81.9 % (42.0-75.0); Hemoglobin 13.4 g/dL (12.0-16.0); Mean Corpuscular HGB CONC 32.2 g/dL (32.0-36.0); Mean Corpuscular Hemoglobin 31.2 pg (27.0-31.0); Mean Platelet Volume 8.7 fL (7.4-10.4); Platelet Count 234 thou/uL (130-400); RBC Distribution Width 12.8 % (11.5-14.5); White Blood Cell (WBC) Count 8.2 thou/uL (4.8-10.8)
[2020-02-18] MEDS ORDERED: methylPREDNISolone Sod Succ/PF 125 MG/2 ML VIAL ONE (19:01)
[2020-02-18] MEDS ORDERED: Albuterol 200 PUFF (6.7GM INHALER) ONE (19:01)
--- NOTE | 2020-02-18 19:07 | RAD ---
EXAM: Single view of the chest HISTORY: Shortness breath and dyspnea COMPARISON: 02/17/2020 FINDINGS: Single view of the chest shows an enlarged but stable cardiomediastinal silhouette. Athero sclerotic calcifications are seen in the aorta. There are areas of airspace opacity in the left lung base which may represent atelectasis or infiltrates. No acute osseous abnormality. IMPRESSION: Stable left lower lobe atelectasis versus infiltrates
[2020-02-18 19:15] LABS: ALT (SGPT) 20 U/L (8-55); AST (SGOT) 19 U/L (5-34); Albumin 4.1 g/dL (3.4-4.8); Alkaline Phosphatase 86 U/L (40-110); BUN (Urea Nitrogen) 16 mg/dL (9.8-20.1); Bilirubin, Total 0.2 mg/dL (0.2-1.2); Calc. Creatinine Clearance 0 mL/min (70-130); Calcium 9.7 mg/dL (7.8-10.44); Estimated GFR-MDRD 86; Glucose 124 mg/dL (80-115); Protein, Total 7.1 g/dL (6.0-8.3)
[2020-02-18 19:24] LABS: Anion Gap 18 mmol/L (10-20); Carbon Dioxide 33 mmol/L (23-31); Chloride 95 mmol/L (98-107); Potassium 4.6 mmol/L (3.5-5.1); Sodium 141 mmol/L (136-145)
[2020-02-18 19:29] LABS: Bilirubin Negative (Negative); Blood, Urine Negative (Negative); Clarity Clear (Clear); Glucose, Urine (Dipstick) Normal (Negative); Ketone, Urine Negative (Negative); Leukocyte Negative Leu/uL (Negative); Nitrite Negative (Negative); Protein, Urine (Dipstick) 20 mg/dL (Neg-Trace); Specific Gravity, Urine 1.013 (1.002-1.036); Urobilinogen Normal mg/dL (Less than 2); pH, Urine 6.5 (5.0-9.0)
[2020-02-18] MEDS ORDERED: cefTRIAXone\\ROCEPHIN 2 GM VIAL ONE (19:48)
[2020-02-18] MEDS ORDERED: Famotidine/PF 20 mg/2ml Vial ONE (19:48)
[2020-02-18] MEDS ORDERED: diphenhydrAMINE 50 MG/ML VIAL ONE (19:48)
[2020-02-18] MEDS ORDERED: Azithromycin 500 MG VIAL ONE (19:48)
[2020-02-18] MEDS ORDERED: Acetaminophen 325 MG TAB PO PRN (21:18)
[2020-02-18 21:33] LABS: Actual Bicarbonate (HCO3a) 35.2 mEq/L (22-28); Analyzer IN Cardio ER; Base Excess (BEa) 4.1 mEq/L (-2.0 to +3.0); Carboxyhemoglobin (COHb) 1.5 gm% (0.0-3.0); Hemoglobin (Hb) 13.2 g/dL (12.0-16.0); O2 Tension (PaO2), arterial 119.9 mmHg (> 80.0); Potassium - ABG Lab 4.54 mmol/L (3.70-5.30)
--- NOTE | 2020-02-18 21:57 | CT ---
CT ANGIOGRAM OF THE CHEST: Comparison: 01-18-2020 History: Dyspnea, hypoxia. Shortness of breath, COPD. Technique: CT angiogram of the chest was performed in the axial plane. Sagittal reformatted images ar e submitted for interpretation. FINDINGS: There is heterogenous asymmetric left lower lobe. No mediastinal mass, lymphadenopathy, or hematoma. Stable upper normal right paratracheal lymph node. Heart size is normal. No significant pericardial fluid. The thoracic aorta and upper abdominal aorta have a normal caliber. No periaortic fat stranding. Subdiaphragmatic structures do not demonstrate any acute abnormality. Trachea and central bronchi are patent. No pneumothorax or pleural effusion. Minimal bronchiectasis involving both lower lobes. Patchy ground glass opacities and linear densities involving the middle lobe, lingula, and bilateral lower lobes. Areas of scarring and atelectasis are favored. No evidence of consolidation. No suspicious nodules in the left or right lung. No lytic or blastic lesions in the osseous structures. Calcified granuloma in the right upper lobe. Adequate contrast opacification of the pulmonary arterial system to the level of the segmental arteri es. No filling defect to suggest thromboembolism. Central pulmonary arteries are prominent, compatibl e with pulmonary arterial hypertension. IMPRESSION: 1. No evidence of pulmonary artery embolism to the level of the segmental arteries. 2. Chronic lung parenchymal changes. 3. Heterogeneous left lower lobe. 4. Pulmonary arterial hypertension. POS: PPP
[2020-02-18 22:07] LABS: CO2 Tension 92.8 mmHg (35.0-45.0); Puncture Site LRA
--- NOTE | 2020-02-18 22:14 | PDOC.BPN ---
- Brief Progress Note Encounter Date: 02/18/20 [id number] HP
[2020-02-18 22:26] LABS: SARS-CoV-2 NAA Rapid Test Not Detected (NotDetected)
[2020-02-18 22:56] LABS: Actual Bicarbonate (HCO3a) 32.1 mEq/L (22-28); Analyzer IN Cardio ER; Base Excess (BEa) 2.6 mEq/L (-2.0 to +3.0); Calcium, Ionized (arterial) 1.18 mmol/L (1.12-1.30); Carboxyhemoglobin (COHb) 1.5 gm% (0.0-3.0); Hemoglobin (Hb) 13.5 g/dL (12.0-16.0); O2 Tension (PaO2), arterial 68.9 mmHg (> 80.0)
[2020-02-18 22:57] LABS: CO2 Tension 75.1 mmHg (35.0-45.0); Puncture Site RRA; pH, Arterial 7.25 (7.35-7.45)
[2020-02-18 22:58] LABS: ALV-art Gradient 86.775 mmHg (0-20)
--- NOTE | 2020-02-18 23:39 | HP ---
CHIEF COMPLAINT: Shortness of breath and altered mental status. HISTORY OF PRESENT ILLNESS: Ms. Carr is a 65-year-old female with past medical history of COPD, Parkinson disease, breast cancer, among others, presented to the emergency room with shortness of breath. The patient's was concerned because she was not acting right, so he brought her to the hospital. No history of fever, nausea, vomiting, diarrhea, or abdominal pain. The patient was hypoxic and was placed on oxygen and her mental status improved. While in the emergency room, the patient also became hypoxic again and oxygen was increased. ABG was done which showed acute hypercapnic respiratory failure with a pH of 7.19, PaCO2 in the 90s. The patient will be placed on BiPAP. No further history can be obtained at this time since the patient is very lethargic at this point. PAST MEDICAL HISTORY: As mentioned above in history of present illness. PAST SURGICAL HISTORY: 1. Bladder sling. 2. Fistula repair. 3. Hysterectomy. 4. Tonsillectomy. 5. Hemorrhoidectomy. 6. Breast biopsy. PAST PSYCHIATRIC HISTORY: 1. Bipolar disorder, schizophrenia. 2. Major depressive disorder. SOCIAL HISTORY: The patient lives at home with family. No history of alcohol drinking or smoking? ALLERGIES: ALLERGIC TO CODEINE, OPIOIDS, IODINE, SULFA, PROCHLORPERAZINE, CHOCOLATE FLAVOR? REVIEW OF SYSTEMS: Unable to obtain. The patient is lethargic. PHYSICAL EXAMINATION: GENERAL: The patient is lethargic, opening her eyes. VITAL SIGNS: Blood pressure is 140/87, pulse is 83, respiratory rate is 24, oxygen saturation is 93% on 3 L/minute nasal cannula, the patient is being placed on BiPAP at the time of this dictation. HEAD AND NECK: Normocephalic, atraumatic. NECK: Supple. CHEST: Decreased air entry bilaterally. HEART: S1, S2. Regular. ABDOMEN: Soft and nontender. Bowel sounds present. NEURO: The patient is awake, moving extremities, lethargic, unable to assess. GENITOURINARY: No suprapubic tenderness. No flank tenderness. Chest x-ray showed left lower lobe atelectasis/infiltrate?, chronic. BMP is reviewed. CO2 is 33, otherwise unremarkable. Lactic acid is 0.8. CBC unremarkable. ASSESSMENT AND PLAN: 1. Acute on chronic hypercapnic respiratory failure. 2. Acute encephalopathy, metabolic. 3. Chronic obstructive pulmonary disease with acute exacerbation. 4. Pneumonia? 5. Parkinson disease. 6. History of breast cancer. PLAN: 1. Admit. 2. Continue with BiPAP for now, recheck ABG. If improvement, we will continue with BiPAP and place the patient in ICU. If no improvement, the patient will need to be intubated and placed in ICU. 3. Continue with bronchodilators as scheduled and as needed. 4. IV steroids. 5. Empiric IV antibiotics. 6. Reconcile home meds. 7. DVT prophylaxis as appropriate. 8. Expected length of stay, 2 midnights or more. Job ID: [id number]
[2020-02-19] MEDS ORDERED: Ondansetron PF 4 MG/2 ML Vial IVP PRN (00:45)
[2020-02-19] MEDS ORDERED: Ondansetron ODT 4 MG TAB SL PRN (00:45)
[2020-02-19] MEDS: methylPREDNISolone Sod Succ 40 MG VIAL IVP SCH ×4 (00:59→18:13)
[2020-02-19 01:53] VITALS: BMI 29.1
[2020-02-19] MEDS: Enoxaparin Sodium 40 MG/0.4 ML SYRINGE SC SCH (09:06)
[2020-02-19] MEDS ORDERED: Cefdinir 300 MG CAP PO SCH (11:00)
--- NOTE | 2020-02-19 15:55 | PDOC.HOSPP ---
- Subjective Encounter Date: 02/19/20 Encounter Time: 15:55 Subjective: f/u for acute/chronic resp failure/COPD on prior BiPAP NIMV. Remains on O2 @ 2L/min NC. Nursing reports pt with some agitation and confusion in context of known Bipolar disorder/Schizophrenia. - Objective Vital Signs & Weight: Vital Signs (12 hours) Temp Pulse Resp Pulse Ox 02/19/20 15:43 98.4 F 02/19/20 14:58 85 18 95 02/19/20 12:00 98.8 F 94 L 02/19/20 09:21 117 H 02/19/20 09:19 117 H 30 H 98 02/19/20 07:57 100 02/19/20 07:38 98.6 F Weight Admit Weight 167 lb 1.6 oz Weight 167 lb 1.6 oz Most Recent Monitor Data Heart Rate from ECG 89 NIBP 151/76 NIBP BP-Mean 101 Respiration from ECG 21 SpO2 93 I&O: 02/18/20 02/19/20 02/20/20 06:59 06:59 06:59 Intake Total 10 Balance 10 Result Diagrams: 02/18/20 18:35 02/18/20 18:35 Additional Labs: Microbiology 02/18/20 19:14 Urine Straight Catheter Urine Culture - Preliminary NO GROWTH AT 24 HOURS 02/18/20 18:35 Venous blood - Right Arm Blood Culture - Preliminary Specimen has been received and culture in pr ogress. No Growth to date. 02/18/20 18:35 Venous blood - Left Arm Blood Culture - Preliminary Specimen has been received and culture in progress. No Growth to date. Laboratory Tests 02/18/20 02/18/20 02/18/20 21:07 21:30 22:35 ABG pH 7.20 L* 7.25 L* ABG pCO2 92.8 H* 75.1 H* ABG pO2 119.9 H 68.9 SARS-CoV-2 Rap RNA(RT-PCR) Not Detected Radiology Reviewed by me: Yes (CTA chest - no PE, chronic lung changes bilat) EKG Reviewed by me: Yes (Tele - SR) Hospitalist ROS - Medication Medications: Active Medications Generic Name Dose Route Start Last Admin Trade Name Freq PRN Reason Stop Dose Admin Albuterol/Ipratropium 3 ml 02/19/20 01:00 11/16/20 14:58 Ipratropium/Albuterol Sulfate 3 Ml Neb NEB 3 ml [id number] JAILENE Administration Enoxaparin Sodium 40 mg 02/19/20 09:00 02/19/20 09:06 Enoxaparin Sodium 40 Mg/0.4 Ml Syringe SC 40 mg 0900 JAILENE Administration Methylprednisolone Sodium Succinate 40 mg 02/18/20 23:59 02/19/20 12:24 Methylprednisolone Sod Succ 40 Mg Vial IVP 40 mg Q6HR JAILENE Administration Sodium Chloride 10 ml 02/19/20 09:00 02/19/20 09:06 Flush - Normal Saline 10 Ml Syringe IVF 10 ml Q12HR JAILENE Administration - Exam General Appearance: awake alert General - other findings: agitated, responsive to questions Eye: PERRL, anicteric sclera ENT: normocephalic atraumatic, no oropharyngeal lesions Neck: supple, symmetric, no JVD, no thyromegaly, no lymphadenopathy Heart: RRR, no gallops, no rubs, normal peripheral pulses Heart - other findings: S1, S2 Respiratory - other findings: diminished bilat, exp wheezes/rhonchi Gastrointestinal: soft, non-tender, non-distended, normal bowel sounds, no palpable masses, no hepatomegaly Extremities: no cyanosis, no clubbing, no edema Skin: normal turgor Neurological: cranial nerve grossly intact, no new deficit Musculoskeletal: normal tone, normal strength, generalized weakness Psychiatric: oriented to person, oriented to place Psychiatric - other findings: agitated Hosp A/P (1) Acute on chronic respiratory failure with hypoxia and hypercapnia Code(s): J96.21 - ACUTE AND CHRONIC RESPIRATORY FAILURE WITH HYPOXIA; J96.22 - ACUTE AND CHRONIC RESPIRATORY FAILURE WITH HYPERCAPNIA Status: Acute Plan: Continue pulmonary supportive mgmt, Omnicef/Solumedrol/Duonebs/Dulera, O2 PRN (2) Acute metabolic encephalopathy Code(s): G93.41 - METABOLIC ENCEPHALOPATHY Status: Acute Plan: Improved, continue supportive mgmt, likely multifactorial (3) COPD exacerbation Code(s): J44.1 - CHRONIC OBSTRUCTIVE PULMONARY DISEASE W (ACUTE) EXACERBATION Status: Acute Plan: See #1 above (4) Schizophrenia Code(s): F20.9 - SCHIZOPHRENIA, UNSPECIFIED Status: Chronic Plan: Resume home Prolixin (5) Tobacco abuse Code(s): Z72.0 - TOBACCO USE Status: Chronic Plan: Tobacco cessation resources - Plan continue antibiotics, medical social worker, respiratory therapy, DVT proph w/SCDs Stable currently Continue pulmonary support Continue Omnicef Continue Solumedrol O2 titrated to clinical response BiPAP nocturnally
--- NOTE | 2020-02-19 16:27 | CON ---
DATE OF CONSULTATION: HISTORY OF PRESENT ILLNESS: This is a 65-year-old female, who is well known to me, who re-presented to the ER with shortness of breath and coughing. X-ray shows chronic changes in the left lung, CT confirmed this. No other mass or infiltrate is seen. She came with her . She is still smoking unfortunately. She is on BiPAP at this time. Numerous admissions to the hospital here. Extensive history is well outlined. PAST MEDICAL HISTORY: Bipolar schizophrenic, followed by [facility]; end-stage COPD; ongoing tobacco abuse; and major anxiety. PAST SURGICAL HISTORY: Hysterectomy, tonsils, breast biopsy, hemorrhoids. HOME MEDICATIONS: Include: 1. Nocturnal ventilator. 2. Pulmicort several times a day. 3. DuoNeb several times a day. 4. [place] 300 twice a day. 5. b.i.d. 6. BuSpar 5 twice a day. ALLERGIES: OUTLINED, CODEINE, PROCHLORPERAZINE, SULFA. REVIEW OF SYSTEMS: Negative. PHYSICAL EXAMINATION: VITAL SIGNS: On the BiPAP, her sats 100%, switch over to nasal O2 of 1-1/2 L, saturation of 94% to 95%, respirations 20, pulse 80, blood pressure 130/80. CHEST: Decreased breath sounds. No wheezing. CARDIAC: Normal S1, S2. No gallops. LABORATORY STUDIES: White count 8000, H and H 13 and 41. PCO2 of 75, pH 7.25, pO2 of 68. Lytes are normal. IMPRESSION: 1. Acute on chronic respiratory failure, ongoing tobacco abuse. 2. End-stage chronic obstructive pulmonary disease. 3. Chronic scarring, left lung. 4. Bipolar disorder. PLAN: PO antibiotics. Continue steroids. Repeat blood gas in the morning. Continue home ventilator. Consultation note, 70 minutes, 50% direct patient care. Job ID: [id number]
[2020-02-19] MEDS: Mometasone 200 MCG/Formoterol 5 MCG 120 PUFF INHALER INH SCH (19:03)
[2020-02-19] MEDS ORDERED: cefTRIAXone\\ROCEPHIN 1 GM in Sodium Chloride 0.9% 100 ML IVPB SCH (20:00)
[2020-02-19] MEDS: Cefdinir 300 MG CAP PO SCH (20:13)
[2020-02-19] MEDS ORDERED: Azithromycin 500 MG in Sodium Chloride 0.9% 250 ML 250 ML IVPB SCH (21:00)
[2020-02-20] MEDS: methylPREDNISolone Sod Succ 40 MG VIAL IVP SCH ×2 (00:24→05:16)
[2020-02-20] MEDS: Mometasone 200 MCG/Formoterol 5 MCG 120 PUFF INHALER INH SCH (07:50)
[2020-02-20] MEDS: Enoxaparin Sodium 40 MG/0.4 ML SYRINGE SC SCH (08:39)
[2020-02-20] MEDS: Cefdinir 300 MG CAP PO SCH (08:39)
[2020-02-20 10:45] LABS: Actual Bicarbonate (HCO3a) 34.9 mEq/L (22-28); Analyzer IN Cardio ER; Base Excess (BEa) 7.5 mEq/L (-2.0 to +3.0); Calcium, Ionized (arterial) 1.24 mmol/L (1.12-1.30); Carboxyhemoglobin (COHb) 0.1 gm% (0.0-3.0); Hemoglobin (Hb) 13.5 g/dL (12.0-16.0); O2 Tension (PaO2), arterial 71.5 mmHg (> 80.0); Potassium - ABG Lab 4.31 mmol/L (3.70-5.30); pH, Arterial 7.37 (7.35-7.45)
--- NOTE | 2020-02-20 10:48 | PRG ---
DATE OF SERVICE: 02/20/2020 SUBJECTIVE: Majo Carr is a 65-year-old female, who is better this morning. OBJECTIVE: VITAL SIGNS: Pulse 80, respiratory rate 18, sats are 98% on 2 L, and blood pressure 160/90. CHEST: No wheezing. No crackles. CARDIAC: Normal S1 and S2. No gallops. ABDOMEN: No masses. ASSESSMENT AND PLAN: pneumonia, major anxiety, ongoing tobacco abuse, bipolar disorder. Switched over to p.o. prednisone. Baseline blood gases. She appears to be stable. She can be discharged home on tapering dose of steroids. Job ID: [id number]
[2020-02-20 11:04] LABS: CO2 Tension 62.2 mmHg (35.0-45.0); Puncture Site LRA
[2020-02-20 12:16] VITALS: TEMP 98.6
--- NOTE | 2020-02-21 02:31 | DIS ---
DATE OF ADMISSION: 02/18/2020 DATE OF DISCHARGE: 02/20/2020 DISCHARGE DIAGNOSES: 1. Acute on chronic hypoxic, hypercapnic respiratory failure secondary to #2. 2. Chronic obstructive pulmonary disease exacerbation, improved. 3. Acute metabolic encephalopathy, multifactorial, resolved. 4. Schizophrenia, baseline. 5. Tobacco abuse. CONSULTATIONS: Dr. Horton with Pulmonology Critical Care Service. PERTINENT LABORATORY AND X-RAY FINDINGS: Carbon dioxide level 33. Lactic acid level 0.8. LFTs within normal limits. CBC within normal limits. Arterial blood gas dated 02/18/2020 and 02/20/2020 showed a pH ranging between 7.2 to 7.37, pCO2 ranged between 62 to 93, pO2 ranged between 69 to 120. COVID-19 PCR not detected on 02/18/2020. Blood cultures x2 dated on 02/18/2020, showed no growth to date. Urine culture dated 02/18/2020, showed no growth at 24 hours. Portable chest x-ray dated 02/18/2020 showed a left lower lobe atelectasis. CT angiogram of the chest dated 02/18/2020, showed no evidence of pulmonary embolus. Chronic lung changes bilaterally. Heterogeneous left lower lobe noted. HOSPITAL COURSE: The patient was initially admitted to the intermediate care unit after presenting with increased shortness of breath with associated altered mentation with hypoxia and hypercapnia. The patient's initial ABG showed a pH of 7.19 with a pCO2 in the upper 90s. The patient was placed on BiPAP noninvasive mechanical ventilation and given IV Solu-Medrol and bronchodilator therapy. The patient also received empiric IV antibiotic therapy and was evaluated by the Pulmonology Service. The patient was weaned off BiPAP noninvasive mechanical ventilation with serial ABG showing overall improving CO2 and O2 levels. The patient was ruled out for COVID-19 as stated previously and overall patient did transition to maintaining O2 saturations in the upper 90% range on 2 L/minute by nasal cannula. I have examined the patient at the time of discharge and discussed followup instructions. The patient verbalizes understanding and agreement, ready for discharge on 02/20/2020. DISCHARGE MEDICATIONS: 1. Prednisone 20 mg one tablet p.o. daily x3 days, followed by half a tablet p.o. daily x3 days. 2. Omnicef 300 mg p.o. b.i.d. x5 days. 3. BuSpar 5 mg p.o. b.i.d. 4. DuoNeb 3 mL nebulized q.i.d. p.r.n. 5. [place] carbonate 300 mg p.o. b.i.d. 6. Multivitamin 1 tablet p.o. daily. 7. Prolixin-D 50 mg intramuscularly twice monthly. 8. Pulmicort 0.5 mg inhaled b.i.d. 9. Valproic acid 500 mg p.o. b.i.d. FOLLOWUP: The patient may follow up with her primary care provider, Dr. Dg Sargent. CONDITION ON DISCHARGE: Fair. ACTIVITY: Ad-daisha. DIET: Heart healthy. CODE STATUS: Full. DISPOSITION: To home on 02/20/2020. TIME SPENT: Total time preparing and coordinating discharge, 32 minutes. Job ID: [id number]
[2020-02-21] MEDS ORDERED: predniSONE 20 MG TAB PO SCH (08:00)
--- NOTE | 2020-02-22 05:19 | PQF ---
Dear : Palomo Garcia Date 02/22/20 Please exercise your independent, professional judgment in responding to the clarification form. Clinical indicators are provided on the bottom of this form for your review Can you please further clarify the specificity of pneumonia? Please check appropriate box(es): [ ] Aspiration Pneumonia [ ] Empirically treating Gram Negative Pneumonia [ ] Empirically treating Anaerobic Pneumonia [ ] Pneumonia secondary to (specify organism / underlying disease) [ ] Simple Pneumonia [ ] Pneumonia of unknown etiology [ x ] Other diagnosis _COPD [ ] Unable to determine Physician Signature: Date/Time: For continuity of documentation, please document condition throughout progress notes and discharge summary. Thank You. To be completed by CDI/Coding staff for physician review: Present Clinical Indicators - Signs / Symptoms / Labs Results and Location in Medical Record [ x ] Complaints of shortness of breath ED Provider pg.1 [ x ] Patchy ground glass opacities and linear densities of the middle lobe, lingua and bilateral lobe lobes ED Provider pg.4 [ x ] Chronic lung parenchymal changes ED Provider pg.4 [ x ] CXR c/w pneumonia ED Provider pg.4 [ x ] Lower lobe pneumonia ED Provider pg.5 [ x ] Left lower lobe atelectasis vs infiltrates Chest X ray 02/17 [ x ] Pneumonia? HP 02/17 [ x ] Reports cough ED Notes 02/17 [ x ] Respiratory: diminished bilaterally, exp wheezes/rhonchi PN 02/18 [ x ] WBC: 02/17=8.2 Laboratory 02/17 Present Risk Factors Results and Location in Medical Record [ x ] 65 years old H and P pg.1 [ x ] Acute respiratory failure H and P pg.2 [ x ] Metabolic encephalopathy H and P pg.2 [ x ] COPD exacerbation H and P pg.2 [ x ] Hx of breast cancer H and P pg.2 [ x ] Tobacco abuse Consult pg.2 Present Treatments Results and Location in Medical Record [ x ] Chest X ray 02/17 Chest X ray 02/17 [ x ] Chest/Thorax CTA 02/17 Chest/Thorax CTA 02/17 [ x ] Pulmonary Consult Dr. Peña 02/18 [ x ] IV Fluids MAR [ x ] Azithromycin 500mg Oral MAR [ x ] Rocephin 2gm IV MAR [ x ] BIPAP H and P pg.2 CDS/Industrial Health Engineer Signature: Nathan Simonsniurkaadilia Phone #: ext [phone] Date 02/22/20 This is a permanent part of the Medical Record [facility]
--- NOTE | 2020-02-24 15:28 | EKG ---
Test Reason : Blood Pressure : / mmHG Vent. Rate : 092 BPM Atrial Rate : 092 BPM P-R Int : 138 ms QRS Dur : 076 ms QT Int : 356 ms P-R-T Axes : 077 -41 051 degrees QTc Int : 440 ms Normal sinus rhythm Left axis deviation Cannot rule out Inferior infarct , age undetermined Abnormal ECG Confirmed by LESLIE DEAN, AMY Hernández ([id number]), state editor ANITA REECE ([id number]) on 02/24/2020 3:28:15 PM Referred By: Confirmed By:AMY NELSON MD
== END 2020-02-20 13:00 | disposition home or self-care (01) | DRG 189 ==
LOC: ERS 18:14 → ERHOLD 21:38 → OBSVTOIN 21:56 → IMCU/EMU 02-19 00:37
PROVIDERS: ADMIT Internal Medicine; ATTEND Family Medicine
PROC: 5A09357 Assistance with Respiratory Ventilation, Less than 24 Consecutive Hours, Continuous Positive Airway Pressure (ICD-10-PCS; principal; 2020-02-18)
DX: J96.21 Acute and chronic respiratory failure with hypoxia (principal); G93.41 Metabolic encephalopathy; J44.1 Chronic obstructive pulmonary disease with (acute) exacerbation; J96.22 Acute and chronic respiratory failure with hypercapnia; Z20.828 Contact with and (suspected) exposure to other viral communicable diseases; F20.9 Schizophrenia, unspecified; F17.210 Nicotine dependence, cigarettes, uncomplicated; G20 Parkinson's disease; F02.80 Dementia in other diseases classified elsewhere, unspecified severity, without behavioral disturbance, psychotic disturbance, mood disturbance, and anxiety; F41.9 Anxiety disorder, unspecified; F31.9 Bipolar disorder, unspecified; Z88.5 Allergy status to narcotic agent; Z88.2 Allergy status to sulfonamides; Z91.041 Radiographic dye allergy status; Z79.51 Long term (current) use of inhaled steroids; Z79.52 Long term (current) use of systemic steroids; Z90.710 Acquired absence of both cervix and uterus; Z91.018 Allergy to other foods; Z79.899 Other long term (current) drug therapy
CPT/HCPCS: 36600; 51701; 71045; 71275; 80053; 81003; 82805; 83605; 84484; 85025; 87040; 87086; 93005; 94640; 96365; 96366; 96372; 96374; 96375; J0456; J0696; J1200; J1650; J2680; J2920; J2930; J3105; J7620; Q9967; S0028; U0002

== ENCOUNTER 2020-03-12 04:25 | Inpatient (IN) | payer MEDICARE, MEDICAID ==
[2020-03-12] MEDS ORDERED: methylPREDNISolone Sod Succ/PF 125 MG/2 ML VIAL ONE (04:56)
[2020-03-12 04:57] LABS: #Eosinphils 0.1 thou/uL (0.0-0.7); #Lymphocytes 0.9 thou/uL (1.20-3.40); #Monocytes 0.6 thou/uL (0.11-0.59); #Neutrophils 6.2 thou/uL (1.40-6.50); %Basophils 0.4 % (0.0-1.0); %Eosinophils 1.7 % (0.0-10.0); %Lymphocytes 11.5 % (21.0-51.0); %Neutrophils 78.3 % (42.0-75.0); Hemoglobin 13.4 g/dL (12.0-16.0); Mean Corpuscular HGB CONC 32.7 g/dL (32.0-36.0); Mean Corpuscular Hemoglobin 31.4 pg (27.0-31.0); Mean Corpuscular Volume 96.2 fL (78.0-98.0); Mean Platelet Volume 8.2 fL (7.4-10.4); Platelet Count 204 thou/uL (130-400); RBC Distribution Width 13.4 % (11.5-14.5); Red Blood Cell (RBC) Count 4.26 mill/uL (4.20-5.40); White Blood Cell (WBC) Count 7.9 thou/uL (4.8-10.8)
[2020-03-12 05:18] LABS: ALT (SGPT) 18 U/L (8-55); AST (SGOT) 13 U/L (5-34); Albumin 3.8 g/dL (3.4-4.8); Alkaline Phosphatase 69 U/L (40-110); BUN (Urea Nitrogen) 8 mg/dL (9.8-20.1); Bilirubin, Total 0.7 mg/dL (0.2-1.2); Calc. Creatinine Clearance 0 mL/min (70-130); Calcium 9.7 mg/dL (7.8-10.44); Globulin 2.8 g/dL (2.4-3.5); Glucose 136 mg/dL (80-115); Protein, Total 6.6 g/dL (6.0-8.3)
[2020-03-12 05:27] LABS: Anion Gap 18 mmol/L (10-20); Carbon Dioxide 33 mmol/L (23-31); Chloride 95 mmol/L (98-107); Potassium 4.5 mmol/L (3.5-5.1); Sodium 141 mmol/L (136-145)
[2020-03-12 06:02] LABS: SARS-CoV-2 NAA Rapid Test Not Detected (NotDetected)
[2020-03-12] MEDS ORDERED: cefTRIAXone\\ROCEPHIN 1 GM VIAL ONE (06:40)
[2020-03-12] MEDS ORDERED: Azithromycin 500 MG VIAL ONE (07:24)
[2020-03-12] MEDS ORDERED: Albuterol Sulfate 2.5 mg/3 ml Neb NEB PRN ×2 (07:38→07:45)
[2020-03-12] MEDS ORDERED: predniSONE 20 MG TAB PO SCH (08:00)
[2020-03-12 08:02] LABS: Lactic Acid 0.7 mmol/L (0.5-2.2)
--- NOTE | 2020-03-12 08:03 | PDOC.HHP ---
Hospitalist HPI - History of Present Illness Shortness of breath History of Present Illness: Ms. Carr is a 65-year-old female with past medical history of COPD on 2 L oxygen at home, emphysema, HFpEF, Parkinson's disease, remote history of breast cancer, bipolar disorder, tobacco use who presents to the emergency room for shortness of breath. Patient reports her brought her in because her O2 saturation at home was dropping to the 70s. Patient does endorse increasing shortness of breath over the past few days. She also endorses dry cough. She denies fever, night sweats, chills. No known Covid exposures. She denies chest pain. Has a history of multiple COPD exacerbations. Patient also endorses mild abdominal pain and distention. Reports that over the past week she has had increasing bouts of diarrhea and belly pain. She is able to eat and drink without pain. Denies melena, hematochezia. Denies nausea or vomiting. In emergency room initial vital signs 148/97, 99, 20, 98.3, 98% on 6 L nasal cannula. White blood cell count 7.9. H/H 13.4/40.9. BUN/CR 8/0.65. Sodium 141, potassium 4.5, glucose 136. LFTs AST/ALT 13/18, alk phos 69. Albumin 3.8, T bili 0.7. Initial troponin 0.023, BNP 40.9. Chest x-ray showed bilateral patchy infiltrate and question of small pleural effusion. Patient received ceftriaxone, azithromycin and 125 mg of methylprednisolone in the emergency room. Hospitalist ROS - Review of Systems Constitutional: denies: fever, chills, sweats, weakness, malaise, other Eyes: denies: pain, vision change, conjunctivae inflammation, eyelid inflammation, redness, other ENT: denies: ear pain, ear discharge, nose pain, nose discharge, nose congestion, mouth pain, mouth swelling, throat pain, throat swelling, other Respiratory: reports: cough, dry, shortness of breath, SOB with excertion. denies: hemoptysis, pleuritic pain, sputum, wheezing, other Cardiovascular: denies: chest pain, palpitations, orthopnea, paroxysmal noc. dyspnea, edema, light headedness, other Gastrointestinal: reports: abdominal pain, diarrhea. denies: nausea, vomiting, constipation, melena, hematochezia, other Genitourinary: denies: dysuria, frequency, incontinence, hematuria, retention, other Musculoskeletal: denies: neck pain, shoulder pain, arm pain, back pain, hand pain, leg pain, foot pain, other Skin: denies: rash, lesions, ileana, bruising, other Neurological: denies: weakness, numbness, incoordination, change in speech, confusion, seizures, other Hospitalist History - Past Medical History Other Medical History: Past medical history includes Severe COPD on 2 L home O2 Tobacco use Parkinson's Breast cancer, in remission Bipolar disorder Heart failure with preserved ejection fraction Thyroid nodule - Past Surgical History Other Surgical History: Past surgical history includes Hysterectomy Tonsillectomy Hemorrhoidectomy Fistula repair Bladder sling - Family History Other Family History: No pertinent family history. - Social History Smoking Status: Current every day smoker Tobacco Type: chewing tobacco Alcohol: reports: None Drugs: reports: none Living Situation: With Family Activity level: independent ambulation - Exam General Appearance: NAD, awake alert General - other findings: Appears older than stated age Eye: PERRL, anicteric sclera ENT: normocephalic atraumatic, no oropharyngeal lesions, moist mucosa Neck: supple, symmetric, no JVD, no thyromegaly, no lymphadenopathy, no carotid bruit Heart: RRR, no murmur, no gallops, no rubs, normal peripheral pulses Respiratory: no wheezes, normal chest expansion, no tachypnea, rhonchi Respiratory - other findings: Rhonchi throughout with 7 word dyspnea Gastrointestinal: soft, no palpable masses, no guarding, tender to palpation, distended, diminished bowl sounds Extremities: no cyanosis, no clubbing, no edema Skin: normal turgor, no lesions, no rashes Neurological: cranial nerve grossly intact, normal sensation to touch, no weakness, no focal deficits, no new deficit Musculoskeletal: normal tone, normal strength, no muscle wasting Psychiatric: normal affect, normal behavior, A&O x 3 Hospitalist Results - Labs Result Diagrams: 03/12/20 04:44 03/12/20 04:44 Lab results: WBC 7.9 thou/uL (4.8-10.8) 03/12/20 04:44 Hgb 13.4 g/dL (12.0-16.0) 03/12/20 04:44 Hct 40.9 % (36.0-47.0) 03/12/20 04:44 MCV 96.2 fL (78.0-98.0) 03/12/20 04:44 Plt Count 204 thou/uL (130-400) 03/12/20 04:44 Neutrophils % 78.3 % (42.0-75.0) H 03/12/20 04:44 Sodium 141 mmol/L (136-145) 03/12/20 04:44 Potassium 4.5 mmol/L (3.5-5.1) 03/12/20 04:44 Chloride 95 mmol/L (98-107) L 03/12/20 04:44 Carbon Dioxide 33 mmol/L (23-31) H 03/12/20 04:44 BUN 8 mg/dL (9.8-20.1) L 03/12/20 04:44 Creatinine 0.65 mg/dL (0.6-1.1) 03/12/20 04:44 Glucose 136 mg/dL (80-115) H 03/12/20 04:44 Calcium 9.7 mg/dL (7.8-10.44) 03/12/20 04:44 Total Bilirubin 0.7 mg/dL (0.2-1.2) 03/12/20 04:44 AST 13 U/L (5-34) 03/12/20 04:44 ALT 18 U/L (8-55) 03/12/20 04:44 Alkaline Phosphatase 69 U/L (40-110) 03/12/20 04:44 Troponin I 0.023 ng/mL (< 0.028) 03/12/20 04:44 B-Natriuretic Peptide 40.9 pg/mL (0-100) 03/12/20 04:44 Serum Total Protein 6.6 g/dL (6.0-8.3) 03/12/20 04:44 Albumin 3.8 g/dL (3.4-4.8) 03/12/20 04:44 Hospitalist H&P A/P - Plan Plan: 65-year-old female with past medical history of severe COPD on 2 L home O2, Parkinson's disease, breast cancer in remission, bipolar disorder/schizophrenia, tobacco abuse presents in acute respiratory distress with COPD exacerbation. Acute COPD exacerbation Acute COPD exacerbation. Patient hypoxic to 70s at home now requiring 6 L oxygen nasal cannula. Chest x-ray showed patchy bilateral infiltrates with question of effusion. BNP 40, white blood cell count 7.9. Patient with dry nonproductive cough. In emergency room patient received ceftriaxone, azithromycin, methylprednisolone with improvement in her respiratory status. Patient has a history of severe COPD exacerbations and will need close ezio toring of her respiratory status. Rapid Covid test negative, will reflex to PCR to confirm negative status. Plan Continue IV methylprednisolone, 60 mg every 6 hour Stat ABG DuoNebs scheduled Albuterol nebs as needed IV cefepime for Pseudomonas coverage and IV azithromycin Closely monitor respiratory status Acute respiratory failure with hypoxia Acute respiratory failure with hypoxia secondary to COPD exacerbation. Patient hypoxic to 70s requiring 6 L of oxygen via nasal cannula. Question of superimposed pneumonia based on chest x-ray findings. We will proceed with treatment as above. Plan Supplemental oxygen Stat ABG Close monitor respiratory status Plan as above Abdominal pain Patient endorses mild crampy abdominal pain, which started approximately 1 week ago. She also notes her abdomen has felt distended. Has had multiple episodes of diarrhea over the past few days. Is able to tolerate p.o. Denies melena or hematochezia. Denies nausea or vomiting. On exam abdomen tympanic and distended. No involuntary guarding or peritoneal signs. Will obtain KUB and stool studies. Plan KUB Stool studies Serial abdominal exams Tobacco abuse History of tobacco use, patient smokes 1 pack/day. Will offer patient nicotine patch, and travel counselor on smoking cessation. Mood disorder History of mood disorder on multiple psychiatric medications including Prolixin, BuSpar, valproic acid, lithium. We will continue home psychiatric medications once dosages are confirmed. DVT prophylaxisLovenox Full code, MDM is patient's Case discussed with attending physician Dr. Lin.
--- NOTE | 2020-03-12 08:11 | RAD ---
KUB: 03/12/2020 COMPARISON: 05/07/2018 HISTORY: Distention, abdominal pain FINDINGS: Supine imaging is provided, limiting assessment for free intraperitoneal air and small renetta l obstruction. There is a paucity of bowel gas noted, limiting assessment. Streaky linear density noted in both lung bases, only partially visualized on this examination. No gas-filled dilated bowel noted. IMPRESSION: Paucity of bowel gas.
[2020-03-12 08:14] LABS: Troponin I Less than 0.010 ng/mL (< 0.028)
[2020-03-12] MEDS ORDERED: Acetaminophen 325 MG TAB PO PRN (08:22)
[2020-03-12] MEDS ORDERED: Ondansetron PF 4 MG/2 ML Vial IVP PRN (08:22)
[2020-03-12] MEDS ORDERED: Acetaminophen 650 MG Suppository PR PRN (08:22)
[2020-03-12] MEDS ORDERED: Ondansetron ODT 4 MG TAB PO PRN (08:22)
--- NOTE | 2020-03-12 08:24 | RAD ---
XR Chest 1 View Portable HISTORY: Dyspnea, chronic cough COMPARISON: 02/18/2020 FINDINGS: The heart size is enlarged but stable. There is increased interstitial prominence without l obar consolidation, pneumothoraces or large effusions. Surgical clips in the right axilla are again seen.
[2020-03-12 08:47] LABS: Actual Bicarbonate (HCO3a) 33.6 mEq/L (22-28); Analyzer IN Cardio ER; Base Excess (BEa) 3.7 mEq/L (-2.0 to +3.0); Calcium, Ionized (arterial) 1.27 mmol/L (1.12-1.30); Carboxyhemoglobin (COHb) 1.2 gm% (0.0-3.0); Hemoglobin (Hb) 14.5 g/dL (12.0-16.0); Potassium - ABG Lab 4.99 mmol/L (3.70-5.30)
[2020-03-12 08:51] LABS: pH, Arterial 7.25 (7.35-7.45)
[2020-03-12 08:52] LABS: CO2 Tension 77.7 mmHg (35.0-45.0); O2 Tension (PaO2), arterial 54.6 mmHg (> 80.0)
[2020-03-12 08:53] LABS: ALV-art Gradient 76.435 mmHg (0-20); Puncture Site LRA
[2020-03-12 11:03] LABS: Troponin I Less than 0.010 ng/mL (< 0.028)
[2020-03-12 12:10] LABS: Actual Bicarbonate (HCO3a) 33.2 mEq/L (22-28); Analyzer IN Cardio ER; Base Excess (BEa) 5.2 mEq/L (-2.0 to +3.0); Calcium, Ionized (arterial) 1.24 mmol/L (1.12-1.30); Carboxyhemoglobin (COHb) 1.1 gm% (0.0-3.0); Hemoglobin (Hb) 14.5 g/dL (12.0-16.0); O2 Tension (PaO2), arterial 60.3 mmHg (> 80.0); Potassium - ABG Lab 5.04 mmol/L (3.70-5.30); pH, Arterial 7.34 (7.35-7.45)
[2020-03-12 12:15] LABS: CO2 Tension 63.6 mmHg (35.0-45.0); Puncture Site LRA
[2020-03-12] MEDS: methylPREDNISolone Sod Succ/PF 125 MG/2 ML VIAL IVP SCH ×3 (12:49→22:59)
[2020-03-12] MEDS: Enoxaparin Sodium 40 MG/0.4 ML SYRINGE SC SCH (12:49)
[2020-03-12] MEDS: Cefepime 2 GM in Sodium Chloride 0.9% 100 ML IVPB SCH ×2 (12:49→22:59)
[2020-03-12] MEDS ORDERED: Cefepime 2 GM VIAL ONE (12:50)
[2020-03-12] MEDS ORDERED: Enoxaparin Sodium 40 MG/0.4 ML SYRINGE ONE (12:50)
[2020-03-12] MEDS ORDERED: methylPREDNISolone Sod Succ 40 MG VIAL ONE (12:52)
[2020-03-12 14:44] VITALS: BMI 29.4
[2020-03-13 04:08] LABS: #Basophils 0.1 thou/uL (0.0-0.2); #Lymphocytes 0.4 thou/uL (1.20-3.40); #Monocytes 0.2 thou/uL (0.11-0.59); #Neutrophils 8.2 thou/uL (1.40-6.50); %Basophils 1.5 % (0.0-1.0); %Eosinophils 0.1 % (0.0-10.0); %Monocytes 2.4 % (0.0-10.0); Hemoglobin 12.7 g/dL (12.0-16.0); Mean Corpuscular HGB CONC 32.3 g/dL (32.0-36.0); Mean Corpuscular Volume 95.8 fL (78.0-98.0); Mean Platelet Volume 8.7 fL (7.4-10.4); Platelet Count 210 thou/uL (130-400); RBC Distribution Width 13.1 % (11.5-14.5); White Blood Cell (WBC) Count 8.9 thou/uL (4.8-10.8)
[2020-03-13 04:31] LABS: Anion Gap 11 mmol/L (10-20); BUN (Urea Nitrogen) 11 mg/dL (9.8-20.1); Calc. Creatinine Clearance 107 mL/min (70-130); Calcium 9.2 mg/dL (7.8-10.44); Carbon Dioxide 37 mmol/L (23-31); Chloride 96 mmol/L (98-107); Glucose 150 mg/dL (80-115); Potassium 4.6 mmol/L (3.5-5.1); Sodium 139 mmol/L (136-145)
[2020-03-13] MEDS: methylPREDNISolone Sod Succ/PF 125 MG/2 ML VIAL IVP SCH (05:07)
--- NOTE | 2020-03-13 07:26 | PDOC.HOSPP ---
- Subjective Encounter Date: 03/13/20 Encounter Time: 07:24 Subjective: I'm ready to go home" - Objective Vital Signs & Weight: Vital Signs (12 hours) Temp Pulse Resp Pulse Ox 03/13/20 07:20 97.8 F 03/13/20 02:09 86 17 93 L 03/12/20 23:41 98.0 F 03/12/20 22:25 88 24 H 93 L 03/12/20 20:00 98.1 F 91 L Weight Weight 166 lb Most Recent Monitor Data Heart Rate from ECG 86 NIBP 140/84 NIBP BP-Mean 102 Respiration from ECG 22 SpO2 100 I&O: 03/12/20 03/13/20 03/14/20 06:59 06:59 06:59 Intake Total 1045 Output Total 900 Balance 145 Result Diagrams: 03/13/20 03:37 03/13/20 03:37 Hospitalist ROS - Medication Medications: Active Medications Generic Name Dose Route Start Last Admin Trade Name Freq PRN Reason Stop Dose Admin Albuterol/Ipratropium 3 ml 03/12/20 10:30 03/13/20 02:09 Ipratropium/Albuterol Sulfate 3 Ml Neb NEB 3 ml [id number] JAILENE Administration Enoxaparin Sodium 40 mg 03/12/20 09:00 03/12/20 12:49 Enoxaparin Sodium 40 Mg/0.4 Ml Syringe SC 40 mg 0900 JAILENE Administration Cefepime HCl 2 gm/ Sodium 100 mls @ 200 mls/hr 03/12/20 10:00 03/12/20 22:59 Chloride IVPB 100 mls 1000,2200 JAILENE Administration Methylprednisolone Sodium Succinate 60 mg 03/12/20 11:00 03/13/20 05:07 Methylprednisolone Sod Succ/Pf 125 Mg/2 Ml Vial IVP 60 mg 0500,1100,1700,2300 JAILENE Administration - Exam General Appearance: awake alert Neck: no JVD Heart: RRR Respiratory - other findings: coarse BS, non-focal Gastrointestinal: soft, non-distended, normal bowel sounds Extremities: no edema Hosp A/P (1) Acute metabolic encephalopathy Code(s): G93.41 - METABOLIC ENCEPHALOPATHY Status: Acute (2) Acute on chronic respiratory failure with hypoxia and hypercapnia Code(s): J96.21 - ACUTE AND CHRONIC RESPIRATORY FAILURE WITH HYPOXIA; J96.22 - ACUTE AND CHRONIC RESPIRATORY FAILURE WITH HYPERCAPNIA Status: Acute (3) COPD exacerbation Code(s): J44.1 - CHRONIC OBSTRUCTIVE PULMONARY DISEASE W (ACUTE) EXACERBATION Status: Acute (4) Tobacco abuse Code(s): Z72.0 - TOBACCO USE Status: Chronic - Plan cont iv antibon iv steroids cont nebs, etc discuss with Dr Horton
[2020-03-13] MEDS ORDERED: Azithromycin 500 MG in Sodium Chloride 0.9% 250 ML 250 ML IVPB SCH (08:00)
[2020-03-13] MEDS: Enoxaparin Sodium 40 MG/0.4 ML SYRINGE SC SCH (08:06)
[2020-03-13] MEDS ORDERED: Valproic Acid 250 MG CAP PO SCH (09:00)
[2020-03-13] MEDS ORDERED: busPIRone HCl 5 MG TAB PO SCH (09:00)
[2020-03-13] MEDS ORDERED: predniSONE 20 MG TAB PO SCH (09:15)
--- NOTE | 2020-03-13 09:25 | CON ---
DATE OF CONSULTATION: HISTORY OF PRESENT ILLNESS: Majo Carr is a 65-year-old female with end-stage COPD, still got ongoing tobacco abuse, presented with increased shortness of breath, cough without any fever or chills. X-ray on admission was otherwise unremarkable chronic changes. She was placed on BiPAP initially. She is better this morning. PAST MEDICAL HISTORY: Bipolar disorder, dementia, COPD, breast cancer. PREVIOUS SURGERIES: Multiple including hysterectomy, bladder sling, fistula repair, tonsil, hemorrhoids, right breast biopsy. SOCIAL HISTORY: Alcohol, none. Tobacco, ongoing. MEDICATIONS: Home medicine includes: 1. Pulmicort. 2. DuoNeb. 3. Langford 300. 4. Prolixin D 50 mg IM. 5. BuSpar 5 mg. 6. Valproic acid 10 b.i.d. ALLERGIES: CODEINE AND SULFA. REVIEW OF SYSTEMS: A 10-point negative. PHYSICAL EXAMINATION: VITAL SIGNS: Sats this morning on low-flow O2 94%, pulse 80, blood pressure 130/80, respirations 18. CHEST: No wheezing. No crackles. CARDIAC: Normal S1 . ASSESSMENT: 1. Chronic obstructive pulmonary disease exacerbation. 2. Bronchitis. 3. Bipolar disorder. 4. Ongoing tobacco abuse. PLAN: Low-flow O2 initiated, p.o. antibiotics, steroids, ambulation. She is cisneros negative. Hopefully, she will be discharged home in the next several days. Incidentally, her blood gas on admission shows a pO2 of 60, pCO2 of on 2 L nasal O2. Consultation note, 70 minutes, 50% direct patient care. Job ID: [id number]
[2020-03-13 12:10] VITALS: BP 138/77
[2020-03-13 12:58] VITALS: TEMP 98.3
[2020-03-13] MEDS ORDERED: Mometasone 200 MCG/Formoterol 5 MCG 120 PUFF INHALER INH SCH (18:30)
[2020-03-14] MEDS ORDERED: predniSONE 20 MG TAB PO SCH (08:00)
--- NOTE | 2020-03-15 11:03 | DIS ---
DATE OF ADMISSION: 03/12/2020 DATE OF DISCHARGE: 03/13/2020 PRIMARY CARE PHYSICIAN: Wilder Miller MD. AMA: 03/13/2020. HOSPITAL COURSE: The patient was admitted with chronic obstructive pulmonary disease exacerbation, acute on chronic respiratory failure with hypoxia and hypercapnia. No acute metabolic encephalopathy. Tobacco abuse. The patient was admitted to the [facility]. She had acute respiratory acidosis with a high CO2 and a low O2. She has home O2. It is unfortunate that I cannot give a better discharge summary at this time, as the computer is not acting well, however, admitting CBC was unremarkable. Admitting blood gas, pH 7.25, CO2 77.7, O2 54.6. Chemistries: She had a low chloride, a high CO2, low BUN, normal creatinine, normal sodium and potassium. Cardiac enzymes were normal. Lactic acid was normal. SARS test was normal. I am unable to open any reports related to History and Physical, Progress Note, etc. When I saw the lady this morning, she was coughing, short of breath, asking if she could go home. She had a consultation with Dr. Horton. No procedures were done. He recommended moving her for [facility] to [place] [id number] continuing on IV steroids, antibiotics, and nebs. About 3 o'clock in the afternoon, she insisted on going home, stated she will go AMA. She was alert, oriented. She signed the AMA papers. Her brought her oxygen up and she left. I will add a better summary when able. At the time she left, she was still wheezing dramatically, coughing dramatically, but was insisted on leaving. Her risk of return is high. The patient left AMA. No medications could be given. No followup could be addressed. Code status is full. Treatment in the hospital was aggressive with cefepime 2 g IV, DuoNeb 3 mL q.4 hours. Antibiotics were transitioned to Levaquin p.o. She was on prednisone, mometasone, formoterol. She had been on Solu-Medrol 60 mg IV piggyback q.6 hours, which had been changed at noon to oral prednisone. As I said before, prognosis for readmission is very high. Job ID: [id number]
--- NOTE | 2020-03-16 00:19 | PQF ---
CLINICAL DOCUMENTATION CLARIFICATION FORM: Dear : Alysha Johnston Date / Time: 03/16/2020 Please exercise your independent, professional judgment in responding to the clarification form. Clinical indicators are provided on the bottom of this form for your review Please check appropriate box(es): [ ] Pneumonia due to Pseudomonas organism [ ] Pneumonia due to other specified organism [ ] Pneumonia, unspecified [ ] Bronchitis [ c ] Other diagnosis _copd with acute exacerbation [ ] Unable to determine In addition, please specify: Present on Admission (POA): [ ] Yes [ ] No [ ] Unable to determine To be completed by CDI/Coding staff for physician review: Present Clinical Indicators - Signs / Symptoms / Labs Results and Location in Medical Record [ x ] Patient here for SOB. Patient was hypoxic in the 80s on 2 L. Chest x-ray shows possible pneumonia and effusion. ED final diagnoses: COPD exacerbation, hypoxia and pneumonia ED provider report [ x ] IV Cefepime for Pseudomonas coverage and IV azithromycin H and P [ x ] Continue IV antibiotics and IV steroids. Continue nebs, etc Progress note 03/13 by Alysha Eugene [ x ] COPD and exacerbation and bronchitis. Low-flow O2 initiated, p.o. antibiotics, steroids. Noriega negative. Consult 03/13 by Rajan Hopson [ x ] Treatment in the hospital was aggressive with cefepime 2 g IV, DuoNeb 3 mL. Antibiotics were transitioned to Levaquin p.o. Discharge summary [ x ] Chest x-ray showed bilateral patchy infiltrate and question of small pleural effusion. Patient received ceftriaxone, azithromycin and methylprednisolone in the ED H and P Present Risk Factors Results and Location in Medical Record [ x ] COPD exacerbation, acute on chronic respiratory failure with hypoxia and hypercapnia Discharge summary [ x ] Smokes 1 pack/day of tobacco H and P Present Treatments Results and Location in Medical Record [ x ] IV Rocephin 03/12 Medications [ x ] IV Azithromycin 03/12-03/13 Medications [ x ] IV Cefepime 03/12-03/13 Medications [ x ] Levaquin 500 mg p.o. Medications [ x ] Chest x-ray 03/12 Reports CDS/Mid Level Project Manager Signature: [email or web address] Phone #: Date/Time: 03/16/2020 This is a permanent part of the Medical Record [facility]
== END 2020-03-13 15:57 | disposition left against medical advice (07) | DRG 189 ==
LOC: ERS 04:25 → ERHOLD 06:46 → IMCU/EMU 13:42
PROVIDERS: ADMIT Internal Medicine; ATTEND Internal Medicine
DX: J96.21 Acute and chronic respiratory failure with hypoxia (principal); J44.1 Chronic obstructive pulmonary disease with (acute) exacerbation; I50.32 Chronic diastolic (congestive) heart failure; J96.22 Acute and chronic respiratory failure with hypercapnia; J40 Bronchitis, not specified as acute or chronic; G20 Parkinson's disease; F02.80 Dementia in other diseases classified elsewhere, unspecified severity, without behavioral disturbance, psychotic disturbance, mood disturbance, and anxiety; F31.9 Bipolar disorder, unspecified; F39 Unspecified mood [affective] disorder; F17.210 Nicotine dependence, cigarettes, uncomplicated; R10.9 Unspecified abdominal pain; Z99.81 Dependence on supplemental oxygen; Z90.710 Acquired absence of both cervix and uterus; Z90.89 Acquired absence of other organs; Z85.3 Personal history of malignant neoplasm of breast; Z88.5 Allergy status to narcotic agent; Z88.8 Allergy status to other drugs, medicaments and biological substances; Z88.2 Allergy status to sulfonamides
CPT/HCPCS: 36415; 36600; 71045; 74018; 80048; 80053; 82805; 83605; 83735; 83880; 84443; 84484; 85025; 87045; 87046; 87081; 87427; 87449; 93005; 94640; 94660; 96365; 96367; 96375; J0456; J0692; J0696; J1650; J2920; J2930; J3490; J7512; J7620; U0002

== ENCOUNTER 2020-03-21 12:14 | Outpatient (CLI) | payer MEDICARE, MEDICAID ==
--- NOTE | 2020-03-21 13:30 | ULT ---
EXAM: US Thyroid STANDARD PROVIDED CLINICAL HISTORY: Thyroid nodule COMPARISON: 01/18/2020 FINDINGS: The right thyroid lobe measures approximately 4.1 x 1.3 x 1.9 cm and demonstrates a stable predominan tly cystic nodule involving the inferior pole. The left thyroid lobe measures about 5.5 x 2.9 x 3 cm, and demonstrates a stable solid, heterogeneous but predominantly isoechoic nodule involving the mid to inferior aspects of the left thyroid lobe measuring about 4.1 x 2.8 x 2.7 cm. This is wider than tall, smoothly marginated and without echogeni c foci. IMPRESSION: Stable exam. Per TIRADS criteria, FNA of the large left thyroid lobe nodule should be considered.
== END 2020-03-21 12:15 | disposition home or self-care (01) ==
LOC: BICULT 12:14
PROVIDERS: ATTEND Student in an Organized Health Care Education/Training Program
DX: E04.1 Nontoxic single thyroid nodule (principal)
CPT/HCPCS: 76536

== ENCOUNTER 2020-03-24 16:52 | Inpatient (IN) | payer MEDICARE, MEDICAID ==
[2020-03-24 17:41] LABS: #Monocytes 0.5 thou/uL (0.11-0.59); #Neutrophils 4.7 thou/uL (1.40-6.50); %Basophils 0.7 % (0.0-1.0); %Eosinophils 0.8 % (0.0-10.0); %Lymphocytes 15.5 % (21.0-51.0); %Monocytes 8.3 % (0.0-10.0); %Neutrophils 74.8 % (42.0-75.0); Hemoglobin 12.1 g/dL (12.0-16.0); Mean Corpuscular HGB CONC 32.6 g/dL (32.0-36.0); Mean Corpuscular Hemoglobin 31.7 pg (27.0-31.0); Mean Corpuscular Volume 97.2 fL (78.0-98.0); Mean Platelet Volume 8.4 fL (7.4-10.4); Platelet Count 187 thou/uL (130-400); RBC Distribution Width 13.3 % (11.5-14.5); Red Blood Cell (RBC) Count 3.82 mill/uL (4.20-5.40); White Blood Cell (WBC) Count 6.3 thou/uL (4.8-10.8)
--- NOTE | 2020-03-24 17:47 | RAD ---
EXAM: CHEST ONE VIEW HISTORY: COPD and asthma. Shortness of breath for several weeks. Crackles and lower lobes. COMPARISON: 03/12/2020 FINDINGS: Cardiac silhouette is magnified by projection but stable in size. Pulmonary vasculature is within nor mal limits. Bibasilar increased interstitial densities are again seen. No consolidation or pleural fluid is identified. Vascular calcifications are seen in thoracic aorta. Surgical clips again overlie the right hilar region. IMPRESSION: Increased interstitial opacities at each lung base which may represent bibasilar volume loss and/or i nfectious process. Follow-up to resolution is recommended.
[2020-03-24 18:09] LABS: Albumin 3.6 g/dL (3.4-4.8)
[2020-03-24 18:10] LABS: Chloride 97 mmol/L (98-107); Sodium 143 mmol/L (136-145)
[2020-03-24] MEDS ORDERED: Magnesium 2 GM/50 ML BAG (IN WATER) ONE (18:10)
[2020-03-24 18:11] LABS: Calcium 8.7 mg/dL (7.8-10.44); Globulin 2.1 g/dL (2.4-3.5); Glucose 102 mg/dL (80-115); Protein, Total 5.7 g/dL (6.0-8.3)
[2020-03-24] MEDS ORDERED: PROVENTIL INHALER 6.7 G (200 INHALATIONS) ONE (18:11)
[2020-03-24 18:13] LABS: Anion Gap 15 mmol/L (10-20); Bilirubin, Total 0.3 mg/dL (0.2-1.2); Carbon Dioxide 36 mmol/L (23-31)
[2020-03-24 18:14] LABS: Alkaline Phosphatase 70 U/L (40-110); Calc. Creatinine Clearance 0 mL/min (70-130)
[2020-03-24 18:15] LABS: BUN (Urea Nitrogen) 10 mg/dL (9.8-20.1)
[2020-03-24 18:16] LABS: AST (SGOT) 14 U/L (5-34)
[2020-03-24 18:17] LABS: ALT (SGPT) 14 U/L (8-55)
[2020-03-24] MEDS ORDERED: Albuterol 200 PUFF (6.7GM INHALER) INH SCH (18:30)
[2020-03-24] MEDS ORDERED: Magnesium 2 GM/50 ML 2 GM in Premix Bag 1 BAG IVPB SCH (18:30)
[2020-03-24 18:43] LABS: Actual Bicarbonate (HCO3a) 38.5 mEq/L (22-28); Analyzer IN Cardio ER; Base Excess (BEa) 8.6 mEq/L (-2.0 to +3.0); Calcium, Ionized (arterial) 1.27 mmol/L (1.12-1.30); Carboxyhemoglobin (COHb) 1.4 gm% (0.0-3.0); Hemoglobin (Hb) 13.2 g/dL (12.0-16.0); O2 Tension (PaO2), arterial 60.2 mmHg (> 80.0); Potassium - ABG Lab 4.45 mmol/L (3.70-5.30); pH, Arterial 7.28 (7.35-7.45)
[2020-03-24 18:48] LABS: CO2 Tension 83.5 mmHg (35.0-45.0)
[2020-03-24 18:49] LABS: ALV-art Gradient 63.585 mmHg (0-20); Puncture Site LRA
[2020-03-24] MEDS ORDERED: Albuterol 200 PUFF (6.7GM INHALER) ONE (18:56)
[2020-03-24] MEDS ORDERED: Lorazepam 2 MG/ML VIAL ONE (20:05)
[2020-03-24] MEDS ORDERED: Ipratropium Bromide 2.5 ml Neb NEB PRN (21:13)
[2020-03-24 21:33] VITALS: BMI 31.1
[2020-03-24] MEDS: Azithromycin 500 MG in Sodium Chloride 0.9% 250 ML 250 ML IVPB SCH (22:02)
[2020-03-24 22:46] LABS: Actual Bicarbonate (HCO3a) 46.4 mEq/L (22-28); Base Excess (BEa) 13.6 mEq/L (-2.0 to +3.0); Calcium, Ionized (arterial) 1.23 mmol/L (1.12-1.30); Carboxyhemoglobin (COHb) 1.7 gm% (0.0-3.0); Hemoglobin (Hb) 13.1 g/dL (12.0-16.0); Potassium - ABG Lab 4.78 mmol/L (3.70-5.30)
[2020-03-24] MEDS: cefTRIAXone\\ROCEPHIN 1 GM in Sodium Chloride 0.9% 100 ML IVPB SCH (23:24)
[2020-03-25] LABS: Actual Bicarbonate (HCO3a) 40.2 mEq/L (22-28); Base Excess (BEa) 9.7 mEq/L (-2.0 to +3.0); Calcium, Ionized (arterial) 1.21 mmol/L (1.12-1.30); Carboxyhemoglobin (COHb) 1.5 gm% (0.0-3.0); Hemoglobin (Hb) 13.3 g/dL (12.0-16.0); O2 Tension (PaO2), arterial 64.3 mmHg (> 80.0); pH, Arterial 7.27 (7.35-7.45)
--- NOTE | 2020-03-25 | PDOC.HHP ---
Hospitalist HPI - History of Present Illness Shortness of breath, chest pain History of Present Illness: This is 65-year-old female patient history of COPD, Gastritis, dementia Parkinson's disease who presents with shortness of breath and chest pain. Of note she was admitted and discharged about a week ago on account of COPD exacerbation and acute on chronic hypoxic respiratory failure with hypercapnia. At the time of my evaluation she was relatively drowsy and not completely oriented as she was hypercapnic and also had received some Ativan for agitation and also to permit adequate BiPAP. Most of my information was collected from her records signout from ED physician. On arrival she stated that her oxygen was low in the 40s and 50s on her home oxygen and thus EMS was activated. On arrival blood pressure was 138/82, respiratory rate 22-23, temperature 98.7, saturating at 74 on room air. She was moved on to 3 L oxygen and eventually on BiPAP when her ABG showed PCO2 of 83.5, pH 7.28. CBC was generally unremarkable, BMP showed increased bicarb of 36 otherwise was also within normal limits. Troponin was 0.01, BNP 46.3. Covid test was negative. Chest x-ray showed increased interstitial opacities at each lung base which may represent bibasilar volume loss or infectious process. Besides BiPAP she received Proventil and magnesium sulfate. Hospitalist team was consulted for admission. Hospitalist ROS - Review of Systems ROS unobtainable: due to mental status All other systems reviewed; all pertinent +/- noted in HPI/Subj - Medication Medications: Active Medications Generic Name Dose Route Start Last Admin Trade Name Freq PRN Reason Stop Dose Admin Flumazenil 0.2 mg 03/24/20 23:15 03/24/20 23:15 Flumazenil 0.5 Mg/5 Ml Vial IVP 03/25/20 01:15 0.2 mg NOW JAILENE Administration Azithromycin 500 mg/ Sodium 250 mls @ 250 mls/hr 03/24/20 22:00 03/24/20 22 :02 Chloride IVPB 250 mls 2200 JAILENE Administration Ceftriaxone Sodium 1 gm/ 100 mls @ 200 mls/hr 03/24/20 23:00 03/24/20 23:24 Sodium Chloride IVPB 100 mls 2300 JAILENE Administration Allergies: prochlorperazine, codeine Hospitalist History - Past Medical History Other Medical History: COPD, psychiatric disorder, dementia, Parkinson's disease - Past Surgical History Other Surgical History: Bladder sling, fistula repair, hysterectomy, tonsillectomy, hemorrhoidectomy, - Family History Family History: reports: no pertinent history - Social History Smoking Status: Current every day smoker Alcohol: reports: None Drugs: reports: none Living Situation: With Family - Exam General - other findings: Patient awake, slightly drowsy on BiPAP. Neck: supple, symmetric, no JVD, no thyromegaly Heart: RRR, no murmur, no gallops Respiratory - other findings: Reduced air entry bilaterally, scattered wheeze. Tachypneic Gastrointestinal: soft, non-tender, normal bowel sounds, no palpable masses Gastrointestinal - other findings: Abdomen is obese. Extremities: no cyanosis, no clubbing, no edema Neurological: cranial nerve grossly intact Psychiatric: somnolent Hospitalist Results - Labs Result Diagrams: 03/25/20 03:36 03/25/20 03:36 Lab results: WBC 6.3 thou/uL (4.8-10.8) 03/24/20 17:31 Hgb 12.1 g/dL (12.0-16.0) 03/24/20 17:31 Hct 37.1 % (36.0-47.0) 03/24/20 17:31 MCV 97.2 fL (78.0-98.0) 03/24/20 17:31 Plt Count 187 thou/uL (130-400) 03/24/20 17:31 Neutrophils % 74.8 % (42.0-75.0) 03/24/20 17:31 ABG pH 7.28 (7.35-7.45) L 03/24/20 18:38 ABG pCO2 83.5 mmHg (35.0-45.0) H* 03/24/20 18:38 ABG pO2 60.2 mmHg (> 80.0) 03/24/20 18:38 Sodium 143 mmol/L (136-145) 03/24/20 17:31 Potassium 5.0 mmol/L (3.5-5.1) 03/24/20 17:31 Chloride 97 mmol/L (98-107) L 03/24/20 17:31 Carbon Dioxide 36 mmol/L (23-31) H 03/24/20 17:31 BUN 10 mg/dL (9.8-20.1) 03/24/20 17:31 Creatinine 0.64 mg/dL (0.6-1.1) 03/24/20 17:31 Glucose 102 mg/dL (80-115) 03/24/20 17:31 Calcium 8.7 mg/dL (7.8-10.44) 03/24/20 17:31 Total Bilirubin 0.3 mg/dL (0.2-1.2) 03/24/20 17:31 AST 14 U/L (5-34) 03/24/20 17:31 ALT 14 U/L (8-55) 03/24/20 17: Alkaline Phosphatase 70 U/L (40-110) 03/24/20 17: Troponin I 0.011 ng/mL (< 0.028) 03/24/20 17:31 B-Natriuretic Peptide 46.3 pg/mL (0-100) 03/24/20 17: Serum Total Protein 5.7 g/dL (6.0-8.3) L 03/24/20 17: Albumin 3.6 g/dL (3.4-4.8) 03/24/20 17:31 Hospitalist H&P A/P - Plan Plan: This is a 65-year-old female patient with a history of dementia, COPD, bipolar disorder was recently admitted and discharged about a week ago for COPD exacerbation. She presents today with worsening shortness of breath and hypoxia concerning from recurrent COPD exacerbation. Acute hypoxic hypercarbic respiratory failure. Likely secondary to COPD exacerbation, concerns for infection as well. Currently on BiPAPwe will continue Monitor ABG Pulmonology consult in a.m. COPD exacerbation Cover antibiotic if azithromycin and ceftriaxone Duo nebs, Solu-Medrol Monitor in IMCU Possible pneumonia Continue on azithromycin and ceftriaxone Acute encephalopathy In the setting of hypercarbia with Ativan To reverse Ativan if persistent Monitor in IMCU CODE STATUSfull code VTE prophylaxisLovenox
[2020-03-25 00:04] LABS: SARS-CoV-2 MS2 Positive; SARS-CoV-2 N Gene Negative; SARS-CoV-2 S Gene Negative; SARS-CoV-2 by NAA Not Detected (NotDetected); SARS-CoV-2 orf1ab Negative
[2020-03-25 03:18] LABS: Actual Bicarbonate (HCO3a) 41.4 mEq/L (22-28); Base Excess (BEa) 11.3 mEq/L (-2.0 to +3.0); Calcium, Ionized (arterial) 1.22 mmol/L (1.12-1.30); Carboxyhemoglobin (COHb) 1.2 gm% (0.0-3.0); Hemoglobin (Hb) 12.9 g/dL (12.0-16.0); O2 Tension (PaO2), arterial 67.6 mmHg (> 80.0); Potassium - ABG Lab 4.88 mmol/L (3.70-5.30); pH, Arterial 7.29 (7.35-7.45)
[2020-03-25 03:57] LABS: #Lymphocytes 0.6 thou/uL (1.20-3.40); #Monocytes 0.2 thou/uL (0.11-0.59); #Neutrophils 4.6 thou/uL (1.40-6.50); %Eosinophils 0.2 % (0.0-10.0); %Lymphocytes 10.4 % (21.0-51.0); %Neutrophils 86.4 % (42.0-75.0); Hemoglobin 12.5 g/dL (12.0-16.0); Mean Corpuscular HGB CONC 33.3 g/dL (32.0-36.0); Mean Corpuscular Hemoglobin 32.1 pg (27.0-31.0); Mean Corpuscular Volume 96.4 fL (78.0-98.0); Mean Platelet Volume 8.4 fL (7.4-10.4); Platelet Count 185 thou/uL (130-400); RBC Distribution Width 13.2 % (11.5-14.5); Red Blood Cell (RBC) Count 3.89 mill/uL (4.20-5.40); White Blood Cell (WBC) Count 5.3 thou/uL (4.8-10.8)
[2020-03-25 04:19] LABS: Anion Gap 13 mmol/L (10-20); BUN (Urea Nitrogen) 10 mg/dL (9.8-20.1); Calc. Creatinine Clearance 112 mL/min (70-130); Calcium 8.7 mg/dL (7.8-10.44); Carbon Dioxide 36 mmol/L (23-31); Chloride 96 mmol/L (98-107); Glucose 127 mg/dL (80-115); Sodium 140 mmol/L (136-145)
[2020-03-25 05:27] LABS: CO2 Tension 87.3 mmHg (35.0-45.0)
[2020-03-25 05:28] LABS: Puncture Site RRA
[2020-03-25 05:30] LABS: ALV-art Gradient 179.775 mmHg (0-20)
[2020-03-25 05:32] LABS: CO2 Tension 118.2 mmHg (35.0-45.0); O2 Tension (PaO2), arterial 57.7 mmHg (> 80.0); pH, Arterial 7.21 (7.35-7.45)
[2020-03-25 05:33] LABS: Puncture Site LRA
[2020-03-25 05:35] LABS: CO2 Tension 89.1 mmHg (35.0-45.0); Puncture Site LRA
[2020-03-25 05:37] LABS: ALV-art Gradient 145.175 mmHg (0-20)
[2020-03-25] MEDS ORDERED: Non-Formulary Item 1 EACH (Loperamide Hcl [Imodium A-D] 2 MG Tablet) PO PRN (07:57)
[2020-03-25] MEDS ORDERED: Non-Formulary Item 1 EACH (Acetaminophen [Tylenol] 325 MG Capsule) PO PRN (07:57)
--- NOTE | 2020-03-25 08:01 | PDOC.HOSPP ---
- Subjective Encounter Date: 03/25/20 Encounter Time: 10:00 Subjective: Patient off Bipap this AM and back near her home [place] O[place] 2-3L. Asking to go home. eating breakfast. - Objective Vital Signs & Weight: Vital Signs (12 hours) Temp Pulse Ox 03/25/20 07:28 97.4 F L 03/25/20 05:00 92 L 03/25/20 03:59 97.9 F 03/24/20 23:49 98.5 F 03/24/20 21:13 97.4 F L 03/24/20 21:00 90 L Weight Weight 170 lb 10.205 oz Most Recent Monitor Data Heart Rate from ECG 73 NIBP 100/64 NIBP BP-Mean 76 Respiration from ECG 20 SpO2 98 I&O: 03/24/20 03/25/20 03/26/20 06:59 06:59 06:59 Intake Total 350 Output Total 300 Balance 50 Result Diagrams: 03/25/20 03:36 03/25/20 03:36 Hospitalist ROS - Review of Systems Constitutional: denies: fever, chills Respiratory: reports: shortness of breath. denies: cough Cardiovascular: denies: chest pain, palpitations Gastrointestinal: denies: nausea, vomiting, abdominal pain - Medication Medications: Active Medications Generic Name Dose Route Start Last Admin Trade Name Cedricq PRN Reason Stop Dose Admin Azithromycin 500 mg/ Sodium 250 mls @ 250 mls/hr 03/24/20 22:00 03/24/20 22:0 2 Chloride IVPB 250 mls 2200 JAILENE Administration Ceftriaxone Sodium 1 gm/ 100 mls @ 200 mls/hr 03/24/20 23:00 03/24/20 23:24 Sodium Chloride IVPB 100 mls 2300 JAILENE Administration - Exam General Appearance: NAD, awake alert ENT: moist mucosa Heart: RRR, no murmur, no gallops, no rubs Respiratory: CTAB, no wheezes, no rales, no ronchi Gastrointestinal: soft, non-tender, non-distended, normal bowel sounds Psychiatric: normal affect, normal behavior Hosp A/P - Plan This is a 65-year-old female patient with a history of dementia, COPD, bipolar disorder was recently admitted and discharged about a week ago for COPD exacerbation. She presented with worsening shortness of breath and hypoxia concerning from recurrent COPD exacerbation requiring Bipap. Acute hypoxic hypercarbic respiratory failure. Likely secondary to COPD exacerbation, concerns for infection as well. Weaned off Bipap this AM. Pulmonology consult this a.m. COPD exacerbation Cover antibiotic with azithromycin and ceftriaxone Duo nebsaad, Solu-Medrol Monitor in IMCU Possible pneumonia Continue on azithromycin and ceftriaxone Acute encephalopathy In the setting of hypercarbia with Ativan Monitor in IMCU CODE STATUSfull code VTE prophylaxisLovenox
[2020-03-25] MEDS ORDERED: VALPROIC ACID PO SCH (09:00)
[2020-03-25] MEDS ORDERED: [UNRECOGNIZED DRUG - OTHER] PO SCH (09:00)
[2020-03-25] MEDS ORDERED: Non-Formulary Item 1 EACH (Multivitamin [Multi-Vitamin Daily] 1 TABLET Tablet) PO SCH (09:00)
[2020-03-25] MEDS ORDERED: methylPREDNISolone Sod Succ 40 MG VIAL IVP SCH (09:00)
[2020-03-25] MEDS ORDERED: Enoxaparin Sodium 40 MG/0.4 ML SYRINGE SC SCH (09:00)
[2020-03-25] MEDS ORDERED: Loperamide HCl 2 MG CAP PO PRN (10:29)
[2020-03-25] MEDS ORDERED: Acetaminophen 325 MG TAB PO PRN (10:29)
[2020-03-25] MEDS: busPIRone HCl 5 MG TAB PO SCH ×2 (11:33→20:41)
--- NOTE | 2020-03-25 14:23 | CON ---
DATE OF CONSULTATION: 03/25/2020 HISTORY OF PRESENT ILLNESS: Majo Carr is a 65-year-old female with advanced obstructive lung disease. She continues to smokes cigarettes. She was in the hospital a week ago for 2 days. She is back with the same symptoms of shortness of breath and was admitted for BiPAP. PAST MEDICAL HISTORY: 1. Remarkable for Parkinson disease. 2. History of breast cancer. 3. History of bipolar disorder. 4. Multiple admissions this year for COPD exacerbation. 5. History of schizophrenia. 6. Status post hysterectomy. 7. History of hemorrhoidectomy. SOCIAL HISTORY: She is not a daily drinker. MEDICATIONS: 1. She has a nocturnal ventilator, DuoNeb, Pulmicort nebulizer at home. 2. She is on lithium and BuSpar. ALLERGIES: SHE REPORTS ALLERGIES TO CODEINE, PHENERGAN AND SULFA. REVIEW OF SYSTEMS: Negative. PHYSICAL EXAMINATION: VITAL SIGNS: She is afebrile. Heart rate is 92, blood pressure is 112/73, respiratory rates in the teens. HEAD AND NECK: Unremarkable. LUNGS: Clear. HEART: Regular rhythm. S1 and S2 are normal. ABDOMEN: Soft and nontender. EXTREMITIES: Without clubbing, cyanosis, or edema. LABORATORY DATA: White count is 5.3, hemoglobin 12.5, platelets 185. Sodium 140, potassium 5, chloride 96, bicarb 36, BUN 10, creatinine 0.63. Chest radiograph suggestive of increased interstitial markings but inspiratory effort is not ideal. IMPRESSION: Chronic obstructive pulmonary disease exacerbation with ongoing tobacco use. PLAN: Continue intermediate care. She probably does not need BiPAP except for her home ventilator for nighttime use. This could be by family. TIME SPENT: 50-minute consult, 50% of the time was spent on the unit coordinating care. Job ID: [id number] MTDD
[2020-03-25] MEDS: Budesonide 0.5 MG/2 ML NEB NEB SCH (19:34)
[2020-03-25] MEDS ORDERED: Valproate Sodium 250 mg/5 ml UD Cup PO SCH (21:00)
[2020-03-25] MEDS: Azithromycin 500 MG in Sodium Chloride 0.9% 250 ML 250 ML IVPB SCH (22:20)
[2020-03-25] MEDS: cefTRIAXone\\ROCEPHIN 1 GM in Sodium Chloride 0.9% 100 ML IVPB SCH (23:30)
[2020-03-26 07:31] VITALS: TEMP 98.5
--- NOTE | 2020-03-26 07:55 | PDOC.HOSPP ---
- Subjective Encounter Date: 03/26/20 Encounter Time: 10:00 Subjective: Patient off BiPAP, back on her home O2. States she wants to go home. States Dr. Peña saw her this AM and recommended that she stay but she is determined to leave. - Objective Vital Signs & Weight: Vital Signs (12 hours) Temp Pulse Ox 03/26/20 07:30 98.5 F 03/26/20 03:40 97.3 F L 03/25/20 23:28 97.8 F 03/25/20 20:00 99.0 F 95 Weight Weight 170 lb 10.205 oz Most Recent Monitor Data Heart Rate from ECG 78 NIBP 117/73 NIBP BP-Mean 87 Respiration from ECG 21 SpO2 98 I&O: 03/25/20 03/26/20 03/27/20 06:59 06:59 06:59 Intake Total 350 2046 Output Total 300 3175 Balance 50 -1129 Result Diagrams: 03/25/20 03:36 03/25/20 03:36 Hospitalist ROS - Review of Systems Constitutional: denies: fever, chills Respiratory: denies: cough, shortness of breath Cardiovascular: denies: chest pain, palpitations Gastrointestinal: denies: nausea, vomiting, abdominal pain - Medication Medications: Active Medications Generic Name Dose Route Start Last Admin Trade Name Freq PRN Reason Stop Dose Admin Albuterol/Ipratropium 3 ml 03/25/20 11:00 03/25/20 19:35 Ipratropium/Albuterol Sulfate 3 Ml Neb NEB 3 ml QID-RT JAILENE Administration Budesonide 0.5 mg 03/25/20 18:30 03/25/20 19:34 Budesonide 0.5 Mg/2 Ml Neb NEB 0.5 mg BID-RT JAILENE Administration Buspirone HCl 5 mg 03/25/20 09:00 03/25/20 20:41 Buspirone Hcl 5 Mg Tab PO 5 mg BID JAILENE Administration Enoxaparin Sodium 40 mg 03/25/20 09:00 03/25/20 11:34 Enoxaparin Sodium 40 Mg/0.4 Ml Syringe SC 40 mg 0900 JAILENE Administration Azithromycin 500 mg/ Sodium 250 mls @ 250 mls/hr 03/24/20 22:00 03/25/20 22:20 Chloride IVPB 250 mls 2200 JAILENE Administration Ceftriaxone Sodium 1 gm/ 100 mls @ 200 mls/hr 03/24/20 23:00 03/25/20 23:30 Sodium Chloride IVPB 100 mls 2300 JAILENE Administration Simpson Carbonate 300 mg 03/25/20 09:00 03/25/20 20:41 Simpson Carbonate Er 300 Mg Tablet PO 300 mg BID JAILENE Administration Methylprednisolone Sodium Succinate 40 mg 03/25/20 09:00 03/25/20 11:35 Methylprednisolone Sod Succ 40 Mg Vial IVP 40 mg DAILY JAILENE Administration Valproic Acid 500 mg 03/25/20 21:00 03/25/20 11:34 Valproate Sodium 250 Mg/5 Ml Ud Cup PO 500 mg BID JAILENE Administration - Exam General Appearance: NAD, awake alert ENT: moist mucosa Heart: RRR, no murmur, no gallops, no rubs Respiratory - other findings: scattered wheezes, decent air movement Gastrointestinal: soft, non-tender, non-distended, normal bowel sounds Psychiatric: normal affect, normal behavior, A&O x 3 Hosp A/P - Plan This is a 65-year-old female patient with a history of dementia, COPD, bipolar disorder was recently admitted and discharged about a week ago for COPD exacerbation. She presented with worsening shortness of breath and hypoxia concerning from recurrent COPD exacerbation requiring Bipap. Acute hypoxic hypercarbic respiratory failure. Likely secondary to COPD exacerbation, concerns for infection as well. Weaned off Bipap yesterday, just give at night now. Pulmonology consulted, Dr. Peña following. COPD exacerbation Cover antibiotic with azithromycin and ceftriaxone Duo nebs, Solu-Medrol Monitor in IMCU Possible pneumonia Continue on azithromycin and ceftriaxone Acute encephalopathy- resolved In the setting of hypercarbia with Ativan Monitor in IMCU -Continued smoking CODE STATUSfull code VTE prophylaxisLovenox Patient wanting to leave AMA. I did strongly recommend that she stay at least one more day, otherwise she could have a recurrence and be right back in here, or even stop breathing and , but she stated she still wants to leave and is calling her to pick her up.
[2020-03-26] MEDS: Budesonide 0.5 MG/2 ML NEB NEB SCH (08:29)
[2020-03-26] MEDS ORDERED: Multivit, Therapeutic 1 TAB PO SCH (09:00)
--- NOTE | 2020-03-26 15:02 | PRG ---
DATE OF SERVICE: 03/26/2020 SUBJECTIVE: Ms. Carr was evaluated early this morning. She was awake. She said that she had been up all night with care staff awakening her. She called her , she said to come pick her up, to take her home. OBJECTIVE: GENERAL: She is in no distress when I saw her. Her hemodynamics were stable overnight. LUNGS: Clear. HEART: Regular rhythm. ABDOMEN: Soft. IMPRESSION: Chronic obstructive pulmonary disease exacerbation complicated by ongoing tobacco use. PLAN: Continue supportive care. She is marginally capable of taking care of herself. We will continue to follow as long as she is in the hospital. Job ID: [id number]
--- NOTE | 2020-03-26 22:52 | DIS ---
DATE OF ADMISSION: 03/24/2020 DATE OF DISCHARGE: 03/26/2020 PRIMARY CARE PHYSICIAN: Dg Sargent MD REASON FOR ADMISSION: Respiratory distress requiring BiPAP. DIAGNOSES AT DISCHARGE: 1. Acute on chronic hypoxic and hypercapnic respiratory failure, improved. 2. Chronic obstructive pulmonary disease exacerbation. 3. Possible pneumonia. 4. Acute encephalopathy, resolved. 5. Continued smoking. PROCEDURES: None. CONSULTATIONS: Pulmonology, Caden Peña MD SUMMARY OF HOSPITAL COURSE: This is a 65-year-old white female with a history of COPD with multiple hospitalizations for this. She was in the hospital about a week prior for COPD exacerbation. The patient presented to the emergency room with severe shortness of breath and chest pain, when she was in respiratory distress. When she got to the ER, was put on BiPAP and had to be given Ativan for agitation. The patient was able to be weaned off that the next day. She was on steroids, antibiotics, and breathing treatments. The patient today decided that she wanted to go home. Both myself and Dr. Peña recommended that she stay in the hospital further to stabilize her better, so she would not just end up back in the emergency room or possibly even have severe respiratory arrest at home. The patient expressed understanding of the risks, but decided to sign AMA and she left the hospital. Job ID: [id number]
--- NOTE | 2020-03-28 00:35 | PQF ---
Dear : Jackson Peoples Date 03/28/20 Please exercise your independent, professional judgment in responding to the clarification form. Clinical indicators are provided on the bottom of this form for your review Can you please further clarify the etiology of acute encephalopathy? Please check appropriate box(es): Acute Encephalopathy: Etiology: [ X ] Metabolic [ ] Toxic [ ] Septic [ X ] Drug induced: _Ativan [ ] In the setting of underlying dementia [ ] Other diagnosis please specify [ ] Unable to determine Physician Signature: Date/Time: For continuity of documentation, please document condition throughout progress notes and discharge summary. Thank You. To be completed by CDI/Coding staff for physician review: Present Clinical Indicators - Signs / Symptoms / Labs Results and Location in Medical Record [ x ] ROS unobtainable: due to mental status H and P pg.1 [ x ] Tachypneic H and P pg.2 [ x ] Acute encephalopathy in the settings of hypercabnia with ativan H and P pg.4 [ x ] WBC: 6.3, 5.3 Laboratory [ x ] Possible pneumonia DS pg.1 [ x ] Acute encephalopathy resolved DS pg.1 Present Risk Factors Results and Location in Medical Record [ x ] 65 years old H and P pg.1 [ x ] Parkinson dementia H and P pg.1 [ x ] Acute on chronic respiratory failure H and P pg.1 [ x ] COPD exacerbation H and P pg.1 [ x ] Current everyday smoker H and P pg.2 Present Treatments Results and Location in Medical Record [ x ] IV Fluids MAR [ x ] Pulmonary consult Dr. Peña 03/25 [ x ] Oxygen therapy H and P pg.1 [ x ] Azithromycin 500 mg IV MAR [ x ] Rocephin 1gm IV MAR CDS/Rnp Signature: Nathan Simons Phone #: ext [phone] Date 03/28/2020 This is a permanent part of the Medical Record [facility]
== END 2020-03-26 10:37 | disposition left against medical advice (07) | DRG 193 ==
LOC: ERS 16:52 → IMCU/EMU 19:58
PROVIDERS: ADMIT Student in an Organized Health Care Education/Training Program; ATTEND Emergency Medicine
PROC: 5A09357 Assistance with Respiratory Ventilation, Less than 24 Consecutive Hours, Continuous Positive Airway Pressure (ICD-10-PCS; principal; 2020-03-24)
DX: J18.9 Pneumonia, unspecified organism (principal); J96.21 Acute and chronic respiratory failure with hypoxia; J96.22 Acute and chronic respiratory failure with hypercapnia; G92 Toxic encephalopathy; J44.1 Chronic obstructive pulmonary disease with (acute) exacerbation; Z20.828 Contact with and (suspected) exposure to other viral communicable diseases; F17.210 Nicotine dependence, cigarettes, uncomplicated; G20 Parkinson's disease; F20.9 Schizophrenia, unspecified; T42.4X5A Adverse effect of benzodiazepines, initial encounter; F02.80 Dementia in other diseases classified elsewhere, unspecified severity, without behavioral disturbance, psychotic disturbance, mood disturbance, and anxiety; Z53.29 Procedure and treatment not carried out because of patient's decision for other reasons; Z91.018 Allergy to other foods; Z88.8 Allergy status to other drugs, medicaments and biological substances; Z88.5 Allergy status to narcotic agent; Z88.2 Allergy status to sulfonamides; Z90.710 Acquired absence of both cervix and uterus; Z91.041 Radiographic dye allergy status; Z99.81 Dependence on supplemental oxygen
CPT/HCPCS: 36415; 36600; 71045; 76536; 80048; 80053; 82805; 83880; 84484; 85025; 87635; 93005; 94640; 94660; 94664; 96365; 96375; J0456; J0696; J1650; J2060; J2920; J3475; J3490; J7050; J7620; J7626; U0003

== ENCOUNTER 2020-05-11 13:06 | Inpatient (IN) | payer MEDICARE, MEDICAID ==
[2020-05-11 13:52] LABS: #Eosinphils 0.1 thou/uL (0.0-0.7); #Monocytes 0.5 thou/uL (0.11-0.59); #Neutrophils 4.3 thou/uL (1.40-6.50); %Basophils 0.2 % (0.0-1.0); %Lymphocytes 16.9 % (21.0-51.0); %Monocytes 8.8 % (0.0-10.0); %Neutrophils 73.1 % (42.0-75.0); Hemoglobin 12.6 g/dL (12.0-16.0); Mean Corpuscular HGB CONC 32.2 g/dL (32.0-36.0); Mean Corpuscular Hemoglobin 30.7 pg (27.0-31.0); Mean Corpuscular Volume 95.2 fL (78.0-98.0); Mean Platelet Volume 8.4 fL (7.4-10.4); Platelet Count 207 thou/uL (130-400); RBC Distribution Width 12.6 % (11.5-14.5); White Blood Cell (WBC) Count 5.9 thou/uL (4.8-10.8)
[2020-05-11 14:13] LABS: Alcohol Less than 10 mg/dL (Less than 10); Salicylate Less than 8.0 mg/dL (15.0-30.0)
[2020-05-11 14:21] LABS: ALT (SGPT) 8 U/L (8-55); AST (SGOT) 11 U/L (5-34); Albumin 3.7 g/dL (3.4-4.8); Alkaline Phosphatase 80 U/L (40-110); BUN (Urea Nitrogen) 9 mg/dL (9.8-20.1); Bilirubin, Total 0.3 mg/dL (0.2-1.2); Calc. Creatinine Clearance 0 mL/min (70-130); Calcium 9.1 mg/dL (7.8-10.44); Globulin 2.1 g/dL (2.4-3.5); Glucose 118 mg/dL (80-115); Protein, Total 5.8 g/dL (5.8-8.1)
[2020-05-11 14:32] LABS: Anion Gap 16 mmol/L (10-20); Carbon Dioxide 34 mmol/L (23-31); Chloride 95 mmol/L (98-107); Potassium 4.5 mmol/L (3.5-5.1); Sodium 140 mmol/L (136-145)
[2020-05-11 15:13] LABS: Base Excess-Venous 11.6 mmol/L (-2.0 to 3.0); CO2 Tension (PvCO2) 61.4 mmHg (40.0-50.0); Calcium, Ionized 1.09 mmol/L (1.15-1.33); Chloride 95 mmol/L (98-107); Hemoglobin - Calc 14.1 g/dL (12.0-16.0); Potassium 4.9 mmol/L (3.5-5.1); Sodium 136 mmol/L (138-145); T. Carbon Dioxide 40.9 mmol/L (22.0-28.0); vO2 Saturation-calc 99.2 % (60.0-85.0)
[2020-05-11] MEDS ORDERED: Albuterol 200 PUFF (6.7GM INHALER) ONE ×2 (15:51→15:53)
[2020-05-11] MEDS ORDERED: Magnesium 2 GM/50 ML BAG (IN WATER) ONE (17:03)
[2020-05-11] MEDS ORDERED: Dexamethasone 4 mg/ml Vial ONE (17:03)
[2020-05-11] MEDS ORDERED: Cefepime 2 GM VIAL ONE (17:03)
[2020-05-11 18:14] LABS: Bilirubin Negative (Negative); Blood, Urine Negative (Negative); Clarity Clear (Clear); Glucose, Urine (Dipstick) Normal (Negative); Ketone, Urine Negative (Negative); Leukocyte 75 Leu/uL (Negative); Nitrite Negative (Negative); Protein, Urine (Dipstick) 10 mg/dL (Neg-Trace); RBC/HPF 0-3 HPF (0-3); Specific Gravity, Urine 1.012 (1.002-1.036); Squamous Epithelial None Seen HPF (0-3); Transitional Epithelial 0-3 HPF (None Seen); Urobilinogen Normal mg/dL (Less than 2); pH, Urine 6.5 (5.0-9.0)
[2020-05-11 18:18] LABS: Bacteria/HPF 1+ HPF (None Seen)
[2020-05-11 18:20] LABS: Amphetamine Not Detected (NotDetected); Barbiturates Screen Not Detected (NotDetected); Benzodiazepine Screen Not Detected (NotDetected); Cocaine Metabolite Screen Not Detected (NotDetected); Medtox Control Line Valid? VALID (VALID); Medtox Reader # READER 4; Methadone Not Detected (NotDetected); Methamphetamine Not Detected (NotDetected); Opiate Screen Not Detected (NotDetected); Oxycodone Screen Not Detected (NotDetected); Phencyclidine (PCP) Not Detected (NotDetected); THC/Cannabinoid Screen Not Detected (NotDetected); Tricyclic Screen Not Detected (NotDetected)
[2020-05-11 20:01] LABS: SARS-CoV-2 NAA Rapid Test Not Detected (NotDetected)
[2020-05-11] MEDS ORDERED: hydrALAZINE 20 MG/ML VIAL SLOW IVP PRN (21:14)
[2020-05-11] MEDS ORDERED: GUAIFENESIN SF SOLN 200 MG/10 ML UDCUP PO PRN (21:14)
[2020-05-11] MEDS ORDERED: Ondansetron PF 4 MG/2 ML Vial IVP PRN (21:18)
[2020-05-11] MEDS ORDERED: Bisacodyl 5 MG TAB PO PRN (21:18)
[2020-05-11] MEDS: Sodium Chloride 0.9% 1,000 ML IV SCH (23:35)
[2020-05-11] MEDS: cefTRIAXone\\ROCEPHIN 1 GM in Sodium Chloride 0.9% 100 ML IVPB SCH (23:35)
[2020-05-11] MEDS: methylPREDNISolone Sod Succ/PF 125 MG/2 ML VIAL IVP SCH (23:36)
[2020-05-12 04:51] LABS: #Lymphocytes 0.6 thou/uL (1.20-3.40); #Monocytes 0.1 thou/uL (0.11-0.59); #Neutrophils 4.3 thou/uL (1.40-6.50); %Eosinophils 0.3 % (0.0-10.0); %Lymphocytes 11.5 % (21.0-51.0); %Monocytes 1.7 % (0.0-10.0); %Neutrophils 86.5 % (42.0-75.0); Hemoglobin 12.9 g/dL (12.0-16.0); Mean Corpuscular Hemoglobin 30.5 pg (27.0-31.0); Mean Corpuscular Volume 95.2 fL (78.0-98.0); Mean Platelet Volume 8.9 fL (7.4-10.4); Platelet Count 211 thou/uL (130-400); RBC Distribution Width 12.7 % (11.5-14.5); Red Blood Cell (RBC) Count 4.24 mill/uL (4.20-5.40)
[2020-05-12] MEDS: methylPREDNISolone Sod Succ/PF 125 MG/2 ML VIAL IVP SCH ×3 (05:06→17:25)
[2020-05-12 05:07] LABS: BUN (Urea Nitrogen) 8 mg/dL (9.8-20.1); Calc. Creatinine Clearance 108 mL/min (70-130); Calcium 9.2 mg/dL (7.8-10.44); Glucose 138 mg/dL (80-115)
[2020-05-12 05:17] LABS: Anion Gap 12 mmol/L (10-20); Carbon Dioxide 37 mmol/L (23-31); Chloride 95 mmol/L (98-107); Potassium 5.1 mmol/L (3.5-5.1); Sodium 139 mmol/L (136-145)
[2020-05-12] MEDS: Multivit, Therapeutic 1 TAB PO SCH (08:13)
[2020-05-12] MEDS: Nicotine 21 MG PATCH TD SCH (08:15)
[2020-05-12] MEDS: Famotidine 20 MG TAB PO SCH ×2 (08:15→22:05)
[2020-05-12] MEDS: Enoxaparin Sodium 40 MG/0.4 ML SYRINGE SC SCH (08:15)
[2020-05-12] MEDS: guaiFENesin ER 600 MG TAB PO SCH ×2 (08:15→22:05)
[2020-05-12] MEDS: Azithromycin 500 MG in Sodium Chloride 0.9% 250 ML 250 ML IVPB SCH (10:20)
[2020-05-12] MEDS ORDERED: Lorazepam 2 MG/ML VIAL SLOW IVP SCH (13:00)
[2020-05-12] MEDS: Sodium Chloride 0.9% 1,000 ML IV SCH (14:22)
[2020-05-12] MEDS: cefTRIAXone\\ROCEPHIN 1 GM in Sodium Chloride 0.9% 100 ML IVPB SCH (22:04)
[2020-05-13] MEDS: Sodium Chloride 0.9% 1,000 ML IV SCH ×3 (00:01→17:25)
[2020-05-13] MEDS: methylPREDNISolone Sod Succ/PF 125 MG/2 ML VIAL IVP SCH ×5 (00:01→23:13)
[2020-05-13] MEDS: Azithromycin 500 MG in Sodium Chloride 0.9% 250 ML 250 ML IVPB SCH (08:37)
[2020-05-13] MEDS: Multivit, Therapeutic 1 TAB PO SCH (08:38)
[2020-05-13] MEDS: guaiFENesin ER 600 MG TAB PO SCH ×2 (08:38→21:36)
[2020-05-13] MEDS: Anastrozole 1 MG TAB PO SCH (08:38)
[2020-05-13] MEDS: Famotidine 20 MG TAB PO SCH ×2 (08:38→21:35)
[2020-05-13] MEDS: Enoxaparin Sodium 40 MG/0.4 ML SYRINGE SC SCH (08:38)
[2020-05-13] MEDS: Nicotine 21 MG PATCH TD SCH (08:38)
[2020-05-13] MEDS: cefTRIAXone\\ROCEPHIN 1 GM in Sodium Chloride 0.9% 100 ML IVPB SCH (21:41)
[2020-05-14 00:58] LABS: #Lymphocytes 0.5 thou/uL (1.20-3.40); #Monocytes 0.2 thou/uL (0.11-0.59); #Neutrophils 8.5 thou/uL (1.40-6.50); %Basophils 0.1 % (0.0-1.0); %Eosinophils 0.1 % (0.0-10.0); %Monocytes 2.5 % (0.0-10.0); %Neutrophils 92.3 % (42.0-75.0); Hemoglobin 11.9 g/dL (12.0-16.0); Mean Corpuscular HGB CONC 33.1 g/dL (32.0-36.0); Mean Corpuscular Hemoglobin 31.5 pg (27.0-31.0); Mean Platelet Volume 8.6 fL (7.4-10.4); Platelet Count 191 thou/uL (130-400); RBC Distribution Width 12.8 % (11.5-14.5); Red Blood Cell (RBC) Count 3.79 mill/uL (4.20-5.40); White Blood Cell (WBC) Count 9.2 thou/uL (4.8-10.8)
[2020-05-14 01:19] LABS: Anion Gap 12 mmol/L (10-20); BUN (Urea Nitrogen) 14 mg/dL (9.8-20.1); Calc. Creatinine Clearance 108 mL/min (70-130); Calcium 8.7 mg/dL (7.8-10.44); Carbon Dioxide 30 mmol/L (23-31); Chloride 103 mmol/L (98-107); Glucose 145 mg/dL (80-115); Magnesium 2.2 mg/dL (1.6-2.6); Potassium 4.7 mmol/L (3.5-5.1); Sodium 140 mmol/L (136-145)
[2020-05-14] MEDS: methylPREDNISolone Sod Succ/PF 125 MG/2 ML VIAL IVP SCH (06:11)
[2020-05-14] MEDS: Famotidine 20 MG TAB PO SCH ×2 (10:16→20:30)
[2020-05-14] MEDS: Anastrozole 1 MG TAB PO SCH (10:16)
[2020-05-14] MEDS: Multivit, Therapeutic 1 TAB PO SCH (10:16)
[2020-05-14] MEDS: guaiFENesin ER 600 MG TAB PO SCH ×2 (10:16→20:31)
[2020-05-14] MEDS: Nicotine 21 MG PATCH TD SCH (10:16)
[2020-05-14] MEDS: Enoxaparin Sodium 40 MG/0.4 ML SYRINGE SC SCH (10:17)
[2020-05-14] MEDS: Azithromycin 500 MG in Sodium Chloride 0.9% 250 ML 250 ML IVPB SCH (10:21)
[2020-05-14] MEDS: methylPREDNISolone Sod Succ 40 MG VIAL IVP SCH ×2 (12:14→17:03)
[2020-05-14] MEDS: Mometasone 200 MCG/Formoterol 5 MCG 120 PUFF INHALER INH SCH (19:15)
[2020-05-14] MEDS: Valproate Sodium 250 mg/5 ml UD Cup PO SCH (20:30)
[2020-05-14] MEDS: Benztropine 1 MG TAB PO SCH (20:31)
[2020-05-14] MEDS ORDERED: Non-Formulary Item 1 EACH (Benztropine Mesylate [Benztropine Mesylate] 2 MG Tablet) PO SCH (21:00)
[2020-05-14] MEDS ORDERED: [UNRECOGNIZED DRUG - OTHER] PO SCH (21:00)
[2020-05-14] MEDS ORDERED: VALPROIC ACID PO SCH (21:00)
[2020-05-14] MEDS: cefTRIAXone\\ROCEPHIN 1 GM in Sodium Chloride 0.9% 100 ML IVPB SCH (21:26)
[2020-05-15] MEDS: methylPREDNISolone Sod Succ 40 MG VIAL IVP SCH ×2 (00:08→05:20)
[2020-05-15] MEDS: Mometasone 200 MCG/Formoterol 5 MCG 120 PUFF INHALER INH SCH ×2 (07:28→18:44)
[2020-05-15] MEDS: Nicotine 21 MG PATCH TD SCH (09:30)
[2020-05-15] MEDS: Valproate Sodium 250 mg/5 ml UD Cup PO SCH ×2 (09:30→20:31)
[2020-05-15] MEDS: Azithromycin 500 MG in Sodium Chloride 0.9% 250 ML 250 ML IVPB SCH (09:30)
[2020-05-15] MEDS: Enoxaparin Sodium 40 MG/0.4 ML SYRINGE SC SCH (09:30)
[2020-05-15] MEDS: Benztropine 1 MG TAB PO SCH ×2 (09:31→20:31)
[2020-05-15] MEDS: Famotidine 20 MG TAB PO SCH ×2 (09:31→20:32)
[2020-05-15] MEDS: Multivit, Therapeutic 1 TAB PO SCH (09:31)
[2020-05-15] MEDS: Anastrozole 1 MG TAB PO SCH (09:31)
[2020-05-15] MEDS: guaiFENesin ER 600 MG TAB PO SCH ×2 (09:35→20:31)
[2020-05-15] MEDS: Cefdinir 300 MG CAP PO SCH (20:31)
[2020-05-16] MEDS: Mometasone 200 MCG/Formoterol 5 MCG 120 PUFF INHALER INH SCH (06:50)
[2020-05-16 07:55] VITALS: TEMP 99.2
[2020-05-16] MEDS ORDERED: predniSONE 20 MG TAB PO SCH (08:00)
[2020-05-16] MEDS: Valproate Sodium 250 mg/5 ml UD Cup PO SCH (09:05)
[2020-05-16] MEDS: Enoxaparin Sodium 40 MG/0.4 ML SYRINGE SC SCH (09:05)
[2020-05-16] MEDS: Famotidine 20 MG TAB PO SCH (09:05)
[2020-05-16] MEDS: Benztropine 1 MG TAB PO SCH (09:06)
[2020-05-16] MEDS: Cefdinir 300 MG CAP PO SCH (09:06)
[2020-05-16] MEDS: Anastrozole 1 MG TAB PO SCH (09:06)
[2020-05-16] MEDS: Nicotine 21 MG PATCH TD SCH (09:07)
[2020-05-16] MEDS: guaiFENesin ER 600 MG TAB PO SCH (09:07)
[2020-05-16] MEDS: Multivit, Therapeutic 1 TAB PO SCH (09:07)
[2020-05-16 12:11] VITALS: BMI 25.0
[2020-05-16 16:18] VITALS: BP 137/76
== END 2020-05-16 15:50 | DRG 190 ==
LOC: ERS 13:06 → T4-B 17:23 → 2NO 22:41 → OBSVTOIN 05-13 10:11
PROVIDERS: ADMIT Internal Medicine; ATTEND Student in an Organized Health Care Education/Training Program
DX: J44.1 Chronic obstructive pulmonary disease with (acute) exacerbation (principal); G92 Toxic encephalopathy; J96.22 Acute and chronic respiratory failure with hypercapnia; J96.21 Acute and chronic respiratory failure with hypoxia; N39.0 Urinary tract infection, site not specified; Z20.822 Contact with and (suspected) exposure to COVID-19; F31.9 Bipolar disorder, unspecified; F17.210 Nicotine dependence, cigarettes, uncomplicated; F20.9 Schizophrenia, unspecified; G25.1 Drug-induced tremor; R13.10 Dysphagia, unspecified; G20 Parkinson's disease; F02.80 Dementia in other diseases classified elsewhere, unspecified severity, without behavioral disturbance, psychotic disturbance, mood disturbance, and anxiety; F41.9 Anxiety disorder, unspecified; T43.595A Adverse effect of other antipsychotics and neuroleptics, initial encounter; Z99.81 Dependence on supplemental oxygen; Z88.2 Allergy status to sulfonamides; Z88.5 Allergy status to narcotic agent; Z88.8 Allergy status to other drugs, medicaments and biological substances; Z91.041 Radiographic dye allergy status; Z91.018 Allergy to other foods; Z79.899 Other long term (current) drug therapy; Z79.51 Long term (current) use of inhaled steroids; C50.919 Malignant neoplasm of unspecified site of unspecified female breast
CPT/HCPCS: 0240U; 36415; 36416; 71045; 80048; 80053; 80164; 80178; 80306; 80307; 81003; 81015; 82330; 82803; 83735; 84443; 84484; 85025; 87070; 87086; 87205; 93005; 93010; 94640; 96365; 96368; 96372; 96375; 96376; G0378; J0456; J0692; J0696; J1100; J1650; J2060; J2920; J2930; J3475; J3490; J7050; J7512; J7620

== ENCOUNTER 2020-06-05 11:50 | Emergency (ER) | payer MEDICARE, MEDICAID ==
[2020-06-05] MEDS ORDERED: methylPREDNISolone Sod Succ/PF 125 MG/2 ML VIAL ONE (12:08)
[2020-06-05 12:17] LABS: #Basophils 0.1 thou/uL (0.0-0.2); #Monocytes 0.5 thou/uL (0.11-0.59); #Neutrophils 5.3 thou/uL (1.40-6.50); %Eosinophils 0.6 % (0.0-10.0); %Lymphocytes 14.1 % (21.0-51.0); %Monocytes 6.9 % (0.0-10.0); %Neutrophils 77.5 % (42.0-75.0); Hemoglobin 13.3 g/dL (12.0-16.0); Mean Corpuscular HGB CONC 31.9 g/dL (32.0-36.0); Mean Corpuscular Hemoglobin 31.3 pg (27.0-31.0); Mean Corpuscular Volume 98.2 fL (78.0-98.0); Mean Platelet Volume 8.2 fL (7.4-10.4); Platelet Count 260 thou/uL (130-400); RBC Distribution Width 12.9 % (11.5-14.5); Red Blood Cell (RBC) Count 4.26 mill/uL (4.20-5.40); White Blood Cell (WBC) Count 6.8 thou/uL (4.8-10.8)
--- NOTE | 2020-06-05 12:35 | RAD ---
EXAM: Single view of the chest HISTORY: Fall with head trauma COMPARISON: 05/11/2020 FINDINGS: Single view of the chest shows an enlarged but stable cardiomediastinal silhouette. Athero sclerotic calcifications are seen in the aorta. Increased interstitial markings are present. Bilateral pulmonary vascular enlargement is seen. There is no evidence of consolidation, mass, or ple ural effusion. Degenerative changes are seen in the spine. IMPRESSION: No evidence of acute cardiopulmonary disease
[2020-06-05 12:43] LABS: ALT (SGPT) 12 U/L (8-55); AST (SGOT) 15 U/L (5-34); Albumin 4.1 g/dL (3.4-4.8); Alkaline Phosphatase 90 U/L (40-110); BUN (Urea Nitrogen) 8 mg/dL (9.8-20.1); Bilirubin, Total 0.5 mg/dL (0.2-1.2); Calc. Creatinine Clearance 0 mL/min (70-130); Calcium 10.3 mg/dL (7.8-10.44); Globulin 2.6 g/dL (2.4-3.5); Glucose 102 mg/dL (80-115); Protein, Total 6.7 g/dL (5.8-8.1)
[2020-06-05 12:52] LABS: Anion Gap 14 mmol/L (10-20); Carbon Dioxide 36 mmol/L (23-31); Chloride 95 mmol/L (98-107); Potassium 4.5 mmol/L (3.5-5.1); Sodium 140 mmol/L (136-145)
--- NOTE | 2020-06-05 13:23 | CT ---
CT OF BRAIN PERFORMED WITHOUT CONTRAST ENHANCEMENT: HISTORY: Fell yesterday and hit head on dresser. COMPARISON: 12/01/2019 exam. FINDINGS: The ventricular and cisternal system is within normal limits. There are no signs of intracerebral hem orrhage or extra-axial fluid collections. The mastoid air cells are clear. There is some mucosal dugan ge in the right maxillary sinus, similar to the prior examination. Thickening of the bones of the max illa are of similar appearance to the prior study. IMPRESSION: No acute intracranial abnormalities. POS: DOM
--- NOTE | 2020-06-08 16:11 | EKG ---
Test Reason : Blood Pressure : / mmHG Vent. Rate : 093 BPM Atrial Rate : 093 BPM P-R Int : 136 ms QRS Dur : 072 ms QT Int : 342 ms P-R-T Axes : 071 -89 059 degrees QTc Int : 425 ms Normal sinus rhythm Left axis deviation Pulmonary disease pattern Possible Inferior infarct , age undetermined Abnormal ECG Confirmed by VICTORIA BERGMAN DO ([id number]), state editor ANITA REECE ([id number]) on 06/08/2020 4:11:25 PM Referred By: Confirmed By:VICTORIA BERGMAN DO
== END 2020-06-05 14:49 | disposition home or self-care (01) ==
LOC: ERS 11:50
DX: S09.90XA Unspecified injury of head, initial encounter (principal); J44.1 Chronic obstructive pulmonary disease with (acute) exacerbation; F03.90 Unspecified dementia, unspecified severity, without behavioral disturbance, psychotic disturbance, mood disturbance, and anxiety; G20 Parkinson's disease; F17.210 Nicotine dependence, cigarettes, uncomplicated; W18.30XA Fall on same level, unspecified, initial encounter
CPT/HCPCS: 70450; 71045; 80053; 83880; 84484; 85025; 93005; 96374; J2930; J7620

== ENCOUNTER 2020-06-13 13:18 | Observation (INO) | payer MEDICARE, MEDICAID ==
[2020-06-13 14:07] LABS: #Lymphocytes 0.6 thou/uL (1.20-3.40); #Monocytes 0.3 thou/uL (0.11-0.59); #Neutrophils 6.6 thou/uL (1.40-6.50); %Eosinophils 0.3 % (0.0-10.0); %Lymphocytes 7.5 % (21.0-51.0); %Monocytes 4.5 % (0.0-10.0); %Neutrophils 87.6 % (42.0-75.0); Hemoglobin 13.7 g/dL (12.0-16.0); Mean Corpuscular HGB CONC 33.2 g/dL (32.0-36.0); Mean Corpuscular Hemoglobin 32.2 pg (27.0-31.0); Mean Corpuscular Volume 96.9 fL (78.0-98.0); Mean Platelet Volume 8.7 fL (7.4-10.4); Platelet Count 211 thou/uL (130-400); RBC Distribution Width 12.7 % (11.5-14.5); Red Blood Cell (RBC) Count 4.27 mill/uL (4.20-5.40); White Blood Cell (WBC) Count 7.5 thou/uL (4.8-10.8)
[2020-06-13 14:21] LABS: Bilirubin Negative (Negative); Blood, Urine Negative (Negative); Clarity Clear (Clear); Glucose, Urine (Dipstick) Normal (Negative); Ketone, Urine Negative (Negative); Leukocyte Negative Leu/uL (Negative); Nitrite Negative (Negative); Protein, Urine (Dipstick) 20 mg/dL (Neg-Trace); Urobilinogen Normal mg/dL (Less than 2)
[2020-06-13 14:36] LABS: Amphetamine Not Detected (NotDetected); Barbiturates Screen Not Detected (NotDetected); Benzodiazepine Screen Not Detected (NotDetected); Cocaine Metabolite Screen Not Detected (NotDetected); Medtox Control Line Valid? VALID (VALID); Medtox Reader # READER 4; Methadone Not Detected (NotDetected); Methamphetamine Not Detected (NotDetected); Opiate Screen Not Detected (NotDetected); Oxycodone Screen Not Detected (NotDetected); Phencyclidine (PCP) Not Detected (NotDetected); THC/Cannabinoid Screen Not Detected (NotDetected); Tricyclic Screen Not Detected (NotDetected)
[2020-06-13 14:39] LABS: ALT (SGPT) 12 U/L (8-55); AST (SGOT) 18 U/L (5-34); Acetaminophen Less than 6.0 mcg/mL (10.0-30.0); Albumin 3.7 g/dL (3.4-4.8); Alkaline Phosphatase 84 U/L (40-110); Bilirubin, Total 0.3 mg/dL (0.2-1.2); Calcium 9.5 mg/dL (7.8-10.44)
[2020-06-13 14:41] LABS: Alcohol Less than 10 mg/dL (Less than 10); BUN (Urea Nitrogen) 6 mg/dL (9.8-20.1); Calc. Creatinine Clearance 0 mL/min (70-130); Globulin 2.7 g/dL (2.4-3.5); Glucose 116 mg/dL (80-115); Protein, Total 6.4 g/dL (5.8-8.1); Salicylate Less than 8.0 mg/dL (15.0-30.0)
[2020-06-13 14:44] LABS: Anion Gap 16 mmol/L (10-20); Carbon Dioxide 35 mmol/L (23-31); Chloride 93 mmol/L (98-107); Potassium 4.6 mmol/L (3.5-5.1); Sodium 139 mmol/L (136-145)
[2020-06-14] MEDS ORDERED: Acetaminophen 325 MG TAB PO PRN ×2 (01:00→02:11)
[2020-06-14] MEDS ORDERED: Ondansetron PF 4 MG/2 ML Vial IVP PRN ×2 (01:00→02:11)
[2020-06-14] MEDS ORDERED: Ondansetron ODT 4 MG TAB SL PRN (01:00)
[2020-06-14 01:12] VITALS: BMI 28.3
[2020-06-14] MEDS ORDERED: Senokot S 8.6-50 MG TAB PO PRN (02:11)
[2020-06-14] MEDS ORDERED: Acetaminophen 650 MG Suppository PR PRN (02:11)
[2020-06-14] MEDS ORDERED: Calcium Carbonate 500 MG ChewTAB PO PRN (02:11)
[2020-06-14] MEDS ORDERED: Ondansetron ODT 4 MG TAB PO PRN (02:11)
[2020-06-14 04:47] LABS: SARS-CoV-2 PCR by NAA Not Detected (NotDetected)
[2020-06-14 05:47] LABS: #Eosinphils 0.1 thou/uL (0.0-0.7); #Lymphocytes 1.2 thou/uL (1.20-3.40); #Monocytes 0.8 thou/uL (0.11-0.59); #Neutrophils 5.1 thou/uL (1.40-6.50); %Basophils 0.1 % (0.0-1.0); %Eosinophils 0.9 % (0.0-10.0); %Lymphocytes 16.4 % (21.0-51.0); %Monocytes 11.6 % (0.0-10.0); Hemoglobin 12.7 g/dL (12.0-16.0); Mean Corpuscular HGB CONC 32.5 g/dL (32.0-36.0); Mean Corpuscular Hemoglobin 31.4 pg (27.0-31.0); Mean Corpuscular Volume 96.6 fL (78.0-98.0); Mean Platelet Volume 8.2 fL (7.4-10.4); Platelet Count 196 thou/uL (130-400); RBC Distribution Width 12.8 % (11.5-14.5); Red Blood Cell (RBC) Count 4.05 mill/uL (4.20-5.40); White Blood Cell (WBC) Count 7.2 thou/uL (4.8-10.8)
[2020-06-14 06:12] LABS: BUN (Urea Nitrogen) 9 mg/dL (9.8-20.1); Calc. Creatinine Clearance 108 mL/min (70-130); Calcium 9.3 mg/dL (7.8-10.44); Glucose 108 mg/dL (80-115)
[2020-06-14 06:21] LABS: Anion Gap 16 mmol/L (10-20); Carbon Dioxide 34 mmol/L (23-31); Chloride 94 mmol/L (98-107); Potassium 3.9 mmol/L (3.5-5.1); Sodium 140 mmol/L (136-145)
[2020-06-14] MEDS ORDERED: Anastrozole 1 MG TAB PO SCH (09:00)
[2020-06-14] MEDS ORDERED: Benztropine 1 MG TAB PO SCH (09:00)
[2020-06-14] MEDS ORDERED: busPIRone HCl 5 MG TAB PO SCH (09:00)
[2020-06-14 12:23] VITALS: BP 140/65; TEMP 97.6
[2020-06-14] MEDS ORDERED: Valproate Sodium 250 mg/5 ml UD Cup PO SCH (21:00)
== END 2020-06-14 13:39 ==
LOC: ERS 13:18 → ONC 23:01
PROVIDERS: ADMIT Internal Medicine; ATTEND Internal Medicine
DX: R41.82 Altered mental status, unspecified (principal); R09.02 Hypoxemia; R26.2 Difficulty in walking, not elsewhere classified; J44.9 Chronic obstructive pulmonary disease, unspecified; G20 Parkinson's disease; F02.80 Dementia in other diseases classified elsewhere, unspecified severity, without behavioral disturbance, psychotic disturbance, mood disturbance, and anxiety; F31.9 Bipolar disorder, unspecified; F20.9 Schizophrenia, unspecified; F41.9 Anxiety disorder, unspecified; F17.210 Nicotine dependence, cigarettes, uncomplicated; I45.10 Unspecified right bundle-branch block; Z85.3 Personal history of malignant neoplasm of breast; Z79.52 Long term (current) use of systemic steroids; Z79.811 Long term (current) use of aromatase inhibitors; Z79.899 Other long term (current) drug therapy; Z88.2 Allergy status to sulfonamides; Z88.5 Allergy status to narcotic agent; Z88.8 Allergy status to other drugs, medicaments and biological substances; Z91.018 Allergy to other foods; Z99.81 Dependence on supplemental oxygen; Z20.828 Contact with and (suspected) exposure to other viral communicable diseases
CPT/HCPCS: 70450; 71045; 80048; 80306; 80307; 81003; 82550; 83605; 84484; 85025; 87040; 93005; 97139 ×2; 99285; G0378 ×2; U0003; U0005; 36415; 80053; 84443; 87635

== ENCOUNTER 2020-08-02 06:53 | Inpatient (IN) | payer MEDICARE, MEDICAID ==
[2020-08-02 07:25] LABS: Actual Bicarbonate (HCO3a) 51.5 mEq/L (22-28); Analyzer IN Cardio ER; Base Excess (BEa) 18.2 mEq/L (-2.0 to +3.0); Calcium, Ionized (arterial) 1.28 mmol/L (1.12-1.30); Carboxyhemoglobin (COHb) 1.1 gm% (0.0-3.0); Hemoglobin (Hb) 13.2 g/dL (12.0-16.0); Potassium - ABG Lab 4.23 mmol/L (3.70-5.30)
[2020-08-02] MEDS ORDERED: Naloxone HCl 2 mg/2 ml Syringe ONE (07:30)
[2020-08-02 07:56] LABS: ALT (SGPT) 16 U/L (8-55); AST (SGOT) 14 U/L (5-34); Acetaminophen Less than 6.0 mcg/mL (10.0-30.0); Albumin 3.9 g/dL (3.4-4.8); Alcohol Less than 10 mg/dL (Less than 10); Alkaline Phosphatase 89 U/L (40-110); BUN (Urea Nitrogen) 9 mg/dL (9.8-20.1); Bilirubin, Total 0.5 mg/dL (0.2-1.2); Calc. Creatinine Clearance 0 mL/min (70-130); Globulin 2.3 g/dL (2.4-3.5); Glucose 142 mg/dL (80-115); Protein, Total 6.2 g/dL (5.8-8.1); Salicylate Less than 8.0 mg/dL (15.0-30.0)
[2020-08-02 08:06] LABS: Anion Gap 16 mmol/L (10-20); Carbon Dioxide 37 mmol/L (23-31); Chloride 91 mmol/L (98-107); Potassium 4.5 mmol/L (3.5-5.1); Sodium 139 mmol/L (136-145)
[2020-08-02 08:08] LABS: CO2 Tension 124.3 mmHg (35.0-45.0); pH, Arterial 7.24 (7.35-7.45)
[2020-08-02 08:09] LABS: ALV-art Gradient 29.785 mmHg (0-20)
[2020-08-02 08:14] LABS: Bilirubin Negative (Negative); Blood, Urine Negative (Negative); Clarity Clear (Clear); Glucose, Urine (Dipstick) Normal (Negative); Ketone, Urine Negative (Negative); Leukocyte 25 Leu/uL (Negative); Nitrite Negative (Negative); Protein, Urine (Dipstick) 20 mg/dL (Neg-Trace); RBC/HPF 0-3 HPF (0-3); Specific Gravity, Urine 1.011 (1.002-1.036); Squamous Epithelial None Seen HPF (0-3); Urobilinogen Normal mg/dL (Less than 2); pH, Urine 6.5 (5.0-9.0)
[2020-08-02 08:16] LABS: Bacteria/HPF Rare-Few HPF (None Seen)
[2020-08-02 08:21] LABS: Amphetamine Not Detected (NotDetected); Barbiturates Screen Not Detected (NotDetected); Benzodiazepine Screen Not Detected (NotDetected); Cocaine Metabolite Screen Not Detected (NotDetected); Medtox Control Line Valid? VALID (VALID); Medtox Reader # READER 1; Methadone Not Detected (NotDetected); Methamphetamine Not Detected (NotDetected); Opiate Screen Not Detected (NotDetected); Oxycodone Screen Not Detected (NotDetected); Phencyclidine (PCP) Not Detected (NotDetected); THC/Cannabinoid Screen Not Detected (NotDetected); Tricyclic Screen Not Detected (NotDetected)
[2020-08-02] MEDS ORDERED: Cefepime 2 GM VIAL ONE (08:31)
[2020-08-02 08:44] LABS: SARS-CoV-2 NAA Rapid Test Not Detected (NotDetected)
[2020-08-02 08:51] LABS: #Lymphocytes 0.8 thou/uL (1.20-3.40); #Monocytes 0.8 thou/uL (0.11-0.59); #Neutrophils 8.5 thou/uL (1.40-6.50); %Basophils 0.2 % (0.0-1.0); %Eosinophils 0.5 % (0.0-10.0); %Lymphocytes 7.8 % (21.0-51.0); %Monocytes 7.4 % (0.0-10.0); %Neutrophils 84.1 % (42.0-75.0); Hemoglobin 12.1 g/dL (12.0-16.0); Mean Corpuscular HGB CONC 31.2 g/dL (32.0-36.0); Mean Corpuscular Hemoglobin 30.4 pg (27.0-31.0); Mean Corpuscular Volume 97.4 fL (78.0-98.0); Mean Platelet Volume 8.7 fL (7.4-10.4); Platelet Count 239 thou/uL (130-400)
[2020-08-02 11:05] LABS: Actual Bicarbonate (HCO3a) 39.9 mEq/L (22-28); Analyzer IN Cardio ER; Base Excess (BEa) 10.3 mEq/L (-2.0 to +3.0); Calcium, Ionized (arterial) 1.24 mmol/L (1.12-1.30); Carboxyhemoglobin (COHb) 0.9 gm% (0.0-3.0); Hemoglobin (Hb) 13.3 g/dL (12.0-16.0); Potassium - ABG Lab 4.47 mmol/L (3.70-5.30); pH, Arterial 7.31 (7.35-7.45)
[2020-08-02 11:33] LABS: ALV-art Gradient 127.025 mmHg (0-20); CO2 Tension 81.5 mmHg (35.0-45.0); O2 Tension (PaO2), arterial 56.3 mmHg (> 80.0); Puncture Site RRA
[2020-08-02 13:29] VITALS: BMI 29.1
[2020-08-02] MEDS: methylPREDNISolone Sod Succ 40 MG VIAL IVP SCH (15:06)
[2020-08-02] MEDS: Lorazepam 2 MG/ML VIAL SLOW IVP PRN (17:52)
[2020-08-03] MEDS: methylPREDNISolone Sod Succ 40 MG VIAL IVP SCH ×4 (00:47→23:15)
[2020-08-03 04:17] LABS: Anion Gap 13 mmol/L (10-20); BUN (Urea Nitrogen) 12 mg/dL (9.8-20.1); Calc. Creatinine Clearance 119 mL/min (70-130); Calcium 9.7 mg/dL (7.8-10.44); Carbon Dioxide 37 mmol/L (23-31); Chloride 91 mmol/L (98-107); Glucose 112 mg/dL (80-115); Potassium 4.7 mmol/L (3.5-5.1); Sodium 136 mmol/L (136-145)
[2020-08-03 04:20] LABS: Band 6 % (5-11); Hemoglobin 12.1 g/dL (12.0-16.0); Lymphocytes 5 % (21-51); MDiff Complete? YES; Mean Corpuscular HGB CONC 32.9 g/dL (32.0-36.0); Mean Corpuscular Hemoglobin 31.5 pg (27.0-31.0); Mean Corpuscular Volume 95.9 fL (78.0-98.0); Mean Platelet Volume 8.3 fL (7.4-10.4); Neutrophil 89 % (42-75); Platelet Count 216 thou/uL (130-400); Platelet Morphology Comment Appears Adequate; RBC Distribution Width 12.8 % (11.5-14.5); RBC Morphology Normal; Red Blood Cell (RBC) Count 3.85 mill/uL (4.20-5.40); White Blood Cell (WBC) Count 8.4 thou/uL (4.8-10.8)
[2020-08-03] MEDS: Enoxaparin Sodium 40 MG/0.4 ML SYRINGE SC SCH (07:59)
[2020-08-03] MEDS: Lorazepam 2 MG/ML VIAL SLOW IVP PRN ×2 (12:28→17:28)
[2020-08-03] MEDS: Mometasone 100 MCG/Formoterol 5 MCG 120 PUFF INHALER INH SCH (18:21)
[2020-08-03] MEDS: Benztropine 1 MG TAB PO SCH (23:14)
[2020-08-03] MEDS: busPIRone HCl 5 MG TAB PO SCH (23:14)
[2020-08-03] MEDS: Valproate Sodium 250 mg/5 ml UD Cup PO SCH (23:15)
[2020-08-04 04:02] LABS: #Lymphocytes 0.4 thou/uL (1.20-3.40); #Monocytes 0.2 thou/uL (0.11-0.59); #Neutrophils 9.1 thou/uL (1.40-6.50); %Basophils 0.1 % (0.0-1.0); %Lymphocytes 4.4 % (21.0-51.0); %Monocytes 2.3 % (0.0-10.0); %Neutrophils 93.2 % (42.0-75.0); Hemoglobin 12.2 g/dL (12.0-16.0); Mean Corpuscular HGB CONC 32.9 g/dL (32.0-36.0); Mean Corpuscular Hemoglobin 31.2 pg (27.0-31.0); Mean Platelet Volume 8.3 fL (7.4-10.4); Platelet Count 231 thou/uL (130-400); RBC Distribution Width 12.9 % (11.5-14.5); Red Blood Cell (RBC) Count 3.89 mill/uL (4.20-5.40); White Blood Cell (WBC) Count 9.8 thou/uL (4.8-10.8)
[2020-08-04 04:21] LABS: BUN (Urea Nitrogen) 20 mg/dL (9.8-20.1); Calc. Creatinine Clearance 111 mL/min (70-130); Calcium 9.6 mg/dL (7.8-10.44); Glucose 121 mg/dL (80-115)
[2020-08-04 04:31] LABS: Anion Gap 17 mmol/L (10-20); Carbon Dioxide 34 mmol/L (23-31); Chloride 92 mmol/L (98-107); Potassium 4.8 mmol/L (3.5-5.1); Sodium 138 mmol/L (136-145)
[2020-08-04] MEDS: methylPREDNISolone Sod Succ 40 MG VIAL IVP SCH ×2 (06:50→14:51)
[2020-08-04] MEDS: Mometasone 100 MCG/Formoterol 5 MCG 120 PUFF INHALER INH SCH ×2 (07:15→18:34)
[2020-08-04] MEDS: Benztropine 1 MG TAB PO SCH ×2 (08:39→20:30)
[2020-08-04] MEDS: Valproate Sodium 250 mg/5 ml UD Cup PO SCH ×2 (08:39→20:32)
[2020-08-04] MEDS: busPIRone HCl 5 MG TAB PO SCH ×2 (08:40→20:30)
[2020-08-04] MEDS: Enoxaparin Sodium 40 MG/0.4 ML SYRINGE SC SCH (08:40)
[2020-08-04] MEDS: Multivit, Therapeutic 1 TAB PO SCH (08:40)
[2020-08-04] MEDS ORDERED: Magnesium Citrate 300 ML BOT PO SCH (13:30)
[2020-08-04] MEDS: Lorazepam 2 MG/ML VIAL SLOW IVP PRN (23:25)
[2020-08-05] MEDS: Mometasone 100 MCG/Formoterol 5 MCG 120 PUFF INHALER INH SCH ×2 (07:02→19:02)
[2020-08-05] MEDS: Benztropine 1 MG TAB PO SCH ×2 (08:23→20:16)
[2020-08-05] MEDS: busPIRone HCl 5 MG TAB PO SCH ×2 (08:23→20:16)
[2020-08-05] MEDS: predniSONE 20 MG TAB PO SCH (08:23)
[2020-08-05] MEDS: Enoxaparin Sodium 40 MG/0.4 ML SYRINGE SC SCH (08:24)
[2020-08-05] MEDS: Multivit, Therapeutic 1 TAB PO SCH (08:24)
[2020-08-05] MEDS: Valproate Sodium 250 mg/5 ml UD Cup PO SCH (20:15)
[2020-08-06] MEDS: Lorazepam 2 MG/ML VIAL SLOW IVP PRN (01:21)
[2020-08-06] MEDS: Mometasone 100 MCG/Formoterol 5 MCG 120 PUFF INHALER INH SCH ×2 (07:24→18:53)
[2020-08-06] MEDS: Benztropine 1 MG TAB PO SCH ×2 (09:24→20:55)
[2020-08-06] MEDS: Multivit, Therapeutic 1 TAB PO SCH (09:24)
[2020-08-06] MEDS: Valproate Sodium 250 mg/5 ml UD Cup PO SCH ×2 (09:24→20:55)
[2020-08-06] MEDS: predniSONE 20 MG TAB PO SCH (09:25)
[2020-08-06] MEDS: busPIRone HCl 5 MG TAB PO SCH ×2 (09:25→20:55)
[2020-08-06] MEDS: Enoxaparin Sodium 40 MG/0.4 ML SYRINGE SC SCH (09:26)
[2020-08-06] MEDS: AcetaZOLAMIDE 250 MG TAB PO SCH (09:26)
[2020-08-07 06:46] LABS: ALT (SGPT) 8 U/L (8-55); AST (SGOT) 15 U/L (5-34); Albumin 3.6 g/dL (3.4-4.8); Alkaline Phosphatase 67 U/L (40-110); BUN (Urea Nitrogen) 9 mg/dL (9.8-20.1); Bilirubin, Total 0.5 mg/dL (0.2-1.2); Calc. Creatinine Clearance 94 mL/min (70-130); Calcium 9.7 mg/dL (7.8-10.44); Globulin 2.5 g/dL (2.4-3.5); Glucose 84 mg/dL (80-115); Protein, Total 6.1 g/dL (5.8-8.1)
[2020-08-07 06:55] LABS: Anion Gap 12 mmol/L (10-20); Carbon Dioxide 36 mmol/L (23-31); Chloride 97 mmol/L (98-107); Potassium 4.2 mmol/L (3.5-5.1); Sodium 141 mmol/L (136-145)
[2020-08-07] MEDS: Mometasone 100 MCG/Formoterol 5 MCG 120 PUFF INHALER INH SCH (07:06)
[2020-08-07] MEDS ORDERED: predniSONE 20 MG TAB PO SCH (08:00)
[2020-08-07] MEDS: Valproate Sodium 250 mg/5 ml UD Cup PO SCH (08:28)
[2020-08-07] MEDS: AcetaZOLAMIDE 250 MG TAB PO SCH (08:28)
[2020-08-07] MEDS: busPIRone HCl 5 MG TAB PO SCH (08:29)
[2020-08-07] MEDS: Enoxaparin Sodium 40 MG/0.4 ML SYRINGE SC SCH (08:29)
[2020-08-07] MEDS: Benztropine 1 MG TAB PO SCH (08:29)
[2020-08-07] MEDS: Multivit, Therapeutic 1 TAB PO SCH (08:29)
[2020-08-07 15:21] VITALS: BP 122/73; TEMP 98.3
== END 2020-08-07 17:20 | DRG 193 ==
LOC: ERS 06:53 → IMCU/EMU 09:14 → T4-B 08-04 15:59
PROVIDERS: ADMIT Hospitalist; ATTEND Internal Medicine
PROC: 5A09457 Assistance with Respiratory Ventilation, 24-96 Consecutive Hours, Continuous Positive Airway Pressure (ICD-10-PCS; principal; 2020-08-02)
DX: J18.9 Pneumonia, unspecified organism (principal); J96.22 Acute and chronic respiratory failure with hypercapnia; G93.41 Metabolic encephalopathy; J96.21 Acute and chronic respiratory failure with hypoxia; E66.2 Morbid (severe) obesity with alveolar hypoventilation; E87.3 Alkalosis; J43.9 Emphysema, unspecified; Z20.822 Contact with and (suspected) exposure to COVID-19; F41.9 Anxiety disorder, unspecified; F20.9 Schizophrenia, unspecified; R13.10 Dysphagia, unspecified; G20 Parkinson's disease; F02.80 Dementia in other diseases classified elsewhere, unspecified severity, without behavioral disturbance, psychotic disturbance, mood disturbance, and anxiety; F17.210 Nicotine dependence, cigarettes, uncomplicated; F31.9 Bipolar disorder, unspecified; Z88.5 Allergy status to narcotic agent; Z88.2 Allergy status to sulfonamides; Z88.8 Allergy status to other drugs, medicaments and biological substances; Z91.041 Radiographic dye allergy status; Z91.02 Food additives allergy status; Z90.710 Acquired absence of both cervix and uterus; Z78.9 Other specified health status; Z91.14 Patient's other noncompliance with medication regimen; Z68.29 Body mass index [BMI] 29.0-29.9, adult; Z99.81 Dependence on supplemental oxygen
CPT/HCPCS: 0240U; 36415; 36416; 36600; 51701; 70450; 71045; 80048; 80053; 80178; 80306; 80307; 81003; 81015; 82140; 82805; 83605; 84484; 85025; 87040; 93005; 94640; 94660; 94760; 96365; 96367; 96375; J0692; J1650; J1956; J2060; J2310; J2920; J7512; J7620

== ENCOUNTER 2020-08-27 23:27 | Inpatient (IN) | payer MEDICARE, MEDICAID ==
[2020-08-28 00:16] LABS: #Basophils 0.1 thou/uL (0.0-0.2); #Eosinphils 0.1 thou/uL (0.0-0.7); #Lymphocytes 1.9 thou/uL (1.20-3.40); #Monocytes 0.9 thou/uL (0.11-0.59); #Neutrophils 5.4 thou/uL (1.40-6.50); %Basophils 0.6 % (0.0-1.0); %Eosinophils 0.8 % (0.0-10.0); %Lymphocytes 22.7 % (21.0-51.0); %Monocytes 10.4 % (0.0-10.0); %Neutrophils 65.5 % (42.0-75.0); Hemoglobin 12.7 g/dL (12.0-16.0); Mean Corpuscular HGB CONC 33.5 g/dL (32.0-36.0); Mean Corpuscular Hemoglobin 32.7 pg (27.0-31.0); Mean Corpuscular Volume 97.5 fL (78.0-98.0); Mean Platelet Volume 8.3 fL (7.4-10.4); Platelet Count 184 thou/uL (130-400); RBC Distribution Width 13.9 % (11.5-14.5); Red Blood Cell (RBC) Count 3.89 mill/uL (4.20-5.40); White Blood Cell (WBC) Count 8.2 thou/uL (4.8-10.8)
[2020-08-28 00:32] LABS: ALT (SGPT) 14 U/L (8-55); AST (SGOT) 13 U/L (5-34); Albumin 3.6 g/dL (3.4-4.8); Alkaline Phosphatase 53 U/L (40-110); BUN (Urea Nitrogen) 11 mg/dL (9.8-20.1); Bilirubin, Total 0.2 mg/dL (0.2-1.2); Calc. Creatinine Clearance 0 mL/min (70-130); Calcium 9.2 mg/dL (7.8-10.44); Glucose 89 mg/dL (80-115); Protein, Total 5.6 g/dL (5.8-8.1)
[2020-08-28 00:43] LABS: Anion Gap 15 mmol/L (10-20); Carbon Dioxide 38 mmol/L (23-31); Chloride 94 mmol/L (98-107); Potassium 4.7 mmol/L (3.5-5.1); Sodium 142 mmol/L (136-145)
[2020-08-28] MEDS ORDERED: diphenhydrAMINE 50 MG/ML VIAL ONE (00:58)
[2020-08-28 01:03] LABS: Bilirubin Negative (Negative); Blood, Urine Negative (Negative); Clarity Clear (Clear); Glucose, Urine (Dipstick) Normal (Negative); Ketone, Urine Negative (Negative); Leukocyte Negative Leu/uL (Negative); Nitrite Negative (Negative); Protein, Urine (Dipstick) 10 mg/dL (Neg-Trace); Specific Gravity, Urine 1.013 (1.002-1.036); Urobilinogen Normal mg/dL (Less than 2); pH, Urine 6.5 (5.0-9.0)
[2020-08-28] MEDS ORDERED: Famotidine/PF 20 mg/2ml Vial ONE (01:09)
[2020-08-28] MEDS ORDERED: methylPREDNISolone Sod Succ/PF 125 MG/2 ML VIAL ONE (01:09)
[2020-08-28 02:56] LABS: Actual Bicarbonate (HCO3a) 43.4 mEq/L (22-28); Analyzer IN Cardio ER; Base Excess (BEa) 13.2 mEq/L (-2.0 to +3.0); Carboxyhemoglobin (COHb) 0.6 gm% (0.0-3.0); Hemoglobin (Hb) 12.6 g/dL (12.0-16.0); O2 Tension (PaO2), arterial 90.6 mmHg (> 80.0); Potassium - ABG Lab 4.44 mmol/L (3.70-5.30)
[2020-08-28 03:16] LABS: CO2 Tension 90.9 mmHg (35.0-45.0); Puncture Site RRA
[2020-08-28 03:17] LABS: ALV-art Gradient 23.935 mmHg (0-20)
[2020-08-28 05:21] LABS: SARS-CoV-2 NAA Rapid Test Not Detected (NotDetected)
[2020-08-28 05:23] VITALS: BMI 30.2
[2020-08-28 05:26] LABS: Actual Bicarbonate (HCO3a) 42.8 mEq/L (22-28); Calcium, Ionized (arterial) 1.22 mmol/L (1.12-1.30); Hemoglobin (Hb) 13.2 g/dL (12.0-16.0); pH, Arterial 7.28 (7.35-7.45)
[2020-08-28 05:31] LABS: CO2 Tension 93.5 mmHg (35.0-45.0)
[2020-08-28 05:32] LABS: ALV-art Gradient 81.105 mmHg (0-20); O2 Tension (PaO2), arterial 58.7 mmHg (> 80.0); Puncture Site RRA
[2020-08-28] MEDS ORDERED: Dextrose 5 % And 0.9 % NaCl 1,000 ML IV SCH (06:00)
[2020-08-28] MEDS ORDERED: Iopamidol-370 76% 500 ML 1 ML ONE (09:58)
[2020-08-28] MEDS: busPIRone HCl 5 MG TAB PO SCH ×2 (10:25→21:22)
[2020-08-28] MEDS: Valproate Sodium 250 mg/5 ml UD Cup PO SCH ×2 (10:26→21:22)
[2020-08-28] MEDS: acetaZOLAMIDE Sodium 500 mg Vial IVP SCH (11:10)
[2020-08-28] MEDS: methylPREDNISolone Sod Succ 40 MG VIAL IVP SCH (11:11)
[2020-08-29] MEDS ORDERED: Sterile Water 10 ML VIAL FS SCH (09:00)
[2020-08-29] MEDS: busPIRone HCl 5 MG TAB PO SCH ×2 (09:09→19:53)
[2020-08-29] MEDS: Valproate Sodium 250 mg/5 ml UD Cup PO SCH ×2 (09:10→19:53)
[2020-08-29] MEDS: acetaZOLAMIDE Sodium 500 mg Vial IVP SCH (09:10)
[2020-08-29] MEDS: methylPREDNISolone Sod Succ 40 MG VIAL IVP SCH (09:10)
[2020-08-29] MEDS: Mometasone 200 MCG/Formoterol 5 MCG 120 PUFF INHALER INH SCH (19:09)
[2020-08-29] MEDS: Benztropine 1 MG TAB PO SCH (19:53)
[2020-08-29] MEDS ORDERED: methylPREDNISolone Sod Succ 40 MG VIAL IVP SCH (21:00)
[2020-08-30 04:03] LABS: #Lymphocytes 0.8 thou/uL (1.20-3.40); #Monocytes 0.3 thou/uL (0.11-0.59); #Neutrophils 7.6 thou/uL (1.40-6.50); %Basophils 0.1 % (0.0-1.0); %Eosinophils 0.2 % (0.0-10.0); %Lymphocytes 8.9 % (21.0-51.0); %Monocytes 3.4 % (0.0-10.0); %Neutrophils 87.4 % (42.0-75.0); Hemoglobin 13.9 g/dL (12.0-16.0); Mean Corpuscular HGB CONC 32.8 g/dL (32.0-36.0); Mean Corpuscular Hemoglobin 32.5 pg (27.0-31.0); Mean Corpuscular Volume 99.2 fL (78.0-98.0); Mean Platelet Volume 8.5 fL (7.4-10.4); Platelet Count 186 thou/uL (130-400); RBC Distribution Width 14.1 % (11.5-14.5); Red Blood Cell (RBC) Count 4.29 mill/uL (4.20-5.40); White Blood Cell (WBC) Count 8.7 thou/uL (4.8-10.8)
[2020-08-30 04:12] LABS: Anion Gap 12 mmol/L (10-20); BUN (Urea Nitrogen) 11 mg/dL (9.8-20.1); Calc. Creatinine Clearance 108 mL/min (70-130); Calcium 8.9 mg/dL (7.8-10.44); Carbon Dioxide 32 mmol/L (23-31); Chloride 102 mmol/L (98-107); Glucose 115 mg/dL (80-115); Potassium 4.5 mmol/L (3.5-5.1); Sodium 141 mmol/L (136-145)
[2020-08-30] MEDS: Mometasone 200 MCG/Formoterol 5 MCG 120 PUFF INHALER INH SCH (07:46)
[2020-08-30] MEDS: Valproate Sodium 250 mg/5 ml UD Cup PO SCH (09:30)
[2020-08-30] MEDS: busPIRone HCl 5 MG TAB PO SCH (09:30)
[2020-08-30] MEDS: Benztropine 1 MG TAB PO SCH (09:30)
[2020-08-30 11:18] VITALS: TEMP 98.1
[2020-08-31] MEDS ORDERED: predniSONE 20 MG TAB PO SCH (08:00)
== END 2020-08-30 16:10 | DRG 189 ==
LOC: ERS 23:27 → IMCU/EMU 08-28 03:47
PROVIDERS: ADMIT Student in an Organized Health Care Education/Training Program; ATTEND Internal Medicine
PROC: 5A09357 Assistance with Respiratory Ventilation, Less than 24 Consecutive Hours, Continuous Positive Airway Pressure (ICD-10-PCS; principal; 2020-08-28)
DX: J96.22 Acute and chronic respiratory failure with hypercapnia (principal); G93.41 Metabolic encephalopathy; E87.2 Acidosis; J96.21 Acute and chronic respiratory failure with hypoxia; F02.80 Dementia in other diseases classified elsewhere, unspecified severity, without behavioral disturbance, psychotic disturbance, mood disturbance, and anxiety; R41.82 Altered mental status, unspecified; G20 Parkinson's disease; F20.9 Schizophrenia, unspecified; J44.9 Chronic obstructive pulmonary disease, unspecified; F31.9 Bipolar disorder, unspecified; F17.200 Nicotine dependence, unspecified, uncomplicated; Z91.041 Radiographic dye allergy status; Z85.3 Personal history of malignant neoplasm of breast; Z88.5 Allergy status to narcotic agent; Z88.8 Allergy status to other drugs, medicaments and biological substances; Z91.018 Allergy to other foods; Z90.11 Acquired absence of right breast and nipple
CPT/HCPCS: 36415; 36600; 51701; 71045; 71275; 80048; 80053; 81003; 82805; 83880; 84484; 85025; 93005; 94640; 94660; 96374; 96375; J1120; J1200; J2920; J2930; J7620; Q9967; S0028; U0002; U0005

== ENCOUNTER 2020-09-19 00:26 | Emergency (ER) | payer MEDICARE, MEDICAID ==
[2020-09-19 01:05] LABS: Actual Bicarbonate (HCO3a) 45.9 mEq/L (22-28); Analyzer IN Cardio ER; Base Excess (BEa) 15.3 mEq/L (-2.0 to +3.0); Calcium, Ionized (arterial) 1.24 mmol/L (1.12-1.30); Carboxyhemoglobin (COHb) 0.9 gm% (0.0-3.0); Hemoglobin (Hb) 12.9 g/dL (12.0-16.0); O2 Tension (PaO2), arterial 72.6 mmHg (> 80.0); Potassium - ABG Lab 4.28 mmol/L (3.70-5.30); pH, Arterial 7.31 (7.35-7.45)
[2020-09-19 01:11] LABS: #Basophils 0.1 thou/uL (0.0-0.2); #Eosinphils 0.1 thou/uL (0.0-0.7); #Lymphocytes 1.4 thou/uL (1.20-3.40); #Monocytes 0.7 thou/uL (0.11-0.59); %Basophils 1.1 % (0.0-1.0); %Eosinophils 0.8 % (0.0-10.0); %Lymphocytes 15.5 % (21.0-51.0); %Neutrophils 75.6 % (42.0-75.0); Hemoglobin 12.4 g/dL (12.0-16.0); Mean Corpuscular Hemoglobin 32.3 pg (27.0-31.0); Mean Platelet Volume 8.2 fL (7.4-10.4); Platelet Count 198 thou/uL (130-400); RBC Distribution Width 14.1 % (11.5-14.5); Red Blood Cell (RBC) Count 3.84 mill/uL (4.20-5.40); White Blood Cell (WBC) Count 9.3 thou/uL (4.8-10.8)
[2020-09-19 01:13] LABS: CO2 Tension 94.2 mmHg (35.0-45.0); Puncture Site LRA
[2020-09-19 01:37] LABS: ALT (SGPT) 32 U/L (8-55); AST (SGOT) 22 U/L (5-34); Albumin 3.7 g/dL (3.4-4.8); Alkaline Phosphatase 69 U/L (40-110); BUN (Urea Nitrogen) 14 mg/dL (9.8-20.1); Bilirubin, Total 0.6 mg/dL (0.2-1.2); Calc. Creatinine Clearance 0 mL/min (70-130); Calcium 9.4 mg/dL (7.8-10.44); Globulin 2.2 g/dL (2.4-3.5); Glucose 87 mg/dL (80-115); Lipase 8 U/L (8-78); Protein, Total 5.9 g/dL (5.8-8.1)
[2020-09-19 01:48] LABS: Anion Gap 14 mmol/L (10-20); Carbon Dioxide 35 mmol/L (23-31); Chloride 94 mmol/L (98-107); Potassium 4.4 mmol/L (3.5-5.1); Sodium 139 mmol/L (136-145)
== END 2020-09-19 03:21 ==
LOC: ERS 00:26
DX: J44.9 Chronic obstructive pulmonary disease, unspecified (principal); R06.89 Other abnormalities of breathing; G20 Parkinson's disease; F03.90 Unspecified dementia, unspecified severity, without behavioral disturbance, psychotic disturbance, mood disturbance, and anxiety; F17.200 Nicotine dependence, unspecified, uncomplicated; Z85.3 Personal history of malignant neoplasm of breast; Z79.899 Other long term (current) drug therapy; Z86.61 Personal history of infections of the central nervous system
CPT/HCPCS: 36415; 36600; 71045; 80053; 82805; 83690; 83880; 84484; 85025; 93005

== ENCOUNTER 2020-11-24 09:30 | Inpatient (IN) | payer MEDICARE, MEDICAID ==
[2020-11-24 10:09] LABS: #Basophils 0.1 thou/uL (0.0-0.2); #Lymphocytes 0.7 thou/uL (1.20-3.40); #Monocytes 0.7 thou/uL (0.11-0.59); %Basophils 0.7 % (0.0-1.0); %Eosinophils 0.4 % (0.0-10.0); %Lymphocytes 7.5 % (21.0-51.0); %Monocytes 7.4 % (0.0-10.0); Hemoglobin 12.2 g/dL (12.0-16.0); Mean Corpuscular HGB CONC 32.7 g/dL (32.0-36.0); Mean Corpuscular Hemoglobin 32.4 pg (27.0-31.0); Mean Corpuscular Volume 99.2 fL (78.0-98.0); Platelet Count 196 thou/uL (130-400); RBC Distribution Width 13.6 % (11.5-14.5); Red Blood Cell (RBC) Count 3.77 mill/uL (4.20-5.40); White Blood Cell (WBC) Count 9.5 thou/uL (4.8-10.8)
[2020-11-24 10:36] LABS: ALT (SGPT) 40 U/L (8-55); AST (SGOT) 25 U/L (5-34); Albumin 3.9 g/dL (3.4-4.8); Alkaline Phosphatase 57 U/L (40-110); BUN (Urea Nitrogen) 16 mg/dL (9.8-20.1); Bilirubin, Total 0.5 mg/dL (0.2-1.2); Calc. Creatinine Clearance 0 mL/min (70-130); Calcium 9.9 mg/dL (7.8-10.44); Globulin 2.1 g/dL (2.4-3.5); Glucose 126 mg/dL (80-115)
[2020-11-24] MEDS ORDERED: methylPREDNISolone Sod Succ/PF 125 MG/2 ML VIAL ONE (10:40)
[2020-11-24 10:45] LABS: Anion Gap 12 mmol/L (10-20); Chloride 89 mmol/L (98-107); Potassium 4.6 mmol/L (3.5-5.1); Sodium 139 mmol/L (136-145)
[2020-11-24 10:49] LABS: Carbon Dioxide 43 mmol/L (23-31)
[2020-11-24 11:08] LABS: Actual Bicarbonate (HCO3a) 48.2 mEq/L (22-28); Analyzer IN Cardio ER; Base Excess (BEa) 16.8 mEq/L (-2.0 to +3.0); Calcium, Ionized (arterial) 1.25 mmol/L (1.12-1.30); Carboxyhemoglobin (COHb) 0.9 gm% (0.0-3.0); Hemoglobin (Hb) 13.3 g/dL (12.0-16.0); O2 Tension (PaO2), arterial 62.6 mmHg (> 80.0); Potassium - ABG Lab 4.54 mmol/L (3.70-5.30)
[2020-11-24 11:12] LABS: CO2 Tension 100.9 mmHg (35.0-45.0); Puncture Site LBA
[2020-11-24 12:00] LABS: SARS-CoV-2 NAA Rapid Test Not Detected (NotDetected)
[2020-11-24] MEDS ORDERED: Sodium Chloride 0.9% 100 ML ONE (13:38)
[2020-11-24] MEDS ORDERED: Azithromycin 500 MG VIAL ONE (13:38)
[2020-11-24] MEDS ORDERED: cefTRIAXone\\ROCEPHIN 1 GM VIAL ONE (13:38)
[2020-11-24] MEDS ORDERED: Albuterol Sulfate 2.5 mg/3 ml Neb NEB PRN (14:11)
[2020-11-24] MEDS ORDERED: Benzonatate 100 MG CAP PO PRN (14:14)
[2020-11-24] MEDS ORDERED: Guaifenesin DM 100-10/5 ML UDCUP PO PRN (14:14)
[2020-11-24] MEDS ORDERED: Albuterol Sulfate 2.5 mg/3 ml Neb NEB SCH (14:30)
[2020-11-24] MEDS ORDERED: Albuterol Sulfate 2.5 mg/3 ml Neb ONE (14:56)
[2020-11-24] MEDS ORDERED: methylPREDNISolone Sod Succ 40 MG VIAL ONE (20:26)
[2020-11-24] MEDS ORDERED: Cefepime 2 GM VIAL ONE (20:26)
[2020-11-24] MEDS: Cefepime 2 GM in Sodium Chloride 0.9% 100 ML IVPB SCH (20:31)
[2020-11-24] MEDS: methylPREDNISolone Sod Succ 40 MG VIAL IVP SCH (20:31)
[2020-11-24] MEDS ORDERED: Cefepime 2 GM in Sodium Chloride 0.9% 100 ML IVPB SCH (21:00)
[2020-11-24] MEDS ORDERED: Ondansetron ODT 4 MG TAB SL PRN (21:15)
[2020-11-24] MEDS ORDERED: Acetaminophen 325 MG TAB PO PRN (21:15)
[2020-11-24] MEDS ORDERED: Ondansetron PF 4 MG/2 ML Vial IVP PRN (21:15)
[2020-11-25] MEDS: Arformoterol 15 MCG/2 ML NEB NEB SCH ×3 (03:30→19:02)
[2020-11-25] MEDS: Budesonide 0.5 MG/2 ML NEB NEB SCH ×3 (03:31→19:01)
[2020-11-25] MEDS: Benztropine 1 MG TAB PO SCH ×3 (04:59→21:04)
[2020-11-25] MEDS: busPIRone HCl 5 MG TAB PO SCH ×3 (05:00→21:05)
[2020-11-25] MEDS: Valproate Sodium 250 mg/5 ml UD Cup PO SCH ×3 (05:00→21:04)
[2020-11-25] MEDS: methylPREDNISolone Sod Succ 40 MG VIAL IVP SCH ×4 (05:01→17:56)
[2020-11-25] MEDS: Cefepime 2 GM in Sodium Chloride 0.9% 100 ML IVPB SCH ×2 (06:33→17:56)
[2020-11-25] MEDS: Enoxaparin Sodium 40 MG/0.4 ML SYRINGE SC SCH (10:12)
[2020-11-25] MEDS: Pantoprazole 40 MG VIAL IVP SCH (10:15)
[2020-11-25 11:56] LABS: Actual Bicarbonate (HCO3a) 40.5 mEq/L (22-28); Base Excess (BEa) 12.6 mEq/L (-2.0 to +3.0); Calcium, Ionized (arterial) 1.22 mmol/L (1.12-1.30); Carboxyhemoglobin (COHb) 1.2 gm% (0.0-3.0); Hemoglobin (Hb) 13.8 g/dL (12.0-16.0); Potassium - ABG Lab 4.15 mmol/L (3.70-5.30)
[2020-11-25 12:00] LABS: CO2 Tension 67.7 mmHg (35.0-45.0); O2 Tension (PaO2), arterial 57.8 mmHg (> 80.0); Puncture Site LBA
[2020-11-25] MEDS ORDERED: Prevnar 13-Val Conj/PF 0.5 ML SYRINGE IM ONE (21:00)
[2020-11-26] MEDS: methylPREDNISolone Sod Succ 40 MG VIAL IVP SCH ×3 (02:35→13:06)
[2020-11-26] MEDS: busPIRone HCl 5 MG TAB PO SCH ×4 (02:55→22:48)
[2020-11-26 06:21] LABS: #Eosinphils 0.1 thou/uL (0.0-0.7); #Lymphocytes 0.5 thou/uL (1.20-3.40); #Monocytes 0.4 thou/uL (0.11-0.59); #Neutrophils 9.3 thou/uL (1.40-6.50); %Eosinophils 0.5 % (0.0-10.0); %Lymphocytes 5.2 % (21.0-51.0); %Monocytes 3.5 % (0.0-10.0); %Neutrophils 90.7 % (42.0-75.0); Hemoglobin 13.6 g/dL (12.0-16.0); Mean Corpuscular HGB CONC 34.6 g/dL (32.0-36.0); Mean Corpuscular Hemoglobin 33.4 pg (27.0-31.0); Mean Corpuscular Volume 96.6 fL (78.0-98.0); Mean Platelet Volume 8.5 fL (7.4-10.4); Platelet Count 202 thou/uL (130-400); RBC Distribution Width 13.5 % (11.5-14.5); Red Blood Cell (RBC) Count 4.06 mill/uL (4.20-5.40); White Blood Cell (WBC) Count 10.2 thou/uL (4.8-10.8)
[2020-11-26 06:38] LABS: Anion Gap 14 mmol/L (10-20); BUN (Urea Nitrogen) 14 mg/dL (9.8-20.1); Calc. Creatinine Clearance 90 mL/min (70-130); Carbon Dioxide 36 mmol/L (23-31); Chloride 95 mmol/L (98-107); Glucose 132 mg/dL (80-115); Potassium 4.6 mmol/L (3.5-5.1); Sodium 140 mmol/L (136-145)
[2020-11-26] MEDS: Arformoterol 15 MCG/2 ML NEB NEB SCH ×2 (06:50→19:31)
[2020-11-26] MEDS: Budesonide 0.5 MG/2 ML NEB NEB SCH ×2 (06:50→19:32)
[2020-11-26] MEDS: Mometasone 200 MCG/Formoterol 5 MCG 120 PUFF INHALER INH SCH ×2 (06:51→19:32)
[2020-11-26] MEDS: Cefepime 2 GM in Sodium Chloride 0.9% 100 ML IVPB SCH (08:04)
[2020-11-26] MEDS: Enoxaparin Sodium 40 MG/0.4 ML SYRINGE SC SCH (08:13)
[2020-11-26] MEDS: Anastrozole 1 MG TAB PO SCH (08:13)
[2020-11-26] MEDS: Multivit, Therapeutic 1 TAB PO SCH (08:13)
[2020-11-26] MEDS: Benztropine 1 MG TAB PO SCH ×2 (08:13→21:10)
[2020-11-26] MEDS: Pantoprazole 40 MG VIAL IVP SCH (08:14)
[2020-11-26] MEDS: Valproate Sodium 250 mg/5 ml UD Cup PO SCH ×2 (08:22→21:11)
[2020-11-27] MEDS: Arformoterol 15 MCG/2 ML NEB NEB SCH (07:42)
[2020-11-27] MEDS: Budesonide 0.5 MG/2 ML NEB NEB SCH (07:42)
[2020-11-27] MEDS: Mometasone 200 MCG/Formoterol 5 MCG 120 PUFF INHALER INH SCH (07:55)
[2020-11-27] MEDS ORDERED: predniSONE 20 MG TAB PO SCH (08:00)
[2020-11-27] MEDS: Valproate Sodium 250 mg/5 ml UD Cup PO SCH (08:21)
[2020-11-27] MEDS: Pantoprazole 40 MG VIAL IVP SCH (08:21)
[2020-11-27] MEDS: busPIRone HCl 5 MG TAB PO SCH (08:21)
[2020-11-27] MEDS: Anastrozole 1 MG TAB PO SCH (08:21)
[2020-11-27] MEDS: Multivit, Therapeutic 1 TAB PO SCH (08:21)
[2020-11-27] MEDS: Enoxaparin Sodium 40 MG/0.4 ML SYRINGE SC SCH (08:22)
[2020-11-27 08:38] VITALS: BP 120/73; TEMP 97.9
[2020-11-27] MEDS: Benztropine 1 MG TAB PO SCH (09:02)
[2020-11-27 09:52] VITALS: BMI 29.8
[2020-11-27 10:54] LABS: Actual Bicarbonate (HCO3a) 37.6 mEq/L (22-28); Base Excess (BEa) 8.5 mEq/L (-2.0 to +3.0); Calcium, Ionized (arterial) 1.24 mmol/L (1.12-1.30); Carboxyhemoglobin (COHb) 0.6 gm% (0.0-3.0); O2 Tension (PaO2), arterial 64.1 mmHg (> 80.0); Potassium - ABG Lab 3.66 mmol/L (3.70-5.30); pH, Arterial 7.32 (7.35-7.45)
[2020-11-27 11:00] LABS: ALV-art Gradient 42.415 mmHg (0-20); CO2 Tension 74.5 mmHg (35.0-45.0); Puncture Site LRA
== END 2020-11-27 14:32 | DRG 189 ==
LOC: ERS 09:30 → ERHOLD 13:34 → IMCU/EMU 20:55 → T4-A 11-25 17:14
PROVIDERS: ADMIT Internal Medicine; ATTEND Student in an Organized Health Care Education/Training Program
PROC: 5A09357 Assistance with Respiratory Ventilation, Less than 24 Consecutive Hours, Continuous Positive Airway Pressure (ICD-10-PCS; principal; 2020-11-24)
DX: J96.22 Acute and chronic respiratory failure with hypercapnia (principal); G93.41 Metabolic encephalopathy; J44.1 Chronic obstructive pulmonary disease with (acute) exacerbation; Z20.822 Contact with and (suspected) exposure to COVID-19; J96.21 Acute and chronic respiratory failure with hypoxia; F20.9 Schizophrenia, unspecified; G20 Parkinson's disease; F02.80 Dementia in other diseases classified elsewhere, unspecified severity, without behavioral disturbance, psychotic disturbance, mood disturbance, and anxiety; F17.210 Nicotine dependence, cigarettes, uncomplicated; F31.9 Bipolar disorder, unspecified; R13.10 Dysphagia, unspecified; F41.9 Anxiety disorder, unspecified; Z78.1 Physical restraint status; Z99.81 Dependence on supplemental oxygen; Z88.6 Allergy status to analgesic agent; Z91.041 Radiographic dye allergy status; Z88.2 Allergy status to sulfonamides; Z88.8 Allergy status to other drugs, medicaments and biological substances; Z91.018 Allergy to other foods; Z85.3 Personal history of malignant neoplasm of breast; Z79.899 Other long term (current) drug therapy; Z79.52 Long term (current) use of systemic steroids; Z90.11 Acquired absence of right breast and nipple; Z88.5 Allergy status to narcotic agent; Z79.811 Long term (current) use of aromatase inhibitors
CPT/HCPCS: 0240U; 36415; 36416; 36600; 71045; 80048; 80053; 82805; 83880; 84484; 85025; 87040; 93005; 94640; 94660; 94760; 96365; 96375; C9113; J0456; J0692; J0696; J1650; J1956; J2920; J2930; J3490; J7512; J7611; J7620; J7626

== ENCOUNTER 2020-12-10 01:01 | Inpatient (IN) | payer MEDICARE, MEDICAID ==
[2020-12-10 01:45] LABS: #Lymphocytes 0.6 thou/uL (1.20-3.40); #Monocytes 0.9 thou/uL (0.11-0.59); #Neutrophils 17.2 thou/uL (1.40-6.50); %Basophils 0.1 % (0.0-1.0); %Eosinophils 0.2 % (0.0-10.0); %Lymphocytes 3.4 % (21.0-51.0); %Neutrophils 91.2 % (42.0-75.0); Hemoglobin 12.1 g/dL (12.0-16.0); Mean Corpuscular HGB CONC 33.1 g/dL (32.0-36.0); Mean Corpuscular Hemoglobin 32.5 pg (27.0-31.0); Mean Corpuscular Volume 98.3 fL (78.0-98.0); Mean Platelet Volume 8.2 fL (7.4-10.4); Platelet Count 157 thou/uL (130-400); RBC Distribution Width 13.6 % (11.5-14.5); Red Blood Cell (RBC) Count 3.72 mill/uL (4.20-5.40); White Blood Cell (WBC) Count 18.9 thou/uL (4.8-10.8)
[2020-12-10] MEDS ORDERED: methylPREDNISolone Sod Succ 40 MG VIAL ONE ×2 (01:54→11:29)
[2020-12-10] MEDS ORDERED: diphenhydrAMINE 50 MG/ML VIAL ONE (01:54)
[2020-12-10] MEDS ORDERED: Famotidine/PF 20 mg/2ml Vial ONE (01:54)
[2020-12-10 02:09] LABS: ALT (SGPT) 32 U/L (8-55); AST (SGOT) 29 U/L (5-34); Albumin 3.6 g/dL (3.4-4.8); Alkaline Phosphatase 52 U/L (40-110); Anion Gap 11 mmol/L (10-20); BUN (Urea Nitrogen) 10 mg/dL (9.8-20.1); Bilirubin, Total 0.8 mg/dL (0.2-1.2); Calc. Creatinine Clearance 0 mL/min (70-130); Calcium 9.4 mg/dL (7.8-10.44); Carbon Dioxide 37 mmol/L (23-31); Chloride 90 mmol/L (98-107); Globulin 2.4 g/dL (2.4-3.5); Glucose 127 mg/dL (80-115); Potassium 4.6 mmol/L (3.5-5.1); Sodium 133 mmol/L (136-145)
[2020-12-10 02:11] LABS: Acetaminophen Less than 6.0 mcg/mL (10.0-30.0); Alcohol Less than 10 mg/dL (Less than 10); Lipase 17 U/L (8-78); Salicylate Less than 8.0 mg/dL (15.0-30.0)
[2020-12-10] MEDS ORDERED: cefTRIAXone\\ROCEPHIN 2 GM VIAL ONE (02:40)
[2020-12-10 03:44] LABS: Actual Bicarbonate (HCO3a) 44.5 mEq/L (22-28); Analyzer IN Cardio ER; Base Excess (BEa) 11.2 mEq/L (-2.0 to +3.0); Calcium, Ionized (arterial) 1.24 mmol/L (1.12-1.30); Carboxyhemoglobin (COHb) 0.9 gm% (0.0-3.0); Hemoglobin (Hb) 12.6 g/dL (12.0-16.0); O2 Tension (PaO2), arterial 80.4 mmHg (> 80.0); Potassium - ABG Lab 4.42 mmol/L (3.70-5.30)
[2020-12-10 03:44] LABS: Bacteria/HPF None Seen HPF (None Seen); Bilirubin Negative (Negative); Blood, Urine Negative (Negative); Clarity Turbid (Clear); Glucose, Urine (Dipstick) Normal (Negative); Ketone, Urine Negative (Negative); Leukocyte 75 Leu/uL (Negative); Mucous/LPF Rare LPF (<2+); Nitrite Negative (Negative); Protein, Urine (Dipstick) 30 mg/dL (Neg-Trace); RBC/HPF 0-3 HPF (0-3); Specific Gravity, Urine 1.016 (1.002-1.036); Squamous Epithelial 0-3 HPF (0-3); Urobilinogen Normal mg/dL (Less than 2); pH, Urine 6.5 (5.0-9.0)
[2020-12-10 03:47] LABS: CO2 Tension 127.2 mmHg (35.0-45.0); Puncture Site LRA; pH, Arterial 7.16 (7.35-7.45)
[2020-12-10 03:50] LABS: Amphetamine Not Detected (NotDetected); Barbiturates Screen Not Detected (NotDetected); Benzodiazepine Screen Not Detected (NotDetected); Cocaine Metabolite Screen Not Detected (NotDetected); Methadone Not Detected (NotDetected); Methamphetamine Not Detected (NotDetected); Opiate Screen Not Detected (NotDetected); Oxycodone Screen Not Detected (NotDetected); Phencyclidine (PCP) Not Detected (NotDetected); THC/Cannabinoid Screen Not Detected (NotDetected); Tricyclic Screen Not Detected (NotDetected)
[2020-12-10] MEDS ORDERED: Erythromycin Base 0.5% Oint 1 GM TUBE ONE (03:56)
[2020-12-10] MEDS ORDERED: Rocuronium Bromide 10 MG/ML (10ML VIAL) ONE (03:56)
[2020-12-10 04:12] LABS: SARS-CoV-2 NAA Rapid Test Not Detected (NotDetected)
[2020-12-10] MEDS ORDERED: Furosemide 40 MG TAB ONE (04:28)
[2020-12-10] MEDS ORDERED: Propofol 1,000 MG/100 ML VIAL IV ONE ×5 (04:29→23:52)
[2020-12-10] MEDS ORDERED: Acetaminophen 325 MG TAB PO PRN (04:57)
[2020-12-10] MEDS ORDERED: Ondansetron PF 4 MG/2 ML Vial IVP PRN (04:57)
[2020-12-10] MEDS ORDERED: Ondansetron ODT 4 MG TAB PO PRN (04:57)
[2020-12-10] MEDS ORDERED: Acetaminophen 650 MG Suppository PR PRN (04:57)
[2020-12-10] MEDS ORDERED: Piperacillin/Tazobactam 3.375 GM in Sodium Chloride 0.9% 100 ML IVPB SCH ×2 (04:59→05:30)
[2020-12-10] MEDS ORDERED: Ventilator Sedation Protocol 1 EACH FS SCH (05:00)
[2020-12-10 05:07] LABS: Actual Bicarbonate (HCO3a) 34.6 mEq/L (22-28); Analyzer IN Cardio ER; CO2 Tension 46.1 mmHg (35.0-45.0); Calcium, Ionized (arterial) 1.14 mmol/L (1.12-1.30); Carboxyhemoglobin (COHb) 0.6 gm% (0.0-3.0); Hemoglobin (Hb) 13.2 g/dL (12.0-16.0); O2 Tension (PaO2), arterial 74.9 mmHg (> 80.0); pH, Arterial 7.49 (7.35-7.45)
[2020-12-10] MEDS ORDERED: Propofol BOLUS 1,000 MG/100 ML VIAL IV PRN (05:15)
[2020-12-10] MEDS ORDERED: Morphine 2 MG/ML VIAL SLOW IVP PRN (05:15)
[2020-12-10] MEDS ORDERED: Fentanyl BOLUS 250 ML IVPB PRN (05:15)
[2020-12-10] MEDS ORDERED: DISCONTINUE PREVIOUS NARCOTIC PAIN MEDICATIONS AND BENZODIAZEPINES FS SCH (05:15)
[2020-12-10] MEDS ORDERED: Piperacillin/Tazobactam 3.375 GM VIAL ONE ×3 (05:39→17:56)
[2020-12-10] MEDS ORDERED: Enoxaparin Sodium 40 MG/0.4 ML SYRINGE ONE (08:59)
[2020-12-10] MEDS: Enoxaparin Sodium 40 MG/0.4 ML SYRINGE SC SCH (09:30)
[2020-12-10] MEDS: Piperacillin/Tazobactam 3.375 GM in Sodium Chloride 0.9% 100 ML IVPB SCH ×2 (09:30→18:17)
[2020-12-10] MEDS: Propofol 1,000 MG/100 ML VIAL IV PRN (10:41)
[2020-12-10] MEDS ORDERED: Vecuronium 10 MG VIAL IVP PRN (10:54)
[2020-12-10] MEDS ORDERED: Lorazepam 2 MG/ML VIAL ONE (11:14)
[2020-12-10] MEDS: Lorazepam 2 MG/ML VIAL SLOW IVP PRN (11:17)
[2020-12-10 11:23] LABS: Actual Bicarbonate (HCO3a) 34.9 mEq/L (22-28); Analyzer IN Cardio ER; Base Excess (BEa) 10.9 mEq/L (-2.0 to +3.0); CO2 Tension 43.5 mmHg (35.0-45.0); Calcium, Ionized (arterial) 1.15 mmol/L (1.12-1.30); Carboxyhemoglobin (COHb) 0.3 gm% (0.0-3.0); Hemoglobin (Hb) 11.6 g/dL (12.0-16.0); O2 Tension (PaO2), arterial 133.4 mmHg (> 80.0); Potassium - ABG Lab 3.92 mmol/L (3.70-5.30); pH, Arterial 7.52 (7.35-7.45)
[2020-12-10] MEDS ORDERED: methylPREDNISolone Sod Succ/PF 125 MG/2 ML VIAL ONE (11:24)
[2020-12-10 11:26] LABS: Puncture Site LRA
[2020-12-10 11:27] LABS: ALV-art Gradient 311.325 mmHg (0-20)
[2020-12-10] MEDS: methylPREDNISolone Sod Succ 40 MG VIAL IVP SCH ×3 (11:28→23:34)
[2020-12-10] MEDS ORDERED: PROPOFOL 0 ML ONE (15:00)
[2020-12-10] MEDS ORDERED: Sodium Chloride 0.9% 100 ML ONE (17:56)
[2020-12-10] MEDS: Budesonide 0.5 MG/2 ML NEB NEB SCH (19:51)
[2020-12-10] MEDS: Fentanyl CADD 100 ML IV SCH (23:19)
[2020-12-11] MEDS: Propofol 1,000 MG/100 ML VIAL IV PRN ×3 (00:03→20:20)
[2020-12-11] MEDS ORDERED: Piperacillin/Tazobactam 3.375 GM VIAL ONE ×3 (00:14→17:15)
[2020-12-11] MEDS ORDERED: Sodium Chloride 0.9% 100 ML ONE ×3 (00:20→17:15)
[2020-12-11] MEDS: Piperacillin/Tazobactam 3.375 GM in Sodium Chloride 0.9% 100 ML IVPB SCH ×3 (02:29→18:24)
[2020-12-11] MEDS ORDERED: Propofol 1,000 MG/100 ML VIAL IV ONE ×4 (04:57→17:42)
[2020-12-11] MEDS: methylPREDNISolone Sod Succ 40 MG VIAL IVP SCH ×4 (05:23→23:03)
[2020-12-11] MEDS: Budesonide 0.5 MG/2 ML NEB NEB SCH ×2 (06:49→20:03)
[2020-12-11 07:06] LABS: Actual Bicarbonate (HCO3a) 36.7 mEq/L (22-28); Base Excess (BEa) 10.9 mEq/L (-2.0 to +3.0); CO2 Tension 54.5 mmHg (35.0-45.0); Calcium, Ionized (arterial) 1.18 mmol/L (1.12-1.30); Carboxyhemoglobin (COHb) 0.1 gm% (0.0-3.0); Hemoglobin (Hb) 11.6 g/dL (12.0-16.0); O2 Tension (PaO2), arterial 69.7 mmHg (> 80.0); Potassium - ABG Lab 3.79 mmol/L (3.70-5.30); pH, Arterial 7.45 (7.35-7.45)
[2020-12-11 07:19] LABS: ALV-art Gradient 147.375 mmHg (0-20); Puncture Site LRA
[2020-12-11 07:39] LABS: #Basophils 0.2 thou/uL (0.0-0.2); #Lymphocytes 0.3 thou/uL (1.20-3.40); #Monocytes 0.3 thou/uL (0.11-0.59); #Neutrophils 11.7 thou/uL (1.40-6.50); %Basophils 1.2 % (0.0-1.0); %Lymphocytes 2.1 % (21.0-51.0); %Monocytes 2.5 % (0.0-10.0); %Neutrophils 94.1 % (42.0-75.0); Hemoglobin 11.2 g/dL (12.0-16.0); Mean Corpuscular HGB CONC 32.8 g/dL (32.0-36.0); Mean Corpuscular Hemoglobin 31.3 pg (27.0-31.0); Mean Corpuscular Volume 95.4 fL (78.0-98.0); Mean Platelet Volume 8.7 fL (7.4-10.4); Platelet Count 165 thou/uL (130-400); RBC Distribution Width 13.8 % (11.5-14.5); Red Blood Cell (RBC) Count 3.59 mill/uL (4.20-5.40); White Blood Cell (WBC) Count 12.4 thou/uL (4.8-10.8)
[2020-12-11] MEDS ORDERED: Lorazepam 2 MG/ML VIAL ONE ×2 (07:50→11:04)
[2020-12-11 08:00] LABS: Anion Gap 12 mmol/L (10-20); BUN (Urea Nitrogen) 14 mg/dL (9.8-20.1); Calc. Creatinine Clearance 107 mL/min (70-130); Calcium 9.4 mg/dL (7.8-10.44); Carbon Dioxide 35 mmol/L (23-31); Chloride 98 mmol/L (98-107); Glucose 156 mg/dL (80-115); Potassium 3.9 mmol/L (3.5-5.1); Sodium 141 mmol/L (136-145)
[2020-12-11] MEDS: Lorazepam 2 MG/ML VIAL SLOW IVP PRN ×2 (08:00→11:05)
[2020-12-11] MEDS ORDERED: Enoxaparin Sodium 40 MG/0.4 ML SYRINGE ONE (08:30)
[2020-12-11] MEDS ORDERED: Sodium Chloride 0.9% 0 ML ONE (08:32)
[2020-12-11] MEDS: Enoxaparin Sodium 40 MG/0.4 ML SYRINGE SC SCH (08:51)
[2020-12-11] MEDS: Benztropine 1 MG TAB PO SCH ×2 (09:00→20:20)
[2020-12-11] MEDS ORDERED: Sodium Chloride 0.9% 10 ML ONE ×2 (11:08→17:42)
[2020-12-11] MEDS ORDERED: busPIRone HCl 5 MG TAB PO SCH (21:00)
[2020-12-11] MEDS: Fentanyl CADD 100 ML IV SCH (21:25)
[2020-12-12] MEDS: Piperacillin/Tazobactam 3.375 GM in Sodium Chloride 0.9% 100 ML IVPB SCH ×3 (01:49→18:18)
[2020-12-12] MEDS: Propofol 1,000 MG/100 ML VIAL IV PRN ×2 (01:49→07:28)
[2020-12-12] MEDS: methylPREDNISolone Sod Succ 40 MG VIAL IVP SCH ×4 (05:17→23:44)
[2020-12-12 06:46] LABS: Actual Bicarbonate (HCO3a) 34.5 mEq/L (22-28); Base Excess (BEa) 9.2 mEq/L (-2.0 to +3.0); CO2 Tension 50.6 mmHg (35.0-45.0); Calcium, Ionized (arterial) 1.21 mmol/L (1.12-1.30); Carboxyhemoglobin (COHb) 0.3 gm% (0.0-3.0); Hemoglobin (Hb) 11.9 g/dL (12.0-16.0); O2 Tension (PaO2), arterial 68.4 mmHg (> 80.0); Potassium - ABG Lab 3.87 mmol/L (3.70-5.30); Puncture Site RRA; pH, Arterial 7.45 (7.35-7.45)
[2020-12-12] MEDS: Budesonide 0.5 MG/2 ML NEB NEB SCH ×2 (07:40→18:08)
[2020-12-12] MEDS: Enoxaparin Sodium 40 MG/0.4 ML SYRINGE SC SCH (10:13)
[2020-12-12] MEDS: Benztropine 1 MG TAB PO SCH ×2 (10:13→20:22)
[2020-12-12] MEDS ORDERED: Lithium Carbonate 150 MG CAP PO SCH (10:30)
[2020-12-12] MEDS ORDERED: DC Sedation Protocol FS ONE (12:12)
[2020-12-12] MEDS: Lithium Carbonate 150 MG CAP PO SCH ×2 (15:00→20:36)
[2020-12-13] MEDS: Piperacillin/Tazobactam 3.375 GM in Sodium Chloride 0.9% 100 ML IVPB SCH (02:26)
[2020-12-13 04:06] LABS: #Basophils 0.1 thou/uL (0.0-0.2); #Lymphocytes 0.3 thou/uL (1.20-3.40); #Monocytes 0.5 thou/uL (0.11-0.59); #Neutrophils 11.9 thou/uL (1.40-6.50); %Basophils 0.8 % (0.0-1.0); %Eosinophils 0.1 % (0.0-10.0); %Lymphocytes 2.5 % (21.0-51.0); %Monocytes 3.8 % (0.0-10.0); %Neutrophils 92.9 % (42.0-75.0); Hemoglobin 13.3 g/dL (12.0-16.0); Mean Corpuscular HGB CONC 33.6 g/dL (32.0-36.0); Mean Corpuscular Hemoglobin 32.6 pg (27.0-31.0); Mean Corpuscular Volume 96.9 fL (78.0-98.0); Platelet Count 183 thou/uL (130-400); RBC Distribution Width 13.9 % (11.5-14.5); Red Blood Cell (RBC) Count 4.08 mill/uL (4.20-5.40); White Blood Cell (WBC) Count 12.9 thou/uL (4.8-10.8)
[2020-12-13 04:14] LABS: Anion Gap 10 mmol/L (10-20); BUN (Urea Nitrogen) 23 mg/dL (9.8-20.1); Calc. Creatinine Clearance 111 mL/min (70-130); Calcium 9.8 mg/dL (7.8-10.44); Carbon Dioxide 35 mmol/L (23-31); Chloride 103 mmol/L (98-107); Glucose 114 mg/dL (80-115); Potassium 3.8 mmol/L (3.5-5.1); Sodium 144 mmol/L (136-145)
[2020-12-13] MEDS: methylPREDNISolone Sod Succ 40 MG VIAL IVP SCH (05:04)
[2020-12-13] MEDS: Budesonide 0.5 MG/2 ML NEB NEB SCH ×2 (06:27→18:52)
[2020-12-13 07:00] LABS: Actual Bicarbonate (HCO3a) 38.2 mEq/L (22-28); Base Excess (BEa) 10.4 mEq/L (-2.0 to +3.0); Calcium, Ionized (arterial) 1.21 mmol/L (1.12-1.30); Carboxyhemoglobin (COHb) 0.6 gm% (0.0-3.0); Hemoglobin (Hb) 12.5 g/dL (12.0-16.0); O2 Tension (PaO2), arterial 67.9 mmHg (> 80.0); Potassium - ABG Lab 3.73 mmol/L (3.70-5.30); pH, Arterial 7.37 (7.35-7.45)
[2020-12-13 07:13] LABS: CO2 Tension 67.7 mmHg (35.0-45.0); Puncture Site RRA
[2020-12-13] MEDS: Lithium Carbonate 150 MG CAP PO SCH ×3 (08:54→20:34)
[2020-12-13] MEDS: Benztropine 1 MG TAB PO SCH ×2 (08:54→20:34)
[2020-12-13] MEDS: Enoxaparin Sodium 40 MG/0.4 ML SYRINGE SC SCH (08:56)
[2020-12-13] MEDS: Amoxicillin/Potassium Clav 500 MG TAB PO SCH ×2 (09:31→20:34)
[2020-12-13 14:05] VITALS: BMI 31.0
[2020-12-14] MEDS: Budesonide 0.5 MG/2 ML NEB NEB SCH ×2 (08:05→20:30)
[2020-12-14] MEDS: Enoxaparin Sodium 40 MG/0.4 ML SYRINGE SC SCH (08:33)
[2020-12-14] MEDS: predniSONE 20 MG TAB PO SCH (08:34)
[2020-12-14] MEDS: Amoxicillin/Potassium Clav 500 MG TAB PO SCH ×2 (08:34→21:10)
[2020-12-14] MEDS: Lithium Carbonate 150 MG CAP PO SCH ×3 (08:34→21:10)
[2020-12-14] MEDS: Benztropine 1 MG TAB PO SCH ×2 (08:34→21:11)
[2020-12-15 06:27] LABS: #Eosinphils 0.1 thou/uL (0.0-0.7); #Lymphocytes 1.3 thou/uL (1.20-3.40); #Monocytes 0.5 thou/uL (0.11-0.59); #Neutrophils 5.7 thou/uL (1.40-6.50); %Basophils 0.1 % (0.0-1.0); %Lymphocytes 16.5 % (21.0-51.0); %Monocytes 6.5 % (0.0-10.0); Hemoglobin 13.2 g/dL (12.0-16.0); Mean Corpuscular HGB CONC 32.3 g/dL (32.0-36.0); Mean Corpuscular Hemoglobin 31.2 pg (27.0-31.0); Mean Corpuscular Volume 96.5 fL (78.0-98.0); Mean Platelet Volume 8.5 fL (7.4-10.4); Platelet Count 197 thou/uL (130-400); RBC Distribution Width 13.6 % (11.5-14.5); Red Blood Cell (RBC) Count 4.25 mill/uL (4.20-5.40); White Blood Cell (WBC) Count 7.6 thou/uL (4.8-10.8)
[2020-12-15 06:44] LABS: Anion Gap 11 mmol/L (10-20); BUN (Urea Nitrogen) 12 mg/dL (9.8-20.1); Calc. Creatinine Clearance 118 mL/min (70-130); Calcium 9.7 mg/dL (7.8-10.44); Carbon Dioxide 37 mmol/L (23-31); Chloride 100 mmol/L (98-107); Glucose 108 mg/dL (80-115); Potassium 3.8 mmol/L (3.5-5.1); Sodium 144 mmol/L (136-145)
[2020-12-15] MEDS: predniSONE 20 MG TAB PO SCH (09:39)
[2020-12-15] MEDS: Benztropine 1 MG TAB PO SCH ×2 (09:39→22:51)
[2020-12-15] MEDS: Lithium Carbonate 150 MG CAP PO SCH ×3 (09:40→22:51)
[2020-12-15] MEDS: Amoxicillin/Potassium Clav 500 MG TAB PO SCH ×2 (09:40→22:51)
[2020-12-15] MEDS: Enoxaparin Sodium 40 MG/0.4 ML SYRINGE SC SCH (09:40)
[2020-12-15] MEDS: Budesonide 0.5 MG/2 ML NEB NEB SCH (10:22)
[2020-12-15] MEDS: Ipratropium/Albuterol Sulfate 4 GM AER IH SCH ×2 (14:05→17:54)
[2020-12-15] MEDS: Mometasone 100 MCG/PUFF (1 INHALER) INH SCH (17:54)
[2020-12-16] MEDS: Ipratropium/Albuterol Sulfate 4 GM AER IH SCH ×7 (01:37→22:53)
[2020-12-16] MEDS: Mometasone 100 MCG/PUFF (1 INHALER) INH SCH ×2 (05:41→17:10)
[2020-12-16] MEDS: Lithium Carbonate 150 MG CAP PO SCH ×3 (08:19→20:47)
[2020-12-16] MEDS: Benztropine 1 MG TAB PO SCH ×2 (08:19→20:47)
[2020-12-16] MEDS: predniSONE 20 MG TAB PO SCH (08:19)
[2020-12-16] MEDS ORDERED: Enoxaparin Sodium 60 MG/0.6 ML SYRINGE SC SCH (09:00)
[2020-12-16] MEDS ORDERED: predniSONE 20 MG TAB PO SCH (09:30)
[2020-12-16] MEDS: Enoxaparin Sodium 40 MG/0.4 ML SYRINGE SC SCH (11:16)
[2020-12-16] MEDS: Amoxicillin/Potassium Clav 500 MG TAB PO SCH ×2 (11:16→20:47)
[2020-12-17] MEDS: Ipratropium/Albuterol Sulfate 4 GM AER IH SCH ×2 (02:40→05:27)
[2020-12-17 04:01] VITALS: TEMP 97.8
[2020-12-17] MEDS: Mometasone 100 MCG/PUFF (1 INHALER) INH SCH (05:26)
[2020-12-17] MEDS ORDERED: predniSONE 20 MG TAB PO SCH (08:00)
[2020-12-17] MEDS: Amoxicillin/Potassium Clav 500 MG TAB PO SCH (08:02)
[2020-12-17] MEDS: Benztropine 1 MG TAB PO SCH (08:02)
[2020-12-17] MEDS: Lithium Carbonate 150 MG CAP PO SCH (08:03)
[2020-12-17] MEDS: Enoxaparin Sodium 40 MG/0.4 ML SYRINGE SC SCH (08:03)
[2020-12-17 09:47] VITALS: BP 152/82
[2020-12-17 12:49] LABS: SARS-CoV-2 PCR by NAA Not Detected (NotDetected)
== END 2020-12-17 16:28 | DRG 871 ==
LOC: ERS 01:01 → ERHOLD 03:54 → CCU 15:18 → PACU-TCU 18:00 → CCU 12-11 21:38 → IMCU/EMU 12-13 15:26 → T4-B 12-14 11:36
PROVIDERS: ADMIT Student in an Organized Health Care Education/Training Program; ATTEND Internal Medicine
PROC: 5A1945Z Respiratory Ventilation, 24-96 Consecutive Hours (ICD-10-PCS; principal; 2020-12-10)
PROC: 0BH17EZ Insertion of Endotracheal Airway into Trachea, Via Natural or Artificial Opening (ICD-10-PCS; 2020-12-10)
PROC: 0D9670Z Drainage of Stomach with Drainage Device, Via Natural or Artificial Opening (ICD-10-PCS; 2020-12-10)
PROC: 3E0G76Z Introduction of Nutritional Substance into Upper GI, Via Natural or Artificial Opening (ICD-10-PCS; 2020-12-11)
PROC: 5A09357 Assistance with Respiratory Ventilation, Less than 24 Consecutive Hours, Continuous Positive Airway Pressure (ICD-10-PCS; 2020-12-12)
PROC: 8E0ZXY6 Isolation (ICD-10-PCS; 2020-12-15)
DX: A41.9 Sepsis, unspecified organism (principal); J96.21 Acute and chronic respiratory failure with hypoxia; J96.22 Acute and chronic respiratory failure with hypercapnia; G93.41 Metabolic encephalopathy; J18.9 Pneumonia, unspecified organism; J44.1 Chronic obstructive pulmonary disease with (acute) exacerbation; J98.11 Atelectasis; F31.64 Bipolar disorder, current episode mixed, severe, with psychotic features; Z20.822 Contact with and (suspected) exposure to COVID-19; F17.210 Nicotine dependence, cigarettes, uncomplicated; G20 Parkinson's disease; F02.80 Dementia in other diseases classified elsewhere, unspecified severity, without behavioral disturbance, psychotic disturbance, mood disturbance, and anxiety; F41.9 Anxiety disorder, unspecified; Z78.1 Physical restraint status; Z85.3 Personal history of malignant neoplasm of breast; Z88.6 Allergy status to analgesic agent; Z91.041 Radiographic dye allergy status; Z88.5 Allergy status to narcotic agent; Z88.2 Allergy status to sulfonamides; Z88.8 Allergy status to other drugs, medicaments and biological substances; Z91.018 Allergy to other foods; Z79.899 Other long term (current) drug therapy; Z79.51 Long term (current) use of inhaled steroids; Z79.52 Long term (current) use of systemic steroids; Z79.811 Long term (current) use of aromatase inhibitors; Z90.11 Acquired absence of right breast and nipple; R65.20 Severe sepsis without septic shock
CPT/HCPCS: 36415; 36416; 36600; 70450; 71045; 74177; 80048; 80053; 80306; 80307; 81003; 81015; 82805; 83605; 83690; 83880; 84443; 84484; 85025; 93005; 94002; 94003; 94640; J0696; J1200; J1650; J2060; J2543; J2704; J2920; J2930; J3010; J3490; J7512; J7620; J7626; S0028; U0002; U0003; U0005